=== PATIENT | male | born 1935 | race Caucasian/White ===

== ENCOUNTER 2018-11-23 11:45 | Inpatient (IN) ==
[2018-11-23] MEDS ORDERED: NS 1,000 ML IV ONE (12:45)
[2018-11-23] MEDS ORDERED: MORPHINE IV ONE (12:48)
[2018-11-23] MEDS ORDERED: CLINDAMYCIN 600 MG/NS 600 MG/50 ML IVPB IV ONE (12:49)
--- NOTE | 2018-11-23 13:04 | Diag Imaging Result Doc PS360 ---
EXAM: FOOT COMPLETE LEFT 11/23/2018 HISTORY: diabetic foot TECHNIQUE: Three views COMMENT: There is no evidence of fracture, dislocation, periosteal reaction, erosion, or sclerosis. There is some plantar spurring of the calcaneus. There are vascular calcifications. IMPRESSION: No acute bony abnormality. Electronically signed by Aaron Monte 11/23/2018 1:01 PM
[2018-11-23 13:28] LABS: BASO# 0.02 X1000 (0.0-0.2); BASO% 0.1 % (0.0-0.8); EOS# 0.18 X1000 (0.0-0.7); EOS% 1.2 % (0.0-10.0); HEMATOCRIT 38.2 % (42.0-52.0); HEMOGLOBIN 12.6 g/dL (14.0-18.0); LYMPH# 2.73 X1000 (1.2-3.4); LYMPH% 18.4 % (20.5-51.1); MCH 31.8 PG (27-31); MCV 96.5 FL (81-99); MONO# 1.24 X1000 (0.11-0.59); MONO% 8.4 % (1.7-9.3); MPV 9.7 FL (7.4-10.4); NEUT# 10.67 X1000 (1.4-6.5); NEUT% 71.9 % (42.2-75.2); PLT 391 X1000 (130-400); RBC 3.96 XMIL (4.7-6.1); RDW 12.5 % (11.5-14.5); WBC 14.84 X1000 (4.8-10.8)
[2018-11-23] MEDS ORDERED: CLINDAMYCIN 600 MG/D5W 600 MG/50 ML IVPB IV ONE (13:35)
[2018-11-23 13:49] LABS: ALBUMIN 3.9 g/dL (3.5-5.0); CALCIUM 9.5 mg/dL (8.8-10.2); CREATININE 2.9 mg/dL (0.7-1.2); POTASSIUM 4.5 mmol/L (3.5-5.1); TOTAL BILIRUBIN 0.35 mg/dL (0.20-1.00); TOTAL PROTEIN 7.7 g/dL (6.3-8.3)
--- NOTE | 2018-11-23 14:18 | PROVIDER DOCUMENTATION ---
This chart was entered by Codi Choi Scribe, acting as scribe for Nolan Clifford MD. HPI-Rash/Wound/ReCheck - General Chief Complaint: Sores/Lesions Stated Complaint: LEFT FOOT INFECTION,DIABETIC Time Seen by Provider: 11/23/18 12:09 Source: patient Allergies/Adverse Reactions: Allergies Allergy/AdvReac Type Severity Reaction Status Date / Time No Known Allergies Allergy Verified 11/23/18 12:09 Home Medications: Home Medication List Medication Instructions Recorded Confirmed Last Taken Type Amlodipine [Norvasc] 10 mg PO DAILY 05/14/13 05/14/13 05/13/13 09:00 History Aspirin [Aspirin EC] 81 mg PO DAILY 05/14/13 05/14/13 05/07/13 History Carvedilol [Coreg] 6.25 mg PO DAILY 05/14/13 05/14/13 05/13/13 09:00 History Garlic 1 each PO DAILY 05/14/13 05/14/13 05/13/13 09:00 History Glimepiride 4 mg PO DAILY 05/14/13 05/14/13 05/13/13 09:00 History Lisinopril/Hydrochlorothiazide 1 each PO DAILY 05/14/13 05/14/13 05/13/13 09:00 History [Lisinopril-Hctz 20-12.5 mg Tab] Metformin HCl [Metformin HCl ER] 1,000 mg PO DAILY 05/14/13 05/14/13 05/13/13 12 :00 History Naproxen Sodium [Aleve] 220 mg PO BID 05/14/13 05/14/13 05/07/13 History [place]-3 Fatty Acids [Fish Oil] 1,000 mg PO DAILY 05/14/13 05/14/13 05/13/13 09: 00 History PRAVAstatin [Pravachol] 40 mg PO DAILY 05/14/13 05/14/13 05/13/13 21:00 History Vitamin E [Formula E] 400 unit PO DAILY 05/14/13 05/14/13 05/13/13 09:00 History - History of Present Illness-Dermatology Nature of Presenting Problem: 83 yom presents to the ed with c/o diabetic foot ulcerations between digits on left foot for 1 week. pt went to walking clinic and sent to ed due to abnormal labs Location: reports: other (left foot) Quality: reports: painful Severity: reports: moderate Onset/Duration: reports: 1 week ago Timing: reports: still present, getting worse Context/Associated Symptoms: reports: edema, tender area (left foot), other ( diabetic ulcerations) Identifiable cause?: Yes ( ulcerations) Locality of Occurance: Home Similar Symptoms Previously?: Yes Recently seen or treated by another doctor?: Yes Review of Systems - Adult - REVIEW OF SYSTEMS - ADULT Constitutional: reports: no symptoms reported Eyes: denies: blurred vision, double vision Ears, Nose, Mouth & Throat: reports: no symptoms reported Cardiovascular: denies: chest pain, palpitations Respiratory: denies: cough, shortness of breath, wheezing Gastrointestinal: denies: abdominal pain, diarrhea, nausea, vomiting Genitourinary: reports: no symptoms reported Musculoskeletal: denies: back pain, other Integumentary: reports: see HPI, skin sores/ulcer Neurological: denies: dizziness/vertigo, headache/migraines Psychiatric: reports: no symptoms reported Endocrine: reports: no symptoms reported Hematologic/Lymphatic: reports: no symptoms reported Allergic/Immunologic: reports: no symptoms reported All Other Systems: Reviewed and Negative Past History - Adult - PAST MEDICAL HISTORY-ADULT Review of Records: reports: Old Records Reviewed, Nursing Assessment Review, Medications Reviewed, Social history reviewed & non-contributory. Major Childhood Illnesses: reports: denies history Cardiovascular: reports: HTN, hyperlipidemia Respiratory: reports: denies history Gastrointestinal: reports: GERD Genitourinary: reports: denies history Musculoskeletal: reports: chronic pain Neurological: reports: denies history Endocrine/Immune: reports: Diabetes Diabetes Type: Type 2 Other Conditions: reports: denies history - PRIOR SURGERIES/PROCEDURES Surgical/Procedure History: reports: cholecystectomy, back/neck - IMMUNIZATION STATUS Childhood Immunizations: See Nurse Assessment Flu Vaccine: See Nurse Assessment - FAMILY HISTORY Family History: reviewed, not pertinent - SOCIAL HISTORY Smoking: denies Substance Use: denies Alcohol Use Frequency: never Living Situation: family Physical Exam-General - PHYSICAL EXAM-ADULT Initial Vital Signs Reviewed: Yes - CONSTITUTIONAL General Appearance: alert, no apparent distress - EYES Eyes: PERRL/EOMI, pink conjunctivae - HEAD, EARS, NOSE, MOUTH & THROAT HENMT: normocephalic/atraumatic, moist mucous membranes, normal ENT inspection - NECK Neck: full range of motion, supple, normal inspection - RESPIRATORY Respiratory: chest non-tender, lungs clear, normal breath sounds - CARDIOVASCULAR Cardiovascular: normal peripheral pulses, regular rate, rhythm - GASTROINTESTINAL (ABDOMEN) Abdominal Exam: normal bowel sounds, non tender, soft - LYMPHATIC Lymphatic: no adenopathy - MUSCULOSKELETAL Back Exam: normal inspection, no CVA tenderness, no vertebral tenderness Extremity: normal range of motion, non-tender, normal capillary refill, swelling , tenderness, other (ulceration in between 2/3 3/4 4/5 sigit with pus and erythema L foot.). negative: normal gait (can not bear weight) - SKIN Integumentary: normal color, normal turgor, warm/dry - NEUROLOGIC Neurologic: grossly normal, no motor/sensory deficits - PSYCHIATRIC Psych/Mental Status: normal mood/affect, normal thought content, normal thought process, oriented x 3 Progress - PLAN OF CARE/RESULTS Progress/Plan/Lab Results: Vital Signs - 8 hr 11/23/18 11:48 Temperature 97.9 F Pulse Rate 80 Respiratory Rate 18 Blood Pressure 143/61 O2 Sat by Pulse Oximetry 98 Laboratory Results - last 24 hr 11/23/18 11/23/18 13:04 13:04 WBC 14.84 H RBC 3.96 L Hgb 12.6 L Hct 38.2 L MCV 96.5 MCH 31.8 H MCHC 33.0 RDW Std Deviation 12.5 Plt Count 391 MPV 9.7 Neut % (Auto) 71.9 Lymph % (Auto) 18.4 L [place] % (Auto) 8.4 Eos % (Auto) 1.2 Baso % (Auto) 0.1 Neut # (Auto) 10.67 H Lymph # (Auto) 2.73 [place] # (Auto) 1.24 H Eos # (Auto) 0.18 Baso # (Auto) 0.02 Sodium 140 Potassium 4.5 Chloride 102 Carbon Dioxide 21 L Anion Gap 17 BUN 53 H Creatinine 2.9 H Estimated GFR/1.73 m2 21 BUN/Creatinine Ratio 18 Glucose 131 H Calculated Osmolality 296 Calcium 9.5 Total Bilirubin 0.35 AST 15 ALT 13 Alkaline Phosphatase 91 Total Protein 7.7 Albumin 3.9 Globulin 3.8 Albumin/Globulin Ratio 1.0 Orders Category Date Time Status Saline Loc NOW Care 11/23/18 12:45 Active FOOT COMPLETE LEFT [RAD] Stat Exams 11/23/18 12:46 Completed CBC WITH ELECTRONIC DIFF [HEME] Stat Lab 11/23/18 13:04 Completed COMPREHENSIVE METABOLIC PANEL [CHEM] Stat Lab 11/23/18 13:04 Completed 0.9% Sodium Chloride Inj [Ns] 1,000 ml Med 11/23/18 12:45 Discontinued IV 999 mls/hr Clindamycin 600 mg/D5w Med 11/23/18 13:35 Discontinued 600 mg in 50 ml IV NOW Morphine Med 11/23/18 12:48 Discontinued 4 mg IV NOW ONE Result Diagrams: 11/23/18 13:04 11/23/18 13:04 - REASSESSMENT Reassessment #1 Time Reassessed: 13:09 (dr at bedside) Status: unchanged - XRAY 1 XRAY: Left XRAY Study: Foot (EXAM: FOOT COMPLETE LEFT 11/23/2018 HISTORY: diabetic foot TECHNIQUE: Three views COMMENT: There is no evidence of fracture, dislocation, periosteal reaction, erosion, or sclerosis. There is some plantar spurring of the calcaneus. There are vascular calcifications. IMPRESSION: No acute bony abnormality. Electronically signed by Aaron Monte 11/23/2018 1: 01 PM 11/23/18 1301 Interpreting Physician: Aaron Monte MD Dictated Date/Time: 11/23/18 1300 cc: Nolan Clifford MD; Pernell Méndez) - CONSULTS/PCP/HOSPITALIST Notification #1 *Consult/PCP/Hospitalist*: Pineda morejon , for Dr Pizano Time Discussed: 14:17 Consult Disposition: Admit Departure - Departure Date of Disposition Decision: 11/23/18 Time of Disposition Decision: 14:17 DIAGNOSIS: Diabetic foot infection Disposition: ADMITTED INPATIENT 09 Certified Medical Emergency: Emergent Condition: Fair Referrals and Follow-Ups: Pernell Méndez [Primary Care Provider] - - Critical Care Note This patient required my direct & personal management of CC.: Yes Total Time (mins): 38 Critical Care Statement: This patient required my direct personal management to treat or rule out processes, the absence of which, could potentiallly result in sudden, clinically significant life or limb threatening deterioration. Attestation - Physician/ [place] Attestation Patient care was provided by Advanced Practice Provider:: No The physician spent face to face time with patient:: Yes Advanced Practice Provider documentation review:: Supervising physician onsite and consulted in the evaluation and care of this patient. The physician did have a face to face encounter with the patient. This chart was documented by the indicated scribe, (Codi Choi Scribe) and accurately reflects the services I performed and decisions made by me, Nolan Clifford MD, as attested by the provider's signature.
[2018-11-23] MEDS ORDERED: VANCOMYCIN IV PER PHARMACY MISC SCH (15:34)
--- NOTE | 2018-11-23 16:21 | HISTORY AND PHYSICAL ---
CHIEF COMPLAINT: Left sore foot. HISTORY OF PRESENT ILLNESS: Mr. Hickey is an 83-year-old gentleman, who carries a past medical history of diabetes mellitus, hypertension, hyperlipidemia, probable paroxysmal atrial fibrillation after having back surgery a year and a half ago, and he states he was never put on any blood thinners for unknown reason. He states his diabetes is controlled with Actos. He has been off metformin for 2 years now. He does not check his blood sugars regularly, and he reports that he does have palpitations every now and then; however, not today on the day of admission. He states several weeks ago he was having some tingling in his left lower extremity. He was supposed to have a MRI of his back and leg today, however he canceled the appointment. He stated several weeks ago he began soaking it, putting Neosporin as well as what he described as some numbing back spray on his foot to help with the tingling sensation. He does have a fourth toe that is blue. The whole foot appears to be erythematous, does have 1+ pitting edema. He does have what appears to be some pus in between his great toe and second toe. It is tender to the touch. He normally gets around with a walker, but is getting to the point where it is hard for him to get up and move around. He cannot handle a sock or sheet on that lower extremity, so he went to the walk[facility] clinic [facility], who sent him to the ED for abnormal labs. He was found to have an elevated BUN and creatinine. He has never been told that he has chronic kidney disease; however, over a year ago he had a creatinine of 1.9. Today, he has a creatinine of 2.9 and a BUN of 53, as well as an elevated white count of 14. He has denied any fever, chills. No chest pain. No palpitations. No nausea, vomiting, diarrhea. He will be admitted to medical telemetry with IV antibiotics for diabetic foot infection with a consult with Infectious Disease, General Surgery and Wound Care. PAST MEDICAL HISTORY: 1. Possible paroxysmal atrial fibrillation after back surgery. Patient does report every now and then he continues to feel palpitations. 2. Hypertension. 3. Diabetes mellitus. 4. Hyperlipidemia. SURGICAL HISTORY: 1. Back surgery a year and a half ago. 2. Cholecystectomy 10 years ago. 3. Neck surgery 30 years ago. SOCIAL HISTORY: He is a . He lives in [place]. He is retired from [employer]. He has 3 sons who live out of town, 7 grandchildren and 13 great-grandchildren. He was a smoker for many years, but quit 30 years ago and, since that time, he has dipped [place] 1 can every day and a half. Denies any alcohol or illicit drug use. FAMILY HISTORY: Does not recall any coronary artery disease. ALLERGIES: No known drug allergies. HOME MEDICATIONS: Have not been reconciled. PHYSICAL EXAMINATION: VITAL SIGNS: Temperature is 97.9 degrees, heart rate 80, respirations 18, blood pressure 143/61, O2 is 98% on room air. GENERAL: Mr. Hickey is a pleasant 83-year-old male who is sitting up in the bed in no acute distress. HEENT: Atraumatic, normocephalic. PERRL. NECK: Supple. Trachea midline. CV: S1, S2 appreciated. Possible murmur. No gallops or rubs. No JVD. Bilateral lower extremity pulses are palpable. He does have 1+ pitting edema to the left lower extremity secondary to his infection. PULMONARY: Bilateral breath sounds. Clear to auscultation. No rales, rhonchi or wheezes. GI: Soft, nontender, nondistended. Positive bowel sounds 4 quadrants. EXTREMITIES: No clubbing or cyanosis noted. NEUROLOGIC: Alert and oriented x4. Follows commands. Moves all extremities. No focal deficits noted. SKIN: Warm, dry and intact except for left lower extremity as described in HPI. DIAGNOSTIC DATA: Left foot x-ray: No acute bony abnormality. LABORATORY DATA: White count 14, H and H 12 and 38, platelet count is 391. Chemistry: Sodium 140, potassium 4.5. BUN 53, creatinine 2.9, blood glucose is 131. ASSESSMENT AND PLAN: 1. Left diabetic foot infection. We will start vancomycin and Zosyn. Consult Wound Care, Infectious Disease and General Surgery. Magnetic resonance imaging of the left lower extremity. Continue with morphine for pain control. 2. Acute kidney injury on probable chronic kidney disease. We will check urine studies. 3. Diabetes mellitus. We will continue with pattern blood sugars and sliding scale insulin. Check hemoglobin A1c in the morning. Continue intravenous fluids. 4. Hypertension. Will continue home medications when reconciled. 5. Hyperlipidemia. Will continue statin. 6. Paroxysmal atrial fibrillation. The patient states he has not been on any anticoagulation for this. However, he is concerned over frequent palpitations. We will continue to monitor him on telemetry and continue beta kim. 7. Gastrointestinal prophylaxis. Will continue Prilosec. 8. Deep venous thrombosis prophylaxis. Continue heparin subcutaneously. Further recommendation to follow laboratory data, physician evaluation, and diagnostic data. Dictated by TALIB Enciso for Darline Pizano MD cc: MD Pernell Rivero MD Leroy F. Harris, MD Lynn R. Buckner, MD I performed a face to face encounter on this patient. I reviewed all imaging and labs on this patient. I agree with the H&P as dictated. The patient presented to the ER with a chief complaint of pain, swelling and erythema involving his left foot. In the ER, the patient was noted to have purulent discharge between his left great toe and the second toe. Also his foot was dusky in color and cold to touch. The patient will be admitted to the medical floor on telemetry. Will culture the discharge from the left foot and consult with ID and general surgery. The patient will be started on broad spectrum antibiotics. ATILIOD
--- NOTE | 2018-11-23 16:45 | Diag Imaging Result Doc PS360 ---
EXAM: US RENAL 2 (RETROPER) COMPLETE 11/23/2018 HISTORY: acute kidney injury TECHNIQUE: Renal ultrasound COMMENT: The urinary bladder is not distended. There is no evidence of hydronephrosis. Both kidneys are somewhat hyperechoic. The right measures 9.3 x 4.5 x 4.6 cm the left is 9.2 x 4.6 x 5.0 cm. IMPRESSION: No evidence of obstructive uropathy. The possibility of medical renal disease cannot be excluded. Electronically signed by Aaron Monte 11/23/2018 4:43 PM
--- NOTE | 2018-11-23 17:10 | EKG Report ---
Test Performed on : 11/23/2018 4:50:39 PM Test Reason : tachycardia Blood Pressure : / mmHG Vent. Rate : 075 BPM Atrial Rate : 075 BPM P-R Int : 168 ms QRS Dur : 084 ms QT Int : 388 ms P-R-T Axes : 055 006 107 degrees QTc Int : 433 ms Normal sinus rhythm. Nonspecific ST and T wave abnormality Abnormal ECG When compared with ECG of 23-NOV-2018 16:49, (Unconfirmed) No significant change was found Confirmed by Alvina EMERY, Mainor Fisher ([id number]) on 11/24/2018 8:53:50 AM
[2018-11-23] MEDS: ZOSYN 2.25 GM in NS 50 ML IV SCH (17:45)
[2018-11-23] MEDS: NS 1,000 ML IV SCH (17:45)
[2018-11-23] MEDS: HEPARIN SUBQ SCH (17:46)
[2018-11-23] MEDS ORDERED: DILAUDID IV PRN (18:29)
[2018-11-23 18:50] LABS: URINE SOURCE CLEAN CATCH
[2018-11-23 18:55] LABS: BILIRUBIN URINE NEGATIVE (NEGATIVE); BLOOD URINE NEGATIVE (NEGATIVE); COLOR YELLOW; GLUCOSE URINE NEGATIVE (NEGATIVE); KETONE URINE NEGATIVE (NEGATIVE); LEUKOCYTES URINE NEGATIVE (NEGATIVE); NITRITE URINE NEGATIVE (NEGATIVE); PROTEIN URINE 100 mg/dL (NEGATIVE); SP GRAVITY URINE 1.006; TURBIDITY URINE CLEAR (CLEAR); UROBILINOGEN URINE NORMAL (NORMAL)
[2018-11-23 18:56] LABS: UR EPITHELIAL CELLS <10 /HPF (<10); URINE BACTERIA NEGATIVE /HPF; URINE RBC <10 /HPF (<10); URINE WBC <10 /HPF (<10)
[2018-11-23 19:14] LABS: UR CREAT RANDOM 52.8 mg/dL (14-26)
[2018-11-23] MEDS: HUMALOG SUBQ SCH (22:40)
[2018-11-23] MEDS: ZYVOX PO SCH (22:40)
[2018-11-24] MEDS: ZOFRAN IV PRN (00:23)
[2018-11-24] MEDS: ZOSYN 2.25 GM in NS 50 ML IV SCH ×5 (00:24→23:27)
--- NOTE | 2018-11-24 02:14 | INFECTIOUS DISEASE CONSULT REP ---
DATE: 11/23/2018 CONCLUSION: The patient has cellulitis and ischemia of his left foot. RECOMMENDATIONS: I agree with treating the patient with Zyvox and Zosyn. The patient had purulent material between the toes, and I have taken a culture of them. DISCUSSION: The patient tells me his foot became erythematous last week, and it started swelling. He placed some medications that he had at home on the foot. He has not had fever or chills, but his foot is very painful. LABORATORY STUDIES: Thus far, show a CBC with a white count of 14,840, hemoglobin 12.6, and platelet count 391,000. Creatinine is 2.9. GFR is 21. Liver function studies are normal. X-ray of the patient's left foot shows no bony abnormality. PAST MEDICAL HISTORY/REVIEW OF SYSTEMS: Eyes and Ears: He has decreased vision and hearing. Neck: No stiffness. Respiratory: No cough or shortness of breath. Cardiac: No chest pain or palpitations. GI: No nausea, vomiting, or diarrhea. : No dysuria or flank pain. Neurologic: The patient does not have any motor function loss. He does not have seizures. Bones, Joints, Muscles: See present illness. Integument: No rashes. PREVIOUS HOSPITALIZATIONS AND OPERATIONS: He has had his spinal surgery on the C-spine and lumbar spine. Metal was put in during the procedure. MEDICAL DISEASES: Positive for diabetes mellitus, hypertension, hyperlipidemia, and degenerative joint disease of the spine. INFECTIOUS DISEASE HISTORY: Negative for pneumonia and UTI. FAMILY HISTORY: Positive for diabetes mellitus and cancer. SOCIAL HISTORY: The patient is a . He lives in [place]. He lives alone. He does not have any drug allergies. He does not have any pets at home. He is retired from his work. The patient does not smoke cigarettes, drink alcoholic beverages, or abuse drugs. HOME MEDICATIONS: Norvasc, aspirin, Coreg, glimepiride, lisinopril/hydrochlorothiazide, metformin, naproxen, and Pravachol. PHYSICAL EXAMINATION: Vital Signs: Temperature is 98.3, pulse 78, respirations 18, blood pressure 140/47. The patient is 5 feet 6 inches tall, weighs 200 pounds. General: This is an obese, elderly male, in no acute distress. Head, Eyes, Ears, Nose, and Throat: He can hear my spoken words and see near objects. He does not have any white patches on his tongue. I did not see any caries. Neck: No meningismus. Thorax: No increased AP diameter of the chest. Lungs: Clear to auscultation. Cardiovascular: There were markedly diminished peripheral pulses in the left foot. In fact, I could not feel any peripheral pulses. The left foot was erythematous, and the 4th toe was ischemic, with a purplish discoloration. Neurologic: The patient is alert. He can move his extremities. There is no tremor. His sensory function was intact to touch. The patient's memory as regarding his medical history was good. Thank you for the consult. cc: Zak Russo MD
[2018-11-24] MEDS: DILAUDID IV PRN ×3 (03:36→15:57)
[2018-11-24] MEDS: HEPARIN SUBQ SCH ×2 (03:36→15:57)
[2018-11-24] MEDS: PRILOSEC PO SCH (06:54)
[2018-11-24] MEDS: HUMALOG SUBQ SCH ×4 (07:00→21:52)
[2018-11-24 07:16] LABS: BASO# 0.02 X1000 (0.0-0.2); BASO% 0.1 % (0.0-0.8); EOS# 0.11 X1000 (0.0-0.7); EOS% 0.8 % (0.0-10.0); HEMATOCRIT 37.6 % (42.0-52.0); HEMOGLOBIN 12.1 g/dL (14.0-18.0); IMM GRAN# 0.06 X1000 (0.0-0.04); IMM GRAN% 0.4 % (0.0-0.5); LYMPH# 4.07 X1000 (1.2-3.4); LYMPH% 30.2 % (20.5-51.1); MCH 31.3 PG (27-31); MCHC 32.2 g/dL (33-37); MCV 97.4 FL (81-99); MONO# 1.11 X1000 (0.11-0.59); MONO% 8.2 % (1.7-9.3); MPV 9.9 FL (7.4-10.4); NEUT# 8.12 X1000 (1.4-6.5); NEUT% 60.3 % (42.2-75.2); PLT 406 X1000 (130-400); RBC 3.86 XMIL (4.7-6.1); RDW 12.6 % (11.5-14.5); WBC 13.49 X1000 (4.8-10.8)
[2018-11-24 07:38] LABS: HEMOGLOBIN A1C 6.4 % (4.8-6.0)
--- NOTE | 2018-11-24 07:48 | CONSULTATION ---
DATE OF CONSULTATION: 11/24/2018 REASON FOR CONSULTATION: Mr. Ryan Hickey is an 83-year-old white male diabetic who for several weeks has been experiencing left foot pain. He has required a walker to help him walk because of this left foot. He does have a history of atrial fibrillation. He is not on anticoagulation. Evidently was seen by his family who did not like the look of his left foot and he was told to go to the doctor. He went [facility] and then was sent to our emergency department for further evaluation and admission. We were asked to see him because of a left diabetic foot. PAST MEDICAL HISTORY: He has had back surgery and that was complicated by atrial fibrillation postoperatively. Evidently the patient still feels palpitations, hypertension, diabetes mellitus, hyperlipidemia. SURGICAL HISTORY: 1. Back surgery. 2. Cholecystectomy. 3. Neck surgery. SOCIAL HISTORY: He is a . He lives in [place]. He is retired from [employer]. He has 3 sons who live out of town, 7 grandchildren, 13 great grandchildren. He was a smoker for many years but quit 30 years ago and since that time has dipped. FAMILY HISTORY: Coronary artery disease. ALLERGIES: No known drug allergies. HOME MEDICATIONS: Have been reviewed. PHYSICAL EXAMINATION: General: On exam, Mr. Hickey is an older white male, no acute distress. HEENT: No jaundice. No oral lesions. No cervical or supraclavicular lymphadenopathy. Heart: His heart appears to have a regular rate this morning. Lungs: His lungs are clear. Abdomen: Is soft, nontender without palpable mass. He had no costovertebral tenderness. He does have palpable femoral pulses. I could not palpate any pedal pulses in the left foot. The left foot appears to be ischemic. Right foot is warm. He has minimal peripheral edema. No focal deficits. He is awake and cooperative. IMPRESSION: Ischemic left foot in a patient with a history of atrial fibrillation not on anticoagulation. He is on IV antibiotics which I agree with. He probably needs to be anticoagulated. We will get noninvasive vascular studies on him this morning. It appears that this rest pain or ischemia has been going on for several weeks. He may end up losing his left leg. cc: Amelia Choi MD
[2018-11-24 07:55] LABS: ALB/GLOB RATIO 1.1; ALBUMIN 3.7 g/dL (3.5-5.0); CALCIUM 9.2 mg/dL (8.8-10.2); CREATININE 2.7 mg/dL (0.7-1.2); MAGNESIUM 2.2 mg/dL (1.5-2.7); PHOSPHORUS 4.3 mg/dL (2.7-4.5); TOTAL BILIRUBIN 0.37 mg/dL (0.20-1.00); TOTAL PROTEIN 7.2 g/dL (6.3-8.3)
[2018-11-24 08:08] LABS: TSH 2.85 uIUmL (0.27-4.20)
[2018-11-24] MEDS ORDERED: COREG PO SCH (09:00)
[2018-11-24] MEDS ORDERED: NORVASC PO SCH (09:00)
[2018-11-24] MEDS ORDERED: FENTANYL ONE (09:23)
[2018-11-24] MEDS ORDERED: AMIDATE ONE (09:24)
[2018-11-24] MEDS ORDERED: XYLOCAINE-MPF 2% ONE (09:24)
[2018-11-24] MEDS: NS 1,000 ML IV SCH (10:04)
[2018-11-24] MEDS ORDERED: NS 2,000 ML ONE (10:07)
[2018-11-24] MEDS ORDERED: HEPARIN ONE ×2 (10:07)
[2018-11-24] MEDS: ASPIRIN EC PO SCH (12:49)
[2018-11-24] MEDS: ZYVOX PO SCH ×2 (12:50→21:56)
[2018-11-24] MEDS ORDERED: VERSED ONE (12:59)
[2018-11-24] MEDS ORDERED: XYLOCAINE-MPF 1%/EPI 1:200,000 ONE (13:19)
[2018-11-24] MEDS ORDERED: MARCAINE 0.25% PF ONE (13:19)
--- NOTE | 2018-11-24 13:47 | INFECTIOUS DISEASE PROGRESS NO ---
DATE: 11/24/2018 PRESENT ILLNESS: Mr. Hickey has cellulitis and left foot ischemia. He is planning on going to surgery this afternoon for left lower extremity thrombectomy with Dr. Choi. MEDICATIONS: He is receiving Zyvox 600 mg by mouth every 12 hours and Zosyn 2.25 g IV every 6 hours. Today is day 1 of these medications. PHYSICAL EXAMINATION: Vital Signs: Temperature 98.3 degrees, pulse rate 74, respiratory rate 16, blood pressure 131/50, O2 saturation 90% on room air. General: This is an elderly, acutely ill- appearing gentleman. He is lying in the bed, in no acute distress. HEENT: Atraumatic, normocephalic. Oral mucous membranes are pink and moist. Conjunctivae are pink. Neck: Supple. Trachea is midline. Cardiovascular: Heart rate and rhythm are regular. Normal sinus rhythm on the monitor. Systolic murmur noted. Pedal pulses are palpable but diminished bilaterally, +1. There is erythema to the left foot with some purulence noted between the toes. Respiratory: Lung sounds are clear to auscultation. Abdomen: Soft, round, nontender. Bowel sounds are active. Neurologic: He is awake, alert, and oriented. Able to move all extremities with assistance in the bed. LABORATORY AND X-RAY: Today, his white count is 13.49, hemoglobin 12.1, platelet count 406,000. Creatinine is 2.7. GFR is 23. AST 16, ALT 11, alkaline phosphatase 98. His left foot culture requires more incubation. No imaging reports today. ASSESSMENT AND PLAN: Mr. Hickey has cellulitis with ischemia of his left foot. The plan is for him to have thrombectomy, to be done this afternoon. At this point, we will continue his Zosyn and Zyvox as ordered pending final culture results. The previous plans been discussed with and recommended by Dr. Russo. COMORBIDITIES: He is elderly with diabetes mellitus. Dictated by TALIB Harris for Zak Russo MD This chart was documented by, TALIB Harris and accurately reflects the services performed, treatment plan and medical decisions as attested by the providers signature Zak Russo MD. cc: Zak Russo MD [facility]
[2018-11-24] MEDS ORDERED: MORPHINE ONE (14:30)
[2018-11-24 14:48] LABS: URINE SOURCE CATH
[2018-11-24 14:58] LABS: BILIRUBIN URINE NEGATIVE (NEGATIVE); BLOOD URINE NEGATIVE (NEGATIVE); COLOR YELLOW; GLUCOSE URINE NEGATIVE (NEGATIVE); KETONE URINE NEGATIVE (NEGATIVE); LEUKOCYTES URINE NEGATIVE (NEGATIVE); NITRITE URINE NEGATIVE (NEGATIVE); PROTEIN URINE 100 mg/dL (NEGATIVE); SP GRAVITY URINE 1.011; TURBIDITY URINE CLEAR (CLEAR); UROBILINOGEN URINE NORMAL (NORMAL)
[2018-11-24 14:59] LABS: UR EPITHELIAL CELLS <10 /HPF (<10); URINE BACTERIA NEGATIVE /HPF; URINE RBC <10 /HPF (<10); URINE WBC <10 /HPF (<10)
--- NOTE | 2018-11-24 15:28 | PROGRESS NOTE ---
DATE: 11/24/2018 Mr. Hickey underwent a left lower extremity arteriogram today. It appears that his rest pain and ischemic left foot is secondary to chronic peripheral vascular disease instead of an acute thrombus. We, therefore, did not make any incision in the groin or perform a thrombectomy. He has a dressing on his groin that will be removed at 6 p.m., then we need to consider whether to anticoagulate him for his atrial fibrillation and ischemic left foot. We also need to keep track of his creatinine because I did give him about 50 mL of dye for the arteriogram. Further evaluation of his peripheral arteries can be made using CT angiogram. Dr. Cha returns Tuesday and he possibly can evaluate him for any bypass surgery, if that is possible. He may end up requiring a left [id number] amputation. I have discussed this frankly with the patient's family and the patient. Dr. Damir Alba is on the weekend. [facility] will cover for me New Year's week. cc: Amelia Choi MD
[2018-11-24] MEDS ORDERED: SODIUM CHLORIDE 0.9% INJ PRN (15:52)
[2018-11-24] MEDS ORDERED: PHENERGAN IV PRN (15:52)
[2018-11-24] MEDS ORDERED: LR 1,000 ML IV SCH (16:00)
--- NOTE | 2018-11-24 20:19 | PROGRESS NOTE ---
DATE: 11/24/2018 SUBJECTIVE: The patient is resting comfortably in bed. OBJECTIVE: Vital Signs: Temperature 98.6 degrees, blood pressure 105/36, heart rate 75, respirations 18, O2 saturation 98% on 4 L. General: This is a chronically ill-appearing elderly male lying in bed in no acute distress. Heart: S1, S2 normal. Regular rate and rhythm. Lungs: Equal air entry bilaterally. No crackles. No rales. Abdomen: Positive bowel sounds. Soft, nontender, nondistended. Extremities: No edema. No cyanosis. LABS: White blood cell count 13, hemoglobin 12, hematocrit 37, platelets 406,000, sodium 143, potassium 5, chloride 108, CO2 20, BUN 45, creatinine 2.7, glucose 106. A1c 6.4. ASSESSMENT AND PLAN: 1. Ischemic left foot secondary to chronic peripheral vascular disease. The patient underwent a left lower extremity arteriogram today. He did receive some IV dye for this study. Will continue with the current treatment plan. General Surgery is following. The patient is also on antibiotic therapy. 2. Acute kidney injury. The patient's BUN and creatinine are improved with IV fluid hydration. We will monitor the patient's urine output and laboratory data closely since he has received IV dye today. 3. Diabetes mellitus type 2. Continue on sliding scale insulin. 4. Left foot cellulitis. Continue with antibiotic therapy. 5. Leukocytosis. Improved. 6. Gastrointestinal prophylaxis. Continue on omeprazole. 7. Deep vein thrombosis prophylaxis. Continue on heparin. cc: Darline Pizano MD
--- NOTE | 2018-11-24 20:44 | VASCULAR LAB ---
DATE: 11/24/2018 TUBULAR PRODUCTS FABRICATOR: Ivette. REQUESTING PHYSICIAN: Dr. Amelia Choi. INDICATION: Left foot ischemia with wound. FINDINGS: Brachial on the right is 125, on the left 143. High thigh were unobtainable bilaterally. Low thigh greater than 250, on the left 108. Calf on the right is 115, on the left 71. DP on the right is 81, not measured on the left. PT on the right 64, on the left 43. Toe pressure on the right is 28, on the left 1. AB on the right is 0.57, on the left 0.30. Toe brachial index on the right is 0.20, on the left 0.01. SUMMARY: There is severe blunting of the wave forms throughout the bilateral lower extremities. MARIELOS is suppressed to the moderate or severe range bilaterally with near flattening of the wave forms at the ankle on the left toe and foot. Would recommend correlation with angiography as clinically indicated. cc: MD Amelia Campuzano MD
[2018-11-24] MEDS: PERIDEX MT SCH (21:56)
[2018-11-25] MEDS: NORCO-10 PO PRN ×2 (00:47→13:55)
--- NOTE | 2018-11-25 01:34 | OPERATIVE NOTE ---
PROCEDURE DATE: 11/24/2018 PREOPERATIVE DIAGNOSIS: Rest pain left foot. POSTOPERATIVE DIAGNOSIS: Rest pain left foot. PRINCIPAL PROCEDURE: Left lower extremity arteriogram. SURGEON: Amelia Choi MD. ANESTHESIA: General using an LMA. ESTIMATED BLOOD LOSS: 10 mL. DRAINS: None. INDICATIONS FOR PROCEDURE: Mr. Ryan Hickey is an 83-year-old white male who has diabetes which is controlled with oral medications. He used to smoke but that was 30 years ago. He had back surgery 2-3 years ago and evidently he has had problems with his left lower extremity since his back surgery. It is difficult to get an accurate history from him, but it seemed like over the last 2 weeks his left foot has gotten worse. He lives by himself, and he has been having rest pain and has required a wheelchair or a walker to get around his place of living in [place]. He presented to our emergency department because a friend was concerned about the way his left foot looked. He was admitted with the diagnosis of a diabetic foot infection and when I saw him it was clear that he had ischemic left foot. I was unsure of whether he had an acute clot because he does have atrial fibrillation and he has been on no anticoagulation. So we felt we should take him to the operating room after a noninvasive vascular study showed no pulsatile flow below the thigh, and see if there was an acute thrombus that I could remove that would be helpful in blood flow, or whether this was chronic disease. We decided on performing a left lower extremity arteriogram before any incision. FINDINGS: The arteriogram suggested chronic vascular disease and no acute thrombus. He had a palpable left femoral pulse. His profunda was patent. His superficial femoral artery seem to be patent mid way down to the calf but then was occluded, and it did not appear to be a clot that was occluding it but chronic disease. There was reconstitution of part of the popliteal and at least 1 small vessel below the knee. It did not appear that he had an acute clot causing obstruction, but this was chronic disease. DESCRIPTION OF PROCEDURE: The patient was brought to the operating room, placed supine, received general anesthesia, and was ventilated using the LMA. His left lower extremity was prepped and draped within a sterile field. I used an 18-gauge needle in a retrograde stick under ultrasound guidance to access the left common femoral artery. We placed a guidewire through the needle and then we used a 4-Ethiopian sheath over the guidewire. I removed the dilator and guidewire, and I had good back bleeding and we flushed the sheath with heparin saline. We then used the sheaths for our arteriogram. We used 25 mL of dye x2 for 2 different left lower extremity arteriograms with the findings above. He did have some renal dysfunction and we did not want to use any more dye than between 50 and 60 mL. A Ramirez catheter tube was in place. We felt that he would not benefit from any cut down on his left groin and thrombectomy. We therefore aborted the procedure after the arteriogram, we held pressure in the left groin, and plans are for him to go the recovery room and then return to the floor. I was flaco with the family about the poor flow and that it was chronic disease, and that he may lose his leg above the knee. I feel that later this evening or tomorrow we can put him on IV heparin, get a CT angiogram to further delineate his arterial anatomy, and reassess if there is any chance at revascularization of the left foot. cc: Amelia Choi MD
[2018-11-25] MEDS: HEPARIN SUBQ SCH (04:52)
[2018-11-25] MEDS: PRILOSEC PO SCH ×2 (04:52→06:04)
[2018-11-25] MEDS: ZOSYN 2.25 GM in NS 50 ML IV SCH ×4 (04:52→17:12)
[2018-11-25] MEDS: HUMALOG SUBQ SCH (06:02)
[2018-11-25] MEDS ORDERED: D50W SYRINGE IV ONE (06:43)
[2018-11-25 06:47] LABS: BASO# 0.02 X1000 (0.0-0.2); BASO% 0.2 % (0.0-0.8); EOS# 0.13 X1000 (0.0-0.7); HEMATOCRIT 35.7 % (42.0-52.0); HEMOGLOBIN 11.2 g/dL (14.0-18.0); IMM GRAN# 0.04 X1000 (0.0-0.04); IMM GRAN% 0.3 % (0.0-0.5); LYMPH# 3.27 X1000 (1.2-3.4); LYMPH% 26.3 % (20.5-51.1); MCH 31.3 PG (27-31); MCHC 31.4 g/dL (33-37); MCV 99.7 FL (81-99); MONO# 1.07 X1000 (0.11-0.59); MONO% 8.6 % (1.7-9.3); MPV 9.8 FL (7.4-10.4); NEUT# 7.88 X1000 (1.4-6.5); NEUT% 63.6 % (42.2-75.2); PLT 392 X1000 (130-400); RBC 3.58 XMIL (4.7-6.1); RDW 12.9 % (11.5-14.5); WBC 12.41 X1000 (4.8-10.8)
[2018-11-25 07:24] LABS: ALBUMIN 3.2 g/dL (3.5-5.0); CALCIUM 8.9 mg/dL (8.8-10.2); CREATININE 3.1 mg/dL (0.7-1.2); POTASSIUM 4.6 mmol/L (3.5-5.1); TOTAL BILIRUBIN 0.39 mg/dL (0.20-1.00); TOTAL PROTEIN 6.5 g/dL (6.3-8.3)
[2018-11-25] MEDS: PERIDEX MT SCH ×2 (08:29→20:47)
[2018-11-25] MEDS: ASPIRIN EC PO SCH (08:29)
[2018-11-25] MEDS: NS 1,000 ML IV SCH ×2 (08:39→18:05)
[2018-11-25] MEDS: ZYVOX PO SCH ×2 (09:34→23:06)
[2018-11-25 10:55] LABS: UR CREAT RANDOM 62.4 mg/dL (14-26); UR PROT RANDOM 104.8 mg/dL
[2018-11-25] MEDS ORDERED: HEPARIN 25,000 UNIT in NS 250 ML IV SCH ×2 (12:00→23:30)
--- NOTE | 2018-11-25 12:25 | PROGRESS NOTE ---
DATE: 11/25/2018 SUBJECTIVE: The patient is resting in bed. His blood sugar was noted to be is quite low this morning. OBJECTIVE: Vital Signs: Temperature 98.4 degrees, blood pressure 151/46, heart rate 83, respirations 12, O2 saturation 96% on 3 L. General: This is a chronically ill- appearing, elderly male, lying in bed in no acute distress. Heart: S1, S2 normal. Regular rate and rhythm. Lungs: Equal air entry bilaterally. No wheezing. No rales. Abdomen: Positive bowel sounds. Soft, nontender, nondistended. Extremities: No edema, no cyanosis. There is erythema involving the left foot. Neurologic: The patient is alert and oriented x3. LABS: White blood cell count 12, hemoglobin 11, hematocrit 35, platelets 392. Sodium 142, potassium 4.6, chloride 109, CO2 20. BUN 38, creatinine 3.1, glucose 38. ASSESSMENT AND PLAN: 1. Ischemic left foot secondary to peripheral vascular disease. Continue with antibiotics. Further recommendations to follow from General Surgery. 2. Acute kidney injury. Continue with intravenous fluids. We will continue to monitor the patient's urine output closely. Will avoid nephrotoxic agents. 3. Diabetes mellitus type 2. Continue on sliding scale insulin. 4. Left foot cellulitis. Continue with antibiotic therapy as directed by Dr. Russo. 5. Leukocytosis. Improved. 6. Gastrointestinal prophylaxis. The patient is on omeprazole. 7. Deep vein thrombosis prophylaxis. The patient is currently on a heparin drip. cc: Darline Pizano MD MTDD
--- NOTE | 2018-11-25 13:59 | GENERAL SURGERY PROGRESS NOTE ---
DATE: 11/25/2018 SUBJECTIVE: He is doing okay. He comes with pain in his foot. No groin swelling. No fevers. OBJECTIVE: Pulse 78, blood pressure 166/71. His left foot has chronic ischemic changes. Groin is flat with no hematoma. LABS: White count 12, hematocrit 35. His creatinine is up slightly to 3.1. ASSESSMENT AND PLAN: An 83-year-old gentleman with chronic ischemia of left lower extremity. He had an arteriogram that showed chronic peripheral vascular disease. We will continue hydration and monitor his renal function in the setting of recent contrast. I suspect he is ultimately going to require amputation when his creatinine normalized. We will get a CT angiogram. We will start heparin infusion. cc: Heraclio Alba MD
--- NOTE | 2018-11-25 14:38 | NEPHROLOGY CONSULTATION ---
DATE: 11/25/2018 REASON FOR CONSULTATION: Renal failure. HISTORY OF PRESENT ILLNESS: Mr. Hikcey is an 83-year-old, white male with diabetes for 40 years. He has been cared for by Dr. Henderson in the past and now with Dr. Méndez in [place]. He states he has never been aware of kidney disease but he states Dr. Méndez has never discussed his labs with him. His healthcare in the past year 2 years have been dictated by lumbar disk disease and he underwent back surgery. He states since that time. He has had progressive problems with his gait such that he went from walking with a cane to a walker. Now using a power chair in the house. He came to the hospital because of worsening problem with the left foot. Evaluation found a purple toe and general rubor of the foot and pulselessness. He has been evaluated angiographically and there is no significant circulation in the foot. He has occlusion of the superficial femoral artery in the mid calf, but there was no clot. It is not clear whether he has anatomy amenable to vascular bypass. In this context, his initial creatinine was 2.9. It is 3.1 today. His creatinine was 1.9 in July 2017. We were asked to see him with regard to this problem. He does have again longstanding diabetes with neuropathic symptoms. He is not aware of retinopathy and no family history of chronic kidney disease or ESRD. PAST MEDICAL HISTORY: As above. He also has hypertension, hyperlipidemia, chronic paroxysmal atrial fibrillation. HOME MEDICATIONS: Include naproxen, vitamin E, fish oil, garlic, carvedilol, aspirin, amlodipine pravastatin, lisinopril, hydrochlorothiazide, glimepiride. ALLERGIES: None. SOCIAL HISTORY: He lives in [place]. He is and has a large family. Former smoker. FAMILY HISTORY: Otherwise noncontributory. REVIEW OF SYSTEMS: Otherwise noncontributory. PHYSICAL EXAMINATION: Vital Signs: Blood pressure 151/46, heart rate 83, respirations 12, afebrile. General: No acute distress. Skin: Warm and dry. Eyes: Conjunctivae are pink. Pupils are equal. Neck: Neck veins are not distended. Trachea is midline. Heart: PMI is nondisplaced. Regular rate and rhythm with S4. Lungs: Have equal breath sounds. No crackles or wheezes. Abdomen: Soft, nontender, obese. Bowel sounds present. No organomegaly. Extremities: Have no edema. The left foot is ruborous with a purple 4th toe and skin breakdown. Neurologic: Grossly nonfocal. IMPRESSION/PLAN: Chronic kidney disease stage 4 secondary to diabetes. Ultrasound confirms no obstruction. Kidney sizes are below normal. He certainly may well have vascular disease as well. His care is appropriate. Obviously he is at high risk for acute kidney injury if more contrast is required. He did receive contrast yesterday. The overall contrast dose was 50 mL total. I would avoid CT angiography if possible because this will be a high risk procedure with regard to his kidneys. I will follow along. I will also reach out to Dr. Méndez to obtain old data. I have reviewed his medications. No changes are required at this time. cc: Barrington Woods MD MTDD
[2018-11-25] MEDS: MORPHINE IV PRN (17:11)
[2018-11-25] MEDS: TYLENOL PO PRN (20:46)
[2018-11-25] MEDS: DILAUDID IV PRN (20:47)
[2018-11-25] MEDS: HUMULIN R SUBQ SCH (21:00)
[2018-11-26] MEDS: NORCO-10 PO PRN ×2 (00:15→17:16)
[2018-11-26] MEDS: ZOSYN 2.25 GM in NS 50 ML IV SCH ×4 (00:16→20:22)
[2018-11-26] MEDS ORDERED: COREG PO ONE (00:41)
[2018-11-26] MEDS: NS 1,000 ML IV SCH ×4 (04:54→23:50)
[2018-11-26 06:08] LABS: BASO# 0.02 X1000 (0.0-0.2); BASO% 0.2 % (0.0-0.8); EOS# 0.25 X1000 (0.0-0.7); EOS% 2.2 % (0.0-10.0); HEMATOCRIT 32.5 % (42.0-52.0); HEMOGLOBIN 10.3 g/dL (14.0-18.0); IMM GRAN# 0.03 X1000 (0.0-0.04); IMM GRAN% 0.3 % (0.0-0.5); LYMPH# 3.37 X1000 (1.2-3.4); LYMPH% 29.6 % (20.5-51.1); MCH 31.2 PG (27-31); MCHC 31.7 g/dL (33-37); MCV 98.5 FL (81-99); MONO# 1.62 X1000 (0.11-0.59); MONO% 14.2 % (1.7-9.3); MPV 9.5 FL (7.4-10.4); NEUT# 6.09 X1000 (1.4-6.5); NEUT% 53.5 % (42.2-75.2); PLT 323 X1000 (130-400); RDW 12.8 % (11.5-14.5); WBC 11.38 X1000 (4.8-10.8)
[2018-11-26] MEDS: PRILOSEC PO SCH (06:34)
[2018-11-26] MEDS: HUMULIN R SUBQ SCH ×5 (06:34→20:22)
[2018-11-26 06:47] LABS: ALBUMIN 2.8 g/dL (3.5-5.0); CALCIUM 7.5 mg/dL (8.8-10.2); CREATININE 2.9 mg/dL (0.7-1.2); PHOSPHORUS 2.9 mg/dL (2.7-4.5)
[2018-11-26] MEDS ORDERED: HEPARIN 25,000 UNIT in NS 250 ML IV SCH (08:40)
[2018-11-26] MEDS ORDERED: CARDIZEM IV ONE (09:04)
[2018-11-26] MEDS: ZYVOX PO SCH ×3 (09:47→23:29)
[2018-11-26] MEDS: ASPIRIN EC PO SCH (09:47)
[2018-11-26] MEDS: PERIDEX MT SCH ×2 (09:47→20:22)
[2018-11-26] MEDS: COREG PO SCH ×2 (09:47→20:22)
[2018-11-26] MEDS: MORPHINE IV PRN ×4 (13:15→23:51)
--- NOTE | 2018-11-26 15:22 | Diag Imaging Result Doc PS360 ---
EXAM: CHEST-PORTABLE INDICATION: dyspnea TECHNIQUE: One view COMPARISON: None. FINDINGS: Inspiration is suboptimal. There is minimal subsegmental atelectasis at the left lower lung zone. The lungs are grossly clear, otherwise. There is no discrete pleural fluid collection or pneumothorax. The cardiomediastinal silhouette and central vasculature are grossly unremarkable. IMPRESSION: Minimal subsegmental atelectasis at the left lower lung zone. No definite acute pathology, otherwise. Electronically signed by Paul Gill 11/26/2018 3:20 PM
[2018-11-26] MEDS: CARDIZEM 100 MG/NS 100 MG/100 ML IVPB IV SCH (15:25)
--- NOTE | 2018-11-26 16:12 | GENERAL SURGERY PROGRESS NOTE ---
DATE: 11/26/2018 SUBJECTIVE: His foot feels a little better. We started him on a heparin drip last night. LABORATORY: His creatinine is down to 2.9, from 3.1 yesterday. White count is 11, hematocrit is 32. PHYSICAL EXAMINATION: On exam, his left foot remains with ischemic changes, but is warm to the level of the ankle. ASSESSMENT AND PLAN: An 83-year-old gentleman with ischemia of left foot, probably some degree of acute mostly chronic ischemia. He ultimately needs a CT angiogram to better define his anatomy to see if there is any reversible targets but given his recent contrast load, we need to hydrate him and monitor for renal dysfunction. Dr. Woods is following. Dr. Cha will be here tomorrow and can further evaluate the patient in my absence. We will continue heparin in the meantime. High risk for losing his foot. cc: Heraclio Alba MD MTDD
--- NOTE | 2018-11-26 16:20 | PROGRESS NOTE ---
DATE: 11/26/2018 SUBJECTIVE: The patient is resting comfortably in bed. He was noted to be in AFib with RVR. However, he denies having any shortness of breath, chest pain, or palpitations. OBJECTIVE: Vital Signs: Temperature 98.5 degrees, blood pressure 133/67, heart rate 144, respiratory rate 24. O2 saturation 100% on 3 L nasal cannula. Urine output 2.5 L. General: This is a chronically ill-appearing, elderly male lying in bed, in no acute distress. Heart: S1, S2 normal. Irregularly irregular rhythm. Lungs: Equal air entry bilaterally. No wheezing. No rales. No rhonchi. Abdomen: Positive bowel sounds. Soft, nontender, nondistended. Extremities: Erythema involving the left foot. The foot is cool to touch. Neurologic: The patient is alert and oriented x3. LABORATORIES: White blood cell count 11, hemoglobin 10, hematocrit 32, platelets 323,000. Sodium 140, potassium 4, chloride 108, CO2 of 22, BUN 29, creatinine 2.9, glucose 158, calcium 7.5. ASSESSMENT AND PLAN: 1. Ischemic left foot secondary to peripheral vascular disease. The patient is currently on a heparin drip. Further management as per the general surgeon. 2. Atrial fibrillation. We will start the patient on a Cardizem drip. An echocardiogram has already been done. We will consult with Cardiology for further recommendations. The patient is currently on a heparin drip. 3. Acute kidney injury on chronic kidney disease. Improved today. Continue with IV fluids. Further management as per the occupational therapy teacher. We will continue to avoid nephrotoxic agents. The patient's urine output is adequate. 4. Diabetes mellitus type 2. Continue with sliding scale insulin. 5. Left foot cellulitis. Continue with antibiotic therapy. 6. Anemia. Stable. 7. Leukocytosis. Improved. cc: Darline Pizano MD [facility]
[2018-11-26] MEDS: HEPARIN 25,000 UNIT in NS 250 ML IV SCH ×2 (16:34→18:48)
--- NOTE | 2018-11-26 19:44 | ECHO REPORT ---
ORDER DATE: 11/25/2018 ECHOCARDIOGRAM: INDICATION FOR THE STUDY: 1. Diabetes. 2. Acute kidney injury. 3. Evaluate ejection fraction. FINDINGS: 1. Right atrium appears normal in size at 3.7 cm. 2. Mild tricuspid regurgitation. RV systolic pressure of 58. 3. Normal RV size and systolic function. 4. Mild pulmonic insufficiency. 5. Mild left atrial enlargement with a volume index of 32. 6. No mitral valve prolapse. Mild mitral regurgitation. 7. Normal LV size, end-diastolic dimension of 4 cm. Mild left ventricular hypertrophy with a posterior and interventricular septal wall thickness of 1.3 cm each. Hyperdynamic LV systolic function with an estimated EF greater than 70%. 8. Aortic valve appears to open reasonably well. There does not appear to be a significant degree of stenosis or insufficiency on this study. 9. Aorta appears normal in visualized segments. 10. No pericardial effusion is seen. cc: MD Darline Mcconnell MD
[2018-11-27] MEDS: ZOSYN 2.25 GM in NS 50 ML IV SCH (02:20)
[2018-11-27] MEDS: CARDIZEM 100 MG/NS 100 MG/100 ML IVPB IV SCH (02:41)
[2018-11-27 05:23] LABS: BASO# 0.02 X1000 (0.0-0.2); BASO% 0.2 % (0.0-0.8); EOS# 0.27 X1000 (0.0-0.7); EOS% 2.4 % (0.0-10.0); HEMATOCRIT 30.8 % (42.0-52.0); HEMOGLOBIN 9.7 g/dL (14.0-18.0); IMM GRAN# 0.06 X1000 (0.0-0.04); IMM GRAN% 0.5 % (0.0-0.5); LYMPH# 2.68 X1000 (1.2-3.4); MCH 31.2 PG (27-31); MCHC 31.5 g/dL (33-37); MONO# 1.47 X1000 (0.11-0.59); MONO% 13.2 % (1.7-9.3); MPV 9.8 FL (7.4-10.4); NEUT# 6.67 X1000 (1.4-6.5); NEUT% 59.7 % (42.2-75.2); PLT 323 X1000 (130-400); RBC 3.11 XMIL (4.7-6.1); RDW 12.8 % (11.5-14.5); WBC 11.17 X1000 (4.8-10.8)
[2018-11-27] MEDS: PRILOSEC PO SCH (06:14)
[2018-11-27] MEDS: TYLENOL PO PRN (06:14)
[2018-11-27] MEDS: HUMULIN R SUBQ SCH ×4 (06:14→21:42)
[2018-11-27] MEDS: MORPHINE IV PRN ×2 (06:14→09:41)
[2018-11-27 06:22] LABS: ALBUMIN 2.9 g/dL (3.5-5.0); CALCIUM 8.2 mg/dL (8.8-10.2); CREATININE 2.8 mg/dL (0.7-1.2); POTASSIUM 4.1 mmol/L (3.5-5.1)
--- NOTE | 2018-11-27 06:39 | INFECTIOUS DISEASE PROGRESS NO ---
DATE: 11/27/2018 PRESENT ILLNESS: The patient has a Pseudomonas cellulitis and ischemia of the left foot. MEDICATIONS: Patient currently is on Zyvox and Zosyn. PHYSICAL EXAMINATION: Vital Signs: Temperature is 100 degrees, pulse 85, respirations 22, blood pressure 158/64, the patient weighs 199 pounds. General: This is an obese, elderly male. He is in no acute distress. Head/eyes/ears/nose/throat: He can hear my spoken words and see near objects. There is no drainage from the nose or ears. Neck: Not stiff. Lungs : Clear to auscultation. Cardiovascular: Heart rate is regular with a systolic murmur. Abdomen: Soft and nontender. Extremities: The patient's left foot patient's left foot is tender and swollen. It has ischemia and erythema, and between the toes there is purulent drainage. Neurologic: The patient is awake. He can move his extremities. There is no tremor. LAB AND X-RAY: The patient's culture from his foot grew Pseudomonas. [place] [id number], hemoglobin 9.7, and platelet count 323,000 creatinine is 2.9. GFR is 21. Culture from between the toes grew Pseudomonas. Chest x-ray shows minimal left lower lobe atelectasis. The patient's vascular studies show that the patient has chronic ischemia of the left leg. ASSESSMENT AND PLAN: Patient has cellulitis and ischemia of the left foot. Pseudomonas has been cultured from the patient's foot. I have discontinued Zyvox and cefepime and have put the patient on p.o. Levaquin. The dose has been reduced because of the patient's renal failure. Surgery is following the patient and they will decide what needs to be done regarding the patient's left foot ischemia. COMORBIDITIES: The patient is elderly. He has diabetes mellitus and peripheral vascular disease. cc: Zak Russo MD [id number]
--- NOTE | 2018-11-27 07:01 | EKG Report ---
Test Performed on : 11/27/2018 06:52:23 AM Test Reason : afib Blood Pressure : / mmHG Vent. Rate : 074 BPM Atrial Rate : 074 BPM P-R Int : 168 ms QRS Dur : 090 ms QT Int : 406 ms P-R-T Axes : 032 012 098 degrees QTc Int : 450 ms Sinus rhythm. with premature atrial complexes. Nonspecific T wave abnormality Abnormal ECG When compared with ECG of 26-NOV-2018 18:45, (Unconfirmed) No significant change was found Confirmed by Alvina EMERY, Mainor Fisher ([id number]) on 11/27/2018 9:45:18 AM
--- NOTE | 2018-11-27 07:32 | EKG Report ---
Test Performed on : 11/26/2018 11:34:04 AM Test Reason : afib Blood Pressure : / mmHG Vent. Rate : 123 BPM Atrial Rate : 141 BPM P-R Int : 000 ms QRS Dur : 084 ms QT Int : 330 ms P-R-T Axes : 000 004 102 degrees QTc Int : 472 ms Atrial fibrillation. with rapid ventricular response. Septal infarct (cited on or before 25-NOV-2018) Abnormal ECG When compared with ECG of 25-NOV-2018 22:54, (Unconfirmed) Serial changes of evolving Septal infarct present Confirmed by Alvina EMERY, Mainor Fisher ([id number]) on 11/27/2018 9:44:53 AM
--- NOTE | 2018-11-27 07:50 | EKG Report ---
Test Performed on : 11/25/2018 10:54:54 PM Test Reason : New onset afib Blood Pressure : / mmHG Vent. Rate : 128 BPM Atrial Rate : 153 BPM P-R Int : 000 ms QRS Dur : 086 ms QT Int : 326 ms P-R-T Axes : 000 001 089 degrees QTc Int : 475 ms Atrial fibrillation. with rapid ventricular response. Septal infarct , age undetermined ST & T wave abnormality, consider lateral ischemia Abnormal ECG When compared with ECG of 23-NOV-2018 16:50, Atrial fibrillation. has replaced Sinus rhythm. Vent. rate has increased BY 53 BPM Septal infarct is now present ST more depressed in Lateral leads T wave inversion less evident in Lateral leads Confirmed by Alvina EMERY, Mainor Fisher ([id number]) on 11/27/2018 9:44:24 AM
[2018-11-27] MEDS ORDERED: COREG PO SCH (09:00)
[2018-11-27] MEDS: PERIDEX MT SCH ×2 (09:35→20:06)
[2018-11-27] MEDS: LEVAQUIN PO SCH (09:41)
[2018-11-27] MEDS: COREG PO SCH ×2 (09:41→20:06)
[2018-11-27] MEDS: ASPIRIN EC PO SCH (09:41)
--- NOTE | 2018-11-27 10:12 | PROGRESS NOTE ---
DATE: 11/27/2018 SUBJECTIVE: The patient is resting comfortable in the bed. Denies any chest pain or any palpitations. However, he reports excruciating pain in the left leg. OBJECTIVE: Vital Signs: Temperature 99.1 degrees, heart rate 69, respiratory rate 17, blood pressure 129/53, O2 saturation 97% 2 L nasal cannula. General Examination: This is a chronically ill-looking, 83-year-old, male, lying in bed, in no acute distress. HEENT: Head is normocephalic and atraumatic. Mucous membranes dry. Neck: No JVD noted. No carotid bruits. No lymphadenopathy. No thyromegaly. Cardiovascular Examination: S1 and S2 heard. Irregularly irregular. No murmurs, gallops, or rubs. Respiratory Examination : Clear bilaterally to auscultation. No work of breathing or using accessory muscles. Abdomen: Soft. A little bit distended but nontender to palpation. Bowel sounds present. No organomegaly. Extremities: There is edema and swelling involving the left foot that is covered with a dressing. The foot is cold to touch. Neurological Examination: The patient is alert and oriented x3. Moves 4 extremities. Follows commands. Laboratory Data: White cell count 11.17, hemoglobin 9.7, hematocrit 30.8, platelets are 323,000. Glucose 119, creatinine 2.9, calcium 8.2. ASSESSMENT AND PLAN: 1. Ischemic left foot secondary to peripheral vascular disease. At this point, the patient is awaiting Dr. Cha's evaluation to see what will be the next step in his management. Currently, he is on a heparin drip. We will continue with the same management. 2. Atrial fibrillation with a rapid ventricular response. The patient currently is on 5 mg of Cardizem intravenously and the heart rate is in the range of 60s so at this point, what I am going to do is to stop the intravenous Cardizem and change it to 30 mg by mouth every 6 hours and see how he does. Cardiology has been consulted. We will follow recommendations. Also, the patient has an echocardiogram to be done today. We will see what it shows. 3. Acute on chronic kidney disease stage 4. Actually, the creatinine is around 2.8. Dr. Woods has been consulted because this patient needed to have a CT with contrast. Considering his ischemia problems, he may need to have a CT angiography as well that, according to Dr. Woods, is very high risk. He preferred to avoid it. Unfortunately, this patient may need to have that exam in order to evaluate for peripheral vascular disease and see if he is amenable for any surgery. At this point, we will wait for Dr. Cha to see what else we can do for this patient. Even though the patient wants to have any vascular problem fixed, he is not eager to take the risk of having acute renal failure leading to dialysis. At this point, we will continue with the same management. 4. Diabetes mellitus type 2. We will continue with sliding scale insulin and Accu-Cheks before meals and also at bedtime. 5. Left foot cellulitis. We will continue with antibiotics. In this case, Dr. Russo has been consulted and he has changed antibiotics to Levaquin by mouth. We will continue with the same management. 6. Anemia of chronic disease, stable. 7. Leukocytosis, resolved. 8. Disposition. We will continue to monitor this patient here in the [facility]. cc: Elijah Molina MD
--- NOTE | 2018-11-27 10:34 | EKG Report ---
Test Performed on : 11/26/2018 6:45:01 PM Test Reason : Conversion to SR Blood Pressure : / mmHG Vent. Rate : 076 BPM Atrial Rate : 076 BPM P-R Int : 156 ms QRS Dur : 086 ms QT Int : 376 ms P-R-T Axes : 053 018 098 degrees QTc Int : 423 ms Sinus rhythm. with premature atrial complexes. Nonspecific ST and T wave abnormality Abnormal ECG When compared with ECG of 26-NOV-2018 11:34, (Unconfirmed) Sinus rhythm. has replaced Atrial fibrillation. Vent. rate has decreased BY 47 BPM Criteria for Septal infarct are no longer present Confirmed by Alvina EMERY, Mainor Fisher ([id number]) on 11/27/2018 3:19:33 PM
[2018-11-27 11:37] LABS: CREATININE 2.6 mg/dL (0.7-1.2)
--- NOTE | 2018-11-27 11:37 | GENERAL SURGERY CONSULTATION ---
DATE: 11/27/2018 HISTORY OF PRESENT ILLNESS: This is an 83-year-old admitted on the with ischemic change to his foot. He was taken to the operating room on the where an arteriogram was performed, showing SFA occlusion with one vessel runoff for reconstitution in the calf. He has a history of paroxysmal atrial fibrillation and has not been anticoagulated. He has hypertension, diabetes, hyperlipidemia, and a remote history of smoking. PAST SURGICAL HISTORY: Previous surgery includes back surgery, gallbladder surgery, and neck surgery. SOCIAL HISTORY: He is a and lives in [place]. He does have an attentive son in the room at my examination. Denies alcohol or drug use. FAMILY HISTORY: Noncontributory. MEDICATIONS AT HOME: Include glimepiride 4 mg daily, lisinopril/hydrochlorothiazide one daily, Pravachol 40 mg daily, Norvasc 10 mg daily, aspirin 81 mg daily, Coreg 6.25 mg daily, omega-3 fish oil 1000 mg nightly, vitamin E daily. ALLERGIES: He has no known drug allergies. REVIEW OF SYSTEMS: As noted above and primarily involves his left leg pain and tingling which have been increasingly worse over the past few weeks and prompted his admission. He denies any chest pain. He does report occasional irregular heart beats. He denies any shortness of breath. PHYSICAL EXAMINATION: Vital Signs: His temperature is 99.1 degrees, heart rate 69 and irregular, respiratory rate 17, blood pressure 139/53. Respiratory: Bilateral breath sounds. Heart: A regular rate and rhythm. Abdomen: Soft. Extremities: He does have femoral pulses bilaterally. He has ischemic change in his foot with some erythema. He has ulcerations on his 1st and 2nd toes, and involving a purple discoloration of his 4th toe. No palpable pedal pulses are present. Neurologic: He is awake and alert and oriented. LABORATORY DATA: His laboratory data reveals a white count of 11,100, hemoglobin 9.7, hematocrit 30. Currently, his PTT is 63.8. His BUN is 24, creatinine 2.8, glucose is 119. His lower extremity arterial study shows a left AB index of 0.3, right AB index of 0.57, right total brachial index is 0.2, left is 0.01. I did review the images done in the operating room on the that shows an SFA occlusion with short-segment reconstitution of his popliteal and a single vessel runoff which is his posterior tibial that is imaged in the mid calf region. ASSESSMENT: Severe chronic peripheral vascular disease with rest pain in his left foot and ulceration. RECOMMENDATIONS: He will require revascularization to save his foot. This will be dependent on adequate runoff of the posterior tibial to the foot which we really do not know for sure. He also will require an adequate conduit. The plan will be to image his posterior tibial artery to be for sure it goes to his foot and then image his vein and map it to see if it is adequate as a conduit. I discussed with him the gravity of the situation and the fact that his foot is at extreme risk, and that if we can revascularize his leg that we potentially could save his foot, possibly lose some toes and he understands that. I tentatively have him scheduled for Tuesday, the 2nd, for a left femoral-tibial in situ vein bypass, assuming that we find adequate runoff and appropriate conduit. He understands the gravity of the situation and the fact that we cannot guarantee success and the ultimate result would be limb loss. Thanks for the opportunity to see him. cc: Forrest Cha MD
[2018-11-27 11:54] LABS: UR CREATININE 79.2 mg/dL (14-26); UR CREATININE TOTAL 1148.4 mg/24 (800-1800); UR PROTEIN 187.2 mg/dL
--- NOTE | 2018-11-27 12:07 | NEPHROLOGY PROGRESS NOTE ---
DATE: 11/27/2018 SUBJECTIVE: He is about the same. His foot is worse. He is seeing Dr. Cha today. OBJECTIVE: Vital Signs: Blood pressure 139/53, heart rate 69, respirations 17. Afebrile. General: No acute distress. Skin: Warm and dry. Conjunctivae are pink. Neck: Neck veins are not distended. Heart: Regular. No gallops. Lungs: Equal. No crackles. Extremities: Have no edema, clubbing or cyanosis. Foot is worse in that the toe is more swollen and violaceous. There is drainage in multiple interdigital spaces. IMPRESSION: Chronic kidney disease stage 4. Kidney function roughly stable since admission. 24 hour urine is in process. PLAN: No changes are required in his treatment at this time. He remains at high risk for acute kidney injury if he receives IV contrast. cc: Barrington Woods MD
--- NOTE | 2018-11-27 12:17 | CONSULTATION ---
DATE OF CONSULTATION: 11/27/2018 CARDIOLOGY CONSULTATION: IMPRESSION: 1. Paroxysmal atrial fibrillation with associated rapid ventricular rate. Patient currently back in sinus rhythm. 2. Ischemic distal left lower extremity secondary to extensive peripheral vascular disease. 3. Bilateral carotid bruits. 4. Chronic kidney disease stage IV. 5. Hypertension. 6. Longstanding diabetes mellitus type 2. 7. Obesity. 8. Hyperlipidemia. 9. Chronic nonsteroidal anti-inflammatory use. RECOMMENDATIONS: 1. Recommend managing paroxysmal atrial fibrillation for rate control and anticoagulation. Patient currently on intravenous heparin. Would transition from intravenous Cardizem to oral Cardizem and continue carvedilol. 2. Carotid Doppler study. 3. Conservative cardiovascular management overall. 4. Perioperative cardiac risk related to planned procedure to revascularize left lower extremity appears to be acceptable for the purposes of limb salvage. HISTORY: This 83-year-old white male with past history of paroxysmal atrial fibrillation, longstanding diabetes mellitus type 2, hypertension, hyperlipidemia, obesity and nonsteroidal anti- inflammatory use was admitted to the hospital with progressive distal left lower extremity pain and erythema. He has been found to have acutely ischemic distal left lower extremity related to occluded left SFA. He has demonstrated episodes of atrial fibrillation with rapid ventricular rate requiring intravenous Cardizem. Episodes have been pretty much asymptomatic from a cardiovascular standpoint. He does have history of previous paroxysmal atrial fibrillation noted following back surgery four months ago. He is not aware of any previous coronary disease. He has no history of angina. He does have history of chronic kidney disease stage IV. PAST MEDICAL HISTORY: 1. Paroxysmal atrial fibrillation. 2. Hypertension. 3. Diabetes mellitus type 2, longstanding for at least 30 years. 4. Hyperlipidemia. 5. Chronic kidney disease stage IV. PAST SURGICAL HISTORY: Includes: Previous back surgery, cholecystectomy, and remote cervical spine surgery. ALLERGIES: No known drug allergies. MEDICATIONS PRIOR TO ADMISSION: As listed. SOCIAL HISTORY: He is a and lives in [place], [place]. He quit smoking 30 years ago. He does use oral tobacco in the form of dipping snuff. He does not use alcohol. FAMILY HISTORY: Positive for diabetes mellitus and peripheral vascular disease. REVIEW OF SYSTEMS: Pulmonary: Negative. Gastrointestinal: Negative. Constitutional: Negative. Remaining review of systems negative/noncontributory with 14 total systems reviewed. PHYSICAL EXAMINATION: General: This is an obese, older white male in no distress. Vital Signs: Blood pressure 139/53, heart rate 69, oxygen saturation 97% on nasal cannula oxygen at 2 L/minute. HEENT: Extraocular movements intact. Mucous membranes moist. Neck: Supple. Bilateral carotid bruits are demonstrated. There is no significant jugular distention. Chest: Clear to auscultation bilaterally. Cardiac: Reveals a regular rate and rhythm without appreciable murmur or gallop. Abdomen: Soft, nontender. Bowel sounds audible. Extremities: Without edema. The distal left lower extremity demonstrates several ecchymotic toes and dependent rubor. Left foot is cool to palpation. Neurologic: Reveals him to be alert and fully oriented. Speech is fluent. Moves all 4 extremities equally well. PERTINENT DATA: A 12-lead EKG presently demonstrates sinus rhythm with occasional premature atrial complex and nonspecific T-wave abnormality. LABORATORY DATA: Includes a white blood cell count 11.17, hematocrit 30.8, hemoglobin 9.7, platelet count 323,000. Sodium 142, potassium 4.1, chloride 110, carbon dioxide 19, BUN 24, creatinine 2.6, glucose 119, albumin 2.9. cc: Ryan Jauregui MD
[2018-11-27] MEDS: CARDIZEM PO SCH ×3 (13:11→19:59)
[2018-11-27] MEDS: NS 1,000 ML IV SCH ×2 (13:39→23:32)
[2018-11-27] MEDS: NORCO-7.5 PO PRN ×2 (15:00→21:39)
[2018-11-27] MEDS ORDERED: HEPARIN 25,000 UNIT in NS 250 ML IV SCH (17:30)
--- NOTE | 2018-11-27 19:54 | Diag Imaging Result Doc PS360 ---
EXAM: 3 PHASE BONE SCAN INDICATION: L foot osteomyelitis TECHNIQUE: 28 mCi of technetium 99 MDP was administered intravenously and three phase images of the feet were obtained in usual fashion post administration. COMPARISON: None. FINDINGS: There is actually slight increased soft tissue uptake seen diffusely involving the right foot as compared to the left. This could indicate hyperemia or increased blood flow to the right foot as compared to the left foot. There is no abnormal bony uptake identified on delayed images to indicate osteomyelitis on the right or the left. IMPRESSION: Generalized increased soft tissue uptake associated with the right foot as compared to the left as detailed above. No finding that would suggest osteomyelitis. Electronically signed by Paul Gill 11/27/2018 7:52 PM
[2018-11-28] MEDS: MORPHINE IV PRN ×3 (02:53→23:15)
[2018-11-28] MEDS: CARDIZEM PO SCH ×4 (02:53→20:07)
[2018-11-28] MEDS: NORCO-7.5 PO PRN ×2 (05:25→21:36)
[2018-11-28] MEDS: PRILOSEC PO SCH ×2 (05:25→07:39)
[2018-11-28 05:26] LABS: BASO# 0.02 X1000 (0.0-0.2); BASO% 0.2 % (0.0-0.8); EOS# 0.31 X1000 (0.0-0.7); EOS% 2.7 % (0.0-10.0); HEMATOCRIT 29.7 % (42.0-52.0); HEMOGLOBIN 9.5 g/dL (14.0-18.0); IMM GRAN# 0.05 X1000 (0.0-0.04); IMM GRAN% 0.4 % (0.0-0.5); LYMPH# 2.79 X1000 (1.2-3.4); LYMPH% 24.6 % (20.5-51.1); MCH 31.6 PG (27-31); MCV 98.7 FL (81-99); MONO# 1.22 X1000 (0.11-0.59); MONO% 10.8 % (1.7-9.3); MPV 9.5 FL (7.4-10.4); NEUT# 6.93 X1000 (1.4-6.5); NEUT% 61.3 % (42.2-75.2); PLT 292 X1000 (130-400); RBC 3.01 XMIL (4.7-6.1); RDW 12.6 % (11.5-14.5); WBC 11.32 X1000 (4.8-10.8)
[2018-11-28 05:51] LABS: ALBUMIN 2.6 g/dL (3.5-5.0); CALCIUM 8.1 mg/dL (8.8-10.2); CREATININE 2.4 mg/dL (0.7-1.2); PHOSPHORUS 2.8 mg/dL (2.7-4.5); POTASSIUM 4.3 mmol/L (3.5-5.1)
--- NOTE | 2018-11-28 07:05 | INFECTIOUS DISEASE PROGRESS NO ---
DATE: 11/28/2018 PRESENT ILLNESS: The patient has Pseudomonas cellulitis and ischemia of the left foot. The bone scan did not show any evidence of osteomyelitis. MEDICATIONS: Yesterday, I switched the patient from Zyvox and Zosyn to Levaquin p.o. The dose is modified because of the patient's renal insufficiency. PHYSICAL EXAMINATION: Temperature is 98.1, pulse 73, respirations 14, blood pressure 157/67. Generally, this is an obese, elderly male who is in no acute distress. He does have pain though in his left foot. Head/eyes/ears/nose/throat: He can hear my spoken words and see near objects. He does not have any drainage coming from his nose or ears. The patient does not have any white patches on his tongue Neck: No meningismus. Lungs clear to auscultation. Lungs clear to auscultation. Cardiovascular: Heart rate is regular with a systolic murmur. Abdomen is soft and nontender. Extremities: The patient's left foot is erythematous and, also, on the 4th toe has ischemic changes. The foot is tender. There also is purulent drainage from between the toes. Neurologic: Patient is awake. He can move his extremities. There is no tremor. LABORATORY DATA AND X-RAY: A bone scan showed no osteomyelitis in the left foot. CBC shows a white count of 11,320. Hemoglobin 9.5 and platelet count 292,000. Creatinine is 2.4. GFR is 26. ASSESSMENT AND PLAN: The patient has cellulitis and ischemia of the left foot. I plan to continue Levaquin. Tomorrow, Dr. Cha is going to try to revascularize the patient's left leg. COMORBIDITIES: The patient is elderly. He also has diabetes mellitus and peripheral vascular disease. cc: Zak Russo MD
--- NOTE | 2018-11-28 07:24 | Extremity Venous Study ---
PROCEDURE NAME: Vein Mapping Left GSV - 11/27/2018 REQUESTING PHYSICIAN: Dr. Cha. INSEMINATION WORKER: [place]. INDICATIONS: Preoperative evaluation. EQUIPMENT: Phrazitid E9 ultrasound system with a 9 L-D transducer. FINDINGS: Images of the left greater saphenous vein were obtained for mapping with evaluation given to patency and size. On the left side at the junction with the common femoral vein, it measures 4.5. As it courses along the leg, it goes zone 1, 4.5; zone 2, 2.9; zone 3, 2.8; zone 4, 2.6; zone 5, 3.1; zone 6, 3.0; zone 7, 2.3; zone 8, 2.4. There appears to be no obvious superficial venous thrombosis noted in this part of the greater saphenous vein. INTERPRETATION: Likely adequate size for bypass, the left greater saphenous vein. cc: MD Forrest Mckinley MD
--- NOTE | 2018-11-28 07:29 | Extremity Venous Study ---
PROCEDURE NAME: Arterial Unilateral Leg - 11/27/2018 REQUESTING PHYSICIAN: Dr. Cha. ASSISTANT DISTRIBUTION MANAGER: Milan. EQUIPMENT: [employer] Vivid E9 ultrasound system with a 9 L-D transducer. FINDINGS: Images of the left posterior tibial artery at the level of the ankle were obtained and in the mid calf to evaluate for flow. There is some flow noted in the posterior tibial artery at the level of the mid calf and ankle. INTERPRETATION: There is runoff noted in the posterior tibial artery on the left side. cc: MD Forrest Mckinley MD
[2018-11-28] MEDS: HUMULIN R SUBQ SCH ×4 (07:39→20:12)
--- NOTE | 2018-11-28 07:59 | Carotid Study ---
DATE: 11/27/2018 PROCEDURE: Carotid duplex imaging. REFERRING PHYSICIAN: Dr. Cha INTERPRETING PHYSICIAN: Rui Hall MD TECH: [place] INDICATIONS: Carotid bruit. EQUIPMENT: [employer]obi-[employer]oid E9 ultrasound system with a 9LD transducer. OBSERVED DATA RIGHT LEFT Brachial Blood Pressure Carotid Pulse Bruits: Carotid/Sub DIAGRAM OF ULTRASOUND IMAGING R L RIGHT INT EXT INT EXT LEFT Juan (cm/s) Juan (cm/s) Subclavian 88/1 Subclavian 159/10 CCA Proximal 117/14 CCA Proximal 79/18 CCA Distal 122/13 CCA Distal 140/17 Bulb 136/21 Bulb 102/22 ICA Proximal 175/49 ICA Proximal 194/38 ICA Mid 134/39 ICA Mid 151/30 ICA Distal 86/29 ICA Distal 165/35 ECA 155/5 ECA 221/22 Vertebral 57/17 antegrade Vertebral 66/18 antegrade ICA/CCA Ratio 1.43 ICA/CCA Ratio 1.38 % Stenosis 60%-79% % Stenosis 60%-79% FINDINGS: There is atherosclerosis noted to bilateral carotid arteries. At this point, is approaching hemodynamically significant stenosis of 60%-79% bilaterally. Both vertebral arteries are antegrade flow. INTERPRETATION: Severe stenosis noted bilaterally with atherosclerosis. Both carotid arteries are in the range of 60%-79%. cc: MD Edna Mckinley PA
--- NOTE | 2018-11-28 09:31 | PROGRESS NOTE ---
DATE: 11/28/2018 SUBJECTIVE: The patient reports feeling fine. Pain in the left leg that is a little bit better. Denies any chest pain, any shortness of breath or palpitations. OBJECTIVE: Vital Signs: Temperature 98.6 degrees, heart rate 63, respiratory rate 18, blood pressure 149/56, O2 saturation 94% on room air. General Examination: This is a chronically ill- looking, 83-year-old male in no acute distress. HEENT: Normocephalic, atraumatic. Mucous membranes dry. Neck: No carotid bruits noted bilaterally. No JVD noted. No lymphadenopathy noted. Cardiovascular exam: S1, S2 heard. Irregularly irregular. No murmurs, gallops or rubs. Respiratory exam: Clear bilaterally to auscultation. No work of breathing or using accessory muscles. Abdomen: Soft, a little bit distended. Nontender to palpation. Bowel sounds present. No organomegaly. No signs of peritoneal irritation. Extremities: There is edema and swelling involving the left foot that is covered by dressing. The second and fifth toes of the left foot have a purple discoloration. That foot is cold to touch. Neurological exam: Patient is alert and oriented x3. Moves 4 extremities. LABORATORY DATA: White cell count 11.32, hemoglobin 9.5, hematocrit 29.7, platelets 292 with BMP that showed creatinine 2.4, glucose 100. ASSESSMENT AND PLAN: 1. Ischemic left foot secondary to severe peripheral vascular disease. Dr. Cha from Vascular Surgery has evaluated the patient. He recommends revascularization to save his foot; he is going to perform it tomorrow. We appreciate his help. 2. Atrial fibrillation with rapid ventricular response. At this point, patient is on Cardizem oral. Cardiology is following this patient. We will follow recommendations. They mention that the cardiovascular risk for the surgery mentioned above is acceptable. 3. Acute on chronic kidney disease stage IV. Creatinine is a little bit better today. We will continue to monitor. 4. Diabetes mellitus, type 2. We will continue with sliding scale insulin given before meals and also at bedtime. 5. Left foot cellulitis secondary to Pseudomonas. At this point, Dr. Russo from Infectious Disease has placed this patient on Levaquin oral. We will continue with same management. 6. Anemia of chronic disease. Stable. 7. Disposition: At this point, the patient is going to have revascularization surgery tomorrow. We will continue to monitor this patient in [facility]. cc: Elijah Molina MD
[2018-11-28] MEDS: LEVAQUIN PO SCH (09:39)
[2018-11-28] MEDS: PERIDEX MT SCH ×3 (09:39→20:08)
[2018-11-28] MEDS: ASPIRIN EC PO SCH (09:39)
[2018-11-28] MEDS: COREG PO SCH ×2 (09:39→20:07)
[2018-11-28] MEDS ORDERED: KEFZOL 1 GM/D5W 1 GM/50 ML IVPB IV ONE (10:40)
--- NOTE | 2018-11-28 10:56 | GENERAL SURGERY PROGRESS NOTE ---
DATE: 11/28/2018 SUBJECTIVE: It is 10:35 in the morning. Mr. Hickey is about the same. He is afebrile, heart rate 63, blood pressure 149/56. His left foot appears the same. His greater saphenous vein has been mapped. It is marked on the medial aspect of his leg. We discussed the planned procedure tomorrow, the benefits, risks, the possibility that we will not be able to save his foot. He understands all this. His questions were answered. cc: Forrest Cha MD
[2018-11-28] MEDS: NS 1,000 ML IV SCH ×2 (11:52→20:12)
--- NOTE | 2018-11-28 11:58 | PROGRESS NOTE ---
DATE: 11/28/2018 SUBJECTIVE: Patient continues without chest discomfort or dyspnea. He appears comfortable on room air. OBJECTIVE: Vital Signs: Blood pressure 135/62, heart rate 54, with ECG monitor showing sinus rhythm with premature atrial complexes. Oxygen saturation 92 to 94 percent on room air. There is no significant jugular distention. Chest is clear to auscultation. Cardiac exam: Reveals a regular rate and rhythm without appreciable murmur or gallop. Extremities are without edema. Left foot is cool and with dependent rubor. 4th toe on left foot is strikingly ecchymotic with pretty sharp demarcation line at the base of the toe. LABORATORY DATA: Includes a white blood cell count 11.32, hematocrit 29.7, hemoglobin 9.5, platelet count 292,000. Sodium 139, potassium 4.3, chloride 110, carbon dioxide 18, BUN 24, creatinine 2.4, glucose 100, albumin 2.6. Carotid Doppler study indicates bilateral moderate to severe carotid stenosis in the range of 60 to 79 percent bilaterally. Echocardiography report is pending. IMPRESSION: 1. Paroxysmal atrial fibrillation with associated rapid ventricular rate transiently. Patient continues in sinus rhythm. 2. Ischemic distal left lower extremity secondary to extensive peripheral artery disease. 3. Moderate to severe bilateral carotid stenosis in the in the 60 to 79 percent range by Doppler. 4. Chronic kidney disease stage 4. 5. Hypertension. 6. Longstanding diabetes mellitus type 2. 7. Obesity. 8. Hyperlipidemia. RECOMMENDATIONS: 1. Continue current cardiovascular regimen unchanged. 2. Manage paroxysmal atrial fibrillation with rate control and anticoagulation. Ultimately patient should be started on Eliquis postoperatively. 3. Anticipate revascularization procedure on left lower extremity. Perioperative cardiac risk related to planned procedure to revascularize left lower extremity appears to be acceptable for the purposes of limb salvage. cc: Ryan Jauregui MD
[2018-11-29] MEDS: CARDIZEM PO SCH ×4 (01:50→21:04)
[2018-11-29] MEDS: MORPHINE IV PRN ×3 (01:51→18:24)
[2018-11-29] MEDS: NS 1,000 ML IV SCH ×3 (06:12→23:00)
[2018-11-29] MEDS: HUMULIN R SUBQ SCH ×4 (06:12→21:04)
[2018-11-29] MEDS ORDERED: DIPRIVAN 1% ONE (07:32)
[2018-11-29] MEDS ORDERED: NORCURON ONE ×2 (07:32→09:23)
[2018-11-29] MEDS ORDERED: DECADRON ONE (07:32)
[2018-11-29] MEDS ORDERED: ZOFRAN ONE (07:32)
[2018-11-29] MEDS ORDERED: XYLOCAINE-MPF 2% ONE (07:32)
[2018-11-29] MEDS ORDERED: QUELICIN (DOSE) ONE (07:32)
--- NOTE | 2018-11-29 07:36 | INFECTIOUS DISEASE PROGRESS NO ---
DATE: 11/29/2018 PRESENT ILLNESS: The patient has a left foot Pseudomonas cellulitis complicated by ischemia. There was no evidence of osteomyelitis seen on bone scan. MEDICATIONS: The patient is on Levaquin 250 mg p.o. daily. The dose of Levaquin has been lowered because the patient has renal insufficiency. PHYSICAL EXAMINATION: Vital Signs: Temperature is 98.8 degrees, pulse 79, respirations 18, blood pressure 170/58. General: This is an obese, elderly male. He is in no acute distress. Head/eyes/ears/nose/throat: He can hear my spoken words and see near objects. He does not have any white patches on his tongue. Neck: No stiffness. Lungs: Clear to auscultation. Cardiovascular: Heart rate is irregular with a systolic murmur. Abdomen: Soft and nontender. Extremities: The left foot is slightly less erythematous, but the fourth toe remains very ischemic. The left foot is tender as well. The patient has dried drainage now coming from between his toes. LAB AND X-RAY: There is no new radiographic study. CBC for today shows a white count of 11,320, hemoglobin 9.5, and platelet count 292,000. Creatinine is 2.4. GFR is 26. ASSESSMENT AND PLAN: Patient has cellulitis and ischemia of the left foot. I plan to continue Levaquin. Today, Dr. Cha is going to operate on the patient to improve his vascular supply to the left foot. COMORBIDITIES: The patient is elderly. He also is a diabetic and he has peripheral vascular disease. cc: Zak Russo MD
[2018-11-29 07:40] LABS: HEMATOCRIT 29.4 % (42.0-52.0); HEMOGLOBIN 9.5 g/dL (14.0-18.0); MCH 31.6 PG (27-31); MCHC 32.3 g/dL (33-37); MCV 97.7 FL (81-99); MPV 9.3 FL (7.4-10.4); RBC 3.01 XMIL (4.7-6.1); RDW 12.5 % (11.5-14.5); WBC 9.57 X1000 (4.8-10.8)
[2018-11-29 07:58] LABS: ALBUMIN 2.6 g/dL (3.5-5.0); CALCIUM 7.8 mg/dL (8.8-10.2); CREATININE 2.1 mg/dL (0.7-1.2); PHOSPHORUS 2.5 mg/dL (2.7-4.5); POTASSIUM 4.1 mmol/L (3.5-5.1)
--- NOTE | 2018-11-29 07:59 | NEPHROLOGY PROGRESS NOTE ---
DATE: 11/29/2018 SUBJECTIVE: Patient resting in bed. He is supposed to go to surgery later today for a left femorotibial in situ vein bypass by Dr. Cha. The patient has no complaints this morning. OBJECTIVE: Vital Signs: Temperature 98.8 degrees, pulse 79, respiratory rate 18, blood pressure 170/58. Intake 3.2 L. Output 2.7 L. General: This is an elderly gentleman resting in bed. He is awake and alert. He is in no acute distress. HEENT: Normocephalic, atraumatic. Conjunctivae pink. Oral mucosa moist. Neck: Supple without JVD in a reclined position. Cardiovascular: Regular rate and rhythm without murmur or gallop. Pulmonary: He is clear bilaterally. He has equal excursion. No increased work of breathing. Abdomen: Soft, with positive bowel sounds. : He has a Ramirez catheter with urine noted. Extremities: His left lower extremity is cool to the touch. His toes and foot are purplish. Right lower extremity warmer. No edema. Integumentary: Skin is warm and dry. He has a dressing to the left lower extremity. Unable to determine any drainage. Lab Data: Pending. His creatinine yesterday was 2.4. He did have a creatinine clearance of 31 and a proteinuria on 24 hour urine of 2.7 g. ASSESSMENT AND PLAN: 1. 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 Renal function stable. Continue to monitor. 2. Proteinuria. Known to have diabetes. His home medications do include lisinopril. Continue to monitor and follow up with workup as an outpatient. 3. Fluid volume. He is not overloaded. 4. Hypertension. He is slightly elevated this morning. He has not received his medicines yet. Dictated by TALIB Jones for Barrington Woods MD Face to face encounter, data reviewed, discussed with Kenia Bryant on 11/29/17. I agree with the above assessment and plan of care. cc: Barrington Woods MD [facility]
[2018-11-29] MEDS ORDERED: KEFZOL 1 GM/D5W 1 GM/50 ML IVPB ONE (08:46)
[2018-11-29] MEDS ORDERED: PAPAVERINE ONE (09:03)
[2018-11-29] MEDS ORDERED: HEPARIN ONE (09:05)
[2018-11-29] MEDS ORDERED: NS 1,000 ML ONE (09:06)
[2018-11-29] MEDS ORDERED: KEFZOL ONE (09:28)
[2018-11-29] MEDS ORDERED: EPHEDRINE ONE ×2 (09:33→11:23)
[2018-11-29] MEDS ORDERED: ROBINUL ONE (11:36)
[2018-11-29] MEDS ORDERED: NEOSTIGMINE ONE (11:37)
[2018-11-29 12:37] LABS: HEMATOCRIT 28.7 % (42.0-52.0); HEMOGLOBIN 9.2 g/dL (14.0-18.0)
[2018-11-29] MEDS: ZOFRAN ONE ×2 (12:40→19:23)
--- NOTE | 2018-11-29 12:56 | OPERATIVE NOTE ---
PROCEDURE DATE: 11/29/2018 PROCEDURE PERFORMED: Left femoral to posterior tibial in situ vein bypass. SURGEON: Forrest Cha MD. PUMP TECHNICIAN: Perez Patel RN. PREOPERATIVE DIAGNOSIS: Ischemic rest pain left foot with ulceration. POSTOPERATIVE DIAGNOSIS: Ischemic rest pain left foot with ulceration. INDICATIONS: This is an 83-year-old diabetic with chronic renal insufficiency and now has ischemic ulcerations and rest pain of his left foot. This is done for limb salvage. DESCRIPTION OF PROCEDURE: Satisfactory general endotracheal anesthesia was received. The left leg was prepped and draped in a sterile fashion. The foot was excluded. The vein had been mapped. We made a curvilinear incision in the left groin and carried our dissection down to the common femoral artery. We dissected out the superficial femoral, the common femoral artery and the profunda femoral artery. We surrounded the common femoral with an umbilical tape. The profunda was surrounded with a large vessel loop. The superficial femoral was surrounded with a large vessel loop. Small branches were surrounded with 2-0 silks. We dissected out the greater saphenous vein proximally. We marked it on its anterior aspect. We ligated the branches. We gave the patient 8000 units of heparin. We turned our attention to the left ankle medially, made a longitudinal incision, dissected down to the posterior tibial artery. We placed one small vessel loop on it. We then turned our attention back to the proximal incision. We then used a Satinsky clamp at the takeoff of the greater saphenous vein and transected the vein at its take-off. We over sewed the stump with a 5-0 Prolene stitch in 2 layers with a horizontal mattress stitch initially, and then a running stitch secondarily. We looked at the open end of the greater saphenous vein and excised valves at the open end under 2.5 loupe magnification using a Conti scissors. We then translocated the vein over to the artery and it appeared to come to the takeoff of the SFA without tension. We then occluded flow in the [place] artery and incised the artery and extended slightly with the Conti scissors. We then used a 4.5 punch to make a hole in the artery. We then constructed an end-to-side anastomosis using a 5-0 Prolene stitch. After completing that, we allowed flow into the proximal vein graft. It went to the first valve and flow there stopped. We then turned our attention to the calf and cut down on the vein and identified a branch. We then marked the vein on its anterior aspect and then using a branch we then incised the branch with an 11-blade and passed a Glidewire up the vein and through the anastomosis. We then followed this with a LeMaitre expandable valvulotome. We then passed the LeMaitre valvulotome up to the proximal anastomosis, opened it, and then gently pulled it down the vein to lyse the valves. After the initial passage, we did get pulsatile flow. We did pass it one more time and again carefully brought it down the vein and again on removing the valvulotome we had pulsatile flow. The branch that we had accessed the vein valve was then clipped off. This was not all the way to the end of the vein so we did have to cut down to the end of the vein. Because no branch was there, we had to ligate the vein distally and cut a portion of the vein past the retrograde wire valvulotome up the residual amount of vein and lysed the valves both on the anterior aspect and the posterior aspect. This allowed pulsatile flow all the way to the end of the vein and we then clamped it off. We mobilized the vein so that we could translocate it down to the artery. Before we clipped off the vein, we did inject 120 mg of papaverine, diluted to 10 mL up the vein graft to help reduce spasm. After doing that, we then clipped it off and then translocated underneath the skin bridge down to the posterior tibial artery. Under 2.5 loupe magnification, we then exposed the artery, had small vessel loops proximally and distally. We incised the artery, extended it with the Conti scissors. There was arterial flow in the artery. We did have backbleeding. We did pass a 2 probe distally. We did use 1.5 flow arrestor in the artery and then cut the vein graft to match the arteriotomy. We clamped the vein proximal to the skin bridge to eliminate any arterial flow through the vein graft while we did the anastomosis. Under 2.5 loupe magnification, we did do the anastomosis using a 6-0 Prolene stitch and upon completion. We did allow flow through the vein graft. We passed a 2 probe down the artery again. Removed the flow arrestor and finished the arterial artery to vein graft anastomosis. Pulsatile flow was present. We then went ahead and closed the skin over the vein in the calf so that it would help prevent any spasm. So, we immediately began covering the vein graft in the calf area with a 4-0 Polysorb stitch in the skin to cover it. We then turned our attention to the proximal incision and then hemostasis was satisfactory. We irrigated it with Kefzol-impregnated saline. We then closed the subcutaneous tissue of the groin with 2 layers of 3-0 Polysorb running stitches. The skin was then closed with a 4-0 Polysorb subcuticular stitch. There were 2 areas where branches were marked off the vein graft in the thigh. We cut down on them, identified the branches and clipped them off. We then closed the subcutaneous incisions with 3-0 Polysorb simple stitches and the skin was closed with 4- 0 Polysorb subcuticular stitches. This then left us with the wound over the distal anastomosis. We placed some 3-0 Polysorb in the subcutaneous tissue, then closed the skin with a 4-0 Polysorb subcuticular stitch. Sterile dressings were applied. He tolerated it well. Estimated blood loss was 200-250 mL. He was sent to the recovery room in satisfactory condition. cc: MD Barrington Dodd MD William D. Denney, MD
[2018-11-29] MEDS: ZOFRAN IV PRN (16:16)
[2018-11-29] MEDS: NORCO-7.5 PO PRN ×2 (16:16→22:48)
[2018-11-29] MEDS: PERIDEX MT SCH ×2 (16:17→21:03)
[2018-11-29] MEDS: LEVAQUIN PO SCH (16:17)
[2018-11-29] MEDS: ELIQUIS PO SCH ×2 (16:17→21:03)
[2018-11-29] MEDS: COREG PO SCH ×2 (16:17→21:03)
[2018-11-29] MEDS: PRILOSEC PO SCH (16:17)
[2018-11-29] MEDS: ASPIRIN EC PO SCH (16:17)
[2018-11-29] MEDS ORDERED: KEFZOL 1 GM in NS 50 ML IV SCH (17:00)
--- NOTE | 2018-11-29 21:12 | PROGRESS NOTE ---
DATE: 11/29/2018 SUBJECTIVE: The patient had left femoral to posterior tibial in situ vein bypass today. Postoperatively, he has no chest discomfort or dyspnea. OBJECTIVE: Vital Signs: Blood pressure 161/76, heart rate 70, oxygen saturation 98% on supplemental oxygen per nasal cannula. Neck: There is no significant jugular venous distention. Chest: Clear to auscultation bilaterally. Cardiac: Regular rate and rhythm without appreciable murmur or gallop. Extremities are without edema. The distal left lower extremity is considerably warmer compared to yesterday following revascularization. LABORATORY DATA: Includes a white blood cell count of 9.57, hematocrit 28.7, hemoglobin 9.2, platelet count 318,000. Sodium 140, potassium 4.1, chloride 109, carbon dioxide 20, BUN 27, creatinine 2.1. Glucose 144, abdomen 2.6. Carotid Doppler study indicates moderate to severe bilateral carotid stenosis. IMPRESSION: 1. Paroxysmal atrial fibrillation. Patient continues in sinus rhythm. 2. Ischemic distal left lower extremity secondary to extensive peripheral artery disease. Patient now status post left femoral to posterior tibial bypass procedure and appears to have improved perfusion of distal left lower extremity. 3. Moderate to severe bilateral carotid stenosis in the 60% to 79% range by Doppler. 4. Chronic kidney disease stage IV. Patient desires to avoid dialysis. 5. Hypertension. 6. Longstanding type 2 diabetes mellitus. 7. Obesity. 8. Hyperlipidemia. RECOMMENDATIONS: 1. Continue current cardiovascular regimen, unchanged. 2. Anticoagulation to be initiated once acceptable from a surgical standpoint. 3. Management of paroxysmal atrial fibrillation to consist of rate control and anticoagulation for thromboembolic risk protection. cc: Ryan Jauregui MD
[2018-11-30] MEDS: CARDIZEM PO SCH ×4 (02:52→20:20)
[2018-11-30] MEDS: MORPHINE IV PRN ×3 (02:52→23:49)
--- NOTE | 2018-11-30 04:10 | GENERAL SURGERY PROGRESS NOTE ---
DATE: 11/29/2018 It is 4:50 p.m. Mr. Hickey is postop. He is awake and alert. His bandages are dry. He has a palpable graft pulse. He says he thinks he can tell a difference in his foot. Postoperative hemoglobin was 9.2, hematocrit 28.7. We will recheck his labs in the morning. He is on Eliquis and aspirin. cc: Forrest Cha MD
--- NOTE | 2018-11-30 04:25 | PROGRESS NOTE ---
DATE: 11/29/2018 SUBJECTIVE: The patient states that he is still having lots of pain in his left lower extremity. Denies any fevers or chills. Denies any chest pain. OBJECTIVE: Vital Signs: Temperature 98.9, pulse 79, respiratory rate 20, BP 120/58. General: The patient is awake and alert, currently in no respiratory distress. Pleasant to talk with. HEENT: Normocephalic. Neck: Supple. Cardiovascular: Regular rate. No murmurs. Chest: Clear and unlabored. No wheezing. Abdomen: Soft, nondistended, nontender. Extremities: Moves all extremities. ASSESSMENT: 1. Ischemic left foot. 2. Atrial fibrillation with rapid ventricular response. 3. Chronic kidney disease stage 4. 4. Left foot cellulitis due to Pseudomonas. PLAN: Patient is scheduled for vascular surgery per Dr. Cha. We will continue Cardizem and Levaquin. Further orders as needed. cc: Sy Patel MD
[2018-11-30 05:43] LABS: HEMATOCRIT 28.3 % (42.0-52.0); MCH 31.7 PG (27-31); MCHC 31.8 g/dL (33-37); MCV 99.6 FL (81-99); MPV 9.6 FL (7.4-10.4); RBC 2.84 XMIL (4.7-6.1); RDW 12.8 % (11.5-14.5); WBC 13.7 X1000 (4.8-10.8)
[2018-11-30] MEDS: NS 1,000 ML IV SCH ×4 (05:48→20:30)
[2018-11-30] MEDS: PRILOSEC PO SCH ×2 (05:52→06:07)
[2018-11-30 05:53] LABS: ALBUMIN 2.6 g/dL (3.5-5.0); CALCIUM 8.5 mg/dL (8.8-10.2); CREATININE 2.2 mg/dL (0.7-1.2); PHOSPHORUS 2.9 mg/dL (2.7-4.5); POTASSIUM 4.1 mmol/L (3.5-5.1)
[2018-11-30] MEDS: HUMULIN R SUBQ SCH ×4 (06:06→20:20)
--- NOTE | 2018-11-30 06:55 | INFECTIOUS DISEASE PROGRESS NO ---
DATE: 11/30/2018 SUBJECTIVE: The patient, yesterday, had surgery on the patient's left foot Pseudomonas cellulitis, complicated by ischemia. MEDICATIONS: The patient is continuing to be on Levaquin. This will be day 1 of treatment with Levaquin because prior to the surgery, there was decreased blood supply to the foot, which meant that there was a decrease in the delivery of the patient's antibiotic as well. OBJECTIVE: Vital Signs: Temperature is 99.3 degrees, pulse 94, respirations 18, blood pressure 136/84. General: This is an obese, elderly male. He is in no acute distress, and he is somewhat lethargic today. Head, eyes, ears, nose, and throat: He can hear my spoken words and see near objects. He does not have any white patches on his tongue. Neck: No meningismus. Lungs: Clear to auscultation. Cardiovascular: The patient's heart rate is irregular and also, he had a systolic murmur. Abdomen: Soft and nontender. Extremities: The left leg had a large dressing around it. The dressings are intact. The left great toe did not feel cool like it did prior to the surgery. Neurologic: As mentioned above, the patient is slightly lethargic today. He is arousable, and he moved his extremities to request. There was no tremor. LAB AND X-RAY: There is no new radiographic study. The patient's CBC shows a white count of 13,700, hemoglobin 9, and platelet count 315,000. Creatinine is 2.2. GFR is 29. ASSESSMENT AND PLAN: Patient has had revascularization of the left foot. Hopefully, the increased blood supply will stop the cellulitis of the foot. COMORBIDITIES: The patient is elderly. He is a diabetic, and he also has peripheral vascular disease. cc: Zak Russo MD
--- NOTE | 2018-11-30 07:18 | NEPHROLOGY PROGRESS NOTE ---
DATE: 11/30/2018 SUBJECTIVE: Patient resting in bed. He had an uneventful night. OBJECTIVE: Vital Signs: Temperature 99.3 degrees, pulse 94, respiratory rate 18, blood pressure 136/84. Intake 4.5 L; output 3.1 L. General: This is an elderly gentleman resting in bed. Awake and alert. He has no acute distress. HEENT: Normocephalic, atraumatic. Conjunctivae pink. Oral mucosa moist. Neck: Supple without JVD in a reclined position. Cardiovascular: Reveals regular rate and rhythm. No murmur or gallop noted. Pulmonary: Clear bilaterally. He has equal excursion without increased work of breathing. He is on O2 supplementation via nasal cannula. Abdomen: Soft, positive bowel sounds. : Not inspected. Ramirez catheter with yellow urine noted. Extremities: No clubbing, cyanosis. His left lower extremity has surgical dressings noted from the groin down. There has been no new bleeding. He has some faint shadowing that has been outlined by the nursing staff that has not extended. His foot, what I can feel of it around the dressing, does feel warm and his great toe is no longer purple. It is pink. Integumentary: Skin is warm and dry otherwise. LAB DATA: WBC of 13.7, hemoglobin 9.0. Sodium 142, potassium 4.1, CO2 18, creatinine 2.2. ASSESSMENT AND PLAN: 1. Chronic kidney disease III-B to IV. His renal function is close to his historical baseline. He has no indications for intervention otherwise. Continue to monitor. 2. Proteinuria. We will complete workup as an outpatient. 3. Fluid volume. He has excellent urine output. Although he is not in negative territory, he is not fluid overloaded. 4. Hypertension, close to target. 5. Electrolytes, acid-base balance. He has some mild acidosis. We will continue to monitor. He has fluctuated almost daily between 18 and 21 or 22. No treatment at this time. 6. Status post left femoral tibial in situ vein bypass. He is followed by Dr. Cha. Dictated by TALIB Jones for Barrington Woods MD Face to face encounter, data reviewed, discussed with Kenia Bryant on 11/30/17. I agree with the above assessment and plan of care. cc: Barrington Woods MD [facility]PITALCaryn
[2018-11-30] MEDS: PERIDEX MT SCH ×2 (08:14→20:20)
[2018-11-30] MEDS: LEVAQUIN PO SCH (08:14)
[2018-11-30] MEDS: ASPIRIN EC PO SCH (08:14)
[2018-11-30] MEDS: COREG PO SCH ×3 (08:15→20:20)
[2018-11-30] MEDS: ELIQUIS PO SCH ×2 (08:15→20:20)
[2018-11-30] MEDS ORDERED: CARDIZEM IV ONE (08:38)
[2018-11-30] MEDS ORDERED: CARDIZEM 100 MG/NS 100 MG/100 ML IVPB IV SCH (08:45)
--- NOTE | 2018-11-30 09:05 | EKG Report ---
Test Performed on : 11/30/2018 04:03:44 AM Test Reason : rhythm change Blood Pressure : / mmHG Vent. Rate : 150 BPM Atrial Rate : 089 BPM P-R Int : 000 ms QRS Dur : 080 ms QT Int : 308 ms P-R-T Axes : 000 016 120 degrees QTc Int : 486 ms Atrial fibrillation. with rapid ventricular response. Septal infarct , age undetermined Abnormal ECG When compared with ECG of 27-NOV-2018 06:52, Atrial fibrillation. has replaced Sinus rhythm. Vent. rate has increased BY [address] now depressed in Anterior leads Confirmed by Elinor EMERY, Kwan Avitia ([id number]) on 11/30/2018 7:20:32 PM
--- NOTE | 2018-11-30 09:26 | GENERAL SURGERY PROGRESS NOTE ---
DATE: 11/30/2018 It is 9 o'clock in the morning. Mr. Hickey is awake and alert. He did not eat much breakfast. He is afebrile. His heart rate is recorded at 133 today, blood pressure 125/66. He has a palpable graft pulse. His foot is obviously warmer and pinker. He can tell a difference in the warmth. White count is 13,700, hemoglobin 9, hematocrit 28. BUN 23, creatinine 2.2. He is on aspirin and Eliquis. The plan will be to maintain his anticoagulation. He can get up in a chair. We will keep his Ramirez until tomorrow. I will cut his IV rate down slightly. I think he has done satisfactorily postoperatively. cc: Forrest Cha MD
--- NOTE | 2018-11-30 10:51 | PROGRESS NOTE ---
DATE: 11/30/2018 SUBJECTIVE: Patient reports feeling fine. Mild pain in the left leg. The patient can tell the difference that after surgery the left leg is definitely more warm and pink. Denies any chest pain. Denies any shortness of breath. OBJECTIVE: Vital Signs: Temperature 98.6 degrees, heart rate 133, respiratory rate 12, blood pressure 125/66, O2 saturation 98% 2 L nasal cannula. General Examination: This is a chronically ill-looking, 83-year-old male, lying in bed, in no acute distress. HEENT: Head is normocephalic, atraumatic. Neck: No JVD noted. No carotid bruits. No lymphadenopathy. No thyromegaly. Cardiovascular: S1, S2 heard. Tachycardic. Irregularly irregular. No murmurs, gallops, or rubs noted. Respiratory: Clear bilaterally to auscultation. No work of breathing or using accessory muscles. Abdomen: Soft. Nontender to palpation. Bowel sounds present. No organomegaly. Extremities: No clubbing, cyanosis, or edema. The left leg is definitely more warm and pink than 2 days ago. Neurological: Patient is alert and oriented x3. Moves 4 extremities. LABORATORY DATA: White cell count 13.7, hemoglobin 9.0, hematocrit 28.3, platelets 315,000. BMP shows creatinine 2.2, chloride 110. ASSESSMENT AND PLAN: 1. Peripheral vascular disease, status post left femoral tibial in situ vein bypass. Patient after surgery is doing much better. Dr. Cha is following this patient. He thinks that he is doing good. We will continue to monitor this patient closely. We do appreciate Dr. Cha's help. 2. Atrial fibrillation with rapid ventricular response. Patient's heart rate has gone up again so Cardizem drip has been restarted and currently he is receiving 10 mg per hour. He has been receiving Cardizem 30 mg p.o. q.6 hours. He has been also on Coreg 12.5 mg p.o. twice daily. At this point I am going to increase the dose of Coreg to 25 mg p.o. b.i.d., will continue with Cardizem drip, and continue to monitor this patient closely. 3. Acute on chronic kidney disease stage 4. Creatinine is. 2.2, which is really close to his historical baseline. We will continue to monitor. 4. Diabetes mellitus type 2. The patient is on insulin sliding scale and also Accu-Cheks before meals and also at bedtime. 5. Left foot cellulitis secondary to Pseudomonas. Dr. Russo from Infectious Disease following this patient and will continue with Levaquin oral, in this case 250 mg p.o. daily because of his renal dysfunction. 6. Anemia of chronic disease. Stable. We will continue to monitor. 7. Disposition. We will continue to monitor this patient closely. Of course, he needs to stay in [facility] because he is on a Cardizem drip. cc: Elijah Molina MD
[2018-11-30] MEDS ORDERED: HEPARIN 25,000 UNIT in NS 250 ML IV SCH (13:30)
[2018-11-30] MEDS: CORDARONE PO SCH ×2 (13:59→16:46)
--- NOTE | 2018-11-30 13:59 | PROGRESS NOTE ---
DATE: 11/30/2018 SUBJECTIVE: Patient converted back into atrial fibrillation early this morning. Intravenous diltiazem has been initiated. He continues in atrial fibrillation. He remains asymptomatic from a cardiovascular standpoint. OBJECTIVE: Blood pressure 128/59, heart rate 120 and irregular with ECG monitor showing atrial fibrillation. Oxygen saturation 93% to 98%. There is no significant jugular venous distention. Chest is clear to auscultation. Cardiac exam reveals an irregular rate and rhythm without appreciable murmur or gallop. Extremities are without edema. IMPRESSION: 1. Recurrent atrial fibrillation. 2. Status post left vipinkn-oh-[id number] bypass procedure for ischemic distal left lower extremity. 3. Fovwttor-is-wgmktf bilateral carotid stenosis. 4. Chronic kidney disease, stage 4. 5. Hypertension. 6. Type 2 diabetes mellitus. 7. Obesity. RECOMMENDATIONS: 1. Continue intravenous diltiazem. 2. Resume anticoagulation with intravenous heparin. 3. Initiate amiodarone in an effort to restore/maintain sinus rhythm. cc: Ryan Jauregui MD
--- NOTE | 2018-11-30 14:10 | EKG Report ---
Test Performed on : 11/30/2018 1:44:43 PM Test Reason : rhythm Blood Pressure : / mmHG Vent. Rate : 075 BPM Atrial Rate : 075 BPM P-R Int : 152 ms QRS Dur : 090 ms QT Int : 390 ms P-R-T Axes : 057 033 119 degrees QTc Int : 435 ms Normal sinus rhythm. Left atrial enlargement T wave abnormality, consider lateral ischemia Abnormal ECG When compared with ECG of 30-NOV-2018 04:03, (Unconfirmed) Sinus rhythm. has replaced Atrial fibrillation. Vent. rate has decreased BY 75 BPM Criteria for Septal infarct are no longer present ST no longer depressed in Anterior leads T wave inversion now evident in Lateral leads Confirmed by Elinor EMERY, Kwan Avitia ([id number]) on 11/30/2018 7:53:18 PM
[2018-12-01] MEDS: NS 1,000 ML IV SCH ×3 (01:39→17:36)
[2018-12-01] MEDS: CARDIZEM PO SCH ×4 (01:39→21:01)
[2018-12-01 05:45] LABS: ALBUMIN 2.2 g/dL (3.5-5.0); CALCIUM 7.9 mg/dL (8.8-10.2); CREATININE 2.5 mg/dL (0.7-1.2); PHOSPHORUS 2.5 mg/dL (2.7-4.5); POTASSIUM 4.3 mmol/L (3.5-5.1)
[2018-12-01 05:46] LABS: HEMATOCRIT 24.3 % (42.0-52.0); HEMOGLOBIN 7.6 g/dL (14.0-18.0); MCH 31.4 PG (27-31); MCHC 31.3 g/dL (33-37); MCV 100.4 FL (81-99); MPV 9.5 FL (7.4-10.4); RBC 2.42 XMIL (4.7-6.1); RDW 13.1 % (11.5-14.5); WBC 11.91 X1000 (4.8-10.8)
[2018-12-01] MEDS: HUMULIN R SUBQ SCH ×4 (06:13→20:53)
[2018-12-01] MEDS: PRILOSEC PO SCH (06:13)
[2018-12-01] MEDS ORDERED: SODIUM PHOSPHATE 35 MMOL in NS 250 ML IV ONE (08:01)
[2018-12-01] MEDS: CORDARONE PO SCH ×3 (08:42→16:15)
[2018-12-01] MEDS: PERIDEX MT SCH ×2 (08:42→21:02)
[2018-12-01] MEDS: ELIQUIS PO SCH (08:42)
[2018-12-01] MEDS: COREG PO SCH ×2 (08:42→21:01)
[2018-12-01] MEDS: ASPIRIN EC PO SCH (08:42)
[2018-12-01] MEDS: LEVAQUIN PO SCH (08:42)
[2018-12-01] MEDS: NEUTRA-PHOS PO SCH ×2 (08:45→21:16)
--- NOTE | 2018-12-01 09:09 | INFECTIOUS DISEASE PROGRESS NO ---
DATE: 12/01/2018 PRESENT ILLNESS: The patient has a left foot Pseudomonas cellulitis that was complicated by ischemia. Dr. Cha has improved the circulation to the patient's left foot. MEDICATIONS: This is the second day of treatment with Levaquin. Day 1 of treatment will be the first day that the patient's blood supply improved, which was due to Dr. Cha's revascularization. PHYSICAL EXAMINATION: Vital Signs: Temperature is 98.8, pulse 63, respirations 18, blood pressure 128/44. Generally, this is an obese, elderly male. He is in no acute distress. Head/eyes/ears/nose/throat: He can hear my spoken words and see near objects. He does not have any white patches on his tongue. Neck: No stiffness. Lungs clear to auscultation. Cardiovascular: The patient's heart seemed to be regular today with a systolic murmur. Abdomen was soft and nontender. Extremities: The left leg has a large dressing around it. The dressing is intact. Neurologic: The patient is lethargic. He can move his extremities. LABORATORY DATA AND X-RAY: CBC shows a white count of 11,910. Hemoglobin 7.6 and platelet count 244,000. Creatinine is 2.5. GFR is 25. ASSESSMENT AND PLAN: Dr. Cha has revascularized the patient's left foot. The foot has cellulitis in it and, hopefully, the surgery will allow better blood supply to the foot which should increase the amount of antibiotic being delivered to the foot. COMORBIDITIES: The patient is elderly. He is a diabetic, and he has peripheral vascular disease. cc: Zak Rsuso MD
--- NOTE | 2018-12-01 09:33 | PROGRESS NOTE ---
DATE: 12/01/2018 SUBJECTIVE: The patient reports feeling fine. Denies any chest pain, any chest discomfort, any palpitations. The pain in the left leg is better. OBJECTIVE: Vital Signs: Temperature 98.8 degrees, heart rate 63, respiratory rate 18, blood pressure 128/44, O2 saturation 98% on 2 L nasal cannula. General Examination: This is a chronically ill-looking, 83-year-old male, lying in bed in no acute distress. HEENT: Head is normocephalic, atraumatic. Neck: No JVD noted. No carotid bruits. No lymphadenopathy. No thyromegaly. Cardiovascular exam: S1, S2 heard. Irregularly irregular and tachycardic. No murmurs, gallops, or rubs noted. Respiratory exam: Clear bilaterally to auscultation. No work of breathing or using accessory muscles. Abdomen: Soft, nontender to palpation. Bowel sounds present. No organomegaly. Extremities: No clubbing, cyanosis, or edema. Left leg is warm and pink. Neurological exam: Patient alert and oriented x3. Moves 4 extremities. LABORATORY DATA: White cell count 11.91, hemoglobin 7.6, hematocrit 24.3, platelets 244 with BMP remarkable for creatinine 2.5. ASSESSMENT AND PLAN: 1. Peripheral vascular disease status post left femoral tibial in situ bypass. Dr. Cha following this patient. Clinically, he is doing okay. We will continue to follow recommendations from Dr. Cha. 2. Atrial fibrillation with rapid ventricular response. Unfortunately, the patient continues to be on Cardizem drip. Also he has been started on amiodarone as well by Cardiology. He continues to be on heparin drip. As we mentioned before, Cardiology following this patient. We will continue to monitor this patient closely, and we have increased the doses of Coreg yesterday from 12.5 to 25; we will see how he does today. 3. Acute on chronic kidney disease stage V. Creatinine is a little bit up today to 2.5. We will continue to monitor. 4. Diabetes mellitus type 2. We will continue with sliding scale insulin, Accu-Chek before meals and also at bedtime. 5. Left foot cellulitis secondary to Pseudomonas. Dr. Russo from Infectious Disease has placed this patient on Levaquin oral 250 mg every other day. We will continue with the same management. 6. Anemia of chronic disease, stable. We will continue to monitor. Even though the hemoglobin has dropped 2 units, there are no signs of overt bleeding. The patient has been having normal stools every single day. We will continue to monitor. 7. Disposition: At this point, we will continue to monitor this patient closely. He is still requiring Cardizem drip here in the [facility]. cc: Elijah Molina MD
[2018-12-01] MEDS: NORCO-7.5 PO PRN (10:52)
--- NOTE | 2018-12-01 11:06 | NEPHROLOGY PROGRESS NOTE ---
DATE: 12/01/2018 SUBJECTIVE: He is doing well overall. He is eating his breakfast. No shortness of breath, nausea, or vomiting. OBJECTIVE: Vital signs: Blood pressure 128/44, heart rate 63, respiration 18, afebrile. Intake 1.2 L. Output 400 mL. General: No acute distress. Skin: Warm and dry. Eyes: Conjunctivae are pink. Neck: Neck veins are not distended. Heart: Regular. No gallops. Lungs: Equal. No crackles. Extremities: Have 2+ edema. No clubbing or cyanosis. IMPRESSION AND PLAN: Chronic kidney disease. Creatinine is slightly higher today than what it has been at baseline. He is receiving low-dosed intravenous fluids. He does have significant edema but he has also significantly hypoalbuminemic. I will continue to observe. I will administer albumin and observe his response to this. cc: Barrington Woods MD
[2018-12-01] MEDS: ALBUMIN 25% IV SCH (11:48)
--- NOTE | 2018-12-01 12:55 | PROGRESS NOTE ---
DATE: 12/01/2018 SUBJECTIVE: The patient converted back to sinus rhythm yesterday afternoon, actually prior to first dose of amiodarone. Today he reports "feeling like crap". He is rather nonspecific, but does report that he is having a cough with some green sputum. There is no chest pain. OBJECTIVE: Vital Signs: Blood pressure 143/48, heart rate 67, oxygen saturation 100%. Neck: There is no significant jugular venous distention. Chest: Clear to auscultation bilaterally. Cardiac Exam: Reveals a regular rate and rhythm without appreciable murmur or gallop. Extremities: No evidence of peripheral edema. The lower extremities are equally warm bilaterally. LABORATORY DATA: White blood cell count 11.91, hematocrit 24.3, hemoglobin 7.6. Sodium 138, potassium 4.3, chloride 108, carbon dioxide 19, BUN 31, creatinine 2.5, glucose 150. IMPRESSION: 1. Paroxysmal atrial fibrillation. Patient currently in sinus rhythm. 2. Status post left [id number]-rhiklczrx tibial bypass procedure for ischemic distal left lower extremity. 3. Moderate to severe bilateral carotid stenosis. 4. Anemia. Hematocrit seems to have dropped after initiation of intravenous heparin yesterday. 5. Chronic kidney disease stage 4. 6. Hypertension. 7. Type 2 diabetes mellitus. 8. Obesity. RECOMMENDATIONS: 1. Continue amiodarone to try and suppress atrial fibrillation. 2. Will interrupt intravenous heparin for now given drop in hematocrit. This potentially may be contributing to his malaise. 3. Arrange for portable upright chest x-ray. 4. Encourage pulmonary toilet. cc: Ryan Jauregui MD
--- NOTE | 2018-12-01 14:17 | Diag Imaging Result Doc PS360 ---
EXAM: CHEST-1 VIEW 12/01/2018 HISTORY: cough TECHNIQUE: AP portable at 1355 COMMENT: There is a questionable right upper lobe parahilar opacity which is not appreciable on the previous studies of 11/26/2018. No earlier chest radiographs are available for comparison. Otherwise, the appearance of the chest has not changed significantly. IMPRESSION: Questionable right upper lobe pneumonia. Electronically signed by Aaron Monte 12/01/2018 2:15 PM
[2018-12-02] MEDS: CARDIZEM PO SCH ×2 (01:48→09:11)
--- NOTE | 2018-12-02 03:38 | GENERAL SURGERY PROGRESS NOTE ---
DATE: 12/01/2018 TIME: 5:22 p.m. SUBJECTIVE: Mr. Hickey is now 2 days after his left femoral tibial in situ vein bypass. His left foot is significantly improved, it is warm, he has a palpable graft pulse. He has some necrosis to his 4th toe, some small areas of necrosis on the great toe and 2nd toe as well. ASSESSMENT: Patent bypass. We have salvaged his foot as it is now warm. I think the necrotic areas of the 1st and 2nd toe will heal. It remains to be seen as to whether his 4th toe will survive. We will continue to use moist gauze between the toes. He can get up, he can bear weight on his leg as he can tolerate it. Since he lives alone it may be best for him to end up going to rehabilitation, but from a surgical point of view no further intervention is indicated. cc: Forrest Cha MD
[2018-12-02] MEDS: NS 1,000 ML IV SCH (04:27)
[2018-12-02] MEDS: HUMULIN R SUBQ SCH ×5 (06:05→22:42)
[2018-12-02 06:08] LABS: HEMATOCRIT 23.5 % (42.0-52.0); HEMOGLOBIN 7.5 g/dL (14.0-18.0); MCH 32.2 PG (27-31); MCHC 31.9 g/dL (33-37); MCV 100.9 FL (81-99); RBC 2.33 XMIL (4.7-6.1); RDW 13.3 % (11.5-14.5); WBC 11.29 X1000 (4.8-10.8)
[2018-12-02] MEDS: PRILOSEC PO SCH (06:19)
[2018-12-02 06:29] LABS: ALBUMIN 2.8 g/dL (3.5-5.0); CALCIUM 7.9 mg/dL (8.8-10.2); CREATININE 2.7 mg/dL (0.7-1.2); PHOSPHORUS 3.5 mg/dL (2.7-4.5); POTASSIUM 4.2 mmol/L (3.5-5.1)
[2018-12-02] MEDS: LEVAQUIN PO SCH (09:10)
[2018-12-02] MEDS: ASPIRIN EC PO SCH (09:11)
[2018-12-02] MEDS: PERIDEX MT SCH ×2 (09:11→22:39)
[2018-12-02] MEDS: ELIQUIS PO SCH ×2 (09:11→22:39)
[2018-12-02] MEDS: COREG PO SCH ×2 (09:11→22:39)
[2018-12-02] MEDS: CORDARONE PO SCH ×3 (09:11→16:34)
[2018-12-02] MEDS: NEUTRA-PHOS PO SCH ×2 (09:11→22:39)
[2018-12-02] MEDS: MORPHINE IV PRN (09:28)
[2018-12-02] MEDS: ALBUMIN 25% IV SCH (10:56)
--- NOTE | 2018-12-02 13:17 | PROGRESS NOTE ---
DATE: 12/02/2018 SUBJECTIVE: Patient feeling better today. He denies chest discomfort or shortness of breath. OBJECTIVE: Vital Signs: Blood pressure 140/52, heart rate 63 and regular with ECG monitor showing sinus rhythm. Oxygen saturation 100%. Neck: There is no significant jugular venous distention. Chest: Clear to auscultation. Cardiac Exam: Reveals a regular rate and rhythm without appreciable murmur or gallop. Extremities: Without edema. Distal lower extremities are warm. LABORATORY DATA: Includes a white blood cell count 11.29, hematocrit 23.5, hemoglobin 7.5, platelet count 243. Sodium 138, potassium 4.2, chloride 108, carbon dioxide 16. BUN 37, creatinine 2.7. Glucose 180. IMPRESSION: 1. Paroxysmal atrial fibrillation. Patient continues in sinus rhythm. 2. Status post left femoral to posterior tibial bypass procedure for ischemic distal left lower extremity. 3. Moderate to severe bilateral carotid stenosis. 4. Anemia. 5. Chronic kidney disease stage 4. 6. Hypertension. 7. Type 2 diabetes mellitus. 8. Obesity. RECOMMENDATIONS: 1. Continue amiodarone at reduced dose. 2. Discontinue diltiazem. cc: Ryan Jauregui MD
--- NOTE | 2018-12-02 13:50 | PROGRESS NOTE ---
DATE: 12/02/2018 SUBJECTIVE: Patient reports feeling fine. Denies any chest pain or any palpitations. OBJECTIVE: Vital Signs: Temperature 98.2, heart rate 63, respiratory rate 17, blood pressure 144/43. O2 saturation 100% on 3 L nasal cannula. General: This is a chronically ill-looking, 83- year-old male lying in bed in no acute distress. HEENT: Head is normocephalic, atraumatic. Neck: No JVD noted. No carotid bruits. No lymphadenopathy. Cardiovascular: S1, S2 heard. No murmurs, gallops, or rubs. Regular rate and rhythm. Respiratory: Clear bilaterally to auscultation. No work of breathing or using accessory muscles. Abdomen is soft. Nontender to palpation. Bowel sounds present. No organomegaly. Extremities: No clubbing, cyanosis, or edema. Peripheral pulses present S1, S2 heard. Irregularly irregular. No murmurs, gallops, or rubs. Respiratory: Clear bilaterally to auscultation. No work of breathing or using accessory muscles. Abdomen is soft, nontender to palpation. Bowel sounds present. No organomegaly. Extremities: No clubbing, cyanosis, or edema. There is a left leg that is warm and pink. Toes 1 and 2 looked necrotic, as well as the 4th toe but left leg is warm and pink. Neurologic: Patient alert and oriented x3. Moves 4 extremities. LABORATORY DATA: White cell count 11.29, hemoglobin 7.5, hematocrit 33.5, platelets 243,000 with creatinine 2.7. Chloride 108. Creatinine 2.7. Albumin 2.8, phosphorus 2.5. ASSESSMENT AND PLAN: 1. Peripheral vascular disease status post left femoral vein bypass. Dr. Cha following this patient. The patient, according to him, is doing fine. No surgical approach needed. 2. Atrial fibrillation with rapid ventricular response. Patient is on Amiodarone by mouth. Coreg 25 mg p.o. q.12 hours. Cardizem 30 mg p.o. q.6 hours and also Eliquis 2.5 mg p.o. b.i.d. Cardiology is following this patient. This patient, of course, is feeling much better. We will continue to monitor this patient closely. 3. Nkjnr-jl-duysyhs kidney disease stage 5. There is a mild elevation of creatinine to 2.5 today but good urine output. We will continue to monitor. 4. Diabetes mellitus, type 2. We will continue with sliding scale insulin. Accu-Chek before meals and also at bedtime. 5. Left foot cellulitis secondary to Pseudomonas. Continue with Levaquin 250 mg p.o. every other day as per Dr. Russo's recommendation and the doses, of course, have been adjusted to his current renal function. 6. Anemia of chronic disease, stable, although there has been a drop in hemoglobin. Cardiology has attributed it to the heparin. So, at this point, we will continue to monitor this patient closely. DISPOSITION: The patient is not requiring any Cardizem drip. At this point, we will transfer to the surgical floor today. cc: Elijah Molina MD MTDD
--- NOTE | 2018-12-02 14:50 | NEPHROLOGY PROGRESS NOTE ---
DATE: 12/02/2018 SUBJECTIVE: He is resting comfortably. No complaints today. OBJECTIVE: Vital Signs: Blood pressure 148/52, heart rate 63, respiration 18, afebrile. General: No acute distress. Skin: Warm and dry. Conjunctivae are pink. Neck: Neck veins are not distended. Heart: Regular. No gallops. Lungs: Equal. No crackles. Abdomen: Soft, nontender. Bowel sounds present. Extremities: Have no edema, clubbing or cyanosis. IMPRESSION: 1. Chronic kidney disease, stage IIIB. Stable. 2. Acid-base: Worsening non gap acidosis secondary to his chronic kidney disease. He is also receiving normal saline at 60 an hour which may worsen this problem. I will simply stop the normal saline and observe his response. cc: Barrington Woods MD
--- NOTE | 2018-12-02 14:51 | GENERAL SURGERY PROGRESS NOTE ---
DATE: 12/02/2018 TIME: 1:20 p.m. Mr. Hickey is sitting up, about to stand up with physical therapy assistance. He continues to have a graft pulse. He continues on aspirin and Eliquis. No new interventions today. cc: Forrest Cha MD
[2018-12-02] MEDS: DUONEB (A & A) INH SCH (23:34)
[2018-12-03] MEDS: DUONEB (A & A) INH SCH ×4 (03:39→22:27)
[2018-12-03] MEDS: PRILOSEC PO SCH ×2 (05:52→09:44)
[2018-12-03] MEDS: HUMULIN R SUBQ SCH ×2 (06:22→12:39)
[2018-12-03 07:07] LABS: BASO# 0.01 X1000 (0.0-0.2); BASO% 0.1 % (0.0-0.8); CALCIUM 8.1 mg/dL (8.8-10.2); CREATININE 2.5 mg/dL (0.7-1.2); EOS# 0.07 X1000 (0.0-0.7); EOS% 0.7 % (0.0-10.0); HEMATOCRIT 24.7 % (42.0-52.0); HEMOGLOBIN 7.8 g/dL (14.0-18.0); IMM GRAN# 0.04 X1000 (0.0-0.04); IMM GRAN% 0.4 % (0.0-0.5); LYMPH# 2.19 X1000 (1.2-3.4); LYMPH% 21.5 % (20.5-51.1); MCH 31.1 PG (27-31); MCHC 31.6 g/dL (33-37); MCV 98.4 FL (81-99); MONO# 1.05 X1000 (0.11-0.59); MONO% 10.3 % (1.7-9.3); MPV 10.1 FL (7.4-10.4); NEUT# 6.82 X1000 (1.4-6.5); PHOSPHORUS 3.8 mg/dL (2.7-4.5); PLT 300 X1000 (130-400); RBC 2.51 XMIL (4.7-6.1); RDW 13.2 % (11.5-14.5); WBC 10.18 X1000 (4.8-10.8)
[2018-12-03 08:19] LABS: POTASSIUM 4.6 mmol/L (3.5-5.1)
--- NOTE | 2018-12-03 08:24 | GENERAL SURGERY PROGRESS NOTE ---
DATE: 12/03/2018 SUBJECTIVE: Mr. Hickey is now 4 days after his in situ vein bypass. His left foot continues to be warm. He has a palpable graft pulse. His wounds are progressing satisfactorily. He is to stay on Eliquis and aspirin. He ultimately may lose his fourth toe, but I think everything else will survive. cc: Forrest Cha MD
[2018-12-03] MEDS: NEUTRA-PHOS PO SCH (09:51)
[2018-12-03] MEDS: ASPIRIN EC PO SCH (09:51)
[2018-12-03] MEDS: PERIDEX MT SCH (09:51)
[2018-12-03] MEDS: ELIQUIS PO SCH (09:51)
[2018-12-03] MEDS: ALBUMIN 25% IV SCH (09:52)
[2018-12-03] MEDS: CORDARONE PO SCH ×2 (09:52→15:04)
[2018-12-03] MEDS: LEVAQUIN PO SCH (09:52)
[2018-12-03] MEDS: COREG PO SCH (09:52)
--- NOTE | 2018-12-03 12:49 | PROGRESS NOTE ---
DATE: 12/03/2018 SUBJECTIVE: The patient reports feeling fine. Denies any chest pain or pain in the left leg. OBJECTIVE: Vital Signs: Temperature 98.0 degrees, heart rate 91, respiratory rate 20, blood pressure 138/71, O2 saturation 98% on 3 L nasal cannula. General examination: This is a chronically ill-looking, 84-year-old male, lying in bed, in no acute distress. HEENT: Head is normocephalic, atraumatic. Neck: No JVD noted. No carotid bruits. No lymphadenopathy. Cardiovascular: S1, S2 heard. Irregularly irregular. No murmurs, gallops, or rubs. Respiratory: Clear bilaterally to auscultation. No work of breathing or using accessory muscles. Abdomen: Soft. Nontender to palpation. Bowel sounds present. No organomegaly. Extremities: No clubbing, cyanosis, or edema. Peripheral pulses present in both legs. The left leg is warm and pink. The 4th toes looks purple and necrotic. Neurological: Patient is alert and oriented x3. Moves 4 extremities. LABORATORY DATA: White cell count 10.1, hemoglobin 7.8, hematocrit 24.7, platelets 300,000. Creatinine 2.5. ASSESSMENT AND PLAN: 1. Peripheral vascular disease, status post left femoral-tibial in situ vein bypass. Clinically he is doing fine. Dr. Cha from General Surgery is following this patient. He thinks that maybe the 4th toe will be lost but the rest will be fine. We will follow his recommendations. 2. Atrial fibrillation with rapid ventricular response. The heart rate is finally well controlled. Patient is on amiodarone by mouth, Coreg, Cardizem, and Eliquis. Cardiology is following this patient. We will follow recommendations. 3. Acute on chronic kidney disease stage 5. Creatinine is the same, it is 2.5. We will continue to monitor. There is good urine output. 4. Diabetes mellitus type 2. We will continue with sliding scale insulin and Accu-Chek before meals and also at bedtime. 5. Left foot cellulitis secondary to Pseudomonas. Will continue with Levaquin 250 mg p.o. every other day. 6. Anemia of chronic disease. Stable. 7. Disposition. At this point, we will continue to monitor this patient closely. I do not know when Dr. Cha is planning to remove the 4th toe if needed. In any case, we are following the lead from General Surgery. Clinically he is stable, so we will see what Dr. Cha has to say. cc: Elijah Molina MD
[2018-12-03] MEDS ORDERED: LASIX IV ONE (18:37)
--- NOTE | 2018-12-03 20:06 | PROGRESS NOTE ---
DATE: 12/03/2018 SUBJECTIVE: Patient reports some shortness of breath. There has been no chest pain. He continues in sinus rhythm. OBJECTIVE: Vital Signs: Blood pressure 128/62, heart rate 91 to 99, oxygen saturation 95 to 98 percent on nasal cannula oxygen. Neck: Jugular venous distention cannot be appreciated. Chest: Auscultation of the chest reveals few bibasilar inspiratory crackles. Cardiac Exam: Reveals a regular rate and rhythm without appreciable murmur or gallop. Extremities: Demonstrate very mild lower extremity edema. Distal lower extremities are warm bilaterally. LABORATORY DATA: Includes a white blood cell count 10.18, hematocrit 24.7, hemoglobin 7.8, platelet count 300,000. Sodium 142, potassium 4.6, chloride 109, carbon dioxide 17, BUN 38, creatinine 2.5, glucose 141. IMPRESSION: 1. Paroxysmal atrial fibrillation. Patient continues in sinus rhythm. 2. Some evidence of congestive heart failure, diastolic, emerging. 3. Status post left femoral to posterior tibial bypass procedure for ischemic distal left lower extremity. 4. Moderate to severe bilateral carotid stenosis. 5. Anemia. 6. Chronic kidney disease stage 4. 7. Hypertension. 8. Type 2 diabetes mellitus. 9. Obesity. RECOMMENDATIONS: 1. Continue amiodarone at reduced dose. 2. Diurese with intravenous Lasix. cc: Ryan Jauregui MD
[2018-12-04] MEDS: NEUTRA-PHOS PO SCH ×3 (00:54→22:56)
[2018-12-04] MEDS: ELIQUIS PO SCH ×3 (00:54→22:55)
[2018-12-04] MEDS: CORDARONE PO SCH ×3 (00:54→22:55)
[2018-12-04] MEDS: COREG PO SCH ×3 (00:54→22:55)
[2018-12-04] MEDS: PERIDEX MT SCH ×3 (00:55→22:55)
[2018-12-04] MEDS: HUMULIN R SUBQ SCH ×6 (00:55→23:02)
[2018-12-04] MEDS: DUONEB (A & A) INH SCH ×4 (03:04→22:45)
[2018-12-04] MEDS: PRILOSEC PO SCH (06:27)
[2018-12-04 07:18] LABS: CALCIUM 8.8 mg/dL (8.8-10.2); CREATININE 2.8 mg/dL (0.7-1.2); POTASSIUM 4.2 mmol/L (3.5-5.1)
[2018-12-04] MEDS ORDERED: LASIX IV ONE (08:05)
[2018-12-04 08:24] LABS: HEMATOCRIT 24.3 % (42.0-52.0); HEMOGLOBIN 7.7 g/dL (14.0-18.0); MCHC 31.7 g/dL (33-37); MPV 10.1 FL (7.4-10.4); RBC 2.48 XMIL (4.7-6.1); RDW 13.1 % (11.5-14.5); WBC 9.97 X1000 (4.8-10.8)
[2018-12-04] MEDS: ASPIRIN EC PO SCH (11:05)
[2018-12-04] MEDS: LEVAQUIN PO SCH (11:06)
--- NOTE | 2018-12-04 12:59 | PROGRESS NOTE ---
DATE: 12/04/2018 SUBJECTIVE: The patient reports feeling fine. Denies any chest pain, chest tightness, or fever or chills. OBJECTIVE: Vital Signs: Temperature 98.2 degrees, heart rate 108, respiratory rate 22, blood pressure 168/68, and O2 saturation 92% on 3 liters nasal cannula. General: On examination, this is a chronically ill-looking, 84-year-old, male, lying in bed, in no acute distress. HEENT: Head is normocephalic, atraumatic. Neck: No JVD noted. No carotid bruits. No lymphadenopathy. No thyromegaly. Cardiovascular: S1 and S2 heard. Irregularly irregular. No murmurs, gallops, or rubs. Respiratory: Clear bilaterally to auscultation. No work of breathing. Not using accessory muscles. Abdomen: Soft, nontender to palpation. Bowel sounds present. No organomegaly. Extremities: No clubbing, cyanosis, or edema. Peripheral pulses present in both legs. The left leg is warm, pink, with incisions clean and dry. The 4th toe looks purple, necrotic. Neurological: The patient alert and oriented x3. Moves 4 extremities. LABORATORY DATA: White cell count 9.97, hemoglobin 7.7, hematocrit 24.3, platelets 357,000. BMP shows creatinine 2.8 with 3.4 liters of urine in the last 24 hours. ASSESSMENT AND PLAN: 1. Peripheral vascular disease, status post left femoral tibial in situ vein bypass. Clinically he continues to improve. Dr. Cha from general surgery following this patient. He thinks that this patient is doing okay. 2. Atrial fibrillation with rapid ventricular response. Heart rate is finally well controlled. The patient is on amiodarone, and dose is now 200 mg by mouth twice daily. Also, we are going to continue to monitor vital signs every 6 hours. He is also on Eliquis. He is also on Coreg as well. We will continue with the same management. 3. Acute on chronic kidney disease stage 5. Creatinine is slightly elevated at 2.8, but he is having good urine output. We will continue to monitor. 4. Diabetes mellitus type 2. We will continue with sliding scale insulin. Accu-Chek before meals and also at bedtime. 5. Left foot cellulitis secondary to Pseudomonas we will continue with Levaquin as directed by Dr. Russo. 6. Anemia of chronic disease, stable. 7. Disposition. At this point, the patient is medically stable. We are awaiting a rehabilitation bed for him. cc: Elijah Molina MD
--- NOTE | 2018-12-04 13:29 | NEPHROLOGY PROGRESS NOTE ---
DATE: 12/04/2018 TIME SEEN: 0808. SUBJECTIVE: Mr. Hickey is resting quietly in bed. Head of the bed is elevated. He states that he is feeling fair today. OBJECTIVE: Vital signs: His most recent vital signs, last temperature 98.2 degrees, blood pressure 168/68, heart rate 108, respirations 22. He is on 3 L nasal cannula. Last recorded saturation is 92%. General: This is an 83-year-old white male resting quietly in bed. Head of the bed is elevated. He appears chronically ill, though no acute distress. Skin: Warm and dry. HEENT: Normocephalic, atraumatic. Conjunctiva pale pink. He has DAVID. Mucous membranes are dry. Neck: Supple, trachea midline. No JVD at this upright position. Cardiovascular: Irregularly irregular rate and rhythm. He is slightly tachycardic. Lungs: Clear to auscultation anterior with an inspiratory wheeze posterior right upper lobe. He is currently on O2. Abdomen: Large, slightly distended. Positive bowel sounds. Genitourinary: Not inspected. Adequate urine output to void. Extremities: Left foot remains in dressing. This is dry and intact. Neurological: He is alert to person and to place. INPUT AND OUTPUT: He has had 480 in, 3425 out. He has voided. LABORATORY DATA: Sodium 144, potassium 4.2, chloride 108, CO2 18, BUN 43, creatinine 2.8, glucose 163. He has an anion gap of 18, calcium is 8.8, phosphorus 3.4. The patient has a previous albumin of 2.8. White count 9.97, hemoglobin 7.7, hematocrit 24.3 with a platelet count of 357,000. ASSESSMENT AND PLAN: 1. Chronic kidney disease stage 3B. Patient remains at his historical baseline. His creatinine is slightly elevated at 2.8, though up from his baseline of 2.2. He did receive Lasix 40 mg IV push x1 yesterday. He has currently finished his last set of albumin x 3 doses per Cardiology. We will continue to monitor and evaluate daily labs. 2. Electrolytes and acid-base balance. These are acceptable. 3. Anemia. This is low, but stable. 4. Fluid volume overload. The patient does have increased lower extremity swelling. He does have increased work of breathing. Wheezes are present. We will give him 40 mg of Lasix x 1 dose. Re-evaluate his labs in the a.m. I would to thank you for allowing us to follow with this patient. Dictated by TALIB Pierre for Barrington Woods MD Face to face encounter, data reviewed, discussed with Loy Calle on 12/04/18. I agree with the above assessment and plan of care. cc: TALIB Pierre MD [facility]
--- NOTE | 2018-12-04 13:39 | GENERAL SURGERY PROGRESS NOTE ---
DATE: 12/04/2018 Mr. Hickey's wounds look okay. He has a palpable graft pulse. His left foot is warm. 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 We will continue with the current aspirin and Eliquis. They are to suspend is heel so that will have no further ischemic injury. He will ultimately lose his 4th toe it appears. He is progressing satisfactorily postop and can be transferred whenever he is well from the medical point of view. cc: Forrest Cha MD
--- NOTE | 2018-12-04 13:58 | INFECTIOUS DISEASE PROGRESS NO ---
DATE: 12/04/2018 PRESENT ILLNESS: The patient has a left foot Pseudomonas cellulitis which was complicated by ischemia but Dr. Cha has revascularized the leg. MEDICATIONS: This is day 5 of treatment with Levaquin. Day 1 was the day that the patient had his surgery performed and therefore was getting good blood supply. PHYSICAL EXAMINATION: Vital Signs: Temperature is 97.9 degrees, pulse 93, respirations 20, blood pressure 161/92. General: This is an obese, elderly male who is in no acute distress. Head, eyes, ears, nose, throat: He can hear my spoken words and see near objects. He does not have any white patches on his tongue. Neck: No meningismus. Lungs: Clear to auscultation. Cardiovascular: The patient's heart rate is irregular. Abdomen: Soft and not tender. Extremities: I removed the dressing from the patient's left foot. The 4th toe is gangrenous. The dorsum of the foot is erythematous and between toes 1 and 2 there is some ulceration and erythema. Neurologic: The patient is awake. He can move his extremities. There is no tremor. He does not have any tremor. The patient is able to carry on a coherent conversation. LAB AND X-RAY: CBC today shows a white count of 9,970, hemoglobin 7.7, and platelet count is 357,000. Creatinine is 2.2. GFR is 22. There is no new radiographic study for today. ASSESSMENT AND PLAN: The foot remains with some inflammation as well as gangrene of the 4th toe. I plan on continuing Levaquin. COMORBIDITIES: The patient is elderly. He is a diabetic and he has peripheral vascular disease. cc: Zak Russo MD
[2018-12-04] MEDS: NORVASC PO SCH (18:12)
--- NOTE | 2018-12-04 18:45 | PROGRESS NOTE ---
DATE: 12/04/2018 SUBJECTIVE: Patient reports feeling better following diuresis. He denies any shortness of breath or chest discomfort. OBJECTIVE: Vital Signs: Blood pressure 177/73, heart rate 100 and regular, oxygen saturation 98% on nasal cannula oxygen. Neck: Jugular venous distention cannot be appreciated. Chest: Fairly clear to auscultation presently. Cardiac: Regular rate and rhythm without appreciable murmur or gallop. Extremities: Demonstrate trace edema of distal left lower extremity with no perceivable edema distal right lower extremity. The distal left lower extremity remains warm. LABORATORY DATA: Includes a white blood cell count 9.97, hematocrit 24.3, hemoglobin 7.7, platelet count 357,000. Sodium 144, potassium 4.2, chloride 108, carbon dioxide 18, BUN 43, creatinine 2.8, glucose 163. IMPRESSION: 1. Paroxysmal atrial fibrillation. Patient continues in sinus rhythm. 2. Recent volume overload/diastolic heart failure, improved with diuresis. 3. Status post left femoral to posterior tibial bypass procedure for ischemic distal left lower extremity. 4. Moderate to severe bilateral carotid stenosis. 5. Anemia. 6. Chronic kidney disease stage IV. 7. Hypertension. 8. Type 2 diabetes mellitus. 9. Obesity. RECOMMENDATIONS: 1. Blood pressure elevated. Will add amlodipine 5 mg p.o. daily. 2. No further diuresis at this point. Continue to monitor renal function. cc: Ryan Jauregui MD
[2018-12-05] MEDS: DUONEB (A & A) INH SCH ×4 (03:25→23:01)
[2018-12-05] MEDS: PRILOSEC PO SCH ×2 (05:30→06:04)
[2018-12-05] MEDS: HUMULIN R SUBQ SCH ×4 (06:03→22:33)
[2018-12-05 07:15] LABS: HEMOGLOBIN 8.1 g/dL (14.0-18.0); MCH 32.3 PG (27-31); MCHC 32.4 g/dL (33-37); MCV 99.6 FL (81-99); MPV 9.5 FL (7.4-10.4); RBC 2.51 XMIL (4.7-6.1); RDW 13.3 % (11.5-14.5); WBC 9.15 X1000 (4.8-10.8)
[2018-12-05 07:44] LABS: CALCIUM 8.8 mg/dL (8.8-10.2); CREATININE 2.5 mg/dL (0.7-1.2); POTASSIUM 3.5 mmol/L (3.5-5.1)
--- NOTE | 2018-12-05 08:11 | EKG Report ---
Test Performed on : 12/05/2018 08:06:06 AM Test Reason : Bradycardia Blood Pressure : / mmHG Vent. Rate : 094 BPM Atrial Rate : 131 BPM P-R Int : 000 ms QRS Dur : 086 ms QT Int : 412 ms P-R-T Axes : 000 016 112 degrees QTc Int : 515 ms Atrial fibrillation. Possible Septal infarct likely old Abnormal ECG When compared with ECG of 30-NOV-2018 13:44, Atrial fibrillation. has replaced Sinus rhythm. Septal infarct is now suggested QT has lengthened Confirmed by Elinor EMERY, Kwan Avitia ([id number]) on 12/05/2018 6:18:35 PM
[2018-12-05] MEDS: NEUTRA-PHOS PO SCH ×2 (09:13→22:32)
[2018-12-05] MEDS: ASPIRIN EC PO SCH (09:15)
[2018-12-05] MEDS: CORDARONE PO SCH (09:15)
[2018-12-05] MEDS: PERIDEX MT SCH ×2 (09:15→22:32)
[2018-12-05] MEDS: LEVAQUIN PO SCH (09:16)
[2018-12-05] MEDS: ELIQUIS PO SCH ×2 (09:16→22:33)
[2018-12-05] MEDS: NORVASC PO SCH (09:17)
[2018-12-05] MEDS: COREG PO SCH ×2 (09:17→22:32)
--- NOTE | 2018-12-05 10:19 | INFECTIOUS DISEASE PROGRESS NO ---
DATE: 12/05/2018 PRESENT ILLNESS: The patient has a left foot Pseudomonas cellulitis. The patient has ischemia of the leg, but he has had revascularization of the leg performed by Dr. Cha. MEDICATIONS: The patient has been on Levaquin now for 6 days. PHYSICAL EXAMINATION: Vital Signs: Temperature is 98.3 degrees, pulse 96, respirations 12, blood pressure 149/78. General: This is an obese, elderly male. He is in no acute distress. Head/eyes/ears/nose/throat: He can hear my spoken words and see near objects. He does not have any white coating to his tongue. Neck: No stiffness. Lungs: There were bilateral rhonchi. Cardiovascular: The patient's heart rate is irregular. Abdomen: Soft and nontender. Extremities: The patient's left foot and ankle has a large dressing. The dressing is intact. Neurologic: The patient is awake. He can move his extremities. There is no tremor. LABORATORY AND X-RAY: CBC for today shows a white count of 9150, hemoglobin 8.1, and platelet count 387,000. Creatinine is 2.5. GFR is 25. There is no radiographic study today. ASSESSMENT AND PLAN: 1. The patient has cellulitis of the left foot with a gangrene of the 4th toe. My plan is to continue Levaquin. 2. Comorbidities: The patient is elderly, he is a diabetic and he has peripheral vascular disease. cc: Zak Russo MD
--- NOTE | 2018-12-05 10:27 | NEPHROLOGY PROGRESS NOTE ---
DATE: 12/05/2018 SUBJECTIVE: Mr. Hickey is resting in bed. Head of the bed is elevated. He has just had a 12 lead EKG run. He states that he remains weak, though he has gotten out of bed and tolerated it well on his own. OBJECTIVE: His most recent vital signs, his last temperature 98.2 degrees, blood pressure 149/76, heart rate 80, respirations 20. He is on 3 L nasal cannula. Last recorded saturation is 96%. He has had 400 in, he has had 1050 out to void. LABS: Sodium 143, potassium 3.5, chloride 105, CO2 22, BUN 42, creatinine 2.5, glucose 159. His anion gap is 16, calcium is 8.8, phosphorus 3.4. White count 9.15, hemoglobin 8.1, hematocrit 25, platelet count 387,000. PHYSICAL EXAMINATION: General: This is an 83-year-old white male. He is currently resting quietly in bed. Head of the bed is elevated. He appears chronically ill though no acute distress. Skin: Warm and dry. HEENT: Normocephalic, atraumatic. Conjunctiva is pale pink. He has DAVID. Mucous membranes are dry. Neck: Supple, trachea midline. Unable to determine JVD in the upright position. Cardiovascular: He has irregular rate and rhythm. He is slightly tachycardic. Lungs: Clear to auscultation bilaterally, equal excursion with an occasional inspiratory wheeze. Abdomen: Large, round, obese, soft, nontender. Positive bowel sounds. Genitourinary: Not inspected. Patient has been voiding adequate amount. Extremities: Left foot remains in dressing dry and intact. He does have healing wounds up the left lower extremity, warm to touch. Neurological: Alert and oriented to person and place. ASSESSMENT AND PLAN: 1. Chronic kidney disease stage 3B. Patient remains at his baseline creatinine over the last 72 hours. We will plan for follow up in our office once discharged to continue to monitor and evaluate. He did receive Lasix yesterday. He tolerated this well. 2. Electrolytes and acid-base balance. These are acceptable. 3. Anemia. This is low but stable, knows there is fluid volume overload. Patient has had Lasix in the last 48 hours x2 doses along with albumin over the weekend. His swelling has improved. Shortness of breath has improved. Continues to be followed by Cardiology. 4. I would like to thank you for allowing us to follow with this patient. Dictated by TALIB Pierre for Barrington Woods MD Face to face encounter, data reviewed, discussed with Loy Calle on 12/05/18. I agree with the above assessment and plan of care. cc: TALIB Pierre MD [facility]
--- NOTE | 2018-12-05 15:50 | PROGRESS NOTE ---
DATE: 12/05/2018 SUBJECTIVE: Patient reports feeling fine. Denies any fever or chills. OBJECTIVE: Vital Signs: Temperature 98.9, heart rate 105, respiratory 24, blood pressure 148/79, O2 sat 94% on room air. General: This is a chronically ill-looking 83-year-old male lying in bed in no acute distress. HEENT: Head is normocephalic, atraumatic. Neck: No JVD noted. No carotid bruits. No lymphadenopathy. Cardiovascular: S1, S2 heard. Irregularly irregular. No murmurs, gallops, or rubs. Respiratory: Clear bilaterally to auscultation. No work of breathing or using accessory muscles. Abdomen: Soft, nontender to palpation. Bowel sounds present. No organomegaly. Extremities: No clubbing, cyanosis or edema. Peripheral pulses present in both legs. Left leg is warm with incisions clean and dry. Fourth toe looks purple and necrotic. Neurologic: Patient is alert and oriented x 3. Moves 4 extremities. LABORATORY DATA: White cell count 9.15, hemoglobin 8.1, hematocrit 25.0, platelets 387,000, with normal BMP except creatinine 2.5, glucose 159. ASSESSMENT AND PLAN: 1. Peripheral vascular disease status post left femoral-tibial in situ vein bypass. Clinically patient continues to improve. Dr. Cha from General Surgery following this patient. 2. Atrial fibrillation with rapid ventricular response. Heart rate is well controlled with oral medication. We will continue also with Eliquis. Will continue with the same management. 3. Acute on chronic kidney disease stage 5. Nephrology is following. Creatinine is stable we will continue with same management. 4. Diabetes mellitus type 2. We will continue with sliding scale insulin and Accu-Cheks before meals and also at bedtime. 5. The foot cellulitis secondary to Pseudomonas. We will continue with Levaquin 250 mg p.o. as directed by Dr. Zak Russo. 6. Anemia of chronic disease. Stable. 7. Disposition: The patient got a bed in rehab facility. So, we will discharge him tomorrow. cc: Elijah Molina MD
--- NOTE | 2018-12-05 16:12 | PROGRESS NOTE ---
DATE: 12/05/2018 SUBJECTIVE: The patient continues without chest discomfort or dyspnea on room air. OBJECTIVE: Vital Signs: Blood pressure 148/79, heart rate 105 and regular. ECG monitor shows sinus rhythm. Oxygen saturation ranges from 92 to 100 percent. Neck: There is no significant jugular venous distention. Chest: Clear to auscultation. Cardiac Exam: Reveals a regular rate and rhythm without appreciable murmur, rub or gallop. Extremities: Without edema. LABORATORY DATA: Includes a white blood cell count of 9.15, hematocrit 25.0, hemoglobin 8.1, platelet count 387,000. Sodium 143, potassium 3.5, chloride 105, carbon dioxide 22, BUN 42, creatinine 2.5, glucose 159. IMPRESSION: 1. Paroxysmal atrial fibrillation. The patient continues in sinus rhythm on amiodarone. 2. Status post left femoral to posterior tibial bypass procedure for ischemic distal left lower extremity. 3. 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 4. Moderate to severe bilateral carotid disease. 5. Anemia. 6. Chronic kidney disease stage 4. 7. Type 2 diabetes mellitus. 8. Obesity. RECOMMENDATIONS: 1. Continue current cardiovascular regimen unchanged. 2. No further diuresis at this point. Continue to monitor renal function. 3. Continue low-dose Eliquis. 4. Plan is for transfer to [facility] for rehabilitation, noted. This is certainly acceptable from a cardiovascular standpoint. I will see patient further on an as-needed basis. cc: Ryan Jauregui MD
[2018-12-06] MEDS: DUONEB (A & A) INH SCH ×2 (03:25→08:06)
[2018-12-06] MEDS: TYLENOL PO PRN (05:15)
[2018-12-06] MEDS: HUMULIN R SUBQ SCH ×2 (06:30→11:01)
[2018-12-06 07:05] LABS: HEMATOCRIT 26.5 % (42.0-52.0); HEMOGLOBIN 8.4 g/dL (14.0-18.0); MCH 31.1 PG (27-31); MCHC 31.7 g/dL (33-37); MCV 98.1 FL (81-99); MPV 9.5 FL (7.4-10.4); RBC 2.7 XMIL (4.7-6.1); RDW 13.3 % (11.5-14.5); WBC 9.38 X1000 (4.8-10.8)
[2018-12-06 07:42] LABS: CALCIUM 8.6 mg/dL (8.8-10.2); CREATININE 2.4 mg/dL (0.7-1.2); POTASSIUM 3.8 mmol/L (3.5-5.1)
--- NOTE | 2018-12-06 07:57 | GENERAL SURGERY PROGRESS NOTE ---
DATE: 12/06/2018 Mr. Hickey continues to have a palpable graft pulse. His incisions are healing. It appears that he has a dry gangrenous fourth toe. He has eschars between the first and second toes, and has a left lateral heel eschar. It is okay with me that he go to rehab. He is to stay on his aspirin and Eliquis. He can ambulate. I want him to return to my office when he leaves rehab in 2 to 3 weeks, and then we will decide what has to be debrided on his foot. He will probably come to 4th toe amputation and possibly debridement of the eschars. But the next 2 to 3 weeks, we will be able to tell what is going to heal and what will not heal. If there was a question about wound care at the facility, they should call me at the office. I would definitely keep his heel off the bed with suspension to give his heel a chance to heal. If his eschars are dry, then I think no ointment or any topical application will make a difference. If the eschar has come off, I think a moistened saline gauze will be effective. cc: Forrest Cha MD
[2018-12-06] MEDS: NORVASC PO SCH (08:54)
[2018-12-06] MEDS: ELIQUIS PO SCH (08:55)
[2018-12-06] MEDS: NEUTRA-PHOS PO SCH (08:56)
[2018-12-06] MEDS: ASPIRIN EC PO SCH (08:56)
[2018-12-06] MEDS: LEVAQUIN PO SCH (08:56)
[2018-12-06] MEDS: COREG PO SCH (08:57)
[2018-12-06] MEDS: PERIDEX MT SCH (08:57)
[2018-12-06] MEDS: PRILOSEC PO SCH (08:57)
[2018-12-06] MEDS ORDERED: CORDARONE PO SCH (09:00)
--- NOTE | 2018-12-06 11:20 | DISCHARGE SUMMARY ---
ADMISSION DATE: 11/23/2018 DISCHARGE DATE: 12/06/2018 CONSULTATIONS: 1. Dr. Johnson Choi with General Surgery. 2. Dr. Zak Russo with Infectious Disease. 3. Dr. Ryan Jauregui with Cardiology. 4. Dr. Barrington Woods with Nephrology. PERTINENT PROCEDURES: 1. Foot x-ray showed no acute bony abnormality. 2. Renal ultrasound: No evidence of obstructive uropathy. 3. Extremity arterial study showed severe blunting of the waveforms throughout the bilateral lower extremities. MARIELOS is suppressed to moderate or severe range bilaterally. Near flattening to the waveforms at the ankle and the left toe and foot. Recommend correlation with angiogram. 4. Left lower extremity arteriogram, performed by Dr. Forrest Choi. 5. Echocardiogram, EF of 70%. 6. Renal ultrasound showed no evidence of obstructive uropathy. The possibility of medical renal disease could not be excluded. 7. Nuclear bone scan: Generalized increased soft tissue uptake associated with the right foot as compared to the left. No findings to suggest osteomyelitis. 8. Extremity arterial: There was runoff noted to the posterior tibial artery on the left side. 9. Saphenous vein mapping: Likely adequate size for bypass, left greater saphenous vein. 10. Carotid Doppler: Severe stenosis noted bilaterally with atherosclerosis. Both carotid arteries are in the 60 to 79% range. 11. Left femoral-popliteal, performed by Dr. Forrest Cha. DISCHARGE DIAGNOSES: 1. Ischemic rest pain at the left foot with ulcerations status post left femoral -popliteal by Dr. Forrest Cha. He continues to have a palpable graft pulse. His incisions are healing. He does have a dry gangrenous 4th toe, as well as eschar between the 1st and 2nd toes and lateral heel eschar. He will be discharged to [facility]. He is to continue on aspirin and Eliquis. He is able to ambulate. He will return to see Dr. Cha in 2 to 3 weeks and decide at that time if his foot will need debridement. They have discussed the possibility of a 4th toe amputation, as well as debridement of the eschars. Will further assess in 2 to 3 weeks. If there is any question about wound care at [facility], they should call Dr. Forrest Cha in the office. He is to have his left heel elevated off the bed with suspension to give his heel a chance to heal. If his eschars are dry then there is no ointment or topical application that will make a difference. If the eschar has come off, he believes that moistened saline gauze will be effective. 2. Left foot Pseudomonas cellulitis. The patient has been treated by Dr. Zak Russo with Infectious Disease with IV antibiotics. He will continue on Levaquin. 3. Atrial fibrillation, paroxysmal, with an episode of rapid ventricular response. Currently rate controlled. Will continue on home medications, as well as Eliquis and aspirin have been added to his regimen. 4. Chronic kidney disease stage 3B, followed by Nephrology. He has remained at his baseline creatinine for more than 72 hours. He will need to follow up with Dr. Woods in the office once discharged to continue to monitor and evaluate his kidney function. Electrolytes, acid base balance are all acceptable. Anemia is low but acceptable. 5. Hypertensive cardiovascular disease with left ventricular diastolic dysfunction. 6. Moderate to severe bilateral carotid stenosis. He will need to continue to follow up with General Surgery. He is at the point of needing intervention. 7. Type 2 diabetes. Continue diabetic diet. Continue diabetes regimen. 8. Obesity. Patient has been educated on weight loss and physical therapy. 9. Anemia of chronic disease, stable. 10. Hyperlipidemia. Continue statin. HOSPITAL COURSE: Briefly, Mr. Hickey is an 83-year-old gentleman who carries a past medical history of diabetes mellitus, hypertension, hyperlipidemia, chronic peripheral vascular disease. He was admitted on 11/23/2018 with an ischemic change to his foot. He was also found to have an acute kidney injury on chronic kidney disease, as well as cellulitis to his left lower extremity that grew out Pseudomonas. He was initiated on IV antibiotics at admission, followed by Dr. Russo with Infectious Disease. Several studies were done on his left foot. On the he had an arteriogram that showed SFA occlusions with 1 vessel runoff for reconstitution to the calf and he was able to undergo a femoral-popliteal bypass on the left with Dr. Forrest Cha; that was successful. He continues to have a palpable pulse, as well as incision is healing well. He was also evaluated by Nephrology for worsening kidney function and will continue to follow after discharge. He did have a run of atrial fibrillation with RVR, as well as some fluid volume overload, for which he was overseen by Cardiology. He was only briefly in atrial fibrillation with RVR. He converted with IV Cardizem. Will continue on p.o. management. He was diuresed to a euvolemic state. Given his atrial fibrillation, as well as PVD and recent femoral-popliteal, he will need to continue on anticoagulation with Eliquis and aspirin. He has been working with physical therapy and will be discharged to [facility] today where he will continue to ambulate with physical therapy and continue with wound care. VITAL SIGNS: At time of discharge, temperature is 98.6 degrees, heart rate 60, respirations 18, blood pressure 128/78, O2 is 93% on room air. DISCHARGE DIET: Diabetic. DISCHARGE MEDICATIONS: 1. Aspirin 81 mg p.o. daily. 2. Glimepiride 4 mg p.o. daily. 3. Fish oil 1000 mg p.o. at bedtime. 4. Pravachol 40 mg p.o. daily. 5. Vitamin E 400 units p.o. daily. 6. DuoNeb 3 mL inhaled q.6 hours p.r.n. 7. Amiodarone 200 mg p.o. daily. 8. Norvasc 5 mg p.o. daily. 9. Eliquis 2.5 mg p.o. b.i.d. 10. Coreg 25 mg p.o. b.i.d. 11. [place] 7.5 two each p.o. q.6 hours p.r.n. 12. Levaquin 250 mg p.o. daily for 10 more doses. 13. Prilosec 40 mg p.o. ACB. FOLLOW UP: Mr. Hickey is being discharged to [facility] in [place] where he will continue to ambulate and work with physical therapy. Again, his incisions are healing. He does have dry gangrene to his 4th toe, as well as eschar between the first and second toes, as well as left lateral heel eschar. He will need to follow up with Dr. Cha in 2 to 3 weeks after discharge from rehab to discuss debridement of his foot and possible amputation of his 4th toe. If you has any questions regarding wound care, please call Dr. Cha's office for further assistance. He will also need to follow up with Dr. 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 He is to take all medications as prescribed. He can return to the ED or call 911 for any worsening of symptoms. Dictated by TALIB Enciso for Elijah Molina MD Addendum: Patient seen and examined by myself. Agree with TALIB note. It reflects my assessment and plan. Patient is being discharged from hospital in stable condition. Will be followed by Dr. Cha 2 to 3 weeks after being discharged from rehab. cc: MD Forrest Rhodes MD Leroy F. Harris, MD Reginald D. Gladish, MD Randall Quinn, MD MTDD
[2018-12-06 12:50] VITALS: BP 137/64
--- NOTE | 2018-12-06 13:16 | NEPHROLOGY PROGRESS NOTE ---
DATE: 12/06/2018 TIME SEEN: 0755 SUBJECTIVE: Mr. Hickey is sitting up on the side of the bed. States that he is supposed to be discharged today to [facility]. He denies any pain or increased work of breathing. He does have some discomfort to his left lower extremity. VITAL SIGNS: His most recent vital signs show temperature 98 degrees, blood pressure 174/79, heart rate 65, respirations 20. He is on room air. Last recorded saturation 100%. He has had 250 in. He has had 803 mL plus out to void. LABORATORY DATA: Sodium 145, potassium 3.8, chloride 107, CO2 22, BUN 37, creatinine 2.4, glucose 173. His anion gap is 16, calcium 8.6, phosphorus 3.4. White count 9.38, hemoglobin 8.4, hematocrit 26.5 with a platelet count of 438,000. PHYSICAL EXAMINATION: General: This is an 83-year-old, elderly, white male who is currently resting on the side of the bed. He appears chronically ill, in no acute distress. Skin: Warm and dry. HEENT: Normocephalic, atraumatic. Conjunctivae pale pink. He has DAVID. Mucous membranes are dry. Neck: Supple. Trachea midline. No JVD in the upright position. Cardiovascular: Irregular/irregular rate and rhythm. He is slightly tachycardic. No murmur or gallop. Lungs: Clear to auscultation bilaterally. Equal excursion with faint inspiratory effort posterior. Remains on room air. Abdomen: Large, obese, soft, nontender. Positive bowel sounds. Genitourinary: Not inspected. The patient has been voiding adequate amounts. Extremities: Left foot remains in a gauze dressing. This is dry and intact. Healing wounds to the left upper and lower extremity. Neurologic: Alert and oriented x3. ASSESSMENT AND PLAN: 1. Chronic kidney disease stage 3B. Patient remains at his historical baseline of creatinine 2.5 to 2.6 over the last 72 hours. No indications for intervention. After patient is to be discharged, we will send a lab slip to monitor patient's creatinine and renal status during his rehab at [facility] in the next 1 to 2 weeks with plan for follow up in 1 month after discharge. 2. Electrolytes, acid-base balance and anemia. These are all acceptable. 3. Left lower leg discomfort. Recent surgical intervention and followed by Surgery. I would to thank you for allowing us to follow with this patient. Dictated by TALIB Pierre for Barrington Woods MD cc: TALIB Pierre MD [facility]
--- NOTE | 2018-12-06 15:02 | DISCHARGE SUMMARY ---
ADMISSION DATE: 11/23/2018 DISCHARGE DATE: 12/06/2018 Mr. Hickey has a left foot Pseudomonas cellulitis and is being discharged today to a rehab facility. Dr. Chaves has already put in orders for Levaquin 250 mg by mouth daily for the next 10 days. We will follow up with him in our office in 10 days at which time we will re-evaluate his wound and any need for further treatment. These plans have been discussed with and recommended by Dr. Russo. Dictated by TALIB Harris for Zak Russo MD This chart was documented by, TALIB Harris and accurately reflects the services performed, treatment plan and medical decisions as attested by the providers signature Zak Russo MD. cc: Zak Russo MD MTDD
== END 2018-12-06 15:35 | DRG 253 ==
LOC: ED 11:45 → SUATTDRO 15:20 → 4N 15:20 → 3S 11-26 15:01 → 4N 12-02 10:13
PROVIDERS: ATTEND Internal Medicine
CPT/HCPCS: 36140; 71010; 71045; 73630; 76770; 78315; 80048; 80053; 80069; 81001; 81050; 82570; 82575; 82607; 82746; 82948; 83036; 83735; 83935; 84100; 84156; 84166; 84300; 84443; 85014; 85018; 85025; 85027; 85651; 85730; 86140; 86335; 86850; 86900; 86901; 87070; 87077; 87186; 87205; 93005; 93010; 93306; 93880; 93922; 93923; 93926; 93971; 94640; 94761; 94799; 96361; 96365; 96375; 97162; 97166; 97530; 97535; 99285; A9270; A9503; J0330; J0690; J1100; J1170; J1644; J1815; J1940; J2250; J2270; J2405; J2440; J2543; J2550; J3010; J7030; J7050; P9047; Q9967; S0020; S0077; XXXXX

== ENCOUNTER 2019-01-24 13:12 | Inpatient (IN) ==
[2019-01-24] MEDS ORDERED: NS 1,000 ML ONE (13:44)
--- NOTE | 2019-01-24 14:11 | Diag Imaging Result Doc PS360 ---
EXAM: CT HEAD W/O CONTRAST 01/24/2019 HISTORY: AMS TECHNIQUE: This exam was performed using automated exposure control, adjustment of mA or kV according to patient size, and/or use of iterative reconstruction technique. COMMENT: There are no previous studies available for comparison. There is no evidence of mass effect, bleed, or abnormal extra-axial fluid collection. There is abnormal lucency present in the white matter both hemispheres particularly in the centrum semiovale regions. There is mild generalized cerebral atrophy. The calvarium is intact. The visualized paranasal sinuses are clear. IMPRESSION: Chronic ischemic microvascular changes. No evidence of acute disease. Electronically signed by Aaron Monte 01/24/2019 2:09 PM
[2019-01-24] MEDS ORDERED: NS 1,000 ML IV ONE ×2 (14:20→16:29)
[2019-01-24] MEDS ORDERED: D5 NS 1,000 ML IV ONE (14:22)
--- NOTE | 2019-01-24 14:22 | EKG Report ---
Test Performed on : 01/24/2019 2:12:00 PM Test Reason : AMS Blood Pressure : / mmHG Vent. Rate : 064 BPM Atrial Rate : 064 BPM P-R Int : 174 ms QRS Dur : 090 ms QT Int : 440 ms P-R-T Axes : 057 023 055 degrees QTc Int : 453 ms Normal sinus rhythm. Septal infarct (cited on or before 30-NOV-2018) Abnormal ECG When compared with ECG of 05-DEC-2018 08:06, Sinus rhythm. has replaced Atrial fibrillation. Nonspecific T wave abnormality no longer evident in Lateral leads QT has shortened Unconfirmed Result
[2019-01-24 14:34] LABS: BASO# 0.02 X1000 (0.0-0.2); BASO% 0.2 % (0.0-0.8); EOS# 0.17 X1000 (0.0-0.7); EOS% 1.4 % (0.0-10.0); HEMATOCRIT 32.5 % (42.0-52.0); HEMOGLOBIN 10.2 g/dL (14.0-18.0); IMM GRAN# 0.02 X1000 (0.0-0.04); IMM GRAN% 0.2 % (0.0-0.5); LYMPH# 3.07 X1000 (1.2-3.4); LYMPH% 25.3 % (20.5-51.1); MCH 30.2 PG (27-31); MCHC 31.4 g/dL (33-37); MCV 96.2 FL (81-99); MONO# 0.99 X1000 (0.11-0.59); MONO% 8.1 % (1.7-9.3); MPV 9.7 FL (7.4-10.4); NEUT# 7.88 X1000 (1.4-6.5); NEUT% 64.8 % (42.2-75.2); PLT 424 X1000 (130-400); RBC 3.38 XMIL (4.7-6.1); RDW 14.1 % (11.5-14.5); WBC 12.15 X1000 (4.8-10.8)
--- NOTE | 2019-01-24 14:43 | Diag Imaging Result Doc PS360 ---
EXAM: CHEST-PORTABLE 01/24/2019 HISTORY: ams TECHNIQUE: AP portable upright at 1426 COMMENT: There is no evidence of acute cardiac or pulmonary disease. Compared to 12/01/2018 there has been no significant change. IMPRESSION: Stable chest. Electronically signed by Aaron Monte 01/24/2019 2:40 PM
[2019-01-24 14:52] LABS: ESTIMATED GFR 13
[2019-01-24 14:54] LABS: URINE SOURCE CLEAN CATCH
[2019-01-24 15:00] LABS: ACETONE SERUM NEGATIVE (NEGATIVE)
[2019-01-24 15:01] LABS: AGAP 13; ALB/GLOB RATIO 1.1; ALBUMIN 3.4 g/dL (3.5-5.0); ALKALINE PHOSPHATASE 102 U/L (32-122); BUN 67 mg/dL (8-22); CALCIUM 8.6 mg/dL (8.8-10.2); CHLORIDE 100 mmol/L (98-107); COSMO 290; CREATININE 4.4 mg/dL (0.7-1.2); GLUCOSE 71 mg/dL (70-104); GOT 21 U/L (10-34); GPT 13 U/L (10-44); POTASSIUM 5.4 mmol/L (3.5-5.1); SODIUM 136 mmol/L (136-145); TCO2 23 mmol/L (25-35); TOTAL PROTEIN 6.6 g/dL (6.3-8.3)
[2019-01-24 15:07] LABS: BILIRUBIN URINE NEGATIVE (NEGATIVE); BLOOD URINE NEGATIVE (NEGATIVE); COLOR YELLOW; GLUCOSE URINE NEGATIVE (NEGATIVE); KETONE URINE NEGATIVE (NEGATIVE); LEUKOCYTES URINE NEGATIVE (NEGATIVE); NITRITE URINE NEGATIVE (NEGATIVE); PH URINE 5.5; PROTEIN URINE 50 mg/dL (NEGATIVE); SP GRAVITY URINE 1.008; TURBIDITY URINE CLEAR (CLEAR); UR EPITHELIAL CELLS <10 /HPF (<10); URINE BACTERIA NEGATIVE /HPF; URINE RBC <10 /HPF (<10); URINE WBC <10 /HPF (<10); UROBILINOGEN URINE NORMAL (NORMAL)
[2019-01-24 15:13] LABS: ALLEN TEST NO; BE -2.1 mmoll (-3.0-3.0); BLOOD TYPE ARTERIAL; HCO3-(ACT) 23.3 mmoll (20.0-26.0); METHB 1.6 % (0.0-1.5); O2(CT) 12.5 mL/dL (15.0-23.0); O2HB 94.8 % (95.0-99.0); PCO2(98.6) 35 mmHg (35-45); PO2(98.6) 79 mmHg (60-100); SAMPLE BLOOD; SAO2 97.5 % (95.0-100.0); THB 9.3 g/dL (11.5-17.4); pH(98.6) 7.41 (7.35-7.45)
[2019-01-24 15:14] LABS: MODALITY ROOM AIR
[2019-01-24 15:18] LABS: INR 0.97; PROTIME 13.7 Seconds (11.0-16.0)
[2019-01-24 15:19] LABS: PTT 35.8 Seconds (22.3-41.8)
[2019-01-24 15:21] LABS: UR AMPHETAMINES QUAL NONE DETECTED (NONE DETECT); UR BARBITUATES QUAL NONE DETECTED (NONE DETECT); UR BENZODIAZEPIN QUAL NONE DETECTED (NONE DETECT); UR CANNABINOIDS QUAL NONE DETECTED (NONE DETECT); UR COCAINE QUAL NONE DETECTED (NONE DETECT); UR METHADONE QUAL NONE DETECTED (NONE DETECT); UR OPIATES QUAL PRESUMPTIVE POSITIVE (NONE DETECT); UR OXYCODONE QUAL NONE DETECTED (NONE DETECT); UR PCP QUAL NONE DETECTED (NONE DETECT)
[2019-01-24] MEDS ORDERED: ZYVOX 600 MG/D5W 600 MG/300 ML IVPB IV ONE (16:30)
[2019-01-24] MEDS ORDERED: LEVAQUIN 250 MG/D5W 250 MG/50 ML IVPB IV ONE (16:34)
[2019-01-24] MEDS ORDERED: ZOSYN 2.25 GM in NS 50 ML IV ONE (17:04)
--- NOTE | 2019-01-24 17:49 | PROVIDER DOCUMENTATION ---
This chart was entered by Brenda Roque Scribe, acting as scribe for Forrest Mahajan MD. HPI-Neurological Disorder - General Chief Complaint: Altered Mental Status Stated Complaint: AMS Time Seen by Provider: 01/24/19 14:29 Source: patient, other (family friend) Allergies/Adverse Reactions: Patient Allergies Allergy/AdvReac Type Severity Reaction Status Date / Time No Known Allergies Allergy Verified 01/24/19 14:16 Home Medications: Home Medication List Medication Instructions Recorded Confirmed Last Taken Type Aspirin [Aspirin EC] 81 mg PO DAILY 05/14/13 12/20/18 12/19/18 08:00 History Glimepiride 4 mg PO DAILY 05/14/13 12/20/18 12/19/18 08:00 History PRAVAstatin [Pravachol] 40 mg PO DAILY 05/14/13 12/20/18 12/19/18 08:00 History Vitamin E [Formula E] 400 unit PO DAILY 05/14/13 12/20/18 12/19/18 08:00 History Amiodarone [Cordarone] 200 mg PO DAILY #60 tab 12/06/18 12/20/18 12/19/18 08:00 Rx Amlodipine [Norvasc] 5 mg PO DAILY #60 tab 12/06/18 12/20/18 12/19/18 08:00 Rx Carvedilol [Coreg] 25 mg PO BID #60 tab 12/06/18 12/20/18 12/20/18 08:00 Rx Acetaminophen [Tylenol] 2 tab PO Q4H PRN 12/19/18 12/20/18 Unknown History Apixaban [Eliquis] 2.5 mg PO BID 12/19/18 12/20/18 12/19/18 20:00 History Arginine/Glutamine/Calcium Hmb 1 dose PO BID 12/19/18 12/20/18 12/19/18 17:00 History [Jeovanny Packet] Docusate Sodium 100 mg PO DAILY 12/19/18 12/20/18 12/19/18 08:00 History Ipratropium/Albuterol Sulfate 1 dose NEB Q6H PRN 12/19/18 12/20/18 Unknown History [Iprat-Albut 0.5-3(2.5) mg/3 ml] Latanoprost 1 drop RIGHT EYE QHS 12/19/18 12/20/18 12/19/18 20:00 History Magnesium Hydroxide [Milk of 30 ml PO QAM PRN 12/19/18 12/20/18 Unknown History Magnesia] [place]-3 Fatty Acids/Fish Oil [Fish 1,000 mg PO QHS 12/19/18 12/20/18 12/19/18 20 :00 History Oil 1,000 mg Capsule] Omeprazole [Prilosec] 40 mg PO DAILY 12/19/18 12/20/18 12/19/18 06:30 History Protein Supplement [Promod] 30 ml PO TID 12/19/18 12/20/18 12/19/18 20:00 History Zinc Oxide [Skin Protectant] 1 dose TOP QSHIFT 12/19/18 12/20/18 12/19/18 19:00 History Collagenase Clostridium Oint 30 gm .SEE ORDER Q12HR #1 oint 12/20/18 Unknown Rx [Santyl Oint] Doxycycline 100 mg PO Q12HR #20 tablet 12/20/18 Unknown Rx Hydrocodone/APAP 7.5 mg/325 mg 1 ea PO Q6H PRN PRN #20 tab 12/20/18 Unknown Rx [Fairchance-7.5] Sodium Chlor/Hypochlorous Acid 475 ml IR BID #1 irrig.soln 12/20/18 Unknown Rx [Vashe Wound Therapy Solution] - History of Present Illness-Neuro Nature of Presenting Problem: Patient is a 83 year old male who presents to the ED via EMS with altered mental status. Patient's family friend states finding patient unresponsive. EMS stated patient's finger stick was 46. EMS states giving patient oral glucose prior to arrival. Patient states taking his insulin this morning. Patient does not report headache. Severity: reports: mild Onset/Duration: reports: unsure Timing: reports: still present Context: reports: found unresponsive by family Character of Altered Mental Status: reports: unresponsive Any recent trauma/injury?: reports: none New weakness or altered sensation location:: reports: none Associated Symptoms: reports: denies symptoms Similar Symptoms Previously?: No Recently seen or treated by another doctor?: No Review of Systems - Adult - REVIEW OF SYSTEMS - ADULT Constitutional: reports: no symptoms reported Eyes: reports: no symptoms reported Ears, Nose, Mouth & Throat: reports: no symptoms reported Cardiovascular: reports: no symptoms reported Respiratory: reports: no symptoms reported Gastrointestinal: reports: no symptoms reported Genitourinary: reports: no symptoms reported Musculoskeletal: reports: no symptoms reported Integumentary: reports: no symptoms reported Neurological: reports: other (AMS - unresponsive). denies: dizziness/vertigo, headache/migraines, numbness, slurred speech, syncope Psychiatric: reports: no symptoms reported Endocrine: reports: no symptoms reported Hematologic/Lymphatic: reports: no symptoms reported Allergic/Immunologic: reports: no symptoms reported All Other Systems: Reviewed and Negative Past History - Adult - PAST MEDICAL HISTORY-ADULT Review of Records: reports: Nursing Assessment Review, Medications Reviewed, Social history reviewed & non-contributory. Major Childhood Illnesses: reports: denies history Cardiovascular: reports: HTN, hyperlipidemia Respiratory: reports: denies history Gastrointestinal: reports: GERD Obstetrical/Gynecological: reports: denies history Genitourinary: reports: kidney disease Musculoskeletal: reports: chronic pain Neurological: reports: denies history Psychiatric: reports: denies history Endocrine/Immune: reports: Diabetes Other Conditions: reports: denies history - PRIOR SURGERIES/PROCEDURES Surgical/Procedure History: reports: cholecystectomy, back/neck - IMMUNIZATION STATUS Childhood Immunizations: See Nurse Assessment Flu Vaccine: See Nurse Assessment - FAMILY HISTORY Family History: reviewed, not pertinent - SOCIAL HISTORY Smoking: chew, less than 1 pack/day Provider spent 3-5 mins advising pt. on dangers of tobacco.: Discussed manners to quit use, and f/u contacts for add'l counseling. Substance Use: denies Physical Exam- Neurological - Physical Exam-Neuro Initial Vital Signs Reviewed: Yes General Appearance: alert, no apparent distress Eye Exam: right eye: other (blown pupil. 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: normal hearing, normal speech Motor/Sensory: no motor deficit, no sensory deficit, no pronator drift Neurologic: grossly normal, no motor/sensory deficits Integumentary: normal color, normal turgor, warm/dry Psych/Mental Status: normal mood/affect, oriented x 3 Progress - PLAN OF CARE/RESULTS Progress/Plan/Lab Results: Vital Signs - 8 hr 01/24/19 13:55 01/24/19 14:06 01/24/19 14:07 Temperature 99.0 F Pulse Rate 64 67 69 Respiratory Rate 16 15 16 Blood Pressure 82/50 132/71 O2 Sat by Pulse Oximetry 99 95 01/24/19 14:08 01/24/19 14:10 01/24/19 14:17 Temperature Pulse Rate 65 65 63 Respiratory Rate 15 16 Blood Pressure 124/55 143/51 O2 Sat by Pulse Oximetry 97 98 98 01/24/19 14:20 01/24/19 14:30 01/24/19 14:33 Temperature Pulse Rate 63 69 68 Respiratory Rate 16 13 24 Blood Pressure 125/53 O2 Sat by Pulse Oximetry 97 77 L 97 01/24/19 14:40 01/24/19 14:47 01/24/19 14:59 Temperature Pulse Rate 67 68 69 Respiratory Rate 10 L 19 10 L Blood Pressure 132/52 125/57 O2 Sat by Pulse Oximetry 96 97 97 01/24/19 15:02 01/24/19 15:20 01/24/19 15:30 Temperature Pulse Rate 64 65 66 Respiratory Rate 18 17 Blood Pressure 123/48 O2 Sat by Pulse Oximetry 96 97 01/24/19 15:40 01/24/19 15:50 01/24/19 16:00 Temperature Pulse Rate 67 68 72 Respiratory Rate 19 15 17 Blood Pressure O2 Sat by Pulse Oximetry 01/24/19 16:10 01/24/19 16:15 01/24/19 16:17 Temperature 97.3 F L Pulse Rate 68 70 68 Respiratory Rate 15 13 19 Blood Pressure 152/58 141/57 O2 Sat by Pulse Oximetry 96 01/24/19 14:22 Influenza Screen - Final Nasopharyngeal Laboratory Results - last 24 hr 01/24/19 01/24/19 01/24/19 13:40 13:50 13:50 WBC RBC Hgb Hct MCV MCH MCHC RDW Std Deviation Plt Count MPV Immature Gran % (Auto) Neut % (Auto) Lymph % (Auto) Lewis % (Auto) Eos % (Auto) Baso % (Auto) Immature Gran # (Auto) Neut # (Auto) Lymph # (Auto) Lewis # (Auto) Eos # (Auto) Baso # (Auto) PT INR PTT (Actin FS) Specimen Type Sample Site pH pCO2 pO2 HCO3 Base Excess Oxyhemoglobin ABG O2 Sat (Calculated) ABG O2 Saturation ABG Carboxyhemoglobin ABG Methemoglobin Mainor Test A-a O2 Difference Total Hemoglobin Lactate Liter Flow Blood Gas Modality FiO2 % Sodium 136 Potassium 5.4 H Chloride 100 Carbon Dioxide 23 L Anion Gap 13 BUN 67 H Creatinine 4.4 H Estimated GFR/1.73 m2 13 BUN/Creatinine Ratio 15 Glucose 71 POC Glucose 83 Calculated Osmolality 290 Calcium 8.6 L Magnesium Total Bilirubin 0.20 AST 21 ALT 13 Alkaline Phosphatase 102 Creatine Kinase Troponin T Total Protein 6.6 Albumin 3.4 L Globulin 3.2 Albumin/Globulin Ratio 1.1 Plasma Lactate TSH 6.50 H Urine Source Urine Color Urine Turbidity Urine pH Ur Specific [place] Urine Protein Ur Glucose (Stick) Ur Ketones (Stick) Urine Blood Urine Nitrite Urine Bilirubin Urobilinogen Dipstick Urine Leukocytes Urine WBC (Auto) Urine RBC (Auto) U Epithel Cells (Auto) Urine Bacteria (Auto) Urine Opiates Screen Ur Oxycodone Screen Ur Methadone, Qual Ur Barbiturates Screen Ur Phencyclidine Scrn Ur Amphetamines Screen U Benzodiazepines Scrn Urine Cocaine Screen U Cannabinoids Screen Acetone Level NEGATIVE 01/24/19 01/24/19 01/24/19 13:50 13:50 13:50 WBC 12.15 H RBC 3.38 L Hgb 10.2 L Hct 32.5 L MCV 96.2 MCH 30.2 MCHC 31.4 L RDW Std Deviation 14.1 Plt Count 424 H MPV 9.7 Immature Gran % (Auto) 0.2 Neut % (Auto) 64.8 Lymph % (Auto) 25.3 Lewis % (Auto) 8.1 Eos % (Auto) 1.4 Baso % (Auto) 0.2 Immature Gran # (Auto) 0.02 Neut # (Auto) 7.88 H Lymph # (Auto) 3.07 Lewis # (Auto) 0.99 H Eos # (Auto) 0.17 Baso # (Auto) 0.02 PT INR PTT (Actin FS) Specimen Type Sample Site pH pCO2 pO2 HCO3 Base Excess Oxyhemoglobin ABG O2 Sat (Calculated) ABG O2 Saturation ABG Carboxyhemoglobin ABG Methemoglobin Mainor Test A-a O2 Difference Total Hemoglobin Lactate Liter Flow Blood Gas Modality FiO2 % Sodium Potassium Chloride Carbon Dioxide Anion Gap BUN Creatinine Estimated GFR/1.73 m2 BUN/Creatinine Ratio Glucose POC Glucose Calculated Osmolality Calcium Magnesium 2.0 Total Bilirubin AST ALT Alkaline Phosphatase Creatine Kinase 182 Troponin T Total Protein Albumin Globulin Albumin/Globulin Ratio Plasma Lactate 0.8 TSH Urine Source Urine Color Urine Turbidity Urine pH Ur Specific [place] Urine Protein Ur Glucose (Stick) Ur Ketones (Stick) Urine Blood Urine Nitrite Urine Bilirubin Urobilinogen Dipstick Urine Leukocytes Urine WBC (Auto) Urine RBC (Auto) U Epithel Cells (Auto) Urine Bacteria (Auto) Urine Opiates Screen Ur Oxycodone Screen Ur Methadone, Qual Ur Barbiturates Screen Ur Phencyclidine Scrn Ur Amphetamines Screen U Benzodiazepines Scrn Urine Cocaine Screen U Cannabinoids Screen Acetone Level 01/24/19 01/24/19 01/24/19 13:50 13:50 14:40 WBC RBC Hgb Hct MCV MCH MCHC RDW Std Deviation Plt Count MPV Immature Gran % (Auto) Neut % (Auto) Lymph % (Auto) Lewis % (Auto) Eos % (Auto) Baso % (Auto) Immature Gran # (Auto) Neut # (Auto) Lymph # (Auto) Lewis # (Auto) Eos # (Auto) Baso # (Auto) PT 13.7 INR 0.97 PTT (Actin FS) 35.8 Specimen Type Sample Site pH pCO2 pO2 HCO3 Base Excess Oxyhemoglobin ABG O2 Sat (Calculated) ABG O2 Saturation ABG Carboxyhemoglobin ABG Methemoglobin Mainor Test A-a O2 Difference Total Hemoglobin Lactate Liter Flow Blood Gas Modality FiO2 % Sodium Potassium Chloride Carbon Dioxide Anion Gap BUN Creatinine Estimated GFR/1.73 m2 BUN/Creatinine Ratio Glucose POC Glucose Calculated Osmolality Calcium Magnesium Total Bilirubin AST ALT Alkaline Phosphatase Creatine Kinase Troponin T 0.062 Total Protein Albumin Globulin Albumin/Globulin Ratio Plasma Lactate TSH Urine Source CLEAN CATCH Urine Color YELLOW Urine Turbidity CLEAR Urine pH 5.5 Ur Specific [place] 1.008 Urine Protein 50 A Ur Glucose (Stick) NEGATIVE Ur Ketones (Stick) NEGATIVE Urine Blood NEGATIVE Urine Nitrite NEGATIVE Urine Bilirubin NEGATIVE Urobilinogen Dipstick NORMAL Urine Leukocytes NEGATIVE Urine WBC (Auto) <10 Urine RBC (Auto) <10 U Epithel Cells (Auto) <10 Urine Bacteria (Auto) NEGATIVE Urine Opiates Screen Ur Oxycodone Screen Ur Methadone, Qual Ur Barbiturates Screen Ur Phencyclidine Scrn Ur Amphetamines Screen U Benzodiazepines Scrn Urine Cocaine Screen U Cannabinoids Screen Acetone Level 01/24/19 01/24/19 14:40 15:05 WBC RBC Hgb Hct MCV MCH MCHC RDW Std Deviation Plt Count MPV Immature Gran % (Auto) Neut % (Auto) Lymph % (Auto) Lewis % (Auto) Eos % (Auto) Baso % (Auto) Immature Gran # (Auto) Neut # (Auto) Lymph # (Auto) Lewis # (Auto) Eos # (Auto) Baso # (Auto) PT INR PTT (Actin FS) Specimen Type ARTERIAL Sample Site R BRACHIAL pH 7.41 pCO2 35 pO2 79 HCO3 23.3 Base Excess -2.1 Oxyhemoglobin 94.8 L ABG O2 Sat (Calculated) 12.5 L ABG O2 Saturation 97.5 ABG Carboxyhemoglobin 1.20 ABG Methemoglobin 1.6 H Mainor Test NO A-a O2 Difference 27.0 Total Hemoglobin 9.3 L Lactate 0.40 L Liter Flow 0.0 Blood Gas Modality ROOM AIR FiO2 % 21.0 Sodium Potassium Chloride Carbon Dioxide Anion Gap BUN Creatinine Estimated GFR/1.73 m2 BUN/Creatinine Ratio Glucose POC Glucose Calculated Osmolality Calcium Magnesium Total Bilirubin AST ALT Alkaline Phosphatase Creatine Kinase Troponin T Total Protein Albumin Globulin Albumin/Globulin Ratio Plasma Lactate TSH Urine Source Urine Color Urine Turbidity Urine pH Ur Specific [place] Urine Protein Ur Glucose (Stick) Ur Ketones (Stick) Urine Blood Urine Nitrite Urine Bilirubin Urobilinogen Dipstick Urine Leukocytes Urine WBC (Auto) Urine RBC (Auto) U Epithel Cells (Auto) Urine Bacteria (Auto) Urine Opiates Screen PRESUMPTIVE POSITIVE A Ur Oxycodone Screen NONE DETECTED Ur Methadone, Qual NONE DETECTED Ur Barbiturates Screen NONE DETECTED Ur Phencyclidine Scrn NONE DETECTED Ur Amphetamines Screen NONE DETECTED U Benzodiazepines Scrn NONE DETECTED Urine Cocaine Screen NONE DETECTED U Cannabinoids Screen NONE DETECTED Acetone Level Orders Category Date Time Status Cardiac Monitoring DIRECTED Care 01/24/19 14:14 Completed Cardiac Monitoring DIRECTED Care 01/24/19 14:16 Inactive Finger Stick Blood Sugar (ED) DIRECTED Care 01/24/19 14:16 Inactive Oxygen Therapy- ED Nursing DIRECTED Care 01/24/19 14:16 Active Saline Loc NOW Care 01/24/19 14:15 Active Saline Loc NOW Care 01/24/19 14:16 Inactive CHEST-PORTABLE [RAD] Stat Exams 01/24/19 14:[address] HEAD W/O CONTRAST [CT] Stat Exams 01/24/19 13:45 Completed ABG [RESP] Routine Lab 01/24/19 15:05 Completed ACETONE SERUM [CHEM] Stat Lab 01/24/19 13:50 Completed AMMONIA [CHEM] Stat Lab 01/24/19 14:16 Ordered BLOOD CULTURE [BLDCUL] Stat Lab 01/24/19 13:50 Ordered CBC WITH ELECTRONIC DIFF [HEME] Stat Lab 01/24/19 13:50 Completed CK PROFILE [SP CHEM] Stat Lab 01/24/19 13:50 Completed COMPREHENSIVE METABOLIC PANEL [CHEM] Stat Lab 01/24/19 13:50 Completed INFLUENZA SCREEN A/B Stat Lab 01/24/19 14:22 Completed LACTATE, PLASMA [CHEM] Stat Lab 01/24/19 13:50 Completed MAGNESIUM [CHEM] Stat Lab 01/24/19 13:50 Completed PROTIME WITH INR [COAG] Stat Lab 01/24/19 13:50 Completed PTT [COAG] Stat Lab 01/24/19 13:50 Completed TROPONIN T Stat Lab 01/24/19 13:50 Completed TSH Stat Lab 01/24/19 13:50 Completed URINALYSIS W/POSS RFLX CULT [URINALYSIS] Stat Lab 01/24/19 14:40 Completed URINE DRUG SCREEN Stat Lab 01/24/19 14:40 Completed 0.9% Sodium Chloride Inj [Ns] 1,000 ml Med 01/24/19 13:44 Discontinued .ROUTE As Directed 0.9% Sodium Chloride Inj [Ns] 1,000 ml Med 01/24/19 14:20 Discontinued IV 999 mls/hr Dextrose 5%-0.9% NaCl Inj [D5 Ns] 1,000 ml Med 01/24/19 14:22 Active IV 125 mls/hr Altered Mental Status Stat Oth 01/24/19 14:15 Ordered EKG [EKG] Stat Ther 01/24/19 14:15 Draft Result Diagrams: 01/24/19 13:50 01/24/19 13:50 - EKG 1 Time of EKG reading by physician:: 14:12 EKG Read and Signed by:: Forrest Mahajan EKG Interpretation (*Must complete 3 of following elements*): Abnormal Rate: 64 Rhythm: normal sinus rhythm AR Interval: normal Comments: septal infarct, age undetermined - XRAY 1 XRAY Study: Chest Impression: See EMR Report (EXAM: CHEST-PORTABLE 01/24/2019 HISTORY: ams TECHNIQUE: AP portable upright at 1426 COMMENT: There is no evidence of acute cardiac or pulmonary disease. Compared to 12/01/2018 there has been no significant change. IMPRESSION: Stable chest. Electronically signed by Aaron Monte 01/24/2019 2:40 PM 01/24/19 1440 Interpreting Physician: Aaron Monte MD Dictated Date/Time: 01/24/19 1440 cc: Forrest Mahajan MD; Pernell Méndez) - CT/MRI 1 CT Study: Head Impression: See EMR Report (EXAM: CT HEAD W/O CONTRAST 01/24/2019 HISTORY: AMS TECHNIQUE: This exam was performed using automated exposure control, adjustment of mA or kV according to patient size, and/or use of iterative reconstruction technique. COMMENT: There are no previous studies available for comparison. There is no evidence of mass effect, bleed, or abnormal extra- axial fluid collection. There is abnormal lucency present in the white matter both hemispheres particularly in the centrum semiovale regions. There is mild generalized cerebral atrophy. The calvarium is intact. The visualized paranasal sinuses are clear. IMPRESSION: Chronic ischemic microvascular changes. No evidence of acute disease. Electronically signed by Aaron Monte 01/24/2019 2:09 PM 01/24/19 1409 Interpreting Physician: Aaron Monte MD Dictated Date/Time: 01/24/19 1408 cc: Forrest Mahajan MD; Pernell Méndez) - CONSULTS/PCP/HOSPITALIST Notification #1 *Consult/PCP/Hospitalist*: TALIB Catherine for Hospitalist Time Discussed: 16:19 (Dr. Monaco accepted admit ) Reason/Comments: Dr. Mahajan consulted with Dorene about patient. Consult Disposition: Will see in ED, Admit Departure - Departure Date of Disposition Decision: 01/24/19 Time of Disposition Decision: 16:20 DIAGNOSIS: Hypoglycemia associated with type 2 diabetes mellitus, Altered mental status, Acute renal insufficiency, Elevated troponin Disposition: ADMITTED INPATIENT 09 Certified Medical Emergency: Emergent Condition: Fair Referrals and Follow-Ups: Pernell Méndez [Primary Care Provider] - - Critical Care Note This patient required my direct & personal management of CC.: Yes Total Time (mins): 36 Critical Care Statement: This patient required my direct personal management to treat or rule out processes, the absence of which, could potentiallly result in sudden, clinically significant life or limb threatening deterioration. Attestation - Physician/ [place] Attestation The physician spent face to face time with patient:: Yes Advanced Practice Provider documentation review:: Supervising physician onsite and consulted in the evaluation and care of this patient. The physician did have a face to face encounter with the patient. - NIH Stroke Scale Level of Consciousness: 1-Drowsy, but arousable with minimal stimulation LOC Questions (ask month and age): 0-Answers Both Correctly LOC Commands (ask to open & close eyes;make a fist, let go): 0-Obeys Both Correctly Best Gaze (horizontal eye movement): 0-Normal Visual (use finger movement, counting or visual threat): 0-No Visual Loss Facial Palsy (show teeth or raise eyebrows & close eyes tght: 0-Symmetrical Movement Motor Function-left arm: 0-Normal Motor Function-right arm: 0-Normal Motor Function-left le-Normal Motor Function-right le-Normal Limb Ataxia([id number], or heel to raymundo): 0-No Ataxia Sensory(pin prick to face,arms,trunk,legs-compare side/side): 0-No Ataxia Best Language(name item/read sentence.Ex-Down to Earth): 0-No Aphasia Dysarthria(Pt read words or say words Ex.Mama,Tip-Top,Thanks: 0-Normal Articulation Extinction and Inattention: 0-Normal (0) This chart was documented by the indicated scribe, (Brenda Roque Scribe) and accurately reflects the services I performed and decisions made by me, Forrest Mahajan MD, as attested by the provider's signature.
--- NOTE | 2019-01-24 18:42 | Diag Imaging Result Doc PS360 ---
EXAM: FOOT COMPLETE LEFT 01/24/2019 HISTORY: r/o osteo TECHNIQUE: Left foot three views COMMENT: There has apparently been resection of the distal fourth metatarsal and the fourth toe since the previous study of 11/23/2018. The possibility of osteomyelitis in the distal remaining portion of the fourth metatarsal cannot be excluded. Otherwise there is no evidence of periosteal reaction or erosion. 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 The possibility of residual osteomyelitis cannot be excluded. Electronically signed by Aaron Monte 01/24/2019 6:40 PM
--- NOTE | 2019-01-24 18:58 | HISTORY AND PHYSICAL ---
PRIMARY CARE PROVIDER: Pernell Méndez. CHIEF COMPLAINT: Altered mental status, hypoglycemia. HISTORY OF PRESENT ILLNESS: Mr. Hickey is an 83-year-old male, who had recently been admitted to our service on 11/23/2018, and was discharged on 12/06/2018 to [facility] in [place]. He had an ischemic left foot, with ulcerations, status post a left femoral popliteal by Dr. Cha. He continued to have a dry gangrenous 4th toe, as well as eschar between his 1st and 2nd toes, and a lateral heel eschar. He was also noted to have a left foot Pseudomonas. He was discharged to [facility] in [place], and continued to follow up with Dr. Russo and Dr. Cha. Per the patient, he is supposed to undergo another surgery with Dr. Cha. They had changed his antibiotics again. He does not recall what it was. He had a recent visit to the ED for dizziness and hypoglycemia. He did not get admitted at that time. He states that he has not been having problems with his blood sugars. Other history: Chronic kidney disease, stage 3B, paroxysmal atrial fibrillation, diabetes mellitus type 2, hypertensive heart disease, with ventricular diastolic dysfunction, aelkzjbk-vh-otsvvy bilateral carotid stenosis the general surgeon was already aware of, obesity, anemia of chronic disease, and hyperlipidemia. The patient reports just generally not feeling well. He was brought in by his friend, who works at a [employer] that he frequents a lot. They are like family to him. I believe after his discharge from [place] that he was either living with this female and her children, or they were living with him and helping take care of him. However, today he became hypoglycemic. He was brought in by EMS for altered mental status. He underwent a head CT that showed chronic microvascular ischemic changes. EMS noted a blood sugar in the 40s. He is now up to 70s. He has received a unit of IV fluids, and then initiated on one bag of D5. Initially, he had a low-grade temperature of 99 degrees, and he was hypotensive in the 80s. He was not tachycardic. He does not have a white count. We will go ahead and treat him like he is septic with broad-spectrum antibiotics. We will place him on Zyvox and Zosyn. One of his cultures was resistant to Levaquin with a Pseudomonas. He also had an acute kidney injury on chronic kidney disease. We will consult Dr. Woods, gently hydrate him. We will also contact Dr. Cha, in reference to his left foot. He does have some oozing in various places. He will need continued wound care. We will also consult Wound Care to assist. He denies any headache, fever, chills, chest pain, shortness of breath, nausea, vomiting, diarrhea. PAST MEDICAL HISTORY: 1. Ischemic pain of the left foot with ulceration, status post left femoral popliteal BiPAP by Dr. Cha. 2. Dry gangrenous 4th toe on the left, as well as eschar between the 1st and 2nd toes and lateral heel eschar. 3. Left foot Pseudomonas cellulitis. 4. Atrial fibrillation, paroxysmal. 5. Chronic kidney disease, stage 3B. 6. Hypertensive cardiovascular disease, with diastolic dysfunction. 7. Uslguuct-na-vfsxwu bilateral carotid stenosis. 8. Type 2 diabetes. 9. Obesity. 10. Anemia of chronic disease. 11. Hyperlipidemia. PAST SURGICAL HISTORY: 1. Left femoral-popliteal bypass that was performed by Dr. Forrest Cha on his last admission. 2. Back surgery a year and a half ago. 3. Cholecystectomy 10 years ago. 4. Neck surgery 30 years ago. SOCIAL HISTORY: He is a . He lives in [place]. He is retired from [employer]. He has 3 sons who live out of town, 7 grandchildren, and 13 great-grandchildren. He was a smoker for many years, but quit 30 years ago, and since that time, he has dipped [place], 1 can every day. He denies any alcohol or illicit drug use. He is rather close with a family who run a [employer] in [place]. I believe they have been his primary care providers since his discharge from rehab, and prior to. FAMILY HISTORY: No coronary artery disease. ALLERGIES: No known drug allergies. HOME MEDICATIONS: Have not been reconciled. PHYSICAL EXAMINATION: VITAL SIGNS: Temperature on arrival was 99. Heart rate 64. Respirations 16. Blood pressure 82/50. 99% on room air. He currently has a blood pressure 141/57, with a temperature of 97.3 degrees after fluids. GENERAL: Mr. Hickey is an ill-appearing 83-year-old male, who is lying in the stretcher, but in no acute distress. HEENT: Atraumatic, normocephalic. PERRL. NECK: Supple. Trachea midline. CARDIOVASCULAR: S1, S2 appreciated. Questionable murmur. No gallops or rubs noted. No JVD. He has bilateral generalized edema to the lower extremities. PULMONARY: Bilateral breath sounds. Clear to auscultation. No rales, rhonchi , or wheezes. He is bilaterally decreased in the bases. GASTROINTESTINAL: Soft, nontender, nondistended. Positive bowel sounds in 4 quadrants. EXTREMITIES: No clubbing. No cyanosis. NEUROLOGIC: The patient is quite ill-appearing. He is somewhat sleepy. However, he wakes up appropriately to voice. He is alert and oriented x4, follows commands, moves all extremities. No focal deficits noted. SKIN: Warm, dry, and intact, except for the lower extremity. That is described in the HPI. DIAGNOSTIC DATA: 1. Will obtain a left foot x-ray to rule out osteomyelitis. 2. Head CT showed chronic microvascular ischemic changes. No evidence of acute disease. 3. EKG normal sinus rhythm, at a rate of 64 beats per minute. 4. Chest x-ray was stable. There was no acute cardiac or pulmonary disease. LABORATORY DATA: White count 12, hemoglobin and hematocrit 10 and 32, platelet count 424,000. Sodium 136, potassium 5.4, BUN 67, creatinine 4.4. Blood glucose 71. Magnesium 2.0. Troponin was 0.062. TSH was 6.50. Urinalysis was negative, did show 50 urine protein. Toxicology screen was positive for opiates. ASSESSMENT AND PLAN: 1. Probable sepsis. We will continue with Zyvox and Zosyn. Will give him 2 fluid boluses. Consult Infectious Disease, as well as General Surgery. I will await their recommendations. 2. Ischemic left foot, with ulcerations, status post left femoral popliteal bypass by Dr. Forrest Cha. He continues to have a dry gangrenous 4th toe, as well as eschar between the 1st and 2nd toes, as well as lateral heel eschar. Again, we will consult Dr. Russo , General Surgery, and Wound Care. We will need to document his wounds. Continue IV antibiotics. We will check a foot x-ray to rule out any osteomyelitis. 3. Recent left foot Pseudomonas cellulitis that was resistant to Levaquin. Again, we are doing Zosyn. 4. Hyperkalemia. We will recheck his potassium after his 2nd fluid bolus. We will treat accordingly. 5. Acute kidney injury on chronic kidney disease, stage 3B. We will ask Nephrology to follow along. He currently has a Ramirez and is making good urine. 6. Diabetes mellitus type 2 in the setting of hypoglycemia. We will continue to check pattern blood sugars, and we will start sliding scale when the patient's blood sugars stabilize. 7. Hypertensive cardiovascular disease. Initially, hypotensive. Will continue to monitor. Restart medications when appropriate. 8. Ijrqdecs-st-nhexvh bilateral carotid stenosis. The patient has been followed by Dr. Cha. 9. Anemia of chronic disease. Stable. 10. Hyperlipidemia. We will resume home medications when reconciled. 11. Update and confirm home medications. 12. Further recommendations to follow physician evaluation, laboratory data, and diagnostic data. Dictated by TALIB Enciso for Akil Monaco MD cc: MD Barrington Dodd MD Randall Quinn, MD Leroy F. Harris, MD Siddharth Patel, MD I agree with most components of history, physical, assessment and plan. A separate addendum has been dictated. LILLIAN
--- NOTE | 2019-01-24 19:03 | HISTORY AND PHYSICAL ---
Addendum to previously dictated H and P HISTORY OF PRESENT ILLNESS: In brief, Mr. 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 The patient is very drowsy, but arousable and then answers questions appropriately, but lapses back into sleep. He is complaining of left foot pain at the moment. Denies chest pain or shortness of breath. PHYSICAL EXAMINATION: VITAL SIGNS: On vitals evaluation, his temperature was 99 on admission. He is not tachycardic with pulse in 60s. He was documented to be hypotensive with blood pressure 82/ 50 on arrival, which later on increased after intravenous fluids. GENERAL: On physical examination, he is drowsy, but arousable. CARDIOVASCULAR: S1, S2 normal. No murmur, rub, or gallop. LUNGS: Air entry bilaterally equal. No wheeze, rhonchi, or crackles. ABDOMEN: Soft nontender. EXTREMITIES: On the left lower extremity examination, he does have about 5 cm diameter appears to be venous ulcer on the medial aspect of left lower leg. He was also noted to have gang ulcers affecting interdigital area between 1st and 2nd toe, as well as ulcer medial to the last toe. The base of the ulcer has a rolled lower margin. There is no foul smell that I could appreciate. Ulcers are painful. LABS: Suggestive of leukocytosis, normocytic anemia, hyperkalemia, acute kidney injury on chronic kidney disease. Blood culture has been drawn and influenza screen was negative. ASSESSMENT: 1. Sepsis from left lower extremity multiple venous and arterial ulcers with previous history of recent Pseudomonas infection. 2. Acute kidney injury on chronic kidney disease stage 3. 3. Acute encephalopathy in the setting of sepsis. 4. Hyperkalemia. 5. History of atrial fibrillation on Eliquis, currently normal sinus rhythm. 6. Hypoglycemia. PLAN: The patient will be admitted to [facility]. I will give him broad-spectrum intravenous Zosyn and linezolid. I will also give him D5 normal saline for his hypoglycemia. We will keep checking frequent fingersticks. I will continue Ramirez catheter and follow up with [facility]. Currently, he is in sinus rhythm. I am holding his home anticoagulation of Eliquis since I am expecting surgical intervention. I will keep him on enoxaparin for DVT prophylaxis for now, the dose of which could be increased according to his kidney function. Plan of care was discussed with the patient's niece at bedside. All of her questions have been answered. cc: Akil Monaco MD MTDD
[2019-01-24] MEDS: COREG PO SCH (21:10)
[2019-01-24] MEDS: NS 1,000 ML IV SCH (23:15)
[2019-01-24] MEDS: ZOSYN 2.25 GM in NS 50 ML IV SCH (23:16)
[2019-01-25] MEDS: ZYVOX 600 MG/D5W 600 MG/300 ML IVPB IV SCH ×2 (03:47→18:13)
[2019-01-25] MEDS: ZOSYN 2.25 GM in NS 50 ML IV SCH (04:43)
[2019-01-25] MEDS: TYLENOL PO PRN (04:48)
[2019-01-25 05:56] LABS: BASO# 0.02 X1000 (0.0-0.2); BASO% 0.2 % (0.0-0.8); EOS# 0.21 X1000 (0.0-0.7); EOS% 2.2 % (0.0-10.0); HEMATOCRIT 25.9 % (42.0-52.0); HEMOGLOBIN 8.2 g/dL (14.0-18.0); IMM GRAN# 0.02 X1000 (0.0-0.04); IMM GRAN% 0.2 % (0.0-0.5); LYMPH# 2.98 X1000 (1.2-3.4); LYMPH% 31.8 % (20.5-51.1); MCH 30.9 PG (27-31); MCHC 31.7 g/dL (33-37); MCV 97.7 FL (81-99); MONO# 0.94 X1000 (0.11-0.59); MPV 9.4 FL (7.4-10.4); NEUT# 5.21 X1000 (1.4-6.5); NEUT% 55.6 % (42.2-75.2); PLT 353 X1000 (130-400); RBC 2.65 XMIL (4.7-6.1); WBC 9.38 X1000 (4.8-10.8)
[2019-01-25] MEDS: PRILOSEC PO SCH (06:03)
[2019-01-25 06:14] LABS: AGAP 11; ALB/GLOB RATIO 0.8; ALBUMIN 2.4 g/dL (3.5-5.0); ALKALINE PHOSPHATASE 80 U/L (32-122); BUN 52 mg/dL (8-22); CALCIUM 7.6 mg/dL (8.8-10.2); CHLORIDE 108 mmol/L (98-107); COSMO 292; CREATININE 3.7 mg/dL (0.7-1.2); ESTIMATED GFR 16; GLUCOSE 77 mg/dL (70-104); GOT 15 U/L (10-34); GPT 9 U/L (10-44); POTASSIUM 4.4 mmol/L (3.5-5.1); SODIUM 140 mmol/L (136-145); TCO2 21 mmol/L (25-35); TOTAL BILIRUBIN < 0.15 mg/dL (0.20-1.00); TOTAL PROTEIN 5.6 g/dL (6.3-8.3)
--- NOTE | 2019-01-25 07:10 | Diag Imaging Result Doc PS360 ---
EXAM: CHEST-PORTABLE 01/25/2019 HISTORY: follow up TECHNIQUE: AP portable at 0631 COMMENT: There is ill-defined opacity in both lung bases which is worse in since 01/24/2019. The pulmonary vascularity is engorged. IMPRESSION: Worsened pulmonary edema. Electronically signed by Aaron Monte 01/25/2019 7:07 AM
[2019-01-25] MEDS: COREG PO SCH ×2 (08:46→21:01)
[2019-01-25] MEDS: MAXIPIME 1 GM in NS 50 ML IV SCH ×2 (08:46→21:00)
[2019-01-25] MEDS: CORDARONE PO SCH (08:46)
[2019-01-25] MEDS ORDERED: LOVENOX SUBQ SCH (09:00)
[2019-01-25] MEDS ORDERED: ASPIRIN PO SCH (09:00)
--- NOTE | 2019-01-25 09:04 | INFECTIOUS DISEASE CONSULT REP ---
DATE: 01/25/2019 CONCLUSION: The patient has an infection in his left foot following revascularization of the foot. The infection appears to be osteomyelitis of the 4th toe. RECOMMENDATIONS: I agree with treating the patient with Zyvox. I have substituted cefepime for Zosyn. I took a culture from the foot also. DISCUSSION: The patient is unable to provide a history, and no family member was present. The patient has been admitted to the hospital. He has an ischemic left foot and has had revascularization of the leg by Dr. Cha. He had an altered mental status and hypoglycemia. The patient's studies thus far, on x-ray of the left foot there is possible osteomyelitis of the 4th toe. The creatinine is 3.7, GFR is 16. Blood cultures are pending. CBC shows a white count of 9380, hemoglobin 8.2, and platelet count 353,000. PAST MEDICAL HISTORY: 1. Positive for ischemic pain of the left foot with ulceration. 2. Dry gangrene of the 4th toe with an eschar. 3. Left foot Pseudomonas cellulitis. 4. Atrial fibrillation. 5. End-stage renal disease. 6. Hypertensive cardiovascular disease with diastolic dysfunction. 7. Bilateral carotid stenosis. 8. Diabetes mellitus. 9. Obesity. 10. Anemia of chronic disease. 11. Hyperlipidemia. 12. Gastroesophageal reflux disease. PAST SURGICAL HISTORY: 1. Positive for a left femoral popliteal bypass performed by Dr. Cha. 2. Back surgery. 3. Cholecystectomy. 4. Neck surgery. SOCIAL HISTORY: The patient is a . He lives in [place]. He smoked for many years, but quit 30 years ago. He does dip [place]. He denied earlier that he drank alcohol or he used illicit drugs. FAMILY HISTORY: Negative for coronary artery disease. ALLERGIES: No known drug allergies. HOME MEDICATIONS: His home medications include the following: Tylenol, Norvasc , Eliquis, Coreg, doxycycline, glimepiride, hydrocodone, ipratropium/albuterol inhaler, latanoprost, omeprazole, pravastatin. He also takes vitamins and minerals. PHYSICAL EXAMINATION: Vital Signs: Temperature is 98.4 degrees, pulse 66, respirations 16, blood pressure 115/72. General: This is an ill-appearing elderly male. He is very lethargic. Head/Eyes/Ears/Nose/Throat: No drainage noted from the nose or ears. I did not see any white patches on the patient's tongue. Neck: No meningismus. Lungs: Clear to auscultation. Cardiovascular: Heart rate is regular. Abdomen: Soft and nontender. Neurologic: The patient is lethargic. He did move his extremities to request. Bones, Joints, Muscles: The left foot shows 2 deep surgical areas. There are 2 large eschars present. There is no odor and there is no surrounding erythema, but the tissue in the foot is devitalized.. Neurologic: The patient is lethargic. He was unable to give me a history or review of systems. He did move his extremities to request. There was no tremor. Integument: No rash. Thank you for the consultation. cc: Zak Russo MD MTDD
--- NOTE | 2019-01-25 09:56 | NEPHROLOGY CONSULTATION ---
DATE: 01/25/2019 REASON FOR ADMISSION: Altered mental status with hypoglycemia. REASON FOR CONSULT: Acute kidney injury on CKD stage 4. CONSULTING PHYSICIAN: Dr. Monaco. HISTORY OF PRESENT ILLNESS: Mr. Hickey is an 83-year-old, white male who has recently been hospitalized and seen by our service on 11/23/2018. At that time, the consult was for renal failure. Creatinine had gotten as high as 3.1, noted with a baseline of 1.9 to 2 on previous hospitalizations. In this context, the patient had diabetes mellitus type 2 with a wound to his left foot. He had been discharged on 12/06/2018 to [facility] status post 4th toe amputation. Ulceration status with left femoral-popliteal per Dr. Cha, continue with dry gangrene remains on the 1st and 2nd toes of the left foot. He continued to follow with Dr. Russo and Dr. Cha after discharge with antibiotics. He also stated that he had recently been to the emergency room, but could not remember why. He has a history of atrial fibrillation and hypertensive disease with ventricular diastolic dysfunction. The patient states that he was found down by his family. Does not know if it was his sugars or if there was another problem. Does not remember falling. In the emergency room, it was found that he had a low-grade temperature of 99 degrees. He was hypotensive. His white count was not elevated. Due to his history, he was admitted for sepsis. Was placed on a broad-spectrum antibiotic of Zosyn and Zyvox. Cultures were obtained previously that showed resistance to Levaquin with Pseudomonas. Due to his elevated BUN and creatinine, we have been consulted for further evaluation. His left foot is currently dressed , not inspected. The patient, at this time, denies any chest pain. No increased work of breathing. No nausea, vomiting, or diarrhea. He denies any fever or chills. PAST MEDICAL HISTORY: Chronic kidney disease stage IIIB 4, baseline creatinine of 1.9 to 2.2. Ischemic pain of left foot with ulceration, status post left femoral-popliteal bypass with dry gangrene to the left 4th toe, 1st and 2nd toe, lateral heel eschar. The patient has a history of left foot Pseudomonas cellulitis, atrial fibrillation, hypertension, noted cardiovascular disease with diastolic dysfunction, severe bilateral carotid stenosis, diabetes mellitus type 2, anemia of chronic disease, hyperlipidemia, and obesity. PAST SURGICAL HISTORY: The patient had a recent femoral-popliteal bypass per Dr. Cha on his last admission, back surgery a year and a half ago, cholecystectomy ten years ago, neck surgery thirty years ago. SOCIAL HISTORY: He is a . He lives in [place]. He has family who he states live close by. History of tobacco use, 30 years. Continues to dip one can every day. Denies any alcohol or illicit drug use. Family is his primary care provider. He has three sons who live out of town, seven grandchildren, thirteen great-grandchildren, with one family member who lives close who is his provider. FAMILY HISTORY: No coronary artery disease or kidney disease. CURRENT ALLERGIES: Listed as no known drug allergies. HOME MEDICATIONS: These have yet to be reconciled. Appears that it is vitamin E, enteric-coated aspirin, low-dose, Pravachol, glimepiride, Cordarone, Norvasc, Coreg, Eliquis, Jeovanny packet, docusate, latanoprost eyedrops, magnesium hydroxide, omega-3 acid, zinc oxide, Tylenol, ipratropium-albuterol sulfate, ProMod, Prilosec, doxycycline, Vashe wound therapy solution, Santyl ointment, hydrocodone. REVIEW OF SYSTEMS: Times 10 with pertinent positives listed above in the HPI. VITAL SIGNS: Temperature 98.4 degrees, blood pressure 115/72, heart rate 66, respirations 12. He is on room air. Last recorded saturation 97%. The patient currently has normal saline infusing at 75 mL an hour. This has not been recorded as an intake but he has had 3500 out to Ramirez catheter. LABS: Sodium 140, potassium 4.4, chloride is 108, CO2 21, BUN 52, creatinine 3.7, glucose 77, anion gap of 11, calcium 7.6, magnesium 1.1, albumin 2.4. White count 9.38, hemoglobin 8.2, hematocrit 25.9, with a platelet count of 353,000. The patient's initial acetone was negative. Urine drug screen was positive for opiates. The patient had a culture of his foot, still pending. Blood cultures are currently pending. Chest x-ray this a.m. shows worsening pulmonary edema from yesterday's chest x-ray. Foot x-ray yesterday shows questionable osteomyelitis secondary to amputation of the 4th toe, continues with soft tissue damage. PHYSICAL EXAMINATION: General: This is an 83-year-old, elderly male. He is currently resting quietly in bed. He appears in no acute distress. Skin: Warm and dry. HEENT: He is normocephalic, atraumatic. Conjunctivae are pale. He does have DAVID. Mucous membranes are dry. Neck: Supple. Trachea midline. No evidence of JVD. Cardiovascular: Regular rate and rhythm. He has a systolic murmur present. Lungs: These are currently clear to auscultation bilaterally. Equal excursion, on room air. Abdomen: Soft, large, round. Positive bowel sounds. Genitourinary: Not inspected. Ramirez catheter is in place. Extremities: Left foot remains in an Mack wrap. Only visible is the left great toe. This is warm to touch. He does have chronic venous stasis to the right. Trace edema. Neurological: He is ill in appearance. No acute distress. Able to follow commands. Assists with review of systems and exam. ASSESSMENT AND PLAN: 1. Acute kidney injury on chronic kidney disease stage 4, more than likely secondary to diabetes. Ultrasound previously done showed no obstruction. We will check an ultrasound this morning. This may actually be multifactorial secondary to noted hypotension. The patient has a history of sepsis, on long-term antibiotics. We will check urine electrolytes. In the meantime, we will continue his intravenous fluids of normal saline at 75 mL an hour. 2. Electrolytes and acid-base balance. His creatinine is down today to 3.7 from a 4.4 yesterday. BUN has also improved from 67 to 52 this morning. His potassium was elevated on initial arrival. It has now responded nicely. Potassium now down to 4.4. It was also noted that the patient had a TSH of 6.5. 3. Electrolytes and acid-base balance. These are all in target at this time. 4. Anemia. This remains low with no indications for intervention at this time. 5. Probable sepsis. Patient is currently on Zyvox and Zosyn. He has received 2 L of fluid boluses and remains on normal saline at 75 mL an hour. Cultures are currently pending. We will defer to the primary care team with noted referral also to Dr. Cha and to Dr. Russo. I would like to thank you for allowing us to follow with this patient. Dictated by TALIB Pierre for Barrington Woods MD Face to face encounter, data reviewed, discussed with Loy Calle on 01/25/19. I agree with the above assessment and plan of care. cc: TALIB Pierre MD [facility]
--- NOTE | 2019-01-25 10:07 | PROGRESS NOTE ---
DATE: 01/25/2019 SUBJECTIVE: This patient is lying comfortably in bed. He is complaining of left foot pain, mostly upon palpation or mobilization. Surgery Department has been consulted, pending recommendations. Infectious Disease Department on board. He has been placed on antibiotics. He seems to be more stable. Will continue to monitor. OBJECTIVE: Vital Signs: Temperature 98 degrees, pulse 69, respiratory rate 22, blood pressure 118/66, oxygen saturation 96 on room air. HEENT: Head normocephalic. No trauma. PERRLA. Neck: Supple. No JVD. No masses. Central trachea. Chest: Clear to auscultation. No wheezing. No rales. Abdomen: Soft. Extremities: Left lower extremity with an ulcer on the medial aspect of the left lower leg. I am not quite sure if this is due to a vascular issue or the previous history of surgery close to that area. It has been covered. I do not see any pus coming out from this place. On the other hand, he has a big ulcer affecting the interdigital area between the first and third toe. I believe the second toe has been removed, but not sure. I will check on that. Also, he has an ulcer on the fourth toe, and the ulcers are painful. LABORATORY DATA: WBC 9.3, hemoglobin 8.2, hematocrit 25.9, platelets 353,000. Sodium 140, potassium 4.4, chloride 108, bicarbonate 21, BUN 52, creatinine 3.7, glucose 77, calcium 7.6. AST 15, ALT 9, alkaline phosphatase 8, albumin 2.4. ASSESSMENT AND PLAN: 1. Sepsis from left lower extremity infection, especially his left foot following revascularization of the foot. Also, it looks like he has an infected fourth toe with likely osteomyelitis. Infectious Disease Department on board. Pending surgery recommendations for this patient. His foot is cold, I do not feel the pulse very well, and has some cyanotic changes. We will monitor for now. 2. Acute on chronic kidney disease. BUN and creatinine are better today. It looks like Nephrology Department has been consulted. 3. Left lower extremity infection/left foot infection/osteomyelitis as per #1. 4. Acute encephalopathy in the setting of sepsis. It looks like this is getting better. He is more oriented today. 5. Hyperkalemia, resolved. 6. History of atrial fibrillation with RVR, currently normal sinus rhythm. 7. Hypoglycemia. Not sure about any kind of hypoglycemic problem. Blood sugar has been within the normal limits. Pending recommendations from Surgery Department. Will continue with the same management. He seems to be a little bit more stable today. cc: Davey Aquino MD
[2019-01-25 10:17] LABS: URINE SOURCE CATH
[2019-01-25 10:23] LABS: BILIRUBIN URINE NEGATIVE (NEGATIVE); BLOOD URINE TRACE (NEGATIVE); COLOR STRAW; GLUCOSE URINE NEGATIVE (NEGATIVE); KETONE URINE NEGATIVE (NEGATIVE); LEUKOCYTES URINE SMALL (NEGATIVE); NITRITE URINE NEGATIVE (NEGATIVE); PH URINE 6.5; PROTEIN URINE 50 mg/dL (NEGATIVE); SP GRAVITY URINE 1.007; TURBIDITY URINE CLEAR (CLEAR); UROBILINOGEN URINE NORMAL (NORMAL)
[2019-01-25 10:27] LABS: UR EPITHELIAL CELLS <10 /HPF (<10); URINE BACTERIA NEGATIVE /HPF; URINE RBC <10 /HPF (<10); URINE WBC <10 /HPF (<10)
--- NOTE | 2019-01-25 10:31 | Diag Imaging Result Doc PS360 ---
US RENAL 2 (RETROPER) COMPLETE - 01/25/2019 INDICATION: decreased renal function TECHNIQUE: COMPARISON: 11/23/2018 FINDINGS: The urinary bladder is collapsed by a Ramirez catheter. The kidneys remain normal in echotexture. There is no hydronephrosis or mass. There is stable mild renal atrophy. The right kidney measures 8.4 x 4.8 x 4.5 cm. Cortex measures 6 mm. The left kidney measures 9.1 x 4.3 x 4.9 cm. Cortex measures 7 mm. IMPRESSION: Mild bilateral renal atrophy. No acute abnormality. Electronically signed by Victor Manuel Reza 01/25/2019 10:29 AM
[2019-01-25] MEDS ORDERED: D50W SYRINGE ONE (10:47)
[2019-01-25] MEDS: NS 1,000 ML IV SCH (10:50)
[2019-01-25 12:23] LABS: UR PROT RANDOM 57.6 mg/dL
[2019-01-25] MEDS ORDERED: D50W SYRINGE IV ONE (16:00)
[2019-01-25] MEDS: D5 1/2 NS 1,000 ML IV SCH (16:01)
[2019-01-25] MEDS ORDERED: LEVAQUIN 250 MG/D5W 250 MG/50 ML IVPB IV SCH (16:45)
--- NOTE | 2019-01-25 18:22 | Diag Imaging Result Doc PS360 ---
EXAM: CT HEAD W/O CONTRAST - 01/25/2019 HISTORY: encephalopathy TECHNIQUE: CT head without contrast COMPARISON: 01/24/2019 FINDINGS: There are mild atrophic changes similar to the prior exam. There are chronic microvascular ischemic changes similar to the prior exam. There is no indication of recent infarct, although acute infarcts may not be immediately visible. There is no evidence of intracranial hemorrhage, mass effect, or midline shift. There is no evidence of skull fracture. IMPRESSION: Mild atrophic changes and chronic microvascular ischemic changes similar to prior. No visible acute intracranial abnormality. This exam was performed using automated exposure control, adjustment of mA or kV according to patient size, and/or use of iterative reconstruction technique. Electronically signed by Jose Luis Khalil 01/25/2019 6:19 PM
--- NOTE | 2019-01-25 19:41 | CONSULTATION ---
DATE OF CONSULTATION: 01/25/2019 HISTORY OF PRESENT ILLNESS: Mr. Ryan Hickey is an 83-year-old white male who has undergone a left femoral to tibial artery bypass graft per Dr. Cha, but he still has an ischemic foot with nonhealing ulcers. I was asked to evaluate him for further treatment. PHYSICAL EXAMINATION: On exam, Mr. Hickey is an elderly white male, who is awake and cooperative. On reviewing his left leg, he still has a palpable pulse in his in situ femoral to tibial artery bypass graft, but it is clear that he has an ischemic distal left foot. He has open wounds involving the distal left foot. He also has an open wound at his ankle which has some fresh granulation tissue. IMPRESSION: Ongoing ischemic left foot despite a successful femoral-tibial in situ arterial bypass graft. PLAN: I think that the patient will need at least a sxuep-htt-khvc amputation, possibly above-the- knee amputation. I spoke frankly with the patient's family at the bedside. They are willing to proceed with amputation, and we just need to see when we can schedule it. cc: Amelia Choi MD
[2019-01-26] MEDS: NORCO-7.5 PO PRN ×4 (00:15→23:46)
[2019-01-26] MEDS: ZYVOX 600 MG/D5W 600 MG/300 ML IVPB IV SCH ×2 (04:34→16:46)
[2019-01-26] MEDS: D5 1/2 NS 1,000 ML IV SCH ×2 (04:45→17:38)
[2019-01-26 05:59] LABS: BASO# 0.02 X1000 (0.0-0.2); BASO% 0.2 % (0.0-0.8); EOS# 0.21 X1000 (0.0-0.7); EOS% 2.4 % (0.0-10.0); HEMATOCRIT 26.1 % (42.0-52.0); IMM GRAN# 0.02 X1000 (0.0-0.04); IMM GRAN% 0.2 % (0.0-0.5); LYMPH# 3.28 X1000 (1.2-3.4); LYMPH% 37.7 % (20.5-51.1); MCH 30.2 PG (27-31); MCHC 30.7 g/dL (33-37); MCV 98.5 FL (81-99); MONO# 0.99 X1000 (0.11-0.59); MONO% 11.4 % (1.7-9.3); MPV 9.5 FL (7.4-10.4); NEUT# 4.18 X1000 (1.4-6.5); NEUT% 48.1 % (42.2-75.2); PLT 336 X1000 (130-400); RBC 2.65 XMIL (4.7-6.1); RDW 14.3 % (11.5-14.5)
[2019-01-26 06:31] LABS: ALBUMIN 2.3 g/dL (3.5-5.0); CALCIUM 7.7 mg/dL (8.8-10.2); CREATININE 2.8 mg/dL (0.7-1.2); POTASSIUM 4.4 mmol/L (3.5-5.1)
[2019-01-26] MEDS: PRILOSEC PO SCH (08:08)
[2019-01-26] MEDS: MAXIPIME 1 GM in NS 50 ML IV SCH ×2 (08:51→20:59)
[2019-01-26] MEDS: CORDARONE PO SCH (10:04)
[2019-01-26] MEDS: COREG PO SCH ×2 (10:04→20:59)
--- NOTE | 2019-01-26 10:23 | PROGRESS NOTE ---
DATE: 01/26/2019 SUBJECTIVE: The patient is lying comfortably in bed. He is still complaining of left foot pain. He has been placed n.p.o. for possible surgery today likely amputation. OBJECTIVE: Vital Signs: Temperature 97.9 degrees, pulse 65, respiratory rate 19, blood pressure 161/55, and oxygen saturation 95% on room air. HEENT: Head normocephalic. No trauma. PERRLA. Neck: Supple. No JVD. No masses. Central trachea. Chest: Clear to auscultation. No wheezing. No rales. Abdomen: Soft, nontender, and nondistended. No hepatosplenomegaly. Extremities: Left lower extremity with an ulcer on the medial aspect of the lower left leg. It is covered right now. I do not see the foot. The left foot is covered right now. I know he has a big ulcer affecting the interdigital area between the 1st and the next toe. I believe the second toe has been removed already. It is painful to palpation. Neurological: Alert and oriented. He is following commands. LABORATORY: WBC 8.7, hemoglobin 8, hematocrit 26.1, and platelets 336,000. Sodium 136, potassium 4.4, chloride 107, bicarbonate 21, BUN 35, and creatinine 2.8. Glucose 123. Calcium 7.7 and albumin 2.3. ASSESSMENT AND PLAN: 1. Sepsis. from left lower extremity infection, especially his left foot following revascularization on that foot. It looks like the surgery department evaluated this patient and they are planning to do an amputation. Patient is NPO. 2. Acute on chronic kidney disease. BUN and creatinine are better today. It looks like it is close to his baseline. 3. Left lower extremity infection/left foot infection/osteomyelitis as per #1. 4. Acute encephalopathy in the setting of sepsis. He is oriented today. 5. Hyperkalemia, resolved. 6. History of atrial fibrillation with RVR. We will monitor. 7. Hypoglycemia, resolved. Continue with the IV fluids. cc: Davey Aquino MD
[2019-01-26] MEDS: MORPHINE IV PRN ×2 (12:07→20:59)
[2019-01-26] MEDS ORDERED: QUELICIN (DOSE) ONE (13:14)
[2019-01-26] MEDS ORDERED: DIPRIVAN 1% ONE (13:17)
--- NOTE | 2019-01-26 13:38 | INFECTIOUS DISEASE PROGRESS NO ---
DATE: 01/26/2019 PRESENT ILLNESS: The patient has an ischemic left foot which has osteomyelitis of the fourth toe. MEDICATIONS: The patient is on a combination of cefepime and Zyvox. PHYSICAL EXAMINATION: Vital Signs: Temperature is 98.9 degrees, pulse 88, respirations 16, blood pressure 120/72. General: This is an ill-appearing elderly male. He is in no acute distress. Head/eyes/ears/nose/throat: He can hear my spoken words and see near objects. Neck: No meningismus. Lungs: Clear to auscultation. Cardiovascular: Heart rate is regular. Abdomen: Soft and nontender. Extremities: The patient has a large dressing around his left foot and ankle. Neurologic: The patient is awake. He can move his extremities. There is no tremor. LAB AND X-RAY: There is no new radiographic study. The creatinine is 2.8. GFR is 22. Swab for influenza is negative. CBC shows a white count of 8700, hemoglobin 8 and platelet count 336,000. ASSESSMENT AND PLAN: The patient is being scheduled for amputation of his leg today. COMORBIDITIES: The patient is elderly, he is a diabetic, and he has peripheral vascular disease. cc: Zak Russo MD
[2019-01-26] MEDS ORDERED: SUFENTA ONE (13:43)
[2019-01-26] MEDS ORDERED: D50W SYRINGE ONE (16:49)
--- NOTE | 2019-01-26 18:23 | NEPHROLOGY PROGRESS NOTE ---
DATE: 01/26/2019 SUBJECTIVE: He is about the same today. Was asleep but arousable. No complaints. OBJECTIVE: Vital Signs: Blood pressure 161/55, heart rate 65, respiration 19, afebrile. General: No acute distress. Skin: Warm and dry. Neck: Neck veins are distended. Heart: Regular. No gallops. Lungs: Equal. No crackles. Abdomen: Soft, nontender. Bowel sounds present. Extremities: No edema, clubbing, or cyanosis. IMPRESSION: Acute kidney injury. BUN and creatinine continue to improve. He does have distended neck veins today, so I will stop his fluids and observe. No other intervention at this time. cc: Barrington Woods MD
--- NOTE | 2019-01-26 20:48 | OPERATIVE NOTE ---
PROCEDURE DATE: 01/26/2019 PREOPERATIVE DIAGNOSIS: Ischemic left foot. POSTOPERATIVE DIAGNOSIS: Ischemic left foot. PRINCIPAL PROCEDURE: Left ubhxb-ebc-lzve amputation. SURGEON: Amelia Choi MD. ANESTHESIA: General. ESTIMATED BLOOD LOSS: 200 mL. DRAINS: None. INDICATIONS: Mr. Ryan Hickey is 83-year-old white male who Dr. Cha has performed a femoral distal in situ arterial bypass graft. That graft is functioning well but he has no flow to distal part of his foot. There are multiple open wounds involving this area of his foot. They are not healing and actually the distal foot is ischemic. We discussed treatment options and chose a left dbgvn-fbx-suip amputation. FINDINGS: We felt we had sufficient blood supply for healing at the cejip-bwb-ozxx amputation level and so we proceeded with a jvksi-cpi-rweu amputation. He still had flow through his in situ graft which we ligated at our amputation site. We made sure that we ligated the nerves high in the wound. We made sure that the fibula was shorter than the tibia. We felt the wound came well together with our posterior flap. DESCRIPTION OF PROCEDURE: The patient was brought to the operating room, placed supine, received general anesthesia and was ventilated. His left lower extremity was prepped and draped in sterile field. I marked my amputation site 4 finger breaths below the tibia tuberosity and then I created a posterior flap. My incision was made with a 10 blade scalpel. I used cautery to transect the soft tissue. We tried to control how much blood we lost. I ligated the in situ graft with 2-0 silk ties and as we came to other bleeding vessels they were ligated mostly with 2-0 silk ties and hemostats. I cut down to the tibia and I also cut the muscle around the tibia so that I could encircle the tibia. I used the elevator to move the soft tissue more proximally off the tibia. I used an orthopedic saw to come across the tibia. I used a hand bone cutter to come across the fibula up higher than the tibia. I then used the amputation hook and I used an amputation knife, got right below the fibula and removed the distal left leg and foot. It was sent to the pathologist. Any bleeding was controlled using hemostats and 2-0 silk ties. We also used the cautery. I used a rasp to smooth the cut end of the tibia. I made sure that the nerves were quite high in our wound. I then used interrupted 0 Vicryl stitches to bring the superficial fascia anteriorly and our posterior flap up to our anterior incision. These were interrupted simple 0 Vicryl stitches along the length of our wound. They were tied and I used a skin clip specialist employee labor relations to close the skin. Xeroform was applied followed by 4 x 4s and a Kerlix. I then used a posterior splint to keep the knee straight. He will go to the recovery room and then return to CICU. It must be noted that he got a unit of blood during surgery. We will plan to give him a 2nd unit of blood. His starting hematocrit was 25 or 26%. cc: Amelia Choi MD
[2019-01-27] MEDS: MORPHINE IV PRN ×2 (01:17→13:34)
[2019-01-27] MEDS: ZYVOX 600 MG/D5W 600 MG/300 ML IVPB IV SCH ×2 (04:27→18:04)
[2019-01-27] MEDS: D5 1/2 NS 1,000 ML IV SCH (04:28)
[2019-01-27 05:26] LABS: BASO# 0.03 X1000 (0.0-0.2); BASO% 0.3 % (0.0-0.8); EOS# 0.34 X1000 (0.0-0.7); EOS% 3.5 % (0.0-10.0); HEMATOCRIT 32.7 % (42.0-52.0); HEMOGLOBIN 10.4 g/dL (14.0-18.0); LYMPH# 2.81 X1000 (1.2-3.4); LYMPH% 29.3 % (20.5-51.1); MCH 30.1 PG (27-31); MCHC 31.8 g/dL (33-37); MCV 94.8 FL (81-99); MONO# 1.01 X1000 (0.11-0.59); MONO% 10.5 % (1.7-9.3); NEUT# 5.41 X1000 (1.4-6.5); NEUT% 56.4 % (42.2-75.2); PLT 345 X1000 (130-400); RBC 3.45 XMIL (4.7-6.1); RDW 14.9 % (11.5-14.5)
[2019-01-27 05:40] LABS: ALBUMIN 2.5 g/dL (3.5-5.0); CALCIUM 7.8 mg/dL (8.8-10.2); CREATININE 2.5 mg/dL (0.7-1.2); PHOSPHORUS 2.9 mg/dL (2.7-4.5); POTASSIUM 4.8 mmol/L (3.5-5.1)
[2019-01-27] MEDS: PRILOSEC PO SCH (06:17)
[2019-01-27] MEDS: MAXIPIME 1 GM in NS 50 ML IV SCH ×2 (08:48→21:30)
[2019-01-27] MEDS: COREG PO SCH ×2 (08:48→21:30)
[2019-01-27] MEDS: CORDARONE PO SCH (08:49)
[2019-01-27] MEDS: ELIQUIS PO SCH ×2 (08:49→21:30)
--- NOTE | 2019-01-27 10:41 | PROGRESS NOTE ---
DATE: 01/27/2019 SUBJECTIVE: This patient is resting comfortably in bed. He had a ichhr-whn-wllb amputation on the left side yesterday. He is not complaining of pain at this moment. He is completely alert and oriented x3. He received one unit of PRBC, and hemoglobin improved from 8 to 10.4. Blood sugar is stable today. I will stop the fluids since this patient is tolerating p.o. I think he is stable enough to go to the floor. I will continue to monitor. OBJECTIVE: Vital signs: Temperature is 98.1, pulse 78, respiratory rate 18, blood pressure 164/57, oxygen saturation 95% on room air. HEENT: Head is normocephalic and atraumatic. PERRLA. Neck is supple. No JVD. No masses. Central trachea. Chest: Decreased breath sounds at the bases with some rales. Abdomen: Soft, nontender and nondistended. No hepatosplenomegaly. Extremities: Right lower extremity with no edema, no clubbing, no cyanosis. His heel is covered with a dressing. Left BKA, and his dressing looks clean, dry and intact. Neurologic: At this moment, this patient is alert and oriented x3. No focal neurological deficits. DIAGNOSTIC DATA: WBC is 9.6, hemoglobin 10.4, hematocrit 32.7, platelets 345. Sodium is 133, potassium 4.8, chloride 103, bicarbonate 21, BUN is 27, creatinine 2.5, glucose 89, calcium 7.8, phosphorus 2.9. ASSESSMENT AND PLAN: 1. Left lower extremity infection/ischemic/osteomyelitis, status post left bezyh-ekd-pdex amputation, postoperative day number 1. He seems to be good. He tolerated the procedure well. Surgery Department is following this patient. He received 1 unit of PRBC, and the hemoglobin improved. 2. Sepsis from the left lower extremity infection. Like I mentioned before, status post amputation. I will continue with antibiotics for now. 3. Acute on chronic kidney disease. BUN and creatinine are getting better, and it looks like this is basically his baseline. We have a negative balance reported of 2.5 L. 4. Acute encephalopathy, in the setting of sepsis, resolved. 5. Hyperkalemia, resolved. 6. History of atrial fibrillation with rapid ventricular response. We will monitor. No issues at this moment. It looks like he was on anticoagulation at home of Eliquis 2.5 twice a day which I will continue. 7. Hypoglycemia, resolved. This patient is tolerating diet. IV fluids have been stopped. 8. Pulmonary edema. He is not complaining of chest pain or shortness of breath. His oxygen saturation has been stable at room air. We will monitor for now. 9. Nutritional status. Continue with his diet. cc: Davey Aquino MD
[2019-01-27] MEDS ORDERED: CARDIZEM IV ONE (11:35)
--- NOTE | 2019-01-27 11:36 | GENERAL SURGERY PROGRESS NOTE ---
DATE: 01/27/2019 SUBJECTIVE: Patient doing well after his dyano-sub-xbdp amputation yesterday. No major issues reported. OBJECTIVE: He has been hemodynamically stable. His dressing appears to be intact without any signs of saturation. PLAN: We will continue to monitor him and take down the dressing on operative day #3. cc: Rui Hall MD
[2019-01-27] MEDS ORDERED: LOPRESSOR IV ONE (13:12)
[2019-01-27] MEDS ORDERED: LOPRESSOR 10 MG in NS 50 ML IV PRN (13:58)
[2019-01-27 14:53] LABS: MAGNESIUM 1.4 mg/dL (1.5-2.7)
[2019-01-27 14:56] LABS: ALB/GLOB RATIO 0.9; ALBUMIN 2.7 g/dL (3.5-5.0); CALCIUM 7.7 mg/dL (8.8-10.2); CREATININE 2.3 mg/dL (0.7-1.2); POTASSIUM 4.9 mmol/L (3.5-5.1); TOTAL BILIRUBIN 0.4 mg/dL (0.20-1.00); TOTAL PROTEIN 5.6 g/dL (6.3-8.3)
[2019-01-27] MEDS: MIRALAX PO SCH (14:56)
--- NOTE | 2019-01-27 15:03 | Diag Imaging Result Doc PS360 ---
EXAM: CHEST-PORTABLE INDICATION: SOB TECHNIQUE: One view COMPARISON: 01/25/2019 FINDINGS: There has been interval improvement of the pulmonary venous congestion and interstitial edema seen previously. No new consolidation is identified. Cardiac silhouette is stable. IMPRESSION: Interval improvement. Electronically signed by Paul Gill 01/27/2019 3:01 PM
[2019-01-27 15:15] LABS: CK INDEX 1.4 (0.0-2.5); CK-MB 8.88 ng/mL (0.0-5.0)
--- NOTE | 2019-01-27 17:32 | CARDIOLOGY CONSULTATION ---
DATE: 01/27/2019 CONSULTATION REQUESTED BY: Dr. Naranjo, hospitalist service. REASON FOR CONSULTATION: Patient with atrial fibrillation, rapid response. HISTORY OF PRESENT ILLNESS: Mr. Hickey presented to the hospital for admission on January 24 with mental status changes, presumably due to hypoglycemia. During the admission, he was found to have significant issues with ischemic foot in the left side. They had performed an in situ femoral tibial bypass and left femoral posterior tibial left foot ischemia. Back on November 29, Dr. Cha had performed a left femoral to posterior tibialis in situ vein bypass. However, this apparently did not work as expected, and on 01/26/2019, Dr. Choi performed a left below-the- knee amputation. The patient was obviously experiencing pain following the surgery, and he went into rapid atrial fibrillation at about 7 a.m. today. They gave him a bolus of Cardizem. He has been taking some beta kim, amiodarone. They called me because he started developing pauses after getting IV Lopressor, he had like 3 to 4 second pauses. The patient feels the heart skipping, but no chest pain, no dyspnea. Right now, he is very uncomfortable because of the postoperative pain involving the left lower extremity. PAST MEDICAL HISTORY: Positive for hypertension. He has had diabetes mellitus type 2 for a long time. He has hyperlipidemia and hypothyroidism. He has suffered with back pain. PAST SURGICAL HISTORY: He has had cervical fusion over 30 years ago at the [facility] in [place]. In 2017, he had back surgery in [place], under Dr. Desir. He has had cataract surgery. He has had tendon surgery. SOCIAL HISTORY: He is retired from a [employer] in [facility] in 2005. He is a . He has 3 grownup children, and 1 of his children, Sigifredo, lives with him at home with his . The patient used to be smoker, 1 pack a day, for 30 years or so. He has been quit for a while. He served in the [employer] for 4 years, in [place]. Two of his children actually are living in [place] right now. The patient used to be cared for by Dr. Navin Payne , and later on, he has been under the care of Dr. Pernell Méndez in [place]. His history recently involves the fact that he was found to have significant ischemic leg, developing an infection. During his recent hospital admission on 11/23/2018, the patient developed atrial fibrillation with rapid response. At that time, he was seen in consultation by Dr. Jauregui, who gave some recommendations. The patient seems to have issues with chronic kidney disease. He also has ultrasound evidence of lttlqump-jh-npdhufsttwo carotid artery stenosis bilaterally. HOME MEDICATIONS: At this time, includes omeprazole 40 mg daily, omega-3 fatty acids, pain medication [place], docusate, doxycycline, glimepiride, vitamin E, Eliquis, amiodarone 200 daily, amlodipine 5 mg daily, carvedilol 25 twice a day. ALLERGIES: He is not allergic to anything. ADDITIONAL HISTORY: Includes claudication and 1 bout of atrial fibrillation in 2016, when he was recuperating from back surgery in [place]. He has had an echocardiogram done twice, once in June 2017 when he was admitted to [facility]. At that time, his ejection fraction was 60 to 65 percent. No significant valvular abnormality was noted. There was no significant valvular abnormality. In October 2018, he had a followup echocardiogram, that shows no significant valvular disease, and a hyperdynamic left ventricle. PHYSICAL EXAMINATION: Vital Signs: Blood pressure 128/66, temperature 99 degrees, pulse 110, respirations 17. General: He is awake, alert. He is very hard of hearing. HEENT: Unremarkable. Chest: Clear to auscultation and percussion. Heart: Sounds are irregularly irregular. There is a systolic murmur over the right side of the sternum. I do not hear a gallop. Abdomen: Nontender. Extremities: Showed evidence of left below-knee amputation. Right foot shows diminished pulses. No edema. Neurological: He follows commands. Moves 4 extremities. He is uncomfortable because of pain in the left foot. LABORATORY STUDIES: Blood work today: Sodium 138, potassium 4.9, BUN 25, creatinine 2.3. His troponin is 0.028. CK index is 1.4. TSH was 6.5 a few days ago. EKG done today at 2:28 p.m. shows atrial fibrillation, without any ischemic changes, and rate of 115 beats per minute. A chest x-ray was done today, and it shows interval improvement of pulmonary venous congestion. IMPRESSION: 1. Patient with paroxysmal atrial fibrillation. This is a recurrence of a condition that has been noted 2 years ago after back Surgery in and also recently noticed on admission October 2018 at [facility]. 2. History of peripheral occlusive arterial disease, severe, status post left below-knee amputation January 26. This will be postoperative day #1. 3. CAROTID artery disease. 4. Chronic kidney disease. 5. Diabetes mellitus type 2. 6. Hyperlipidemia. RECOMMENDATION: At this point in time, I would suggest to try low doses of beta blockers, avoid calcium blockers. Optimize pain management with Demerol for the time being. I would avoid morphine. Optimize electrolytes, and we will check serial troponins and EKGs. I do not believe that the patient is having any ischemic heart issues. I think the atrial fibrillation has more to do with metabolic stress from the recent surgery. We will follow the patient along. cc: Rony Kasper MD MTDD
[2019-01-27] MEDS: NORCO-7.5 PO PRN (18:04)
[2019-01-27 21:32] LABS: CK INDEX 1.1 (0.0-2.5); CK-MB 7.76 ng/mL (0.0-5.0)
[2019-01-27] MEDS: DEMEROL IV PRN (22:08)
[2019-01-28] MEDS: NORCO-7.5 PO PRN (01:50)
[2019-01-28] MEDS: ZYVOX 600 MG/D5W 600 MG/300 ML IVPB IV SCH ×2 (04:51→17:57)
[2019-01-28 05:47] LABS: BASO# 0.02 X1000 (0.0-0.2); BASO% 0.2 % (0.0-0.8); EOS# 0.19 X1000 (0.0-0.7); EOS% 1.9 % (0.0-10.0); HEMATOCRIT 31.3 % (42.0-52.0); HEMOGLOBIN 9.9 g/dL (14.0-18.0); IMM GRAN# 0.02 X1000 (0.0-0.04); IMM GRAN% 0.2 % (0.0-0.5); LYMPH# 3.09 X1000 (1.2-3.4); LYMPH% 30.9 % (20.5-51.1); MCHC 31.6 g/dL (33-37); MCV 94.8 FL (81-99); MONO# 0.92 X1000 (0.11-0.59); MONO% 9.2 % (1.7-9.3); MPV 9.1 FL (7.4-10.4); NEUT# 5.76 X1000 (1.4-6.5); NEUT% 57.6 % (42.2-75.2); PLT 301 X1000 (130-400); RDW 14.2 % (11.5-14.5)
--- NOTE | 2019-01-28 06:15 | GENERAL SURGERY PROGRESS NOTE ---
DATE: 01/28/2019 SUBJECTIVE: The patient seems to be doing okay. No major issues. Nursing staff reports no major issues. OBJECTIVE: Amputation site seems to be intact. We will take his dressing down tomorrow. ASSESSMENT AND PLAN: He has been hemodynamically stable. He is tolerating his diet. cc: Rui Hall MD
[2019-01-28] MEDS: PRILOSEC PO SCH (06:25)
[2019-01-28] MEDS: DEMEROL IV PRN (06:25)
[2019-01-28] MEDS: ZOFRAN IV PRN (06:37)
[2019-01-28 06:41] LABS: ALBUMIN 2.4 g/dL (3.5-5.0); CALCIUM 7.8 mg/dL (8.8-10.2); CREATININE 2.3 mg/dL (0.7-1.2); PHOSPHORUS 3.3 mg/dL (2.7-4.5); POTASSIUM 4.9 mmol/L (3.5-5.1)
[2019-01-28 06:42] LABS: CK INDEX 1.1 (0.0-2.5); CK-MB 7.1 ng/mL (0.0-5.0)
[2019-01-28] MEDS: CORDARONE PO SCH (08:51)
[2019-01-28] MEDS: MIRALAX PO SCH (08:51)
[2019-01-28] MEDS: COREG PO SCH ×2 (08:51→22:16)
[2019-01-28] MEDS: MAXIPIME 1 GM in NS 50 ML IV SCH ×2 (08:51→22:16)
[2019-01-28] MEDS: ELIQUIS PO SCH ×2 (08:51→22:16)
--- NOTE | 2019-01-28 10:52 | CARDIOLOGY PROGRESS NOTE ---
DATE: 01/28/2019 CHIEF COMPLAINT: Palpitations and irregular heartbeat. SUBJECTIVE: Mr. Hickey is feeling better today. His foot is not as sore as it was yesterday. His rhythm has converted to sinus rhythm. He denies having any chest pain. Troponins have been checked a total of 5 times, and numbers are 0.062, 0.044, 0.028, 0.038, and 0.040. He does have renal dysfunction. His EKG this morning looks normal with question of left atrial enlargement. OBJECTIVE: Vital signs: Blood pressure is 116/90, temperature 98.2, pulse 69, respirations 17. He is awake, alert, in no distress. HEENT is unremarkable. Chest: Symmetrical breath sounds. Heart sounds regular and rhythmic. I do not hear gallop or murmur. Abdomen is soft, nontender. Extremities showed evidence of left below-knee amputation. Right foot with diminished pulses. Neurologic: Follows commands, moves all 4 extremities. DIAGNOSTIC DATA: Sodium is 133, potassium 4.9, BUN is 22, creatinine 2.3. His albumin is low at 2.4. IMPRESSION: 1. The patient developed paroxysmal atrial fibrillation yesterday. That was a postoperative arrhythmia, probably secondary to metabolic stress following the left below-knee amputation on the day before, 01/26/2019. Today would be the second postoperative day. He has converted back to sinus rhythm. 2. History of carotid artery stenosis bilaterally. 3. History of chronic kidney disease. 4. History of diabetes mellitus type 2 group home. 5. Peripheral arterial occlusive disease, status post femoral tibial bypass. RECOMMENDATIONS: At this point, I would continue the regimen as outlined in the MAR including amiodarone, carvedilol and metoprolol. I would not make any changes for the day. Observe the patient and tomorrow will give further recommendations. cc: Rony Kasper MD
[2019-01-28 14:29] LABS: CK INDEX 1.1 (0.0-2.5); CK-MB 7.66 ng/mL (0.0-5.0)
[2019-01-28 21:50] LABS: CK INDEX 1.2 (0.0-2.5); CK-MB 9.41 ng/mL (0.0-5.0)
--- NOTE | 2019-01-28 23:02 | PROGRESS NOTE ---
DATE: 01/28/2019 SUBJECTIVE: Patient resting comfortably in bed. OBJECTIVE: Temperature 98.1, pulse 95, respiratory 17, blood pressure 124/55.HEENT: Atraumatic, normocephalic. Cardiovascular: S1, S2. Respiratory: Has evidence of good entry bilaterally. Abdomen: Soft, nontender. No masses. Extremities: Left lower extremity dressed. ASSESSMENT: 1. Left lower extremity Infection/osteomyelitis status post left below-knee amputation. 2. Sepsis. 3. Atrial fibrillation. PLAN: Continue antibiotics as recommended by Infectious Disease, surgical team following. cc: Nnamdi Madrid MD
[2019-01-29] MEDS: NORCO-7.5 PO PRN ×2 (00:14→13:47)
[2019-01-29] MEDS: ZOFRAN IV PRN (02:22)
[2019-01-29] MEDS: DEMEROL IV PRN ×3 (02:36→18:47)
[2019-01-29] MEDS: ZYVOX 600 MG/D5W 600 MG/300 ML IVPB IV SCH (05:50)
[2019-01-29 06:12] LABS: BASO# 0.01 X1000 (0.0-0.2); BASO% 0.1 % (0.0-0.8); EOS# 0.17 X1000 (0.0-0.7); EOS% 1.6 % (0.0-10.0); HEMATOCRIT 30.2 % (42.0-52.0); HEMOGLOBIN 9.6 g/dL (14.0-18.0); LYMPH# 2.64 X1000 (1.2-3.4); LYMPH% 25.3 % (20.5-51.1); MCH 30.2 PG (27-31); MCHC 31.8 g/dL (33-37); MONO# 0.69 X1000 (0.11-0.59); MONO% 6.6 % (1.7-9.3); MPV 9.3 FL (7.4-10.4); NEUT# 6.91 X1000 (1.4-6.5); NEUT% 66.4 % (42.2-75.2); PLT 296 X1000 (130-400); RBC 3.18 XMIL (4.7-6.1); RDW 13.7 % (11.5-14.5); WBC 10.42 X1000 (4.8-10.8)
[2019-01-29] MEDS: PRILOSEC PO SCH (06:17)
[2019-01-29 06:47] LABS: ALBUMIN 2.3 g/dL (3.5-5.0); CALCIUM 8.4 mg/dL (8.8-10.2); CREATININE 2.4 mg/dL (0.7-1.2); POTASSIUM 4.9 mmol/L (3.5-5.1)
--- NOTE | 2019-01-29 07:21 | EKG Report ---
Test Performed on : 01/28/2019 05:45:01 AM Test Reason : A FIB Blood Pressure : / mmHG Vent. Rate : 067 BPM Atrial Rate : 067 BPM P-R Int : 172 ms QRS Dur : 086 ms QT Int : 420 ms P-R-T Axes : 054 009 068 degrees QTc Int : 443 ms Normal sinus rhythm. Possible Left atrial enlargement Borderline ECG When compared with ECG of 27-JAN-2019 14:28, (Unconfirmed) Sinus rhythm. has replaced Atrial fibrillation. Vent. rate has decreased BY 48 BPM Unconfirmed Result
--- NOTE | 2019-01-29 07:22 | EKG Report ---
Test Performed on : 01/27/2019 2:28:25 PM Test Reason : A Fib RVR Blood Pressure : / mmHG Vent. Rate : 115 BPM Atrial Rate : 117 BPM P-R Int : 000 ms QRS Dur : 088 ms QT Int : 340 ms P-R-T Axes : 000 003 062 degrees QTc Int : 470 ms Atrial fibrillation. with rapid ventricular response. Cannot rule out Anterior infarct (cited on or before 30-NOV-2018) Abnormal ECG When compared with ECG of 24-JAN-2019 14:12, (Unconfirmed) Atrial fibrillation. has replaced Sinus rhythm. Vent. rate has increased BY 51 BPM Questionable change in initial forces of Septal leads Unconfirmed Result
[2019-01-29 07:36] LABS: CK-MB 7.47 ng/mL (0.0-5.0)
--- NOTE | 2019-01-29 08:41 | PROGRESS NOTE ---
DATE: 01/29/2019 SUBJECTIVE: Mr. Hickey is now postop day 3 from a left nzdga-jaf-shkc amputation. I felt his blood supply was good enough for healing at this level. He has a posterior splint in place and his operative dressing remains in place. PLAN: We will plan to remove this dressing tomorrow and inspect his wound. All his chronic wounds, left lower extremity has been removed, and maybe we can begin stopping some of his IV antibiotics. I feel we need to work towards getting him to a rehab facility this week. cc: Amelia Choi MD
--- NOTE | 2019-01-29 09:19 | INFECTIOUS DISEASE PROGRESS NO ---
DATE: 01/29/2019 PRESENT ILLNESS: The patient is status post left puxmi-uue-fosv amputation for a Pseudomonas osteomyelitis of the left foot. MEDICATIONS: The patient has been receiving cefepime and Zyvox. PHYSICAL EXAMINATION: Vital Signs: Temperature is 97.9 degrees, pulse 67, respirations 19, blood pressure 152/50. General: This is an ill-appearing, elderly male. He is in no acute distress. HEENT: He can hear my spoken words and see near objects. He does not have any white coating on his tongue. Neck: No stiffness. Lungs: Clear to auscultation. Cardiovascular: Heart rate is regular. Abdomen: Soft and nontender. Extremities: The patient has a large dressing on the patient's left leg, which has undergone left fphxj-gdd-axiv amputation. The dressing is intact. Neurologic: The patient is arousable. He can move his extremities. There is no tremor. IMAGING AND LABORATORY DATA: There is no new x-ray today. Lab shows CBC with a white count of 10,420, hemoglobin 9.6, and platelet count 296,000. Creatinine is 2.4. GFR is 26. The patient's culture from his foot grew Pseudomonas. ASSESSMENT AND PLAN: The patient is status post vnltu-kfm-xniw amputation of the foot with osteomyelitis caused by Pseudomonas. I have discontinued Zyvox, and plan to continue with cefepime. When the leg wound looks like it is healing well, I will stop the intravenous antibiotic also, namely cefepime. COMORBIDITIES: He is elderly, he is a diabetic, and he has peripheral vascular disease. cc: Zak Russo MD
[2019-01-29] MEDS: CORDARONE PO SCH (09:29)
[2019-01-29] MEDS: ELIQUIS PO SCH ×2 (09:29→21:50)
[2019-01-29] MEDS: MAXIPIME 1 GM in NS 50 ML IV SCH ×2 (09:29→21:50)
[2019-01-29] MEDS: COREG PO SCH ×2 (09:30→21:50)
[2019-01-29] MEDS: MIRALAX PO SCH (09:30)
--- NOTE | 2019-01-29 10:19 | CARDIOLOGY PROGRESS NOTE ---
DATE: 01/29/2019 CHIEF COMPLAINT: Shortness of breath, palpitations. SUBJECTIVE: Mr. Hickey has had no further complaints. His left leg is not hurting as much. He is not short of breath. He has maintained sinus rhythm. I do not see evidence of pauses after he converted to sinus rhythm. OBJECTIVE: Vital Signs: Blood pressure 121/68, temperature 98.2, pulse 62, respirations 16. General: He is awake, alert and oriented in no distress. HEENT: Unremarkable. Chest: Clear to auscultation and percussion. Heart: Heart sounds are regular and rhythmic. I do not hear any gallop. There is a systolic murmur over the right side of the sternum. Abdomen : Obese, nontender. No masses. No hepatomegaly. Neurologic: Follows commands. Moves all extremities. LABORATORY DATA: Sodium 131, potassium 4.9, BUN 28, creatinine 2.4. CK 724. Index is 1%. Albumin is 2.3%. Hemoglobin 9.6, hematocrit 30.2. IMPRESSION: 1. A patient who presented with paroxysmal atrial fibrillation following his left below knee amputation. He is back in sinus rhythm. He had some intermittent pauses suggesting underlying sick sinus syndrome versus toxic drug effect. No more pauses have been detected. 2. History of bilateral carotid artery stenosis. 3. History of chronic kidney disease. 4. 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 5. Status post amputation of the left leg, left below knee amputation. Today is postoperative day #3. RECOMMENDATIONS: At this time from Cardiology, I would suggest to continue present medical therapy as you are doing. He may be ready to go home very soon. I will arrange for an office followup. At this time, the patient appears to be clinically stable. I do not think he needs a pacemaker. cc: Rony Kasper MD [facility]
--- NOTE | 2019-01-29 11:26 | NEPHROLOGY PROGRESS NOTE ---
DATE: 01/29/2019 SUBJECTIVE: Mr. Hickey is resting quietly in bed and states that he is feeling a little bit better. Left leg is not giving him much pain. OBJECTIVE: Vital Signs: Temperature 97.9 degrees, blood pressure 152/50, heart rate 67, respirations 19. He remains on room air. LABS: Sodium 131, potassium 4.9, chloride 97, CO2 23, BUN 28, creatinine 2.4, glucose 164, anion gap 11, calcium 8.4, phosphorus 3, albumin is 2.3. White count 10.42, hemoglobin 9.6, hematocrit 30.2 with a platelet count of 296,000. PHYSICAL EXAMINATION: General: This is an 83-year-old elderly gentleman resting quietly in bed. He is in no acute distress. Skin: Warm and dry. HEENT: Normocephalic, atraumatic. Conjunctiva is pale. He has DAVID. Mucous membranes are dry. Neck: Supple. Trachea midline. He has 6 cm JVD. Cardiovascular: Regular rate and rhythm. He has a systolic murmur. Lungs: Clear to auscultation bilaterally, equal excursion on room air. Abdomen: Soft nontender positive bowel sounds. Genitourinary: Ramirez catheter is in place with adequate urine out documented. Extremities: Patient has a left below knee amputation, this dressing is dry and intact. He has 1+ edema to the right, mostly toward his hips. Neurological: Alert to person and to place. ASSESSMENT AND PLAN: Acute kidney injury. The patient's BUN and creatinine have continued to slowly stabilize this is been at 2.3 to 2.4 in the last 72 hours, he has had adequate urine output documented from our perspective. He remains stable close to his baseline. We will sign off at this time and remain available if indicated. We would like to thank you for allowing us to follow with this patient. Dictated by TALIB Pierre for Barrington Woods MD Face to face encounter, data reviewed, discussed with Loy Calle. I agree with the above assessment and plan of care. cc: TALIB Pierre MD [facility]
[2019-01-29 15:27] LABS: CK-MB 6.45 ng/mL (0.0-5.0)
--- NOTE | 2019-01-29 19:06 | PROGRESS NOTE ---
DATE: 01/29/2019 SUBJECTIVE: Patient resting in bed. Not in any obvious distress. OBJECTIVE: Vital Signs: As follows: Temperature is 97.8, pulse 64, respirations 16, blood pressure is 142/51. Oxygen saturation is 98%. HEENT: Atraumatic, normocephalic. Cardiovascular: S1, S2. Respiratory: Has evidence of good air entry bilaterally. Abdomen: Soft, nontender. No masses felt. Extremities: The patient has a left BKA with wound site dressed. Central Nervous System: No obvious focal deficits noted. LABS: WBC is 10.4, hematocrit is 30.2, with a platelet count of 296,000. Sodium is 131 potassium 4.9, pulse 97, bicarb 23,creatinine is 2.4. ASSESSMENT AND PLAN: 1. Left lower extremity Infection/osteomyelitis. Status post left below-knee amputation. Surgery following. 2. Sepsis. Continue antibiotics. 3. Acute kidney injury/chronic kidney disease. Nephrology following. 4. Atrial fibrillation. Cardiology team following. 5. Anemia. Follow up on hemoglobin, hematocrit. Transfuse PRBCs as needed. cc: Nnamdi Madrid MD [facility]
[2019-01-30] MEDS: DEMEROL IV PRN ×3 (04:11→15:20)
[2019-01-30 05:49] LABS: ALBUMIN 2.4 g/dL (3.5-5.0); CALCIUM 8.1 mg/dL (8.8-10.2); CREATININE 2.2 mg/dL (0.7-1.2); POTASSIUM 4.4 mmol/L (3.5-5.1)
[2019-01-30] MEDS: PRILOSEC PO SCH (07:18)
--- NOTE | 2019-01-30 08:04 | INFECTIOUS DISEASE PROGRESS NO ---
DATE: 01/30/2019 CONCLUSION: The patient is status post jrplc-quq-efhz amputation for Pseudomonas osteomyelitis of the left foot. MEDICATIONS: The patient is on cefepime as a single drug. PHYSICAL EXAMINATION: Vital Signs: Temperature 98.8 degrees, pulse 73, respirations 16, blood pressure 136/59. General: This is an ill-appearing elderly male. He is in no acute distress. He is lethargic, though. Head/eyes/ears/nose/throat: He does not have any drainage coming from his nose or ears. Neck: No stiffness. Lungs: Clear to auscultation. Cardiovascular: Heart rate is regular. Abdomen: Soft and nontender. Extremities: The patient's leg has a large dressing and is on a splint. Neurologic: The patient is lethargic today. There is no tremor. LABORATORY AND X-RAY: There is no new radiographic study. The only new lab test is the creatinine which is at 2.2 and the GFR which is at 29. ASSESSMENT AND PLAN: 1. The patient is status post sgfue-pma-veim amputation of her Pseudomonas osteomyelitis of the foot. Whenever Dr. Choi thinks that the incision is intact and does not need any further antibiotics, I will go ahead and stop cefepime. Unfortunately, the patient's Pseudomonas organism is resistant to Levaquin. Therefore, the only antibiotics I have left to be able to treat the Pseudomonas must be given intravenously. If his wound looks good, then I do not think he will need any further antibiotics. 2. Comorbidities: The patient is elderly and he is a diabetic. He also has peripheral vascular disease. cc: Zak Russo MD
[2019-01-30] MEDS: CORDARONE PO SCH (08:34)
[2019-01-30] MEDS: ELIQUIS PO SCH ×2 (08:34→20:47)
[2019-01-30] MEDS: MAXIPIME 1 GM in NS 50 ML IV SCH ×2 (08:34→20:10)
[2019-01-30] MEDS: COREG PO SCH ×2 (08:34→20:47)
[2019-01-30] MEDS: MIRALAX PO SCH (08:34)
--- NOTE | 2019-01-30 09:59 | PROGRESS NOTE ---
DATE: 01/30/2019 SUBJECTIVE: Patient resting comfortably in bed. He had a left nbwtj-znb-zsjh amputation. He is not complaining of pain at this moment, I have requested OT and physical therapy evaluation. No chest pain. No shortness of breath. OBJECTIVE: Vital Signs: Temperature 98.4 degrees, pulse 64, respiratory rate 15, blood pressure 174/49, oxygen saturation 95% on room air. HEENT: Normocephalic. No trauma. PERRLA. Neck: Supple. No JVD. No masses. Central trachea. Chest: Clear to auscultation. Some crepitus at the bases. Abdomen: Soft, obese, protuberant, nontender, nondistended. No hepatosplenomegaly. Extremity: Right lower extremity with no edema. No clubbing. No cyanosis. His heel is covered with a dressing. Left BKA and his dressing looks clean, dry. Neurological: At this moment this patient is alert and oriented x3. No focal neurological deficits but generalized weakness. LABORATORY: Sodium 133, potassium 4.4, chloride 98, bicarbonate 22, BUN 32, creatinine 2.2, glucose 120, calcium 8.1 phosphorus 3. ASSESSMENT AND PLAN: 1. Left lower extremity infection, ischemic, osteomyelitis, status post left hltji-xsq-azis amputation. Postoperative day #4. Surgery department will check the wound today. If he looks fine probably we will stop the antibiotics. We will continue with the same management for now. I have requested an evaluation by occupational therapy and physical therapy/ Also I consult the administrator social welfare to start looking for placement so he can go to rehab. 2. Paroxysmal atrial fibrillation with some episodes of intermittent pauses suggesting probably toxic drug effect. Cardiology Department has been following this patient, they have recommended to continue with the same management for now. He is feeling better. 3. Sepsis from the left lower extremity infection. Like I mentioned before, it started post amputation. We will continue with antibiotics for now. We will check the wound today and depending on that we will stop the antibiotics. 4. Acute on chronic kidney disease. BUN and creatinine are getting better. His urine output is adequate. 5. Hyperkalemia, resolved. 6. Hypoglycemia resolved. 7. Pulmonary edema. He has no complaint of chest pain or shortness of breath. The oxygen saturation has been stable. Will monitor for now. 8. Nutritional status. Continue with his diet. 9. Hypertension. We will monitor for now. He is on Coreg and amiodarone. cc: Davey Aquino MD
[2019-01-30] MEDS: XALATAN 0.005% OPH SOLN RIGHT EYE SCH (20:46)
[2019-01-31] MEDS: NORCO-7.5 PO PRN ×3 (01:56→22:54)
[2019-01-31] MEDS: PRILOSEC PO SCH (06:00)
[2019-01-31 07:27] LABS: BASO# 0.02 X1000 (0.0-0.2); BASO% 0.2 % (0.0-0.8); EOS# 0.31 X1000 (0.0-0.7); EOS% 3.4 % (0.0-10.0); HEMATOCRIT 31.4 % (42.0-52.0); HEMOGLOBIN 10.1 g/dL (14.0-18.0); LYMPH# 2.57 X1000 (1.2-3.4); LYMPH% 28.3 % (20.5-51.1); MCH 30.2 PG (27-31); MCHC 32.2 g/dL (33-37); MONO# 0.71 X1000 (0.11-0.59); MONO% 7.8 % (1.7-9.3); NEUT# 5.46 X1000 (1.4-6.5); NEUT% 60.3 % (42.2-75.2); PLT 251 X1000 (130-400); RBC 3.34 XMIL (4.7-6.1); RDW 13.6 % (11.5-14.5); WBC 9.07 X1000 (4.8-10.8)
[2019-01-31 07:41] LABS: ALBUMIN 2.4 g/dL (3.5-5.0); CALCIUM 8.4 mg/dL (8.8-10.2); PHOSPHORUS 2.4 mg/dL (2.7-4.5); POTASSIUM 4.6 mmol/L (3.5-5.1)
[2019-01-31] MEDS: COREG PO SCH ×2 (09:56→22:55)
[2019-01-31] MEDS: CORDARONE PO SCH (09:56)
[2019-01-31] MEDS: PRAVACHOL PO SCH (09:56)
[2019-01-31] MEDS: ASPIRIN EC PO SCH (09:56)
[2019-01-31] MEDS: MIRALAX PO SCH (09:56)
[2019-01-31] MEDS: MAXIPIME 1 GM in NS 50 ML IV SCH ×2 (09:57→22:55)
[2019-01-31] MEDS: ELIQUIS PO SCH ×2 (09:57→22:55)
--- NOTE | 2019-01-31 12:21 | PROGRESS NOTE ---
DATE: 01/31/2019 SUBJECTIVE: Patient resting comfortably in bed. He has had a left fzoqp-hbd-fbqb amputation. He is not complaining of pain at this moment. He seems to be a little bit confused on and off, but no agitation pending rehab center placement. OBJECTIVE: Vital Signs: Temperature 98.3 degrees, pulse 68, respiratory rate 16, blood pressure 172/50, oxygen saturation 99 on room air. HEENT: Head normocephalic, no trauma. PERRLA. Neck: Supple. No JVD. No masses. Central trachea. Chest: Clear to auscultation. Some crepitus at the bases. Abdomen: Soft, obese, protuberant. Nontender, nondistended, no hepatosplenomegaly. Extremity: Right lower extremity with no edema. No clubbing. No cyanosis. His heel is covered with a dressing, left BKA. His dressing looks clean, dry and intact. Neurological examination: At this moment, this patient is completely alert and oriented x3, but apparently he has been having some confusion on and off. LABORATORY: WBC 9, hemoglobin 10.1, hematocrit 31.4, platelets 251. Sodium 133, potassium 4.6, chloride 98, bicarbonate 24. BUN 33, creatinine 2, glucose 131, calcium 8.4, phosphorus 2.4, magnesium 1.8. Albumin 2.4. ASSESSMENT AND PLAN: 1. Left lower extremity infection, ischemic, osteomyelitis, status post left wcjdn-mpv-hqjy amputation, postoperative day #4. Surgery Department following this patient closely. The plan is to send this patient to a rehab center. 2. Paroxysmal atrial fibrillation with some episodes of intermittent pauses suggesting probably toxic drug effect. He has been having more episodes. Cardiology Department following this patient. They have been recommend to continue with same management for now. He is feeling better. 3. Sepsis from the left lower extremity infection. Continue with the same antibiotics. Infectious Disease Department on board. 4. Acute on chronic kidney disease. Creatinine decreased to 2 which is basically his baseline. Continue with the same treatment. 5. Hyperkalemia, resolved. 6. Hypoglycemia resolved. 7. Pulmonary edema. This patient has no complaint of chest pain or shortness of breath. Oxygen saturation has been stable on room air. 8. Nutritional status. Continue with his diet. 9. Hypertension for now we will monitor. cc: Davey Aquino MD
--- NOTE | 2019-01-31 14:23 | INFECTIOUS DISEASE PROGRESS NO ---
DATE: 01/31/2019 PRESENT ILLNESS: Mr. 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 Choi. MEDICATIONS: He is receiving cefepime 1 g IV every 12 hours as a renally modified dose. PHYSICAL EXAMINATION: Vital Signs: Temperature is 98.4 degrees, pulse rate 72 , respiratory rate 20, blood pressure 182/65, O2 saturations 100% on room air. General: This is a chronically ill- appearing elderly gentleman, lying in the bed in no acute distress. HEENT: Atraumatic, normocephalic. Oral mucous membranes are pink and moist. Dentition is poor. Conjunctivae are pale. Neck: Supple. Trachea is midline. Respiratory: Lung sounds are clear to auscultation, diminished in the bases. Cardiovascular: Heart rate and rhythm are regular. Normal sinus rhythm on the monitor. Abdomen: Soft, round, and nontender. Bowel sounds are active. Extremities: There is a dressing in place with an Mack wrap to the left tgyuc-hmj-xswy amputation stump. It is dry and intact. Neurologic: He is awake, alert, and oriented. No tremor is noted. He is able to move around in the bed with generalized weakness. DIAGNOSTIC STUDIES: Today his white count is 9.7, hemoglobin 10.1, platelet count 251,000. Creatinine is 2, GFR is 32. His left foot grew Pseudomonas aeruginosa. Blood cultures have shown no growth since admission. No imaging reports today. ASSESSMENT AND PLAN: Mr. Hickey is status post lgbfw-szr-wtgh amputation due to Pseudomonas osteomyelitis of the left foot. He is receiving cefepime which we will continue as a renally modified dose. When Dr. Choi feels that the incision no longer needs any further antibiotics , we will stop the cefepime. Unfortunately he will not be able to go home on any oral antibiotics due to Levaquin resistance, so hopefully he will heal appropriately so that we can discontinue antibiotics by the time he is discharged. These plans have been discussed with and recommended by Dr. Russo. COMORBIDITIES: For Mr. Hickey include that he is elderly with diabetes mellitus and peripheral vascular disease. Dictated by TALIB Harris for Zak Russo MD This chart was documented by, TALIB Harris and accurately reflects the services performed, treatment plan and medical decisions as attested by the providers signature Zak Russo MD. cc: Zak Russo MD [facility]
[2019-01-31] MEDS: DEMEROL IV PRN (14:44)
--- NOTE | 2019-01-31 15:32 | PROGRESS NOTE ---
DATE: 01/31/2019 I took down Mr. Hickey's dressing yesterday. The wound appeared to be intact. There was still some bloody drainage. There was no evidence of infection. I rewrapped the wound with dry dressing, Kerlix wrap, and an Mack wrap. I do feel that it is okay to stop antibiotics and look for rehab placement. cc: Amelia Choi MD
[2019-01-31] MEDS: XALATAN 0.005% OPH SOLN RIGHT EYE SCH (22:56)
[2019-01-31] MEDS: TYLENOL PO PRN (23:57)
[2019-02-01] MEDS: PRILOSEC PO SCH (07:50)
[2019-02-01] MEDS: MAXIPIME 1 GM in NS 50 ML IV SCH (08:06)
[2019-02-01] MEDS: COREG PO SCH ×2 (08:07→23:08)
[2019-02-01] MEDS: ELIQUIS PO SCH ×2 (08:07→23:08)
[2019-02-01] MEDS: PRAVACHOL PO SCH (08:07)
[2019-02-01] MEDS: MIRALAX PO SCH (08:07)
[2019-02-01] MEDS: CORDARONE PO SCH (08:07)
[2019-02-01] MEDS: ASPIRIN EC PO SCH (08:07)
[2019-02-01 08:25] LABS: ALBUMIN 2.5 g/dL (3.5-5.0); CALCIUM 8.1 mg/dL (8.8-10.2); CREATININE 1.8 mg/dL (0.7-1.2); PHOSPHORUS 2.3 mg/dL (2.7-4.5); POTASSIUM 4.4 mmol/L (3.5-5.1)
[2019-02-01 08:27] LABS: CALCIUM 7.8 mg/dL (8.8-10.2); CREATININE 1.7 mg/dL (0.7-1.2); POTASSIUM 4.4 mmol/L (3.5-5.1)
--- NOTE | 2019-02-01 14:06 | PROGRESS NOTE ---
DATE: 02/01/2019 SUBJECTIVE: The patient is resting comfortably in bed. He has had a left uewou-bsv-qtco amputation. He is not complaining of pain at this moment. He has been sleeping fine. He seems to be confused to time. He knows he is in the hospital. He does not remember the name of this hospital though. OBJECTIVE: Vital Signs: Temperature 98.5 degrees, pulse 95, respiratory rate 16, blood pressure 143/71, and oxygen saturation 98 percent on room air. HEENT: Head normocephalic. No trauma. PERRLA. Neck: Supple. No JVD. No masses. Central trachea. Chest: Clear to auscultation with some crepitus at the bases. Abdomen: Soft, obese, and protuberant. Nontender. Nondistended. No hepatosplenomegaly. Extremities: Right lower extremity with no edema, clubbing or cyanosis. His heel is covered with a dressing left BKA. Dressing looks clean, dry and intact. Neurological: At this moment, this patient is alert. He is oriented x2. He knows he is in the hospital. He is oriented to time. He has been having confusion on and off, but he is following commands and moving all 4 extremities. LABORATORY: Sodium 131, potassium 4.4, chloride 97, bicarbonate 22, BUN 36, creatinine 1.7, glucose 145, calcium 7.8, phosphorus 2.3, and albumin 2.5. ASSESSMENT AND PLAN: 1. Left lower extremity infection/ischemia, osteomyelitis, status post left ilbhc-fxj-gdma amputation postoperative day #5. Surgery Department following this patient closely. I read the note from Dr. Choi. He cleaned the wound and evaluated the wound yesterday. He believes the wound is doing good. No signs of infection so probably we will stop the antibiotics. We are working on a rehab center placement. 2. Paroxysmal atrial fibrillation with some episodes of intermittent pauses suggesting probably toxic drug effect. He has not been having more episodes. Cardiology department has been following this patient. I will increase the dose of the carvedilol from 12.5 to 25 twice a day because his blood pressure has been elevated. 3. Hypertension as above. 4. Sepsis from the left lower extremity infection. Aware. Probably, we will stop the antibiotics since this patient had an amputation. 5. Acute on chronic kidney disease, this is his baseline. Continue to monitor. 6. Hyperkalemia, resolved. 7. Hypoglycemia, resolved. 8. Pulmonary edema. This patient has not been complaining of shortness of breath or chest pain. Oxygen saturation has been stable on room air. 9. Nutritional status. Continue with his diet. 10. Hypertension. We will monitor. cc: Davey Aquino MD
--- NOTE | 2019-02-01 14:15 | INFECTIOUS DISEASE PROGRESS NO ---
DATE: 02/01/2019 PLAN: The patient has had a left jykgu-kgz-ipju amputation and Dr. Choi has put a note in the chart saying he feels that the patient is ready to stop antibiotics, so we will discontinue cefepime at this point and sign off the case. We will be available on an as- needed basis. The patient will follow up with Dr. Choi. These plans have been discussed with and recommended by Dr. Russo. Dictated by TALIB Harris for Zak Russo MD This chart was documented by, TALIB Harris and accurately reflects the services performed, treatment plan and medical decisions as attested by the providers signature Zak Russo MD. cc: [facility] Russo MD [facility]
[2019-02-01] MEDS: DEMEROL IV PRN (14:33)
[2019-02-01] MEDS: XALATAN 0.005% OPH SOLN RIGHT EYE SCH (23:08)
[2019-02-02] MEDS: PRILOSEC PO SCH (06:05)
[2019-02-02 07:25] LABS: BASO# 0.02 X1000 (0.0-0.2); BASO% 0.2 % (0.0-0.8); EOS# 0.17 X1000 (0.0-0.7); EOS% 1.7 % (0.0-10.0); HEMATOCRIT 34.2 % (42.0-52.0); HEMOGLOBIN 10.9 g/dL (14.0-18.0); IMM GRAN# 0.02 X1000 (0.0-0.04); IMM GRAN% 0.2 % (0.0-0.5); LYMPH# 3.86 X1000 (1.2-3.4); LYMPH% 38.1 % (20.5-51.1); MCHC 31.9 g/dL (33-37); MCV 94.2 FL (81-99); MONO# 1.14 X1000 (0.11-0.59); MONO% 11.3 % (1.7-9.3); MPV 9.3 FL (7.4-10.4); NEUT# 4.91 X1000 (1.4-6.5); NEUT% 48.5 % (42.2-75.2); PLT 223 X1000 (130-400); RBC 3.63 XMIL (4.7-6.1); RDW 13.6 % (11.5-14.5); WBC 10.12 X1000 (4.8-10.8)
[2019-02-02 07:35] LABS: ALBUMIN 2.8 g/dL (3.5-5.0); CALCIUM 8.5 mg/dL (8.8-10.2); CREATININE 1.8 mg/dL (0.7-1.2); PHOSPHORUS 2.4 mg/dL (2.7-4.5); POTASSIUM 4.6 mmol/L (3.5-5.1)
[2019-02-02] MEDS: COREG PO SCH ×2 (08:21→21:27)
[2019-02-02] MEDS: PRAVACHOL PO SCH (08:22)
[2019-02-02] MEDS: ASPIRIN EC PO SCH (08:22)
[2019-02-02] MEDS: ELIQUIS PO SCH ×2 (08:22→21:27)
[2019-02-02] MEDS: CORDARONE PO SCH (08:22)
[2019-02-02] MEDS: MIRALAX PO SCH (08:22)
--- NOTE | 2019-02-02 10:43 | PROGRESS NOTE ---
DATE: 02/02/2019 SUBJECTIVE: Mr. Hickey's left below-knee amputation dressing was changed by myself today. There was no evidence of infection involving the wound. No abnormal drainage. It remains intact, slow to heal. He needs to keep his left knee extended. I think that he is being evaluated for rehab. The skin clips need to stay probably for at least another 2 weeks. cc: Amelia Choi MD
[2019-02-02] MEDS: DEMEROL IV PRN ×2 (10:55→21:24)
--- NOTE | 2019-02-02 11:46 | DISCHARGE SUMMARY ---
ADMISSION DATE: 01/24/2019 DISCHARGE DATE: 02/02/2019 PRIMARY CARE PHYSICIAN: Dr. Pernell Méndez. CONSULTATIONS: 1. Dr. Choi, Orthopedic Surgery. 2. Dr. Kasper with Cardiology. 3. Dr. Russo of Infectious Disease. 4. Dr. Woods with Nephrology. PROCEDURES AND FINDINGS: 1. Head CT, 01/24/2019 reveals chronic ischemic microvascular changes. No evidence of acute disease. 2. Chest x-ray, 01/24/2019 reveals stable chest. 3. Left foot x-ray, 01/24/2019 reveals amputation of the 4th toe and head of the 4th metatarsal. The possibility of residual osteomyelitis cannot be excluded. 4. Renal ultrasound, 01/25/2019, mild bilateral renal atrophy. No acute abnormality. 5. Chest x-ray, 01/27/2019 reveals interval improvement of the pulmonary venous congestion and interstitial edema seen previously. No new consolidation. Cardiac silhouette stable. Interval improvement. 6. EKG, 01/27/2019, atrial fibrillation with rapid ventricular response. OPERATIVE PROCEDURE: 01/26/2019, left tgrpv-btr-wnbn amputation. DISCHARGE DIAGNOSES: 1. Left lower extremity infection, osteomyelitis, status post left atbzx-ieu-poiz amputation. This patient is now postop day 6. He had a left vkdld-wal-ubzv amputation by Dr. Choi on 01/26/2019 without complication. The wound is healing well and is without sign of infection. Antibiotics have now been discontinued. 2. Paroxysmal atrial fibrillation with rapid ventricular response. This patient has converted back to sinus rhythm. He has not had any further episodes. Cardiology has followed this patient. His dose of carvedilol will be increased to 25 twice a day and he will continue with Eliquis for anticoagulation. 3. Hypertension. As stated above, carvedilol will increased to 25 twice a day. 4. Sepsis from left lower extremity infection. See #1. The patient underwent a left lower extremity lxrgp-ddi-vusv amputation. Antibiotics have now been discontinued. The patient is clinically improved. 5. Acute on chronic kidney disease. This patient is now back at his baseline. BUN of 38, creatinine 1.8. Dr. Woods with Nephrology followed this patient during his hospital stay. 6. Hyperkalemia has resolved. 7. Hypoglycemia, resolved. 8. Pulmonary edema. This patient has denied any shortness of breath or chest pain and oxygen saturation has remained stable on room air. HOSPITAL COURSE: Mr. 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 He was admitted to the [facility] and started on broad-spectrum antibiotics, Zosyn and linezolid. He was also hypoglycemic and provided D5 normal saline with frequent blood sugar checks. He was found to be septic with left lower extremity multiple venous and arterial ulcers. Dr. Choi with Surgery was consulted and due to concern for osteomyelitis, a left dwuhl-nde-ilis amputation was completed on 01/26/2019. The patient required 1 unit of blood during surgery. His postop period was complicated by an episode of atrial fibrillation with rapid ventricular response. Dr. Kasper with Cardiology was consulted and the atrial fibrillation was believed to be related due to metabolic stress from the recent surgery. He converted back to sinus rhythm and has had no further episodes. This patient was followed by Dr. Russo of Infectious Disease postop and treated with cefepime. His wound healed well and IV antibiotics were discontinued. This patient has now clinically improved and stable for discharged to rehab. His last vital signs were temperature 97.4 degrees, heart rate 71, respiratory rate 18, blood pressure 154/48, and O2 saturation 98% on room air. LAST LABS: WBC 10.1, hemoglobin 10.9, hematocrit 34.2, platelets 223,000. Sodium 135, potassium 4.6, BUN 38, creatinine 1.8, albumin 2.8, calcium 2.4, glucose 188. DISCHARGE DISPOSITION: He is stable for discharge to [facility] rehab. FOLLOWUP: 1. Dr. Kasper, Cardiology, within 1 month. Please call [phone] 2[address] Choi with Surgery. Please follow up in 2 weeks. DISCHARGE MEDICATIONS: Per Dr. Naranjo. Please see MAR. Discharged time: 35 minutes Dictated by TALIB Walker for Davey Aquino MD cc: MD Pernell Martinez MD Lynn R. Buckner, MD Luis N. Villanueva, MD Zak F. Russo, MD Barrington D. Gladish, MD MTDD
[2019-02-02] MEDS: NORCO-7.5 PO PRN ×2 (12:16→18:53)
[2019-02-02] MEDS: XALATAN 0.005% OPH SOLN RIGHT EYE SCH (21:28)
[2019-02-03] MEDS: NORCO-7.5 PO PRN ×4 (00:31→20:34)
[2019-02-03] MEDS: PRILOSEC PO SCH (06:23)
[2019-02-03 07:21] LABS: CALCIUM 8.4 mg/dL (8.8-10.2); POTASSIUM 4.8 mmol/L (3.5-5.1)
[2019-02-03] MEDS: PRAVACHOL PO SCH (08:54)
[2019-02-03] MEDS: MIRALAX PO SCH (08:54)
[2019-02-03] MEDS: ASPIRIN EC PO SCH (08:54)
[2019-02-03] MEDS: COREG PO SCH ×2 (08:54→20:33)
[2019-02-03] MEDS: ELIQUIS PO SCH ×2 (08:54→20:33)
[2019-02-03] MEDS: CORDARONE PO SCH (08:54)
[2019-02-03] MEDS: DEMEROL IV PRN ×3 (09:59→19:33)
--- NOTE | 2019-02-03 16:24 | PROGRESS NOTE ---
DATE: 02/03/2019 SUBJECTIVE: The patient resting in bed. He has had left dluqm-fqh-jbnc amputation. trail construction worker trying to find placement for this patient. We will continue to monitor. OBJECTIVE: Vital Signs: Temperature 97.8 degrees, pulse 60, respiratory rate 16, blood pressure 150/38, oxygen saturation 98 on room air. HEENT: Head normocephalic. No trauma. PERRLA. Neck: Supple. No JVD. No masses. Central trachea. Chest: Clear to auscultation. No wheezing. No rales. Abdomen: Soft, nontender, nondistended. No hepatosplenomegaly. Extremities: Right lower extremity with no edema, clubbing or cyanosis. His heel is covered with a dressing. Left BKA dressing looks clean, dry and intact. Neurological: The patient is sleepy, but arousable. Oriented x2. He is not oriented to time. He moves all 4 extremities. LABORATORY: Sodium 135, potassium 4.8, chloride 99, bicarbonate 27. BUN 40, creatinine 2, glucose 154, calcium 8.4. ASSESSMENT AND PLAN: 1. Left lower extremity infection/ischemia, osteomyelitis, status post left npeeg-klm-mfxa amputation, postoperative day #6. Surgery Department following this patient closely. He is no longer on antibiotics. Continue physical therapy. Likely, this patient will be discharged next Tuesday. I will talk to the geriatric social work professor and shoe caser to see if the family is going to take care of him if we do not have a placement for him. 2. Paroxysmal atrial fibrillation with some episodes of intermittent pauses suggesting probably toxic drug effect. No more episodes. Cardiology Department evaluated already this patient. Vital signs are more stable. Continue with the same management. 3. Hypertension as above. 4. Sepsis from the left lower extremity infection, resolved. 5. Acute on chronic kidney disease, likely this is his baseline. 6. Hyperkalemia, resolved. 7. Hypoglycemia resolved. 8. Pulmonary edema. This patient has not been complaining of shortness of breath or chest pain. Oxygen saturation is stable on room air. 9. Nutritional status. Continue with his diet. 10. Hypertension. We will monitor. This is better after increasing the carvedilol to 25 twice a day. cc: Davey Aquino MD
[2019-02-03] MEDS: XALATAN 0.005% OPH SOLN RIGHT EYE SCH (20:33)
[2019-02-04] MEDS: NORCO-7.5 PO PRN ×3 (06:17→21:36)
[2019-02-04] MEDS: PRILOSEC PO SCH (06:18)
[2019-02-04] MEDS: DEMEROL IV PRN (09:03)
[2019-02-04] MEDS: MIRALAX PO SCH (09:06)
[2019-02-04] MEDS: CORDARONE PO SCH (09:06)
[2019-02-04] MEDS: ELIQUIS PO SCH ×2 (09:06→21:36)
[2019-02-04] MEDS: COREG PO SCH ×2 (09:07→21:36)
[2019-02-04] MEDS: PRAVACHOL PO SCH (09:07)
[2019-02-04] MEDS: ASPIRIN EC PO SCH (09:07)
--- NOTE | 2019-02-04 15:44 | PROGRESS NOTE ---
DATE: 02/04/2019 SUBJECTIVE: No acute events overnight, this patient has a left spsvk-abd-ickh amputation, plan is to send this patient to a rehab center. OBJECTIVE: Vital Signs: Temperature 97.4 degrees, pulse 55, respiratory rate 18, blood pressure 141/46, oxygen saturation 98 on room air. HEENT: Head normocephalic. No trauma. PERRLA. Neck: Supple. No JVD. No masses. Central trachea. Chest: Clear to auscultation. No wheezing. No rales. Abdomen: Soft, nontender, nondistended. No hepatosplenomegaly. Extremities: Right lower extremity with no edema, clubbing, no cyanosis. His heel is covered with a dressing. Left BKA dressing looks clean, dry and intact. Neurologic: The patient is sleepy but arousable, oriented x2, he knows he is in the hospital he does not remember which 1 today. He moves all 4 extremities and he has generalized weakness. LABORATORY: Glucose 168. ASSESSMENT AND PLAN: 1. Left lower extremity infection/ischemia status post left zdxjb-qvw-pzbo amputation postoperative day #7, surgery department following this patient. He is no longer on antibiotics, continue physical therapy. Likely we will send this patient to a rehab center next Tuesday or if we do not have a place probably he needs to go home with the family on home physical therapy at home. 2. Paroxysmal atrial fibrillation with some episodes of intermittent pauses suggesting probably toxic drug effect, no more episodes, cardiology department evaluated already this patient, vital signs are more stable. Continue with same management. 3. Hypertension stable. 4. Sepsis from the left lower extremity infection resolved. 5. Acute on chronic kidney disease. Likely this is his baseline. 6. Hyperkalemia resolved. 7. Hypoglycemia resolved. 8. Pulmonary edema. This patient is stable, oxygen saturation is good on room air. 9. Nutritional status. Continue with his diet. cc: Davey Aquino MD
[2019-02-04] MEDS: XALATAN 0.005% OPH SOLN RIGHT EYE SCH (21:36)
[2019-02-05] MEDS: PRILOSEC PO SCH (06:46)
[2019-02-05 08:16] LABS: BASO# 0.04 X1000 (0.0-0.2); BASO% 0.4 % (0.0-0.8); EOS# 0.23 X1000 (0.0-0.7); EOS% 2.1 % (0.0-10.0); HEMOGLOBIN 10.5 g/dL (14.0-18.0); IMM GRAN# 0.18 X1000 (0.0-0.04); IMM GRAN% 1.6 % (0.0-0.5); LYMPH# 3.94 X1000 (1.2-3.4); LYMPH% 35.9 % (20.5-51.1); MCH 30.3 PG (27-31); MCHC 31.8 g/dL (33-37); MCV 95.1 FL (81-99); MONO# 1.34 X1000 (0.11-0.59); MONO% 12.2 % (1.7-9.3); MPV 9.7 FL (7.4-10.4); NEUT# 5.26 X1000 (1.4-6.5); NEUT% 47.8 % (42.2-75.2); PLT 317 X1000 (130-400); RBC 3.47 XMIL (4.7-6.1); RDW 13.7 % (11.5-14.5); WBC 10.99 X1000 (4.8-10.8)
[2019-02-05 08:17] LABS: CALCIUM 8.6 mg/dL (8.8-10.2); POTASSIUM 4.8 mmol/L (3.5-5.1)
[2019-02-05] MEDS: MIRALAX PO SCH (08:52)
[2019-02-05] MEDS: ELIQUIS PO SCH ×2 (08:53→21:13)
[2019-02-05] MEDS: ASPIRIN EC PO SCH (08:54)
[2019-02-05] MEDS: PRAVACHOL PO SCH (08:54)
[2019-02-05] MEDS: COREG PO SCH ×2 (08:54→21:13)
[2019-02-05] MEDS: CORDARONE PO SCH (08:54)
[2019-02-05] MEDS: NORCO-7.5 PO PRN (08:55)
--- NOTE | 2019-02-05 11:47 | PROGRESS NOTE ---
DATE: 02/05/2019 SUBJECTIVE: No acute events overnight. At this moment this patient is completely alert and oriented x3. We have been looking for placement for him. I discussed the case today with a protective services case worker. This patient should be discharged in the next 24 hours if we do not have placement. The patient is stable. We will continue with the same management. He is ready to be discharged. manager telecom will talk to the family about the options. OBJECTIVE: Vital Signs: Temperature 98.8 degrees, pulse 60, respiratory rate 20, blood pressure 170/90, oxygen saturation 97% on 3 L of nasal cannula. HEENT: Head normocephalic. No trauma. PERRLA. Neck: Supple. No JVD. Central trachea. Chest: Clear to auscultation. No wheezing. No rales. Abdomen: Soft, nontender, nondistended. No hepatosplenomegaly. Extremities: Right lower extremity. No edema. No clubbing. No cyanosis. His heel is covered with a dressing. Left BKA, dressing looks clean, dry and intact. Neurological: The patient is alert and oriented x3 today. No focal weakness, but generalized weakness. LABORATORY: WBC 10.9, hemoglobin 10.5, hematocrit 33, platelets 317,000. Sodium 134, potassium 4.8, chloride 97, bicarbonate 25, BUN 44, creatinine 2, glucose 181, calcium 8.6. ASSESSMENT AND PLAN: 1. Left lower extremity infection/ischemia, status post left yhsxi-pdz-gcbu amputation. Postoperative day #8. Surgery Department following this patient. He is no longer on antibiotics. We will continue physical therapy. The plan is to send this patient to a rehab center or home with home health and physical therapy. Today the protective services case worker will talk to the family to give them all the options. This patient is ready to be discharged and should be discharged in the next 24 hours. 2. Paroxysmal atrial fibrillation with some episodes of intermittent pauses suggesting probably toxic drug effect. Stable at this moment. Cardiology Department already evaluated this patient before. We will continue with same management. 3. Hypertension. Blood pressure has been going up and down. Mostly is up when he is in pain. 4. Sepsis from the left lower extremity infection, resolved. 5. Acute on chronic kidney disease, likely this is his baseline. 6. Hyperkalemia, resolved. 7. Hypoglycemia, resolved. 8. Pulmonary edema. Stable. Oxygen saturation is good on room air. 9. Nutritional status. We will continue with the same diet. cc: Davey Aquino MD
[2019-02-05] MEDS: DEMEROL IV PRN ×2 (12:13→21:13)
[2019-02-05] MEDS: XALATAN 0.005% OPH SOLN RIGHT EYE SCH (21:13)
[2019-02-06] MEDS: NORCO-7.5 PO PRN (01:02)
[2019-02-06] MEDS: PRILOSEC PO SCH (06:31)
--- NOTE | 2019-02-06 07:35 | PROGRESS NOTE ---
DATE: 02/06/2019 Mr. Hickey's left below the knee amputation site seems to be healing without evidence of infection. I took the dressing down, and redressed it yesterday evening. He needs to keep his knee flexible and extended. We are awaiting placement for him at discharge. cc: Amelia Choi MD
[2019-02-06 07:56] LABS: BASO# 0.04 X1000 (0.0-0.2); BASO% 0.4 % (0.0-0.8); EOS# 0.15 X1000 (0.0-0.7); EOS% 1.5 % (0.0-10.0); HEMATOCRIT 33.1 % (42.0-52.0); HEMOGLOBIN 10.4 g/dL (14.0-18.0); IMM GRAN# 0.19 X1000 (0.0-0.04); LYMPH# 3.87 X1000 (1.2-3.4); LYMPH% 39.8 % (20.5-51.1); MCH 29.9 PG (27-31); MCHC 31.4 g/dL (33-37); MCV 95.1 FL (81-99); MONO# 1.19 X1000 (0.11-0.59); MONO% 12.2 % (1.7-9.3); MPV 9.3 FL (7.4-10.4); NEUT# 4.29 X1000 (1.4-6.5); NEUT% 44.1 % (42.2-75.2); PLT 366 X1000 (130-400); RBC 3.48 XMIL (4.7-6.1); RDW 13.7 % (11.5-14.5); WBC 9.73 X1000 (4.8-10.8)
[2019-02-06 08:11] LABS: CALCIUM 8.3 mg/dL (8.8-10.2); CREATININE 1.9 mg/dL (0.7-1.2); POTASSIUM 4.7 mmol/L (3.5-5.1)
[2019-02-06] MEDS: CORDARONE PO SCH (09:56)
[2019-02-06] MEDS: ASPIRIN EC PO SCH (09:56)
[2019-02-06] MEDS: ELIQUIS PO SCH ×2 (09:56→20:40)
[2019-02-06] MEDS: MIRALAX PO SCH (09:56)
[2019-02-06] MEDS: COREG PO SCH ×2 (09:57→20:40)
[2019-02-06] MEDS: PRAVACHOL PO SCH (09:57)
[2019-02-06] MEDS: DEMEROL IV PRN ×3 (10:02→20:40)
--- NOTE | 2019-02-06 14:20 | PROGRESS NOTE ---
DATE: 02/06/2019 SUBJECTIVE: Patient reports feeling fine. Denies any fever or chills. OBJECTIVE: Vital Signs: Temperature 98.5 degrees, heart rate 57, respiratory rate 16, blood pressure 153/50, O2 saturation 96% on room air. General Examination: This is an 83-year-old male, lying in bed, in no acute distress. Cardiovascular: Irregularly irregular heart rhythm. No murmurs, gallops, or rubs noted. Respiratory: Clear bilaterally to auscultation. No work of breathing or using accessory muscles. Abdomen: Soft, nontender to palpation. Bowel sounds present. No organomegaly. Extremities: Left pnmsw-qiy-nvwn amputation noted. Right lower extremity: No edema, no clubbing, and no cyanosis. Neurological: Patient alert and oriented x3. Moves 4 extremities. LABORATORY DATA: Reviewed. ASSESSMENT AND PLAN: 1. Left lower extremity infection/ischemia status post left yscct-fuk-wrxc amputation, postoperative day #9. Surgery is following this patient. They have cleared this patient for discharge. He is no longer on any antibiotics. At this point, we are waiting for a rehabilitation facility. From medical standpoint, patient is stable. 2. Paroxysmal atrial fibrillation. The patient in atrial fibrillation, but heart rate is well controlled. He is on metoprolol 40 and amiodarone and Eliquis. 3. Hypertension. Blood pressure is well controlled. We will continue with same management. 4. Acute on chronic kidney disease. Creatinine is at its baseline. We will continue to monitor. 5. Pulmonary edema, stable. DISPOSITION: At this point, we have consulted the social sciences professor for rehabilitation placement. cc: Elijah Molina MD
[2019-02-06] MEDS: XALATAN 0.005% OPH SOLN RIGHT EYE SCH (20:40)
[2019-02-07] MEDS: PRILOSEC PO SCH (06:01)
[2019-02-07] MEDS: MIRALAX PO SCH (09:03)
[2019-02-07] MEDS: ASPIRIN EC PO SCH (09:05)
[2019-02-07] MEDS: PRAVACHOL PO SCH (09:05)
[2019-02-07] MEDS: ELIQUIS PO SCH ×2 (09:05→23:11)
[2019-02-07] MEDS: COREG PO SCH ×2 (09:05→23:11)
[2019-02-07] MEDS: CORDARONE PO SCH (09:05)
[2019-02-07] MEDS: DEMEROL IV PRN ×2 (09:35→13:28)
[2019-02-07] MEDS: HUMALOG SUBQ SCH ×3 (11:32→23:11)
--- NOTE | 2019-02-07 12:21 | PROGRESS NOTE ---
DATE: 02/07/2019 SUBJECTIVE: The patient reports feeling fine. He is a little bit confused this morning. No acute issues noted as per nursing staff overnight. OBJECTIVE: Vital Signs: Temperature 97.9 degrees, heart rate 59, respiratory rate 19, blood pressure 169/53, O2 saturation 95% on room air. General: This is a chronically ill-appearing, 83-year-old male, lying in bed, in no acute distress. Cardiovascular: S1, S2 heard. Irregularly irregular heart rhythm. No murmurs, gallops, or rubs noted. Respiratory: Clear bilaterally to auscultation. No work of breathing or using accessory muscles. Abdomen: Soft, nontender to palpation. Bowel sounds present. No organomegaly. Extremities: Left below-the- knee amputation noted. Right lower extremity, no edema, no clubbing or cyanosis. Neurologic: The patient is a little bit lethargic today but answers to verbal stimuli, and moves all 4 extremities. LABORATORY DATA: Reviewed. ASSESSMENT AND PLAN: 1. Left lower extremity infection/ischemia, status post left grxwa-mco-azxm amputation postoperatively day #10. Surgery continues to follow this patient. He is ready for discharge from his standpoint. He is no longer receiving any antibiotics. At this point we are waiting for rehab bed. 2. Paroxysmal atrial fibrillation. Currently, this patient is receiving metoprolol 40 mg daily, and amiodarone and Eliquis, and we will continue with the same management. 3. Hypertension. Blood pressure is a little bit elevated. We will continue to monitor. 4. Acute on chronic kidney disease. Creatinine is at its baseline. We will continue to monitor. 5. Pulmonary edema, resolved. 6. Disposition. At this point, we are awaiting a bed in rehab. cc: Elijah Molina MD
[2019-02-07] MEDS: NORCO-7.5 PO PRN (23:23)
[2019-02-08] MEDS: XALATAN 0.005% OPH SOLN RIGHT EYE SCH ×2 (01:51→22:32)
[2019-02-08] MEDS: DEMEROL IV PRN ×5 (01:54→22:20)
[2019-02-08] MEDS: HUMALOG SUBQ SCH ×4 (06:20→22:25)
[2019-02-08] MEDS: PRILOSEC PO SCH (06:21)
[2019-02-08] MEDS: MIRALAX PO SCH (08:32)
[2019-02-08] MEDS: PRAVACHOL PO SCH (08:32)
[2019-02-08] MEDS: ELIQUIS PO SCH ×2 (08:32→22:19)
[2019-02-08] MEDS: COREG PO SCH ×2 (08:32→22:19)
[2019-02-08] MEDS: CORDARONE PO SCH (08:32)
[2019-02-08] MEDS: ASPIRIN EC PO SCH (08:32)
[2019-02-08] MEDS: NORCO-7.5 PO PRN (08:33)
[2019-02-08] MEDS: ZOFRAN IV PRN (10:32)
--- NOTE | 2019-02-08 13:28 | PROGRESS NOTE ---
DATE: 02/08/2019 SUBJECTIVE: Patient is still complaining of some pain in the left lower extremity. No other issues noted per nursing staff overnight. OBJECTIVE: Vital Signs: Temperature 98.0 degrees, heart rate 61, respiratory rate 16, blood pressure 138/51, O2 saturation 97% on room air. General examination: This is a chronically ill- appearing 83-year-old male, lying in bed, in no acute distress. Cardiovascular: S1, S2 heard. Irregularly irregular heart rhythm. No murmurs, gallops, or rubs noted. Respiratory: Clear bilaterally to auscultation. No work of breathing or using accessory muscles. Abdomen: Soft, nontender to palpation. Bowel sounds present. No organomegaly. Extremities: Left below- knee amputation noted. Right lower extremity with no edema, clubbing, or cyanosis. Neurological: Patient is a little bit sleepy today, basically the same in comparing with yesterday, but answers to verbal stimuli correctly. Moves 4 extremities spontaneously as well. LABORATORY DATA: No labs from today. ASSESSMENT AND PLAN: 1. Left lower extremity infection/ischemia, status post left wgqyt-vqw-guhu amputation, postoperative day #11. The patient ready for discharge from surgical standpoint. He is not receiving antibiotics. 2. Paroxysmal atrial fibrillation. Heart rate is well controlled. Patient is on metoprolol, amiodarone, and Eliquis. We will continue with the same management. 3. Hypertension. Blood pressure is under control. I think it has been slightly elevated largely because of his pain. We will optimize pain medication control. 4. Acute on chronic kidney disease. Creatinine is at baseline. 5. Pulmonary edema, resolved. DISPOSITION: At this point, we are waiting for a bed in a rehabilitation facility. We do not know for how long he is going to be here in the hospital, probably until next week. cc: Elijah Molina MD
[2019-02-08] MEDS: NORCO-10 PO PRN (15:08)
[2019-02-09] MEDS: PRILOSEC PO SCH (06:52)
[2019-02-09] MEDS: HUMALOG SUBQ SCH ×4 (06:52→21:00)
[2019-02-09 07:34] LABS: HEMATOCRIT 33.7 % (42.0-52.0); HEMOGLOBIN 10.6 g/dL (14.0-18.0); MCH 30.2 PG (27-31); MCHC 31.5 g/dL (33-37); MPV 9.1 FL (7.4-10.4); RBC 3.51 XMIL (4.7-6.1); RDW 14.4 % (11.5-14.5); WBC 10.29 X1000 (4.8-10.8)
[2019-02-09 08:06] LABS: CALCIUM 7.9 mg/dL (8.8-10.2); CREATININE 2.2 mg/dL (0.7-1.2); POTASSIUM 4.5 mmol/L (3.5-5.1)
[2019-02-09] MEDS: MIRALAX PO SCH (08:25)
[2019-02-09] MEDS: ELIQUIS PO SCH ×2 (08:25→20:59)
[2019-02-09] MEDS: ASPIRIN EC PO SCH (08:26)
[2019-02-09] MEDS: CORDARONE PO SCH (08:26)
[2019-02-09] MEDS: PRAVACHOL PO SCH (08:26)
[2019-02-09] MEDS: NORCO-10 PO PRN ×2 (08:26→15:29)
[2019-02-09] MEDS: COREG PO SCH ×2 (08:26→20:59)
[2019-02-09] MEDS: DEMEROL IV PRN ×3 (10:00→17:57)
--- NOTE | 2019-02-09 12:58 | DISCHARGE SUMMARY ---
ADMISSION DATE: 01/24/2019 DISCHARGE DATE: 02/09/2019 ADMISSION DIAGNOSES: 1. Sepsis likely secondary to ulcerations of left foot. Was started on Zyvox and Zosyn and treated per sepsis protocol. 2. Ischemic left foot with ulceration status post left femoral popliteal bypass by Dr. Cha. Continued to have a dry, gangrenous fourth toe as well as eschar between the first and second toes as well as lateral heel eschar. Karan, General Surgery, Wound Care was all consulted and an x-ray was ordered to rule out osteomyelitis. 3. Recent left foot pseudomonas, cellulitis that was resistance to Levaquin. Was put on Zosyn. 4. Hyperkalemia. 5. Acute kidney injury on chronic kidney disease, stage 4. 6. Diabetes mellitus, type 2, in the setting of hypoglycemia. 7. Hypertensive cardiovascular disease. 8. Jmyxyacs-ur-osyoid bilateral carotid stenosis. 9. Anemia of chronic disease that was stable. 10.Hyperlipidemia. DISCHARGE DIAGNOSES: 1. Left lower extremity infection, ischemia status post left epbdz-tdy-oaai amputation postop day 12 today. Okay for discharge per surgical standpoint and is not on antibiotics. 2. Left foot was positive for pseudomonas, but currently not in need of antibiotics as it was amputated. 3. Paroxysmal atrial fibrillation. Rate is controlled on metoprolol, amiodarone and Eliquis. 4. Hypertension. Blood pressure controlled. Pain medication needed to be optimized. 5. Rcyku-wo-ggsokjw kidney disease, stage 4, resolved. 6. Pulmonary edema, resolved. CONSULTATIONS: 1. Dr. Choi. 2. Dr. Russo. 3. Dr. Kasper. 4. Wound Care. PROCEDURES OR SURGERIES: On 01/26/2019, left awuff-cem-nmki amputation performed by Dr. Choi. HOSPITAL COURSE: On 01/24/2019, Mr. Ryan Hickey, an 83-year-old male was administered. He had recently been to our service in 10/2018 and discharged in 11/2018 to [facility] in [facility]. Ischemic left foot, ulcerations. Had a recent left femoral popliteal performed by Dr. Cha, but continues to have a gangrenous fourth toe, eschar on the first and second toe on the lateral heel. At that time, it was positive for pseudomonas, it was positive for pseudomonas on this admit as well. He was discharged during that time on antibiotics. He came back. He was still on antibiotics. They brought him due to dizziness and hypoglycemia and just not feeling well. He also had altered mental status. Head CT only showed chronic microvascular ischemic changes. Blood sugar was apparently in the 40's and up to the 70's after treatment. He got a L of fluid and started on day 5. Temperature was 99. He was hypotensive as well. He was treated per sepsis protocol started on Zyvox and Zosyn. The pseudomonas was resistance to Levaquin so that was not given. He had acute kidney on chronic kidney disease. The left foot had oozing in various areas and one Wound Care was consulted who initially did wound care prior to the amputation. General Surgery also was consulted and on the 26 of January, he underwent a left below- the-knee amputation due to inability to heal. Nephrology also saw the patient for the acute kidney on chronic kidney disease, which he says is chronic kidney disease stage 4. It was felt that this was stage 4 secondary to the diabetes. Ultrasound was checked on the 25 of January. Mild bilateral renal atrophy. He also had a consultation with Dr. Kasper, in Cardiology for atrial fibrillation due to be metabolic stress from recent surgery. He converted back to sinus rhythm on the same day, this was on the 30 of January. During the time of the pseudomonas, Dr. Russo with Infectious Disease treated him cefepime. Wound of the amputation healed and the antibiotics were discontinued. He is clinically improved and stable for discharge. VITAL SIGNS: Temperature 98.1, heart rate 61 sinus rhythm, respiratory rate 18, blood pressure 126/45. DISCHARGE LAB DATA: White blood cells 10,000, hemoglobin 10, hematocrit 33, platelet count 617,000. Sodium 137, potassium 4.5, BUN 54, creatinine is 2.2, glucose 193, calcium 7.9. PERTINENT IMAGING: On 01/24/2019, head CT, chronic ischemic microvascular changes, no acute findings. Chest x-ray stable. Foot x-ray of the left foot amputation on the fourth toe and head of the fourth metatarsal. Possibility of residual osteomyelitis could not be excluded. On the had a chest x-ray, worsening pulmonary edema. Renal ultrasound, bilateral mild renal atrophy. Head CT on the , mild atrophic changes, chronic ischemic vascular changes. A chest x-ray on the 27 of January, interval improvement. No consolidation. EKG on 01/24/2019, normal sinus rhythm, rate 64. EKG on the 27 of January, atrial fibrillation, RVR, rate 115. EKG on the was sinus rhythm. DISCHARGE MEDICATIONS: 1. Fish oil 1000 mg p.o. nightly. 2. Latanoprost 0.005%, one drop right eye every night. 3. Amiodarone 200 mg p.o. daily. 4. Docusate sodium 100 mg p.o. daily. 5. Glimepiride 4 mg p.o. daily. 6. Jeovanny one dose p.o. twice daily. 7. Pravachol 40 mg p.o. daily. 8. Prilosec 40 mg p.o. daily. 9. Tylenol. 10.Coreg 25 mg p.o. twice daily. 11.Eliquis 2.5 mg p.o. twice daily. 12.MiraLAX 17 g p.o. daily. 13.Coloma 10 mg, one tab p.o. every 6 hours p.r.n. DISCHARGE ACTIVITY: With Physical Therapy. DISCHARGE DIET: Diabetic diet with Glucerna shake. DISCHARGE FOLLOWUP: 1. Dr. Kasper due to atrial fibrillation. 2. Dr. Choi. 3. Dr. Woods. 4. Dr. Pernell Méndez. DISCHARGE INSTRUCTIONS: Follow [facility]'s recommendations. Take medications as prescribed, and follow up with physicians as ordered. Observe for signs or symptoms of infection on the left rquom-owp-wfie amputation and also monitor for possible deep tissue injury in the right heel. DISCHARGE DISPOSITION: [facility]. Dictated by TALIB Sanchez for Elijah Molina MD Addendum: Patient seen and examined by myself. Agree with TALIB note. It reflects my assessment and plan. Patient is being discharged in stable condition to rehab. cc: TALIB Sanchez MD [facility] HOSPITALCaryn
[2019-02-09 19:34] VITALS: BP 149/63
[2019-02-09] MEDS: XALATAN 0.005% OPH SOLN RIGHT EYE SCH (21:00)
== END 2019-02-09 21:30 | DRG 854 ==
LOC: SUPCPDRO → ED 13:12 → EDIPHOLD 17:30 → SUATTDRO 17:30 → 3S 01-25 01:09 → 3N 01-30 20:59
PROVIDERS: ATTEND Internal Medicine
CPT/HCPCS: 36430; 51702; 70450; 71010; 71045; 73630; 76770; 80048; 80053; 80069; 80101; 80301; 80307; 80324; 80345; 80346; 80353; 80358; 80361; 80365; 81001; 82009; 82140; 82550; 82553; 82570; 82805; 82948; 83605; 83735; 83992; 84100; 84132; 84156; 84300; 84443; 84484; 85025; 85027; 85610; 85730; 86850; 86900; 86901; 86920; 87040; 87070; 87077; 87186; 87205; 87275; 87276; 87804; 88307; 93005; 93010; 94761; 94799; 96361; 96365; 96366; 96367; 96368; 97110; 97162; 97166; 97530; 97535; 99285; 99291; A9270; G0431; G0434; G0479; G0480; J0330; J0692; J1815; J2020; J2175; J2270; J2405; J2543; J7030; J7042; P9016; XXXXX

== ENCOUNTER 2019-02-22 09:16 | Inpatient (IN) ==
--- NOTE | 2019-02-22 09:56 | Diag Imaging Result Doc PS360 ---
EXAM: CHEST-PORTABLE 02/22/2019 HISTORY: UNRESPONSIVE TECHNIQUE: AP portable at 0945 COMMENT: Compared to 01/27/2019 there is slightly less retrocardiac opacity on the left. Otherwise there has been no significant change in the appearance of the chest. IMPRESSION: Residual atelectasis or pneumonia left lower lobe, otherwise no evidence of acute disease. Electronically signed by Aaron Monte 02/22/2019 9:54 AM
--- NOTE | 2019-02-22 10:14 | Diag Imaging Result Doc PS360 ---
EXAM: CT HEAD W/O CONTRAST INDICATION: ALTERED MENTAL STATUS TECHNIQUE: This exam was performed using automated exposure control, adjustment of mA or kV according to patient size, and/or use of iterative reconstruction technique. COMPARISON: 01/25/2019 FINDINGS: There is patchy low attenuation in the periventricular and subcortical white matter suggesting moderate microangiopathy, stable. There is no definite acute infarct given the limited sensitivity of CT versus MRI. There is no discrete intracranial mass, mass effect, or intracranial hemorrhage. The surrounding soft tissues and bony structures are essentially unremarkable. IMPRESSION: Stable chronic appearing white matter changes. No evidence of acute intracranial pathology by CT. Electronically signed by Paul Gill 02/22/2019 10:12 AM
[2019-02-22 11:03] LABS: ALB/GLOB RATIO 0.7; ALBUMIN 2.9 g/dL (3.5-5.0); CALCIUM 8.3 mg/dL (8.8-10.2); CREATININE 4.2 mg/dL (0.7-1.2); POTASSIUM 4.9 mmol/L (3.5-5.1); TOTAL BILIRUBIN 0.25 mg/dL (0.20-1.00); TOTAL PROTEIN 6.8 g/dL (6.3-8.3)
[2019-02-22 12:29] LABS: BASO# 0.02 X1000 (0.0-0.2); BASO% 0.1 % (0.0-0.8); EOS# 0.05 X1000 (0.0-0.7); EOS% 0.3 % (0.0-10.0); HEMATOCRIT 33.6 % (42.0-52.0); HEMOGLOBIN 10.3 g/dL (14.0-18.0); IMM GRAN# 0.09 X1000 (0.0-0.04); IMM GRAN% 0.5 % (0.0-0.5); LYMPH# 2.34 X1000 (1.2-3.4); LYMPH% 11.8 % (20.5-51.1); MCH 29.3 PG (27-31); MCHC 30.7 g/dL (33-37); MCV 95.7 FL (81-99); MONO# 1.43 X1000 (0.11-0.59); MONO% 7.2 % (1.7-9.3); MPV 9.2 FL (7.4-10.4); NEUT# 15.94 X1000 (1.4-6.5); NEUT% 80.1 % (42.2-75.2); PLT 469 X1000 (130-400); RBC 3.51 XMIL (4.7-6.1); WBC 19.87 X1000 (4.8-10.8)
--- NOTE | 2019-02-22 12:52 | EKG Report ---
Test Performed on : 02/22/2019 09:30:18 AM Test Reason : AMS Blood Pressure : / mmHG Vent. Rate : 085 BPM Atrial Rate : 053 BPM P-R Int : 000 ms QRS Dur : 096 ms QT Int : 450 ms P-R-T Axes : 000 044 082 degrees QTc Int : 535 ms Accelerated Junctional rhythm. with occasional premature ventricular complexes. Nonspecific ST and T wave abnormality Prolonged QT Abnormal ECG When compared with ECG of 28-JAN-2019 05:45, Junctional rhythm. has replaced Sinus rhythm. QT has lengthened Unconfirmed Result
[2019-02-22] MEDS ORDERED: ROCEPHIN IV ONE (12:57)
[2019-02-22] MEDS ORDERED: ROCEPHIN 1 GM in NS 50 ML IV ONE (13:41)
[2019-02-22] MEDS ORDERED: XYLOCAINE-MPF 1% ONE (15:13)
[2019-02-22] MEDS ORDERED: NS 1,000 ML IV ONE (15:32)
[2019-02-22 15:44] LABS: INR 1.63; PROTIME 20.6 Seconds (11.0-16.0)
[2019-02-22 15:45] LABS: PTT 51.4 Seconds (22.3-41.8)
[2019-02-22 15:49] LABS: CK INDEX 1.2 (0.0-2.5); CK-MB 10.44 ng/mL (0.0-5.0)
[2019-02-22] MEDS ORDERED: D50W SYRINGE IV ONE (16:17)
[2019-02-22] MEDS ORDERED: D5 1/2 NS 1,000 ML ONE (16:21)
[2019-02-22] MEDS: D5 1/2 NS 1,000 ML IV SCH (16:24)
[2019-02-22] MEDS ORDERED: LEVAQUIN 250 MG in NS 50 ML IV SCH (16:30)
[2019-02-22] MEDS ORDERED: VANCOMYCIN IV PER PHARMACY MISC SCH (16:30)
[2019-02-22] MEDS ORDERED: LOPRESSOR IV PRN (16:33)
[2019-02-22] MEDS ORDERED: DULCOLAX PR ONE (16:33)
--- NOTE | 2019-02-22 17:15 | HISTORY AND PHYSICAL ---
HISTORY OF PRESENT ILLNESS: He is followed by Pernell Méndez. He was over at [facility] and had recently been in the hospital on 01/24/2019 and was discharged on 02/09/2019. This is an 83-year-old with past medical history of chronic kidney disease, recent left lower extremity femoral-popliteal bypass per Dr. 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 His hospital course appeared at that time that he had sepsis secondary to ulcerations of the left foot. They had him on Zyvox and Zosyn. Ischemic left foot ulcerations status post left femoral-popliteal bypass per Dr. Cha. Continued have dry gangrenous 4th toe and eschar between the 1st and 2nd toes and lateral heel eschar. Dr. Russo was following, and he had Pseudomonas growing from the left foot cellulitis. Dr. Kasper had seen him for cardiology. He had atrial fibrillation and rapid ventricular rate. Had an amputation, underwent left dkpqi-bfi-swfl amputation in the first of this month. His son reports that he looked good yesterday. He was talking seemed to be in good spirits and then this morning he seemed unresponsive, and they checked his blood sugar. It was in the 50s. Appears to have hypoglycemia and he was not eating and drinking and appetite was really poor, so brought here to the emergency room. REVIEW OF PAST MEDICAL HISTORY: Peripheral vascular disease with foot ulcers. He recently had a left lower extremity femoral-popliteal bypass and then he had left foot toe amputation for persistent gangrene and eventually had a left kgyyh-gnh-cysy amputation. He has chronic kidney disease stage 4, diabetes mellitus type 2, hypertension, cardiovascular disease, moderate to severe bilateral carotid stenosis, anemia of chronic disease, and hyperlipidemia, history of paroxysmal atrial fibrillation, hypertension. PAST SURGICAL HISTORY: He had a cervical fusion 30 years ago at [facility] in [place]. In 2017 had back surgery in [place] per Dr. Desir. Had cataract surgery and he has had a tendon surgery but I am not sure where that was from. SOCIAL HISTORY: He retired from [employer] in [place] in 2005. He is a . He has 3 grown children. One of his children, Sigifredo, lives with him at home. His was living with him at home. He has been at rehabilitation for this last couple weeks. He is to be a smoker of 1 pack a day for 30 years, quit for a while. Served in the [employer] for 4 years in [place]. Two of his children actually are in [place]. One of his sons is at the bedside. ALLERGIES: No known drug allergies. FAMILY HISTORY: I did not obtain family history. REVIEW OF SYSTEMS: General: No weight gain or loss that we know of. He has not been eating very well. No fever or chills reported. HEENT: We do not know of any change in his vision or hearing acuity. No recent complaints of headaches or neck pain. No complaints of upper respiratory congestion. Respiratory: No increased work of breathing or dyspnea. Cardiovascular: No chest pain or tachy palpitation. Gastrointestinal and Genitourinary: No gross hematuria or dysuria reported, but it is questionable he has had constipation. He has very poor appetite. Endocrinologic/Hematologic: No significant history. PHYSICAL EXAMINATION: GENERAL: In the emergency room, he is lethargic. He appears to be comfortable, breathing comfortably. VITAL SIGNS: Temperature 97.9 degrees, pulse 76, respirations 23, blood pressure 128/51. HEENT: Pupils are equal. Conjunctiva with some pallor. Mucosa membranes appear dry. DIAGNOSTIC STUDIES: Lungs: Clear in all lung luna, anterior and lateral. Cardiovascular: Regular rhythm and rate without murmur or S3. Abdomen: Soft, nondistended, nontender. Extremities: No pedal edema. Left zbfqe-eql-hjux amputation jet dyeing machine tender. Still has the violet and it was bandaged up. The bandages appear dry. Skin: He does appear little pale. DIAGNOSTIC STUDIES: White count 19,870, hematocrit 33, hemoglobin 10, platelet count 469,000. Sodium 137, potassium 4.9, chloride 100, bicarbonate 18, BUN 52, creatinine 4.2, blood sugar 118, calcium was 8.3. CK was 878, troponin was 0.109. Albumin 2.9. Pro-time 20, PTT was 51. Chest x-ray: Residual atelectasis, questionable pneumonia left lower lobe. Otherwise, no acute disease. Head CT without contrast: Stable chronic-appearing white matter changes. No evidence of acute intracranial pathology on CT scan. ASSESSMENT AND PLAN: 1. Hypoglycemia. Apparently he has not been eating very well and getting his medications. His medications for sugar: He is on glimepiride 4 mg a day, and that may be his only blood sugar medication so we are going to let his sugars come up. Keep him off glimepiride. Give him some D5 normal saline. 2. Appears to have some dehydration and volume depletion so we will give him normal saline. His creatinine is 4.2, BUN was 52, but again on 02/06/2019, his creatinine was 1.9 so I think it is he runs around 1.9 to 2.2 as his baseline. 3. Paroxysmal atrial fibrillation. We will watch his rate, keeping him on a monitor. 4. Hypertension. We will watch his blood pressures. 5. Acute on chronic kidney disease, probably prerenal. I gave him some fluids. Watch this closely. No acidosis at this time. 6. Questionable pneumonia. Since he came from a [place] [facility], we will put him on Zosyn and I guess some Levaquin and watch his x-ray and see how we do. Hopefully he will wake up. 7. Poor appetite. We need to see if we can encourage him as he wakes up to eat and get his nutritional status up. I think he has mild protein-calorie malnutrition. His albumin was 2.9. 8. We will check a pre-albumin. We will check a T4, TSH, B12, and folate. His hematocrit is 33, hemoglobin 10.3, with an MCV of 95. We will get Dr. Choi to look at his amputation and see if violet need to come out and then for his atrial fibrillation, we will watch him on a monitor. Currently, he is on amiodarone 200 mg a day, Eliquis 2.5 mg b.i.d., Coreg 25 mg b.i.d. We will get Wound Care to help look over his wound as well. 9. Constipation. We will put him on his Colace, which she is already on, but we will give him 100 mg twice a day, and he is on MiraLAX 17 g daily. We will continue that. cc: Mainor Tinsley MD
[2019-02-22 17:21] LABS: URINE SOURCE CLEAN CATCH
[2019-02-22 17:23] LABS: BILIRUBIN URINE NEGATIVE (NEGATIVE); BLOOD URINE MODERATE (NEGATIVE); COLOR ORANGE; GLUCOSE URINE NEGATIVE (NEGATIVE); KETONE URINE NEGATIVE (NEGATIVE); LEUKOCYTES URINE LARGE (NEGATIVE); NITRITE URINE NEGATIVE (NEGATIVE); PH URINE 5.5; PROTEIN URINE 200 mg/dL (NEGATIVE); SP GRAVITY URINE 1.016; TURBIDITY URINE TURBID (CLEAR); UROBILINOGEN URINE NORMAL (NORMAL)
[2019-02-22 17:31] LABS: UR EPITHELIAL CELLS <10 /HPF (<10); URINE BACTERIA 3+ /HPF; URINE RBC 20-40 /HPF (<10); URINE WBC TNTC /HPF (<10)
[2019-02-22 17:37] LABS: URINE CASTS NONE SEEN; URINE CRYSTALS NONE SEEN; URINE YEAST NONE SEEN
[2019-02-22] MEDS ORDERED: LEVAQUIN 250 MG/D5W 250 MG/50 ML IVPB IV SCH (18:00)
[2019-02-22] MEDS: ZOSYN 2.25 GM in NS 50 ML IV SCH (18:06)
[2019-02-22] MEDS ORDERED: NORCO-7.5 PO PRN (18:20)
[2019-02-22 19:37] LABS: CK INDEX 1.1 (0.0-2.5); CK-MB 10.45 ng/mL (0.0-5.0)
[2019-02-22] MEDS ORDERED: VANCOMYCIN 1,700 MG in NS 250 ML IV ONE (20:00)
[2019-02-22] MEDS ORDERED: DULCOLAX PR SCH (21:00)
[2019-02-22] MEDS ORDERED: TYLENOL PO ONE (23:53)
[2019-02-23] MEDS: D5 1/2 NS 1,000 ML IV SCH ×2 (00:28→10:25)
[2019-02-23] MEDS: OXY IR PO PRN ×4 (00:28→20:53)
[2019-02-23] MEDS: ZOSYN 2.25 GM in NS 50 ML IV SCH ×2 (00:29→09:22)
[2019-02-23 02:23] LABS: CK INDEX 0.8 (0.0-2.5); CK-MB 10.44 ng/mL (0.0-5.0)
[2019-02-23 05:26] LABS: URINE SOURCE CATH
[2019-02-23 05:31] LABS: BILIRUBIN URINE NEGATIVE (NEGATIVE); BLOOD URINE SMALL (NEGATIVE); COLOR BROWN; GLUCOSE URINE TRACE mg/dL (NEGATIVE); KETONE URINE NEGATIVE (NEGATIVE); LEUKOCYTES URINE LARGE (NEGATIVE); NITRITE URINE NEGATIVE (NEGATIVE); PH URINE 5.5; PROTEIN URINE 200 mg/dL (NEGATIVE); SP GRAVITY URINE 1.014; TURBIDITY URINE TURBID (CLEAR); UROBILINOGEN URINE NORMAL (NORMAL)
[2019-02-23 05:43] LABS: UR EPITHELIAL CELLS >10 /HPF (<10); URINE BACTERIA 1+ /HPF; URINE RBC <10 /HPF (<10); URINE WBC TNTC /HPF (<10)
[2019-02-23 05:50] LABS: URINE CASTS NONE SEEN; URINE CRYSTALS NONE SEEN; URINE SMALL ROUND CELLS NONE SEEN
[2019-02-23 05:51] LABS: URINE YEAST NONE SEEN
--- NOTE | 2019-02-23 06:28 | Diag Imaging Result Doc PS360 ---
EXAM: CHEST-PORTABLE HISTORY: Pneumonia TECHNIQUE: Portable chest single view COMPARISON: 02/22/2019 FINDINGS: The lungs are well expanded except for basilar atelectasis. The heart is not enlarged. The vessels are not distended. There are no infiltrates. No effusion identified. There is a granuloma in the mid right lung. IMPRESSION: No definite pneumonia Electronically signed by Andrew Ochoa 02/23/2019 6:25 AM
[2019-02-23 06:32] LABS: BASO# 0.01 X1000 (0.0-0.2); BASO% 0.1 % (0.0-0.8); EOS# 0.09 X1000 (0.0-0.7); EOS% 0.6 % (0.0-10.0); HEMATOCRIT 27.2 % (42.0-52.0); HEMOGLOBIN 8.6 g/dL (14.0-18.0); IMM GRAN# 0.08 X1000 (0.0-0.04); IMM GRAN% 0.5 % (0.0-0.5); LYMPH# 2.63 X1000 (1.2-3.4); LYMPH% 16.4 % (20.5-51.1); MCHC 31.6 g/dL (33-37); MCV 94.8 FL (81-99); MONO# 1.45 X1000 (0.11-0.59); MPV 9.2 FL (7.4-10.4); NEUT# 11.77 X1000 (1.4-6.5); NEUT% 73.4 % (42.2-75.2); PLT 423 X1000 (130-400); RBC 2.87 XMIL (4.7-6.1); RDW 14.9 % (11.5-14.5); WBC 16.03 X1000 (4.8-10.8)
[2019-02-23 06:57] LABS: ALB/GLOB RATIO 0.6; ALBUMIN 2.1 g/dL (3.5-5.0); CALCIUM 7.8 mg/dL (8.8-10.2); CREATININE 3.7 mg/dL (0.7-1.2); POTASSIUM 4.6 mmol/L (3.5-5.1); TOTAL BILIRUBIN 0.2 mg/dL (0.20-1.00); TOTAL PROTEIN 5.9 g/dL (6.3-8.3)
[2019-02-23 07:07] LABS: FREE T4 1.11 ng/dL (0.93-1.70)
[2019-02-23 07:10] LABS: TSH 9.07 uIUmL (0.27-4.20)
[2019-02-23] MEDS: LOVENOX SUBQ SCH (10:25)
--- NOTE | 2019-02-23 10:25 | PROGRESS NOTE ---
DATE: 02/23/2019 SUBJECTIVE: Mr. Hickey is awake and appears to be more comfortable. He is still very tender in the left qxoar-iew-cocf amputation stump and on the leg. He has got a lot of irritation. Bruno are still there. I saw some pictures of his sacral ulcers. We did get a gram-negative deacon from one of his blood cultures preliminary. Rest of the cultures are pending. OBJECTIVE: Temperature 99.4 degrees, pulse 67, respirations 18, and blood pressure 128/48. Pupils are equal. No distended neck veins. Lungs are clear anterolateral. Cardiovascular exam regular rhythm and rate without murmur or S3. Abdomen is soft. Skin is warm and dry. LABORATORY AND DIAGNOSTIC DATA: Urine output was 800 mL. Chest x-ray from this morning, no definite infiltrate or pneumonia. He does have basilar atelectasis. CT of his head without contrast. Stable chronic appearing white matter changes. No acute intracranial pathology. ASSESSMENT AND PLAN: 1. Hypoglycemia, which is improved. I suspect that that was just from not eating and taking his glimepiride. 2. It appears he has got infection. I suspect it may be related to his left below the knee incision and sacral decubitus. We will continue to continue broad-spectrum antibiotics. Ask Dr. Russo to help. 3. Paroxysmal atrial fibrillation. His rate appears controlled. 4. Hypertension. Continue to watch blood pressures. 5. Acute on chronic kidney injury. His creatinine was 3.7 this morning. On presentation, it was 4.2 so hopefully this is going to improve with volume. 6. Hypovolemia volume contraction. Continue fluids. 7. I do not see any evidence of infiltrate or pneumonia at this point on x-ray. 8. Some urinary sediment, possible urinary tract infection. 9. He has not been eating well in the last couple of days so we will see how we do with swallowing. Maybe start on some liquids, and hopefully he will be able to eat a diabetic diet. In fact, I think we will try him on a diabetic diet if his swallow is okay. 10. Constipation. 11. Looking over orders, I will put him on Lovenox for DVT prophylaxis just 40 mg subcutaneously once a day. He got a dose of ceftriaxone and some vancomycin. Then, I put him on levofloxacin 250 mg IV q.24 hours. He is on Zosyn 2.25 g IV q.8 hours as well as vancomycin. He is getting Oxy IR 10 mg q.4 hours p.r.n. He is still pretty tender in that left leg. cc: Mainor Tinsley MD
[2019-02-23] MEDS: COLACE PO SCH ×2 (10:26→20:49)
--- NOTE | 2019-02-23 12:28 | PROVIDER DOCUMENTATION ---
This chart was entered by Codi Choi Scribe, acting as scribe for Stephanie Perales MD. HPI-General Adult - General Chief Complaint: Unresponsive Stated Complaint: UNRESPONSIVE Time Seen by Provider: 02/22/19 09:27 Source: patient, family (son), EMS (first response) Unable to obtain history due to:: altered Allergies/Adverse Reactions: Patient Allergies Allergy/AdvReac Type Severity Reaction Status Date / Time No Known Allergies Allergy Verified 02/18/19 16:02 Home Medications: Home Medication List Medication Instructions Recorded Confirmed Last Taken Type Glimepiride 4 mg PO DAILY 05/14/13 01/27/19 12/19/18 08:00 History PRAVAstatin [Pravachol] 40 mg PO DAILY 05/14/13 01/27/19 12/19/18 08:00 History Carvedilol [Coreg] 25 mg PO BID #60 tab 12/06/18 01/27/19 12/20/18 08:00 Rx Acetaminophen [Tylenol] 2 tab PO Q4H PRN 12/19/18 01/27/19 Unknown History Arginine/Glutamine/Calcium Hmb 1 dose PO BID 12/19/18 01/27/19 12/19/18 17:00 History [Jeovanny Packet] Docusate Sodium 100 mg PO DAILY 12/19/18 01/27/19 12/19/18 08:00 History Ipratropium/Albuterol Sulfate 1 dose NEB Q6H PRN 12/19/18 12/20/18 Unknown History [Iprat-Albut 0.5-3(2.5) mg/3 ml] Latanoprost 1 drop RIGHT EYE QHS 12/19/18 01/27/19 12/19/18 20:00 History Magnesium Hydroxide [Milk of 30 ml PO QAM PRN 12/19/18 12/20/18 Unknown History Magnesia] Adrian-3 Fatty Acids/Fish Oil [Fish 1,000 mg PO QHS 12/19/18 01/27/19 12/19/18 20:00 History Oil 1,000 mg Capsule] Omeprazole [Prilosec] 40 mg PO DAILY 12/19/18 01/27/19 12/19/18 06:30 History Collagenase Clostridium Oint 30 gm .SEE ORDER Q12HR #1 oint 12/20/18 Unknown Rx [Santyl Oint] Amiodarone HCl 200 mg PO DAILY 01/27/19 01/27/19 Unknown History Acetaminophen [Tylenol] 650 mg PO Q6H PRN PRN tab 02/02/19 Unknown Rx Polyethylene Glycol 3350 [Miralax] 17 gm PO DAILY powder, packet 02/02/19 Unknown Rx Apixaban [Eliquis] 2.5 mg PO BID #60 tab 02/09/19 Unknown Rx Hydrocodone/APAP 10 mg/325 mg 1 tab PO Q6H PRN PRN #30 tab 02/09/19 Unknown Rx [[place]-10] Clindamycin [Cleocin] 300 mg PO Q6HR #40 cap 02/18/19 Unknown Rx - History of Present Illness -Gen Adult Nature of Presenting Problems: 83 yowm presents to the ed via ems (first response) and was found unresponsive at shift change at [facility]. pt per ems when aos checked his BGL and was 24. pt was given an amp of D-50 and once in ed pt is waking up and has FSBG 139. son sts pt is not being well taken care of at [facility] and has not been getting his meals but still taking his medications for diabetes. pt has resting tremor of BUE on exam and pt has had a recent LBKA amputation with bandage in place Location of Pain/Injury: reports: generalized Pain Radiation: reports: no radiation Quality of Pain: reports: other (denies pain but has weakness) Severity: reports: moderate Onset/Duration: reports: this morning (0800am) Timing: reports: improving Context/Activities at Onset: reports: light activity Modifying Factors: improves with: nothing Associated Symptoms: reports: weakness. denies: back/neck pain, chest pain, fever/chills (97.9), headaches, nausea, shortness of breath, vomiting Similar Symptoms Previously?: Yes Recently seen or treated by another doctor?: Yes (was in ed 3 days prior) - Diabetes Related Context Context: reports: low blood sugar (24), unresponsive Review of Systems - Adult - REVIEW OF SYSTEMS - ADULT Constitutional: denies: chills, fever Eyes: reports: no symptoms reported Ears, Nose, Mouth & Throat: reports: no symptoms reported Cardiovascular: denies: chest pain, palpitations Respiratory: denies: shortness of breath, wheezing Gastrointestinal: denies: abdominal pain, diarrhea, nausea, vomiting Genitourinary: reports: no symptoms reported Musculoskeletal: reports: see HPI, muscle weakness. denies: back pain, neck pain Integumentary: reports: no symptoms reported Neurological: reports: see HPI, tremors (BUE), other (unresponsive) Psychiatric: reports: no symptoms reported Endocrine: reports: no symptoms reported Hematologic/Lymphatic: reports: no symptoms reported Allergic/Immunologic: reports: no symptoms reported All Other Systems: Reviewed and Negative Past History - Adult - PAST MEDICAL HISTORY-ADULT Review of Records: reports: Old Records Reviewed, Nursing Assessment Review, Medications Reviewed, Social history reviewed & non-contributory. Major Childhood Illnesses: reports: denies history Cardiovascular: reports: A-Fib, CAD, HTN, hyperlipidemia Respiratory: reports: denies history Gastrointestinal: reports: GERD Genitourinary: reports: kidney disease Musculoskeletal: reports: chronic pain Hand Dominance: Right Handed Neurological: reports: denies history Psychiatric: reports: denies history Endocrine/Immune: reports: Diabetes Diabetes Type: Type 2 Diabetes controlled by:: PO Meds Other Conditions: reports: denies history - PRIOR SURGERIES/PROCEDURES Surgical/Procedure History: reports: reviewed, not pertinent (LBKA), cholecystectomy, back/neck - IMMUNIZATION STATUS Childhood Immunizations: See Nurse Assessment Flu Vaccine: See Nurse Assessment - FAMILY HISTORY Family History: reviewed, not pertinent - SOCIAL HISTORY Smoking: non-smoker Substance Use: none/never Living Situation: care facility Physical Exam-General - PHYSICAL EXAM-ADULT Initial Vital Signs Reviewed: Yes - CONSTITUTIONAL General Appearance: appears well, obese, slow to respond - EYES Eyes: pink conjunctivae, other (rt pupil is blown) - HEAD, EARS, NOSE, MOUTH & THROAT HENMT: negative: moist mucous membranes (dry) - NECK Neck: non-tender, full range of motion, normal inspection - RESPIRATORY Respiratory: chest non-tender, lungs clear, normal breath sounds - CARDIOVASCULAR Cardiovascular: irregularly irregular - GASTROINTESTINAL (ABDOMEN) Abdominal Exam: normal bowel sounds, soft - LYMPHATIC Lymphatic: no adenopathy - MUSCULOSKELETAL Back Exam: normal inspection Extremity: pelvis stable, tenderness (LBKA recent with bandage i place) - SKIN Integumentary: normal turgor, warm/dry, pallor - PSYCHIATRIC Psych/Mental Status: other (pt not speaking on exam and son is speaking for pt) Progress - PLAN OF CARE/RESULTS Result Diagrams: 03/28/19 12:21 02/22/19 09:55 - REASSESSMENT Reassessment #1 Time Reassessed: 09:37 Status: improving Reassessment #2 Time Reassessed: 11:15 Status: improving - EKG 1 Time of EKG reading by physician:: 09:30 EKG Read and Signed by:: Stephanie Perales EKG Interpretation (*Must complete 3 of following elements*): Abnormal Rate: 85 Rhythm: sinus rhythm QRS: normal WA Interval: normal ST Wave: normal Prior EKG Comparison: no prior EKG - XRAY 1 XRAY: Bilateral XRAY Study: Chest Impression: See EMR Report (EXAM: CHEST-PORTABLE 02/22/2019 HISTORY: UNRESPONSIVE TECHNIQUE: AP portable at 0945 COMMENT: Compared to 01/27/2019 there is slightly less retrocardiac opacity on the left. Otherwise there has been no significant change in the appearance of the chest. IMPRESSION: Residual atelectasis or pneumonia left lower lobe, otherwise no evidence of acute disease. Electronically signed by Aaron Monte 02/22/2019 9:54 AM 02/22/19 0954 Interpreting Physician: Aaron Monte MD Dictated Date/Time : 02/22/19 0953 cc: Stephanie Perales MD; Pernell Méndez) - CT/MRI 1 CT Study: Head Impression: See EMR Report (EXAM: CT HEAD W/O CONTRAST INDICATION: ALTERED MENTAL STATUS TECHNIQUE: This exam was performed using automated exposure control, adjustment of mA or kV according to patient size, and/or use of iterative reconstruction technique. COMPARISON: 01/25/2019 FINDINGS: There is patchy low attenuation in the periventricular and subcortical white matter suggesting moderate microangiopathy, stable. There is no definite acute infarct given the limited sensitivity of CT versus MRI. There is no discrete intra cranial mass, mass effect, or intracranial hemorrhage. The surrounding soft tissues and bony structures are essentially unremarkable. IMPRESSION: Stable chronic appearing white matter changes. No evidence of acute intracranial pathology by CT. Electronically signed by Paul Gill 02/22/2019 10:12 AM 02/22/19 1012 Interpreting Physician: Paul Gill MD Dictated Date/Time: 02/22/19 1011 cc: Stephanie Perales MD; Pernell Méndez) - CONSULTS/PCP/HOSPITALIST Notification #1 *Consult/PCP/Hospitalist*: hospitalist dr casas Time Discussed: 13:57 Consult Disposition: Admit Departure - Departure Date of Disposition Decision: 02/22/19 Time of Disposition Decision: 13:57 DIAGNOSIS: Elevated troponin, Stump pain, Tachycardia, Hypoglycemia Altered mental status Qualifiers: Altered mental status type: unspecified Qualified Code(s): R41.82 - Altered mental status, unspecified Disposition: ADMITTED INPATIENT 09 Certified Medical Emergency: Emergent Condition: Stable Referrals and Follow-Ups: Pernell Méndez [Primary Care Provider] - - Critical Care Note This patient required my direct & personal management of CC.: Yes Total Time (mins): 38 Critical Care Statement: This patient required my direct personal management to treat or rule out processes, the absence of which, could potentiallly result in sudden, clinically significant life or limb threatening deterioration. Attestation - Physician/ [place] Attestation Patient care was provided by Advanced Practice Provider:: No The physician spent face to face time with patient:: Yes Advanced Practice Provider documentation review:: Supervising physician onsite and consulted in the evaluation and care of this patient. The physician did have a face to face encounter with the patient. This chart was documented by the indicated scribe, (Codi Choi Scribe) and accurately reflects the services I performed and decisions made by me, Stephanie Perales MD, as attested by the provider's signature.
--- NOTE | 2019-02-23 13:04 | INFECTIOUS DISEASE PROGRESS NO ---
DATE: 02/22/2019 PRESENT ILLNESS: Mr. Hickey has been admitted with multiple issues related to infection, which include gram-negative deacon UTI with possible associated gram- negative deacon bacteremia, left BKA stump infection, and a possible pneumonia as seen on chest x-ray yesterday, however, today's chest x-ray shows no definite pneumonia. There is also an apparent encephalopathy. MEDICATIONS: He has been receiving IV vancomycin per pharmacy dosing, Zosyn 2.25 g IV every 8 hours, and Levaquin 250 mg IV daily, as started on admission yesterday. We will discontinue these medications today. PHYSICAL EXAMINATION: Vital Signs: Temperature is 99.4 degrees. It was noted to be 101 at midnight. Currently, heart rate is 67, respiratory rate 15, blood pressure 134/60, O2 saturation 98% on room air. General: This is a chronically ill-appearing elderly gentleman. He is lying in the bed currently in no acute distress. HEENT: Atraumatic, normocephalic. Oral mucous membranes are pink and moist. Conjunctivae are pale. Respiratory: Lung sounds are clear to auscultation bilaterally. Diminished in the bases. Cardiovascular: Heart rate and rhythm are regular. Normal sinus rhythm on the monitor. Abdomen: Soft, round and nontender. Bowel sounds are active. : There is a Ramirez to bedside bag with yellow cloudy urine noted in the bag. Neurologic: He is drowsy and lethargic, but arousable. He is oriented to name only. Integumentary: There is a dressing in place to his left xbjmr-jtq-nbwv amputation stump. There is also an eschar to the right heel as well as decubitus ulcer to the sacrum. LABORATORY AND X-RAY: Today, his white count is 16, hemoglobin 8.6, platelet count 423,000. Creatinine is 3.7, GFR 16, bilirubin is 0.2, AST 29, ALT is 15, alkaline phosphatase 114. Creatine kinase is 1233. His urine so far has a gram-negative deacon growing on the preliminary report. Also blood culture has a gram-negative deacon in 1 out of 2 cultures. His left BKA wound has grown a gram-positive coccus on the Gram stain. The wound culture is pending. Chest x-ray today shows no definite pneumonia. Yesterday, the chest x-ray showed residual atelectasis or pneumonia to the left lower lobe. ASSESSMENT AND PLAN: Mr. Hickey has been admitted with multiple issues which include a gram-negative deacon urinary tract infection with an associated bacteremia, a left fzqqd-pmz-agxy amputation wound infection, and a possible pneumonia on admission which today appears to have resolved. Our plan is to discontinue vancomycin, Zosyn, and Levaquin. Due to his multiple hospitalizations in the last few months, we will start him on meropenem at 500 mg IV every 8 hours as a renally modified dose. There is a gram-positive coccus in his left leg wound on the Gram stain, so we will also start Zyvox 600 mg IV every 12 hours. These plans have been discussed with and recommended by Dr. Russo. COMORBIDITIES: Comorbidities for Mr. Hickey include he is elderly, history of atrial fibrillation, anemia of chronic disease, chronic kidney disease stage IV, diabetes mellitus, coronary artery disease, and peripheral vascular disease. Dictated by TALIB Harris for Zak Russo MD This chart was documented by, TALIB Harris and accurately reflects the services performed, treatment plan and medical decisions as attested by the providers signature Zak Russo MD. cc: Zak Russo MD PLAINVIEW HOSPITALCaryn
[2019-02-23] MEDS: ZYVOX 600 MG/D5W 600 MG/300 ML IVPB IV SCH (13:14)
[2019-02-23] MEDS: MERREM 500 MG in NS 50 ML IV SCH ×2 (13:14→20:49)
--- NOTE | 2019-02-23 15:52 | CONSULTATION ---
DATE OF CONSULTATION: 02/23/2019 DATE OF CONSULTATION: 02/23/2019. HISTORY OF PRESENT ILLNESS: Mr. Ryan Hickey is status post left mdnth-qxm-vgod amputation. He has been at rehab and we are asked to evaluate him because of multiple wounds. PHYSICAL EXAMINATION: On exam his left wofcu-plv-cnyo amputation stump seems to have dehisced somewhat. It is certainly slow to heal his. His skin clips are still intact. He has got a pressure ulcer involving his right heel and he has got superficial skin breakdown from a pressure ulcer at his sacrum. IMPRESSION: 1. Dehiscence left lvvde-eqw-ymxd amputation site. 2. Pressure ulcer right heel. 3. Pressure ulcer, sacrum. PLAN: Weight needs to be off his heel with a heel protector as our wound care nurse is doing. His sacral area is being protected. He has lost some of his skin in that area, but it is superficial still and it is being dressed per our wound care nurse. The left below the knee amputation stump probably will have to be revised to a left madfe-ykc-ztnn amputation stump. For now we will continue IV antibiotics and dressing changes. cc: Amelia Choi MD
[2019-02-23] MEDS: NS 1,000 ML IV SCH (16:22)
[2019-02-23] MEDS: TYLENOL PO PRN (16:22)
[2019-02-24] MEDS: ZYVOX 600 MG/D5W 600 MG/300 ML IVPB IV SCH ×2 (00:18→12:30)
[2019-02-24] MEDS: NS 1,000 ML IV SCH ×2 (03:54→14:46)
[2019-02-24] MEDS: MERREM 500 MG in NS 50 ML IV SCH ×3 (04:17→21:00)
[2019-02-24] MEDS: OXY IR PO PRN ×3 (04:51→21:59)
[2019-02-24] MEDS ORDERED: D50W SYRINGE ONE (06:50)
[2019-02-24] MEDS: LOVENOX SUBQ SCH (09:24)
[2019-02-24] MEDS: COLACE PO SCH ×2 (09:24→20:59)
--- NOTE | 2019-02-24 10:15 | PROGRESS NOTE ---
DATE: 02/24/2019 SUBJECTIVE: Mr. Hickey is awake. He appears comfortable. Left hnvqy-nnp-iwkf amputation. Left lower stump is still very tender. OBJECTIVE: Vital Signs: T-max is at 100.4 degrees, pulse is 70s, respirations 20, blood pressure 114/62. Eyes: Pupils are equal, round. Lungs: Lungs are clear anterolateral. Cardiovascular exam: Regular rhythm and rate without murmur or S3. Abdomen: Abdomen is soft. Skin: Skin is warm and dry. : Urine output is 1700 mL. Blood sugar 277, 267, 173. ASSESSMENT AND PLAN: 1. Dehiscence in the left cqrgh-eoh-knuq amputation site. Pressure ulcer in the right heel and pressure ulcer in the sacrum. So, keep the weight off his heel, use heel protector and continue topical care. Sacral area is being protected. I lost some skin in that area, but it is still pretty superficial. 2. He was admitted with multiple issues related to infection. Gram-negative deacon, possible associated gram-negative bacteremia, status post left ubtcz-enf-njbv amputation, treating for possible pneumonia. X-ray did not show any definitive infiltrates. The patient is receiving intravenous vancomycin and Zosyn 2.25 grams intravenous every 8 hours and Levaquin 250 mg intravenous daily. So, discontinue those medications. He was started on meropenem 500 mg intravenous every 8 hours and watching renal dysfunction. There was gram-positive cocci in the left leg wound. He is still on Zyvox 600 mg intravenous every 12 hours. 3. Presented with hypoglycemia and that is resolved. I think that was due to his oral hypoglycemic and not eating. 4. Paroxysmal atrial fibrillation, rate is controlled. Appears to be in sinus rhythm. 5. Acute on chronic kidney injury. His creatinine yesterday was 3.7, so we will continue to follow his electrolytes. 6. His hemoglobin was 8.6, hematocrit 27. Continue to follow and may need to give him some blood. He did have some urinary sediment, so treating him for possible urinary tract infection. 7. Nutrition: Try to improve his eating and intake. 8. Constipation. REVIEW OF HIS ORDERS: He is on Colace 100 mg b.i.d., meropenem 500 mg IV q. 8 hours, normal saline at 100 mL an hour, oxycodone IR 10 mg q. 4 hours p.r.n., linezolid 600 mg IV q. 12 hours. cc: Mainor Tinsley MD
[2019-02-24 10:45] LABS: BASO# 0.02 X1000 (0.0-0.2); BASO% 0.1 % (0.0-0.8); EOS# 0.12 X1000 (0.0-0.7); EOS% 0.7 % (0.0-10.0); HEMATOCRIT 26.8 % (42.0-52.0); HEMOGLOBIN 8.4 g/dL (14.0-18.0); IMM GRAN# 0.05 X1000 (0.0-0.04); IMM GRAN% 0.3 % (0.0-0.5); LYMPH# 2.33 X1000 (1.2-3.4); LYMPH% 14.1 % (20.5-51.1); MCH 29.9 PG (27-31); MCHC 31.3 g/dL (33-37); MCV 95.4 FL (81-99); MONO# 1.13 X1000 (0.11-0.59); MONO% 6.9 % (1.7-9.3); MPV 8.8 FL (7.4-10.4); NEUT# 12.83 X1000 (1.4-6.5); NEUT% 77.9 % (42.2-75.2); PLT 445 X1000 (130-400); RBC 2.81 XMIL (4.7-6.1); RDW 14.8 % (11.5-14.5); WBC 16.48 X1000 (4.8-10.8)
[2019-02-24 10:46] LABS: CALCIUM 7.7 mg/dL (8.8-10.2); CREATININE 2.5 mg/dL (0.7-1.2); POTASSIUM 4.2 mmol/L (3.5-5.1)
[2019-02-24] MEDS ORDERED: D50W SYRINGE IV ONE ×2 (11:30→13:55)
[2019-02-24] MEDS: D5 NS 1,000 ML IV SCH ×4 (12:25→21:57)
[2019-02-24] MEDS: D10W 1,000 ML IV SCH (17:50)
[2019-02-24] MEDS: TYLENOL PO PRN (21:54)
[2019-02-25] MEDS: ZYVOX 600 MG/D5W 600 MG/300 ML IVPB IV SCH ×3 (00:26→23:56)
[2019-02-25] MEDS ORDERED: D50W SYRINGE ONE ×2 (00:30→10:56)
[2019-02-25] MEDS: MERREM 500 MG in NS 50 ML IV SCH ×3 (05:09→21:24)
[2019-02-25 06:16] LABS: BASO# 0.01 X1000 (0.0-0.2); BASO% 0.1 % (0.0-0.8); EOS# 0.15 X1000 (0.0-0.7); HEMOGLOBIN 8.4 g/dL (14.0-18.0); IMM GRAN# 0.07 X1000 (0.0-0.04); IMM GRAN% 0.5 % (0.0-0.5); MCH 29.4 PG (27-31); MCHC 31.1 g/dL (33-37); MCV 94.4 FL (81-99); MONO# 1.24 X1000 (0.11-0.59); MONO% 8.7 % (1.7-9.3); NEUT# 9.82 X1000 (1.4-6.5); NEUT% 68.7 % (42.2-75.2); PLT 456 X1000 (130-400); RBC 2.86 XMIL (4.7-6.1); RDW 14.9 % (11.5-14.5); WBC 14.29 X1000 (4.8-10.8)
[2019-02-25 06:43] LABS: CALCIUM 7.6 mg/dL (8.8-10.2); POTASSIUM 4.1 mmol/L (3.5-5.1)
--- NOTE | 2019-02-25 07:15 | Diag Imaging Result Doc PS360 ---
EXAM: CHEST-PORTABLE HISTORY: pneumonia TECHNIQUE: Portable chest single view COMPARISON: 02/23/2019 FINDINGS: The lungs are well expanded. The heart is not enlarged. The vessels are not distended. There are no infiltrates. No effusion identified. There is a granuloma in the mid right lung. IMPRESSION: No definite pneumonia. Electronically signed by Andrew Ochoa 02/25/2019 7:13 AM
[2019-02-25] MEDS: LOVENOX SUBQ SCH (08:43)
[2019-02-25] MEDS: D5 NS 1,000 ML IV SCH ×2 (08:44→13:34)
[2019-02-25] MEDS: COLACE PO SCH ×2 (08:44→21:24)
--- NOTE | 2019-02-25 10:42 | PROGRESS NOTE ---
DATE: 02/25/2019 SUBJECTIVE: He is awake and alert. He feels very weak, but otherwise no complaints of pain. Breathing comfortably. Remains afebrile. OBJECTIVE: Temperature 99.0, pulse 70, respirations 16, blood pressure 182/53. Pupils are equal and round. Lungs are clear in all lung luna.Cardiovascular: Regular rhythm and rate without murmur or S3. Abdomen is soft. Skin is warm and dry. URINE OUTPUT: 1900 mL. DIAGNOSTIC STUDIES: Chest x-ray: No definite infiltrate or pneumonia. ASSESSMENT AND PLAN: 1. Left bqeqq-oya-vysr amputation with some skin irritation. White count elevated. His cultures of the urine grew out Pseudomonas aeruginosa, wound culture grew out Staphylococcus aureus, and he had a blood culture with 1/2 that grew Proteus mirabilis. He has dehiscence of the left wgwbs-xfu-zrzy amputation, and his right heel has an ulcer and an ulcer in the sacrum. Continue topical care. Keep the weight off his heel and probably have to revise the left dwoqs-yaj-irpt amputation. Continue IV antibiotics for now. 2. Admitted with multiple issues of infection, he had hypoglycemia and that seems to have improved. We have had to give him some sugar, D10 and D5 normal saline. 3. Seemed to be volume contracted when he came in, so continue present fluids. 4. Proximal atrial fibrillation. Rate is controlled. 5. Acute on chronic kidney disease. Hopefully, will improve with IV fluid. His creatinine did come down to 2.0, and that is encouraging. 6. Hemoglobin and hematocrit. He has a normocytic anemia and they seem to be stable; hematocrit is 27 and hemoglobin 8.4. 7. Nutrition. Encourage p.o. intake. 8. Constipation. He is having bowel movements. 9. Weakness and deconditioning. He has got a long ways to go. We will continue physical therapy when we are able. He cannot have any weightbearing on his heel at this point. 10. His pain control appears to be adequate. 11. He is on linezolid 600 mg IV q.12 h. and meropenem 500 mg IV q.8 h. cc: Mainor Tinsley MD
[2019-02-25] MEDS ORDERED: D50W SYRINGE IV PRN (13:01)
[2019-02-25] MEDS: D10W 1,000 ML IV SCH (13:34)
[2019-02-25] MEDS: OFIRMEV 1000 MG/ISOTONIC SOLN 1,000 MG/100 ML BOTTLE IV PRN (17:02)
[2019-02-25] MEDS ORDERED: VANCOMYCIN 1,350 MG in NS 250 ML IV SCH (20:00)
[2019-02-26] MEDS: OXY IR PO PRN ×3 (03:28→21:57)
[2019-02-26] MEDS: MERREM 500 MG in NS 50 ML IV SCH (05:26)
[2019-02-26] MEDS: D5 NS 1,000 ML IV SCH ×4 (05:46→13:10)
[2019-02-26 06:53] LABS: CALCIUM 7.4 mg/dL (8.8-10.2); CREATININE 1.6 mg/dL (0.7-1.2); POTASSIUM 3.7 mmol/L (3.5-5.1)
[2019-02-26 07:01] LABS: BASO# 0.01 X1000 (0.0-0.2); BASO% 0.1 % (0.0-0.8); EOS# 0.19 X1000 (0.0-0.7); EOS% 1.5 % (0.0-10.0); HEMATOCRIT 27.5 % (42.0-52.0); HEMOGLOBIN 8.6 g/dL (14.0-18.0); IMM GRAN# 0.06 X1000 (0.0-0.04); IMM GRAN% 0.5 % (0.0-0.5); LYMPH# 2.68 X1000 (1.2-3.4); LYMPH% 20.8 % (20.5-51.1); MCHC 31.3 g/dL (33-37); MCV 95.8 FL (81-99); MONO# 0.95 X1000 (0.11-0.59); MONO% 7.4 % (1.7-9.3); MPV 8.9 FL (7.4-10.4); NEUT# 8.97 X1000 (1.4-6.5); NEUT% 69.7 % (42.2-75.2); PLT 453 X1000 (130-400); RBC 2.87 XMIL (4.7-6.1); RDW 14.8 % (11.5-14.5); WBC 12.86 X1000 (4.8-10.8)
[2019-02-26] MEDS: LOVENOX SUBQ SCH (08:15)
[2019-02-26] MEDS: D10W 1,000 ML IV SCH (08:15)
[2019-02-26] MEDS: COLACE PO SCH ×2 (08:15→21:01)
[2019-02-26] MEDS: TAZIDIME 1 GM in NS 50 ML IV SCH ×2 (10:36→17:14)
[2019-02-26] MEDS: TYLENOL PO PRN (10:42)
--- NOTE | 2019-02-26 10:46 | INFECTIOUS DISEASE PROGRESS NO ---
DATE: 02/26/2019 The patient has the following infections. He has a Proteus bacteremia, a Pseudomonas urinary tract infection, and a left rgamd-lar-babr amputation site methicillin-resistant Staphylococcus aureus infection. In addition, the patient has bilateral heel eschars, and they may have been the source from which the patient's Proteus bacteremia arose. MEDICATIONS: Currently, the patient is on Zyvox and meropenem. PHYSICAL EXAMINATION: Vital Signs: Temperature is 99.7 degrees, pulse 71, respirations 15, blood pressure is 168/77. Generally: This is an ill-appearing elderly male. He is in no acute distress . Head, eyes, ears, nose, and throat: He can hear my spoken words and see near objects. He does not have any white patches on his tongue. Neck: No pain with movement. Lungs: Clear to auscultation. Cardiovascular: Heart rate is regular. Abdomen: Soft and nontender. Extremities: I looked at the patient's left leg incision, and it is erythematous, it is partially dehiscing, and it has purulence. We looked at both of the patient's feet, and there are eschars over both heels. Neurologic: The patient is awake. He can move his extremities. There is no tremor. Genitourinary: The patient has a Ramirez catheter in place. DIAGNOSTIC STUDIES: The patient's CBC today shows a white count of 12,860, hemoglobin 8.6, platelet count 453,000. Creatinine is 1.6, GFR is 42. Urine culture grew Pseudomonas. The patient's left oacej-ezz-kzrn amputation site grew methicillin-resistant Staphylococcus aureus. The blood cultures grew Proteus. ASSESSMENT AND PLAN: The patient as mentioned above has: 1. Methicillin-resistant Staphylococcus aureus (MRSA), left below-knee(BK) infection., 2. Pseudomonas urinary tract infection. 3. Proteus bacteremia. I am going to discontinue Zyvox and meropenem and place the patient on a combination of daptomycin and ceftazidime. PATIENT'S COMORBIDITIES: 1. He is elderly. 2. He has diabetes mellitus. 3. He has chronic kidney disease. 4. Peripheral vascular disease. cc: Zak Russo MD
[2019-02-26] MEDS: CUBICIN 500 MG in NS 100 ML IV SCH (11:08)
--- NOTE | 2019-02-26 12:27 | PROGRESS NOTE ---
DATE: 02/26/2019 SUBJECTIVE: Mr. Hickey does not feel real good. He is still having a good deal of pain. He is awake and alert, still hurts all over by his report. The tenderness in the left stump seems to be a little better. He is eating a little bit but not much appetite. OBJECTIVE: He remains afebrile. Temperature 99.7 degrees, pulse 70, respirations 17, and blood pressure 175/67. Pupils are equal and round. Lungs are clear anterolateral. Cardiovascular exam with regular rhythm and rate without murmur or S3. Abdomen is soft. Skin is warm and dry. LABORATORY: His labs from this morning, new lab yesterday, [place] count [place] [address]. Hematocrit is 27, hemoglobin is 8.6, and platelet count 453,000. Sodium 135, potassium 3.7, chloride 104, bicarb 21, BUN is 27, and creatinine 1.6 which has come down nicely from 2.0 the day before. ASSESSMENT AND PLAN: 1. Proteus bacteremia and Pseudomonas urinary tract infection, left uexvw-znr-pzfb amputation with methicillin-resistant Staphylococcus aureus. He has right heel eschar left. He has a pfhdf-nsu-zezr amputation. Continue Zyvox and meropenem. 2. When he was admitted, it looked like he was in sepsis and a good deal of infection and hypoglycemia. We are still struggling to keep his sugars up. He is on D10, having trouble with IV access so we will try and get a PICC line. 3. Volume contracted when he presented with acute kidney injury. This seems to be improving with IV fluids. 4. Paroxysmal atrial fibrillation, rate appears to be controlled. 5. Acute on chronic kidney disease, which I suspect mainly was prerenal. He seems to be improving with fluids. 6. Hemoglobin and hematocrit were following and his anemia appears fairly stable. 7. Encourage p.o. intake for nutrition. 8. Constipation. He is on a bowel regimen. 9. Weakness and deconditioning, not able to put weight on the heels so we will try and pursue physical therapy just to work his extremities, and see if we can work on his strength. 10. We will increase his frequency. He can have his OxyContin as he is still in pain. 11. Continue his present DVT prophylaxis and GI prophylaxis as well. REVIEW OF MEDICATIONS: He is on oxycodone 10 mg p.o. daily increase in frequency q.3 hours p.r.n., acetaminophen 650 mg q.4 hours p.r.n., daptomycin 500 mg IV q.12, Colace 100 mg b.i.d., Lovenox 40 mg subcutaneous q.24 hours, and ceftazidime 1 g IV every 8 hours. cc: Mainor Tinsley MD
[2019-02-26] MEDS ORDERED: NS 250 ML ONE (14:28)
--- NOTE | 2019-02-26 14:28 | PROGRESS NOTE ---
DATE: 02/26/2019 SUBJECTIVE: Mr. Hickey's left mqdfr-sxo-jxof amputation has some dehiscence and drainage. It is very tender for him. He is not extending his knee. He is in our ICU. OBJECTIVE: His heart rate is 86, blood pressure 137/62, O2 saturation 98%, his temperature maximum is 99.9 degrees. He is on IV antibiotics for MRSA. DIAGNOSTIC STUDIES: His white blood cell count is coming down, 16, 14, and now 12, hematocrit is 27%. BUN of 27 and creatinine 1.6 and that is improving. PLAN: I think. We are going to have to change his left kbosm-wxz-egfj amputation to an above-the- knee amputation. Supportive care continues and we will follow along with the left zlewh-sth-tmmb amputation wound. cc: Amelia Choi MD
[2019-02-26 15:45] LABS: INR 1.62; PROTIME 20.4 Seconds (11.0-16.0)
[2019-02-26] MEDS: OFIRMEV 1000 MG/ISOTONIC SOLN 1,000 MG/100 ML BOTTLE IV PRN (16:18)
[2019-02-27] MEDS: TAZIDIME 1 GM in NS 50 ML IV SCH ×3 (00:55→17:24)
[2019-02-27] MEDS: OXY IR PO PRN ×3 (00:56→13:38)
[2019-02-27] MEDS: D5 NS 1,000 ML IV SCH ×3 (01:21→09:51)
[2019-02-27 05:47] LABS: BASO# 0.01 X1000 (0.0-0.2); BASO% 0.1 % (0.0-0.8); EOS% 1.7 % (0.0-10.0); HEMATOCRIT 26.9 % (42.0-52.0); HEMOGLOBIN 8.5 g/dL (14.0-18.0); IMM GRAN# 0.06 X1000 (0.0-0.04); IMM GRAN% 0.5 % (0.0-0.5); LYMPH# 3.49 X1000 (1.2-3.4); LYMPH% 29.7 % (20.5-51.1); MCH 29.6 PG (27-31); MCHC 31.6 g/dL (33-37); MCV 93.7 FL (81-99); MONO# 0.93 X1000 (0.11-0.59); MONO% 7.9 % (1.7-9.3); MPV 8.8 FL (7.4-10.4); NEUT# 7.07 X1000 (1.4-6.5); NEUT% 60.1 % (42.2-75.2); PLT 457 X1000 (130-400); RBC 2.87 XMIL (4.7-6.1); RDW 14.6 % (11.5-14.5); WBC 11.76 X1000 (4.8-10.8)
[2019-02-27 06:04] LABS: CALCIUM 7.5 mg/dL (8.8-10.2); CREATININE 1.5 mg/dL (0.7-1.2); POTASSIUM 3.9 mmol/L (3.5-5.1)
[2019-02-27] MEDS: LOVENOX SUBQ SCH (09:03)
[2019-02-27] MEDS: COLACE PO SCH (09:03)
[2019-02-27] MEDS: CUBICIN 500 MG in NS 100 ML IV SCH (13:01)
--- NOTE | 2019-02-27 14:54 | INFECTIOUS DISEASE PROGRESS NO ---
DATE: 02/27/2019 PRESENT ILLNESS: The patient has the following infections: 1. Proteus bacteremia, the exact origin of which is uncertain to me. I am worried that it could be coming from the patient's right heel which looks infected. 2. Pseudomonas urinary tract infection. 3. Methicillin-resistant Staphylococcus aureus qtbow-wkg-bpth amputation incision site infection on the left leg. MEDICATIONS: The patient is on ceftazidime and daptomycin. This is the first day for both of the antibiotics. PHYSICAL EXAMINATION: Vital Signs: Temperature is 97.8 degrees, pulse 80, respirations 18, blood pressure 178/58. General: This is an ill-appearing, elderly male. He is in no acute distress. Head, Eyes, Ears, Nose, and Throat: He can hear my spoken words and see near objects. He does not have any white coating on his tongue. Neck: He moves his neck without pain. Lungs: Clear to auscultation. Cardiovascular: Heart rate is regular. Abdomen: Soft and nontender. Extremities: The patient's left leg incision is erythematous and purulent. The patient's right heel is erythematous and it has a black eschar on it as well. The heel is tender. Neurologic: The patient is awake. There is no tremor. He can move his extremities. LAB AND X-RAY: CBC today shows a white count of 11,760, hemoglobin 8.5, and platelet count 457,000. Creatinine is 1.5. The GFR is 45. Repeat blood cultures were drawn yesterday and the results are pending. ASSESSMENT AND PLAN: The patient has the above-mentioned infections, namely Proteus bacteremia, Pseudomonas urinary tract infection, and a methicillin-resistant Staphylococcus aureus left below- the-knee amputation site infection. My plan is to continue with ceftazidime and daptomycin. I have discussed the patient with Dr. Choi. He is going to most likely convert the patient's hasrb-sho-qdnv amputation into an kberj-reo-pwvl amputation. I am going to ask him about possibly debriding the patient's heel because it is infected and also it may have been the origin of the patient's Proteus bacteremia. COMORBIDITIES: 1. He is elderly. 2. He is a diabetic. 3. He has chronic kidney disease. 4. Patient has peripheral vascular disease. cc: Zak Russo MD [facility]
--- NOTE | 2019-02-27 15:12 | PROGRESS NOTE ---
DATE: 02/27/2019 SUBJECTIVE: Patient has no major complaints. He is lying in bed very quiet, very calm. OBJECTIVE: Blood pressure 192/50, heart rate 72, respiratory rate 18, temperature 98.8 degrees, 99% on room air.Cardiovascular: Regular rate and rhythm. Pulmonary: Bilateral breath sounds. Clear to auscultation. GI: Soft, nontender, nondistended. Bowel sounds are positive. LABORATORY DATA: White count 11, hemoglobin and hematocrit 8 and 26, platelets 457,000. Creatinine 1.5. PROBLEM LIST: 1. Proteus bacteremia, Pseudomonas urinary tract infection. He is getting Zyvox and meropenem. He is status post a below-knee amputation. 2. Hypoglycemia. That seems to be improving. We will continue to follow blood sugars closely. He is still on D10 and D5 and his sugars have been not above 200 but at least since yesterday they have been above 100 even 120. I may stop the D5 and just put him on the D10 to see if we can titrate down. 3. Dehydration, acute kidney injury. This seems to be improving. 4. Paroxysmal atrial fibrillation. This also seems to be doing okay. DISPOSITION: He may need rehab. He is still very clinically weak. We will continue to follow. cc: Duane Monk MD
--- NOTE | 2019-02-27 17:44 | PROGRESS NOTE ---
DATE: 02/27/2019 SUBJECTIVE: Mr. Hickey's white count continues to improve on IV antibiotics. His renal function is also improved with a BUN of 20 and creatinine of 1.5. OBJECTIVE: He has some breakdown involving his left below the knee amputation stump and I feel that it will probably have to be revised. He also has a pressure ulcer involving his right heel. PLAN: I would continue supportive care with IV antibiotics. I will follow along with you and make plans for surgery as his clinical status improves. cc: Amelia Choi MD
[2019-02-27] MEDS: SANTYL OINT TOP SCH (22:24)
[2019-02-27] MEDS: COREG PO SCH (22:29)
[2019-02-27] MEDS: REMERON PO SCH (22:29)
[2019-02-27] MEDS: FISH OIL CONCENTRATE PO SCH (22:29)
[2019-02-27] MEDS: XALATAN 0.005% OPH SOLN RIGHT EYE SCH (22:29)
[2019-02-27] MEDS: PATIENT'S OWN MED PO SCH (22:30)
[2019-02-27] MEDS: ELIQUIS PO SCH (22:30)
[2019-02-27] MEDS: D10W 1,000 ML IV SCH (22:30)
[2019-02-28] MEDS: OXY IR PO PRN ×4 (02:09→23:22)
[2019-02-28] MEDS: TAZIDIME 1 GM in NS 50 ML IV SCH ×3 (02:10→17:42)
[2019-02-28 05:23] LABS: BASO# 0.02 X1000 (0.0-0.2); BASO% 0.2 % (0.0-0.8); EOS% 1.9 % (0.0-10.0); HEMATOCRIT 27.6 % (42.0-52.0); HEMOGLOBIN 8.6 g/dL (14.0-18.0); IMM GRAN# 0.04 X1000 (0.0-0.04); IMM GRAN% 0.4 % (0.0-0.5); LYMPH# 3.36 X1000 (1.2-3.4); MCH 29.1 PG (27-31); MCHC 31.2 g/dL (33-37); MCV 93.2 FL (81-99); MONO# 0.86 X1000 (0.11-0.59); MONO% 8.2 % (1.7-9.3); MPV 8.6 FL (7.4-10.4); NEUT# 6.03 X1000 (1.4-6.5); NEUT% 57.3 % (42.2-75.2); PLT 466 X1000 (130-400); RBC 2.96 XMIL (4.7-6.1); RDW 14.6 % (11.5-14.5); WBC 10.51 X1000 (4.8-10.8)
[2019-02-28] MEDS: PRILOSEC PO SCH ×2 (05:35→06:24)
[2019-02-28 05:36] LABS: CALCIUM 7.6 mg/dL (8.8-10.2); CREATININE 1.5 mg/dL (0.7-1.2); POTASSIUM 3.8 mmol/L (3.5-5.1)
--- NOTE | 2019-02-28 07:02 | INFECTIOUS DISEASE PROGRESS NO ---
DATE: 02/28/2019 PRESENT ILLNESS: The patient has the following infections: 1. Proteus bacteremia, the exact origin of which is uncertain to me. I think most likely it does originate from the patient's right heel which has cellulitis and an eschar. 2. Pseudomonas urinary tract infection. 3. Methicillin-resistant Staphylococcus aureus qlzyd-zwl-uivm amputation incision site infection on the left leg. MEDICATIONS: This is day 2 of treatment with the combination of ceftazidime and daptomycin. PHYSICAL EXAMINATION: Vital Signs: Temperature is 98.8 degrees, pulse 74, respirations 17, blood pressure 188/56. General: This is an ill-appearing, elderly male. This morning, he is in no acute distress. Head, Eyes, Ears, Nose, and Throat: He can hear my spoken words and see near objects. He does not have any white patches on his tongue. Neck: He moves his head without pain. Lungs: Clear to auscultation. Cardiovascular: Heart rate is regular. Abdomen: Soft and nontender. Extremities: The patient's left leg incision is erythematous and purulent. The patient's right heel has erythema and a black eschar on it. The heel is tender and somewhat fluctuant. Neurologic: The patient is awake. He can move his extremities. There is no tremor. LAB AND X-RAY: CBC shows a white count of 10,510, hemoglobin 8.6, and platelet count 466,000. Creatinine is 1.5. GFR is 45. Repeat blood cultures are sterile. ASSESSMENT AND PLAN: I plan to continue ceftazidime and daptomycin for the patient's bacteremia, urinary tract infection, and the left lemho-dxk-eutq amputation site infection. COMORBIDITIES: 1. He is elderly. 2. He is a diabetic. 3. He has chronic kidney disease. 4. He has peripheral vascular disease. cc: Zak Russo MD
[2019-02-28] MEDS: COREG PO SCH ×2 (08:32→20:27)
[2019-02-28] MEDS: COLACE PO SCH (08:32)
[2019-02-28] MEDS: ELIQUIS PO SCH ×2 (08:32→20:27)
[2019-02-28] MEDS: MIRALAX PO SCH (08:33)
[2019-02-28] MEDS: CORDARONE PO SCH (08:33)
[2019-02-28] MEDS: LOVENOX SUBQ SCH (08:34)
[2019-02-28] MEDS: SANTYL OINT TOP SCH ×2 (08:36→20:29)
[2019-02-28] MEDS ORDERED: AMARYL PO SCH (09:00)
--- NOTE | 2019-02-28 10:35 | PROGRESS NOTE ---
DATE: 02/28/2019 SUBJECTIVE: The patient has no complaints. He is lying flat in bed watching TV. OBJECTIVE: Vital signs: Blood pressure 180/56 with a heart rate of 74, respirations are 18, and temperature is 98.8 degrees oral with room air saturations 100%. Cardiovascular: Regular rate and rhythm. S1, S2 appreciated. He has no murmur. He has no lower extremity edema. Peripheral pulses are palpable bilateral arms and right lower extremity. Right calf is nontender to palpation. Pulmonary: Breath sounds are clear with no increased work of breathing noted. Chest rises and falls symmetric respiration. Chest wall is nontender to palpation. Gastrointestinal: Abdomen is soft, nontender, and nondistended with bowel sounds in all 4 quadrants. Skin: Warm and dry. Incision left BKA appears to be nonhealing with non approximated incision edges. He does have some discoloration and some necrosis. LABORATORY: WBC is 10.5 with hemoglobin 8.6, hematocrit 27.6, and platelets of 466,000. Sodium is 137, potassium 3.8, BUN 18, creatinine 1.5 with glucose of 127. PROBLEM LIST: 1. Proteus bacteremia with Pseudomonas UTI. We will continue Zyvox and Merrem. Dr. Russo is following and managing antibiotics. 2. Status post left couoy-pvb-xxhy amputation with nonhealing incision. Dr. Perez Choi is following. We will continue antibiotics as stated above as well as wound care. 3. Hypoglycemia. Blood sugars have been in the 114 to 180 range over the last 24 hours with the patient on D10. 4. Dehydration and acute kidney injury. This is improving. He appears back to baseline. 5. Paroxysmal atrial fibrillation rate controlled. 6. Mild protein calorie malnutrition. We will continue diabetic diet with Ensure with all meals. 7. We will continue physical therapy as well as OT. Repeat a CBC and CMP in the morning. Dictated by TALIB Galvez for Sy Patel MD This chart was documented by, TALIB Galvez and accurately reflects the services performed, treatment plan and medical decisions as attested by the providers signature Sy Patel MD. cc: TALIB Galvez MD
[2019-02-28] MEDS: PATIENT'S OWN MED PO SCH ×2 (11:14→20:29)
[2019-02-28] MEDS: CUBICIN 500 MG in NS 100 ML IV SCH (11:22)
[2019-02-28] MEDS: D10W 1,000 ML IV SCH (20:26)
[2019-02-28] MEDS: PRAVACHOL PO SCH (20:27)
[2019-02-28] MEDS: FISH OIL CONCENTRATE PO SCH (20:27)
[2019-02-28] MEDS: REMERON PO SCH (20:27)
[2019-02-28] MEDS: XALATAN 0.005% OPH SOLN RIGHT EYE SCH (20:29)
--- NOTE | 2019-03-01 00:03 | PROGRESS NOTE ---
DATE: 02/28/2019 ADDENDUM: The patient seen and examined by myself. Full note dictated and discussed with nurse practitioner. SUBJECTIVE: The patient has no new complaints, states overall feeling a little bit better. OBJECTIVE: Temperature 97, pulse 68, respiratory 20, BP 154/54.General: The patient is awake, pleasant talk with. HEENT: Normocephalic. Neck: Supple. Cardiovascular: Regular rate. ASSESSMENT: 1. Proteus bacteremia with proteus urinary tract infection. Continue Zyvox and Merrem. 2. Wdkbb-zpb-hqtu amputation. Continues with a nonhealing incision. Dr. Choi is following. 3. Hyperglycemia. PLAN: We will continue the patient in the hospital. Continue antibiotics and symptomatic treatment. Please see full dictation. cc: Sy Patel MD
[2019-03-01] MEDS: TAZIDIME 1 GM in NS 50 ML IV SCH ×3 (03:12→17:43)
[2019-03-01 06:16] LABS: BASO# 0.02 X1000 (0.0-0.2); BASO% 0.2 % (0.0-0.8); EOS# 0.21 X1000 (0.0-0.7); EOS% 2.1 % (0.0-10.0); HEMATOCRIT 26.5 % (42.0-52.0); HEMOGLOBIN 8.3 g/dL (14.0-18.0); IMM GRAN# 0.03 X1000 (0.0-0.04); IMM GRAN% 0.3 % (0.0-0.5); LYMPH# 3.47 X1000 (1.2-3.4); LYMPH% 34.7 % (20.5-51.1); MCH 29.3 PG (27-31); MCHC 31.3 g/dL (33-37); MCV 93.6 FL (81-99); MONO# 1.07 X1000 (0.11-0.59); MONO% 10.7 % (1.7-9.3); MPV 8.7 FL (7.4-10.4); NEUT# 5.19 X1000 (1.4-6.5); PLT 387 X1000 (130-400); RBC 2.83 XMIL (4.7-6.1); RDW 14.5 % (11.5-14.5); WBC 9.99 X1000 (4.8-10.8)
[2019-03-01 06:28] LABS: ALB/GLOB RATIO 0.5; ALBUMIN 1.8 g/dL (3.5-5.0); CALCIUM 7.4 mg/dL (8.8-10.2); CREATININE 1.7 mg/dL (0.7-1.2); POTASSIUM 3.8 mmol/L (3.5-5.1); TOTAL BILIRUBIN 0.15 mg/dL (0.20-1.00); TOTAL PROTEIN 5.3 g/dL (6.3-8.3)
[2019-03-01] MEDS: PRILOSEC PO SCH (06:46)
--- NOTE | 2019-03-01 08:05 | INFECTIOUS DISEASE PROGRESS NO ---
DATE: 03/01/2019 PRESENT ILLNESS: The patient has the following infections, and I am treating them with antibiotics. 1. Proteus bacteremia: The origin is somewhat uncertain to me. I did mention to Dr. Choi that I think it could be coming from the patient's right heel, and he is going to examine that and see if when he performs the vkvgm-wgj-hrjd amputation on the left leg, that he may need to do surgery on the right heel. 2. Pseudomonas urinary tract infection. 3. The patient's left leg has a methicillin-resistant Staph aureus fditk-zrl-xssu amputation incision site infection. MEDICATIONS: This is the third day of treatment with the combination of ceftazidime and daptomycin. PHYSICAL EXAMINATION: Vital Signs: Temperature is 98.8 degrees, pulse 70, respirations 18, blood pressure 124/43. General: This is an ill-appearing elderly male. This morning he is lethargic. He does not seem to be in any acute distress, however. Head/eyes/ears/nose/throat: No drainage noted from the nose or ears. Patient did not respond to verbal stimuli. Neck: No apparent pain when I moved the neck. Lungs: Clear to auscultation. Cardiovascular: Regular heart rate. Abdomen: Soft and nontender. Extremities: Patient has a left shzzo-tvi-rbgh amputation infection. There is a dressing on the leg. The dressing is intact. Yesterday, the incision was erythematous and purulent and slightly opening. The patient's right heel is erythematous with a black eschar in the middle of it. Neurologic: As mentioned above, patient is lethargic. He did not respond to verbal stimuli. There was no tremor. LAB AND X-RAY: There is no radiographic study for today. Laboratory studies show a CBC with a white count of 9990, hemoglobin 8.3, and platelet count 387,000. Creatinine is 1.7. GFR is 39. Repeat blood cultures drawn on February 26 are sterile. The patient is being treated for his Proteus bacteremia with ceftazidime. This is the third day of treatment with ceftazidime for the bacteremia with day 1 being the first day that the repeat blood cultures are sterile. Continue ceftazidime also for the urinary tract infection. The daptomycin is treating the patient's methicillin-resistant Staph aureus infected orkfz-gaf-vxbp amputation incision. This is day 2 of that treatment. ASSESSMENT AND PLAN: For the infections I mentioned above, I plan to continue daptomycin and ceftazidime at the current dose. COMORBIDITIES: Comorbidities in this patient include he is elderly, a diabetic, has chronic kidney disease, and also has peripheral vascular disease. cc: Zak Russo MD
[2019-03-01] MEDS: COLACE PO SCH (10:12)
[2019-03-01] MEDS: ELIQUIS PO SCH ×2 (10:12→21:32)
[2019-03-01] MEDS: MIRALAX PO SCH (10:12)
[2019-03-01] MEDS: CORDARONE PO SCH (10:12)
[2019-03-01] MEDS: COREG PO SCH ×2 (10:12→21:32)
[2019-03-01] MEDS: PATIENT'S OWN MED PO SCH ×2 (10:13→21:33)
[2019-03-01] MEDS: LOVENOX SUBQ SCH (11:02)
--- NOTE | 2019-03-01 11:32 | PROGRESS NOTE ---
DATE: 03/01/2019 INTERVAL HISTORY: No acute events overnight. He was hypertensive with systolic blood pressure of 160 yesterday. SUBJECTIVE: He is feeling fine, denying any complaints. He is alert. He is oriented to the place, but not to the person or situation at the moment, follows simple commands. He denies any chest pain, shortness of breath, nausea, vomiting, abdominal pain. OBJECTIVE: Vitals: Detect temperature 99.5 degrees, pulse 65, respiratory blood pressure 134/42, saturating 100% on room air. General: He does not appear in any acute distress. HEENT: Oral cavity is moist. Mild conjunctival pallor. No cyanosis, clubbing or icterus. Lungs: Air entry bilaterally equal. No wheeze, rhonchi, or crackles. Cardiac: Not tachycardic. Systolic crescendo-decrescendo murmur affecting second intercostal space, accentuated during expiration on right side. He also had systolic murmur affecting mitral region with clear S1 and S2 audible. Abdomen: Soft, nontender. Lower Extremities: Right lower extremity dorsalis pedis and posterior tibial pulses are difficult to palpate. However, he had warm right foot and good capillary refill. There is about 4 x 4 cm round black eschar necrotic ulcer on the right heel. He has left lower extremity below-knee amputation. He also has urine catheter. Neurologic: He is alert, oriented to person and place, but not situation. No new microbiological data. No new imaging. ASSESSMENT AND PLAN: 1. Sepsis due to Proteus bacteremia, Pseudomonas urinary tract infection and methicillin- resistant Staphylococcus aureus left leg wound infection. First day of negative blood culture is February 26. Continue intravenous daptomycin and intravenous ceftazidime as per Infectious Disease recommendations. 2. Paroxysmal atrial fibrillation with rapid ventricular rate, currently well controlled. Continue home carvedilol, amiodarone and apixaban. 3. History of severe peripheral arterial disease, status post left side below-knee amputation. Continue pain management with as-needed oxycodone and continue docusate to avoid constipation with MiraLAX. 4. Poor p.o. intake. Continue intravenous dextrose water and continue him on a heart healthy diet. His hypoglycemic episode at the time of admission when he was found to have blood sugar in 50s seems to have resolved, and his blood sugars are largely in acceptable range at the moment. 5. Disposition. Patient remains inside the hospital for need for intravenous antibiotics. Plan of care discussed with him. All of his questions have been answered. cc: Akil Monaco MD
[2019-03-01] MEDS: CUBICIN 500 MG in NS 100 ML IV SCH (11:43)
[2019-03-01] MEDS: OXY IR PO PRN (11:43)
[2019-03-01] MEDS: SANTYL OINT TOP SCH ×2 (12:30→21:32)
[2019-03-01] MEDS ORDERED: D10W 1,000 ML IV SCH (17:24)
[2019-03-01] MEDS: REMERON PO SCH (21:32)
[2019-03-01] MEDS: PRAVACHOL PO SCH (21:32)
[2019-03-01] MEDS: FISH OIL CONCENTRATE PO SCH (21:32)
[2019-03-01] MEDS: XALATAN 0.005% OPH SOLN RIGHT EYE SCH (21:32)
[2019-03-02] MEDS: TAZIDIME 1 GM in NS 50 ML IV SCH ×3 (02:09→16:48)
[2019-03-02] MEDS: PRILOSEC PO SCH (06:14)
[2019-03-02] MEDS: MIRALAX PO SCH ×2 (07:49→08:01)
[2019-03-02] MEDS: NORCO-10 PO PRN ×2 (07:49→15:02)
[2019-03-02] MEDS: COREG PO SCH ×2 (08:01→22:21)
[2019-03-02] MEDS: CORDARONE PO SCH (08:01)
[2019-03-02] MEDS: SANTYL OINT TOP SCH ×2 (08:02→22:22)
[2019-03-02] MEDS: COLACE PO SCH (08:05)
[2019-03-02] MEDS: PATIENT'S OWN MED PO SCH (08:05)
[2019-03-02] MEDS: ELIQUIS PO SCH (09:01)
[2019-03-02] MEDS: CUBICIN 500 MG in NS 100 ML IV SCH (11:26)
--- NOTE | 2019-03-02 11:58 | INFECTIOUS DISEASE PROGRESS NO ---
DATE: 03/02/2019 PRESENT ILLNESS: The patient has the following infections: 1. Proteus bacteremia. This may have arisen from the patient's right heel. 2. Pseudomonas urinary tract infection. 3. The patient's left ydmkf-qog-xnoz amputation site is infected by methicillin- resistant Staph aureus. MEDICATIONS: This is the fourth day of treatment with a combination of daptomycin and ceftazidime. PHYSICAL EXAMINATION: Vital Signs: Temperature is 98.9 degrees, pulse 77, respirations 16, blood pressure 150/40. General: Generally, this is an ill-appearing elderly male. He is in no acute distress. He is somewhat lethargic. Head/eyes/ears/nose/throat: He can hear my spoken words and see near objects. He does not have any white patches on his tongue. Neck: There is no pain when he moves his head. The patient has a left internal jugular venous catheter in place. The site is not erythematous or draining. Lungs: Clear to auscultation. Cardiovascular: Heart rate is regular and there is a systolic murmur. Abdomen: Soft and nontender. Extremities: The patient has a left imgnu-sbr-mayp amputation site. The wound has necrotic areas and erythematous areas and purulent areas, and the incision is partly . The patient's right heel is erythematous; it has an eschar and it is somewhat fluctuant and tender. I think the right heel could be where the patient's Proteus originated from. Neurologic: The patient is awake. He can move his extremities, but he is very weak. There is no tremor. LAB AND X-RAY: There is no new lab or x-ray for today. ASSESSMENT AND PLAN: The patient has Proteus bacteremia and Pseudomonas urinary tract infection, both of which I am treating with ceftazidime. The patient has a methicillin- resistant Staph aureus swazn-bvq-icsw amputation incision site infection. For that the patient is receiving daptomycin. I plan to get at the beginning of next week the following lab studies: complete blood count, basic metabolic panel, and creatinine kinase. COMORBIDITIES: The patient's comorbidities are that he is elderly and he also has diabetes, chronic kidney disease, and peripheral vascular disease. cc: MD LILLIAN Salazar
--- NOTE | 2019-03-02 13:11 | PROGRESS NOTE ---
DATE: 03/02/2019 INTERVAL HISTORY: No acute events overnight. The patient denies any complaints, and he is asking me questions about what needs to be done regarding his left lower extremity stump. I discussed with him about possible surgical intervention as planned by the surgical team. He is denying any chest pain, shortness of breath, nausea, vomiting, or abdominal pain. His oral intake remains on the lower side. However, his blood sugars are were very well controlled on dextrose. I discussed with him and encouraging him about p.o. intake. PHYSICAL EXAMINATION: Vitals: Currently vitals detect a temperature of 98.3 degrees, pulse 73, respiratory rate 18, blood pressure 147/47 and saturating 95% on room air. General: He does not appear in any acute distress. HEENT: Oral cavity is moist. Mild conjunctival pallor. No cyanosis, clubbing, or icterus. Lungs: Air entry bilaterally equal. No wheeze, rhonchi, crackles. Systolic crescendo-decrescendo murmur affecting second intercostal space on the right side, accentuated during exploration and also mild systolic murmur affecting mitral region. Abdomen: Soft and nontender. Extremities: He has a right upper extremity PICC line. Right lower extremity dorsalis pedis and posterior tibial pulses are difficult to palpate. He had about 5 x 5 cm black eschar necrotic ulcer on the right heel. He has good capillary refill on the right. Left lower extremity has below-knee amputation. At the site of the amputation, the sutures appear necrotic and infected with some thick pussy discharge. Neurologic: He has a urine catheter. Alert and oriented to person, place, not entirely with the situation. No new microbiological data or imaging. LABORATORY: No CBC or BMP today. ASSESSMENT AND PLAN: 1. Sepsis due to Proteus bacteremia, Pseudomonas UTI, MRSA, left leg below-knee amputation wound infection. First day of negative blood culture is 02/26. Continue intravenous daptomycin, IV ceftazidime as per ID recommendation. Appreciate Surgery recommendation about left lower extremity surgical debridement. 2. Paroxysmal atrial fibrillation with RVR, currently rate well controlled on carvedilol, amiodarone and apixaban. I discussed with the nurse about holding apixaban according to surgical plan. 3. History of severe peripheral arterial disease, status post left-sided below-knee amputation. Continue pain management with as needed oxycodone, docusate with MiraLAX to avoid constipation. 4. Acute encephalopathy because of severe hypoglycemia on presentation likely because of his use of oral hypoglycemic agent at rehab, and poor p.o. intake. He required intravenous dextrose during the earlier part of this admission. I stopped dextrose today. I encouraged him to eat p.o. I will continue to monitor blood sugars every 4 hours. If needed, we might have to restart dextrose drip. 5. Other problems: Chronic kidney disease stage 3 appears to be stable. DISPOSITION: The patient remains inside the hospital for need of IV antibiotics as well as left lower extremity wound exploration by surgical team and possible debridement of his stump. Plan of care was discussed with the patient's son who is a surrogate decision maker, who recently moved in with the patient. I explained to him about his clinical condition, and he sounds very much involved in his care. He would like to hear from Dr. Choi about surgical plan. Eventually, he would need to go back to rehab for completion of remaining IV antibiotics course later in the future. cc: Akil Monaco MD
--- NOTE | 2019-03-02 15:02 | PROGRESS NOTE ---
DATE: 03/02/2019 SUBJECTIVE: Mr. Hickey's white blood cell count is now normal. He has dehiscence of his left below the knee amputation stump and we plan to revise this to a left qyoxt-oer-pjkp amputation stump. On Tuesday, we have to stop his anticoagulation. I discussed that with him at the bedside this evening. We need to encourage p.o. intake. cc: Amelia Choi MD
[2019-03-02] MEDS: REMERON PO SCH (22:21)
[2019-03-02] MEDS: FISH OIL CONCENTRATE PO SCH (22:21)
[2019-03-02] MEDS: PRAVACHOL PO SCH (22:21)
[2019-03-02] MEDS: XALATAN 0.005% OPH SOLN RIGHT EYE SCH (22:22)
[2019-03-03] MEDS: TAZIDIME 1 GM in NS 50 ML IV SCH ×3 (02:25→17:28)
[2019-03-03] MEDS: NORCO-10 PO PRN ×2 (02:25→12:29)
[2019-03-03] MEDS: PATIENT'S OWN MED PO SCH ×3 (02:27→21:07)
[2019-03-03 05:53] LABS: BASO# 0.02 X1000 (0.0-0.2); BASO% 0.2 % (0.0-0.8); EOS# 0.25 X1000 (0.0-0.7); EOS% 2.4 % (0.0-10.0); HEMATOCRIT 25.4 % (42.0-52.0); IMM GRAN# 0.04 X1000 (0.0-0.04); IMM GRAN% 0.4 % (0.0-0.5); LYMPH# 3.01 X1000 (1.2-3.4); LYMPH% 29.3 % (20.5-51.1); MCH 29.9 PG (27-31); MCHC 31.5 g/dL (33-37); MCV 94.8 FL (81-99); MONO# 0.97 X1000 (0.11-0.59); MONO% 9.4 % (1.7-9.3); MPV 9.1 FL (7.4-10.4); NEUT# 5.99 X1000 (1.4-6.5); NEUT% 58.3 % (42.2-75.2); PLT 367 X1000 (130-400); RBC 2.68 XMIL (4.7-6.1); RDW 14.6 % (11.5-14.5); WBC 10.28 X1000 (4.8-10.8)
[2019-03-03 06:07] LABS: CALCIUM 7.6 mg/dL (8.8-10.2); CREATININE 1.8 mg/dL (0.7-1.2); MAGNESIUM 1.5 mg/dL (1.5-2.7); PHOSPHORUS 1.9 mg/dL (2.7-4.5)
[2019-03-03] MEDS: PRILOSEC PO SCH (06:24)
[2019-03-03] MEDS: COLACE PO SCH (08:51)
[2019-03-03] MEDS: K-PHOS PO SCH ×3 (08:51→17:28)
[2019-03-03] MEDS: COREG PO SCH ×2 (08:51→21:10)
[2019-03-03] MEDS: CORDARONE PO SCH (08:51)
[2019-03-03] MEDS: MAGNESIUM SULFATE 2 GM/S.W.I. 2 GM/50 ML IVPB IV SCH ×2 (08:51→11:11)
[2019-03-03] MEDS: MIRALAX PO SCH (08:52)
[2019-03-03] MEDS: SANTYL OINT TOP SCH ×2 (08:52→21:08)
--- NOTE | 2019-03-03 10:06 | PROGRESS NOTE ---
DATE: 03/03/2019 INTERVAL HISTORY: The patient states that he has been eating okay; however, it is not charted appropriately. The patient did not have any more hypoglycemia episodes. He is a little confused and I do not think he is oriented to situation. VITAL SIGNS: Currently suggest temperature of 99.4 degrees, pulse 69, respiratory rate 17, blood pressure 130/48, saturating 98% on room air. PHYSICAL EXAMINATION: He does not appear in any acute distress.HEENT: Oral cavity is moist. Mild conjunctival pallor. No cyanosis, clubbing, or icterus. Lungs: Air entry bilaterally equal. No wheeze, rhonchi, crackles. Heart: Systolic crescendo-decrescendo murmur affecting the second intercostal space on the right side, accentuated during expiration and mid systolic murmur affecting mitral region. Abdomen: Soft, nontender. Extremities: He has a right upper extremity PICC line. Right lower extremity dorsalis pedis and posterior tibial pulses are difficult to palpate. He has about 5 x 5 cm black eschar necrotic ulcer on the right heel. He has good capillary refill on the right. Left lower extremity has below-knee amputation. The suture line appears necrotic and infected with some thick eschar. He has urine catheter. He is alert and oriented to place and person, but not to the situation. No new microbiological data. LABS: Suggestive of no leukocytosis, normocytic anemia, normal platelet count, what appears to be chronic kidney disease stage 3 with slight elevation of BUN and creatinine. Blood sugars have been in acceptable range. He does have hypophosphatemia and hypomagnesemia, which is being repleted. No new imaging data. ASSESSMENT AND PLAN: 1. Sepsis due to Proteus bacteremia, Pseudomonas UTI, MRSA left leg below-knee amputation wound site infection. First day of negative blood culture is February 26. Continue intravenous daptomycin, intravenous ceftazidime as per ID recommendation. Surgery team is planning likely above-knee amputation on March 05. 2. Paroxysmal atrial fibrillation with rapid ventricular rate currently well controlled on carvedilol, amiodarone. Holding apixaban considering surgery on Tuesday. 3. History of severe peripheral artery disease, status post left-sided below-knee amputation and now right-sided heel pressure ulcer. Continue pain management with as needed oxycodone, docusate with MiraLAX to avoid constipation. 4. Acute encephalopathy because of severe hypoglycemia on presentation because of use of oral hypoglycemic agent at rehab and poor p.o. intake requiring intravenous dextrose during earlier part which I stopped on March 02. Continue to monitor frequent blood sugars. If the sugars remains in acceptable range on p.o. intake, we would not give any more intravenous fluids. 5. Other issues: Chronic kidney disease stage 3 appears to be at baseline, continue pravastatin for hyperlipidemia with omega-3 fatty acids, mirtazapine for insomnia. DISPOSITION: The patient remains inside [facility] as I monitor his blood sugars. If his blood sugars remain acceptable, p.o. intake with adequate p.o. intake, my plan is to transfer him to routine surgical floor on tomorrow. I had called the patient's son yesterday and had informed him about patient's clinical condition and answered all of his questions. cc: Akil Monaco MD
[2019-03-03] MEDS: CUBICIN 500 MG in NS 100 ML IV SCH (12:30)
[2019-03-03] MEDS: FISH OIL CONCENTRATE PO SCH (21:06)
[2019-03-03] MEDS: REMERON PO SCH (21:07)
[2019-03-03] MEDS: PRAVACHOL PO SCH (21:07)
[2019-03-03] MEDS: XALATAN 0.005% OPH SOLN RIGHT EYE SCH (21:08)
[2019-03-04] MEDS: TAZIDIME 1 GM in NS 50 ML IV SCH ×3 (01:22→17:42)
[2019-03-04] MEDS: PRILOSEC PO SCH (06:04)
[2019-03-04] MEDS: COREG PO SCH ×2 (08:31→20:57)
[2019-03-04] MEDS: K-PHOS PO SCH ×3 (08:31→17:42)
[2019-03-04] MEDS: MIRALAX PO SCH (08:31)
[2019-03-04] MEDS: COLACE PO SCH (08:32)
[2019-03-04] MEDS: SANTYL OINT TOP SCH ×2 (08:32→20:58)
[2019-03-04] MEDS: PATIENT'S OWN MED PO SCH ×2 (08:32→21:51)
[2019-03-04] MEDS: CORDARONE PO SCH (08:32)
--- NOTE | 2019-03-04 09:51 | PROGRESS NOTE ---
DATE: 03/04/2019 INTERVAL HISTORY: No acute events overnight. The patient states that he has been eating better than before. He is denying any chest pain, nausea, vomiting, or abdominal pain. We discussed about possible surgical plan tomorrow. I answered all of his questions. I also called patient's son and informed him about the patient's clinical condition. OBJECTIVE: Vitals: Detect temperature of 99 degrees, pulse 68, respiratory rate 15, blood pressure 140/87, saturating 96% on room air. General: He does not appear in any acute distress. HEENT: Oral cavity is moist. Mild conjunctival pallor. No cyanosis, clubbing, or icterus. Lungs: Air entry bilaterally equal. No wheeze, rhonchi, or crackles. Systolic crescendo- decrescendo murmur affecting second intercostal space on the right side, accentuated during expiration and mid systolic murmur affecting mitral region. Abdomen: Soft, nontender. Extremities: He has right upper extremity PICC line. Right lower extremity dorsalis pedis and posterior tibial pulses are difficult to palpate, however, has he has good capillary refill. He has 5 x 5 cm black necrotic eschar ulcer on the right heel which is closed without any oozing. Left lower extremity has below-knee amputation which is bandaged. On my previous examination, the suture line appeared necrotic with some thick eschar formation and a pus discharge coming out. He has a urine catheter. Neurologic: He is alert. He is oriented to himself and place, and to some extent to the situation. LABORATORY: No new lab data. His blood sugars have been 159. ASSESSMENT AND PLAN: 1. Sepsis due to Proteus bacteremia, Pseudomonas UTI, MRSA left leg below-knee amputation wound site infection, 1st day of negative blood cultures February 26. Continue intravenous daptomycin, intravenous ceftazidime as per Infectious Disease recommendation. He is likely to undergo left above-knee amputation on March 05. His Eliquis is on hold. 2. Paroxysmal atrial fibrillation with rapid ventricular rate. Continue his carvedilol and amiodarone and continue to hold apixaban for possible surgery tomorrow. 3. Acute encephalopathy because of severe hypoglycemia on presentation because of use of oral glycemic agent at rehab with poor p.o. intake, requiring intravenous dextrose drip, which has been stopped since Radha 5. Continue to monitor frequent blood sugars and continue to encourage p.o. intake. 4. History of severe peripheral artery disease, status post left-sided below-knee amputation and now right-sided heel pressure ulcer. Continue pain management with as-needed oxycodone, docusate and MiraLAX to avoid constipation. 5. Others. CKD stage 3 appears to be at baseline; continue pravastatin for hyperlipidemia with omega-3 fatty acids; mirtazapine for insomnia. DISPOSITION: I will consider transferring patient out to surgical floor since his blood sugars have been in acceptable range. Plan of care discussed with patient's son on phone. All of his questions have been answered. The patient's son requested to be notified whenever the surgical plan and timing becomes clear. cc: Akil Monaco MD
[2019-03-04] MEDS: CUBICIN 500 MG in NS 100 ML IV SCH (11:59)
[2019-03-04 14:52] LABS: INR 1.11; PROTIME 15.2 Seconds (11.0-16.0)
[2019-03-04] MEDS: FISH OIL CONCENTRATE PO SCH (20:57)
[2019-03-04] MEDS: REMERON PO SCH (20:57)
[2019-03-04] MEDS: PRAVACHOL PO SCH (20:57)
[2019-03-04] MEDS: NORCO-10 PO PRN (20:57)
[2019-03-04] MEDS: XALATAN 0.005% OPH SOLN RIGHT EYE SCH (20:58)
[2019-03-05] MEDS: TAZIDIME 1 GM in NS 50 ML IV SCH ×2 (01:48→08:50)
[2019-03-05 05:14] LABS: BASO# 0.02 X1000 (0.0-0.2); BASO% 0.2 % (0.0-0.8); EOS# 0.37 X1000 (0.0-0.7); EOS% 4.1 % (0.0-10.0); HEMATOCRIT 25.9 % (42.0-52.0); HEMOGLOBIN 8.1 g/dL (14.0-18.0); IMM GRAN# 0.04 X1000 (0.0-0.04); IMM GRAN% 0.4 % (0.0-0.5); LYMPH# 3.62 X1000 (1.2-3.4); LYMPH% 40.6 % (20.5-51.1); MCH 29.9 PG (27-31); MCHC 31.3 g/dL (33-37); MCV 95.6 FL (81-99); MONO# 1.01 X1000 (0.11-0.59); MONO% 11.3 % (1.7-9.3); MPV 8.9 FL (7.4-10.4); NEUT# 3.86 X1000 (1.4-6.5); NEUT% 43.4 % (42.2-75.2); PLT 436 X1000 (130-400); RBC 2.71 XMIL (4.7-6.1); RDW 15.2 % (11.5-14.5); WBC 8.92 X1000 (4.8-10.8)
[2019-03-05 05:38] LABS: CALCIUM 7.9 mg/dL (8.8-10.2); MAGNESIUM 2.1 mg/dL (1.5-2.7); PHOSPHORUS 3.1 mg/dL (2.7-4.5); POTASSIUM 4.2 mmol/L (3.5-5.1)
[2019-03-05] MEDS: PRILOSEC PO SCH (06:13)
[2019-03-05] MEDS: COREG PO SCH ×2 (08:04→21:51)
[2019-03-05] MEDS: PATIENT'S OWN MED PO SCH (09:38)
[2019-03-05] MEDS: MIRALAX PO SCH (09:38)
[2019-03-05] MEDS: COLACE PO SCH (09:38)
[2019-03-05] MEDS: SANTYL OINT TOP SCH (09:41)
[2019-03-05] MEDS: CORDARONE PO SCH (09:41)
--- NOTE | 2019-03-05 10:13 | INFECTIOUS DISEASE PROGRESS NO ---
DATE: 03/05/2019 SUBJECTIVE: The patient has the following infections: 1. Proteus bacteremia, which may have arisen from the patient's right heel. 2. Pseudomonas urinary tract infection. 3. Methicillin-resistant staph aureus infection of the patient's left xsofb-gjo-ucig amputation site. MEDICATIONS: This is the 7th day of treatment with a combination of daptomycin and ceftazidime. OBJECTIVE: Vital Signs: Temperature is 98.8 degrees, pulse 67, respirations 15, blood pressure 175/52. General: This is an ill-appearing, elderly male. He is in no acute distress. He is lethargic. Head, eyes, ears, nose and throat: He can hear my spoken words and see near objects. He does not have any white patches on his tongue. Neck: He does not have any pain when he moves his head. The patient has a left jugular vein catheter in place. Lungs: Clear to auscultation. Cardiovascular: Heart rate is regular with a systolic murmur. Abdomen: Soft and nontender. Extremities: Neurologic: The patient is lethargic, but he can move his extremities. There is no tremor. Extremities: The patient's left gohnk-vqq-awpp amputation site is erythematous and purulent, and the wound is . The patient's right heel is erythematous, plus it has black discoloration as well. The patient also has a PICC in his right arm. The site is not erythematous or draining. LABORATORY AND X-RAY: There is no x-ray for new x-ray for today. CBC shows a white count of 8920, hemoglobin 8.1, and platelet count 436,000. Creatinine is 2. GFR is 32. CK is 51. ASSESSMENT AND PLAN: 1. Patient has a Proteus bacteremia, Pseudomonas urinary tract infection and a methicillin- resistant Staph aureus infection of the patient's left cgjmb-agg-irrc amputation site. My plan is to continue with the antibiotics. Dr. Choi is going to be converting the patient's AKA i.e. an okmoc-llk-kppf amputation from a orkhh-djq-jbqm amputation site. Also, I had asked him to look at the patient's right heel and possibly see if any type of surgery is indicated on that as well. 2. Comorbidities: The patient is elderly. He has diabetes mellitus, chronic kidney disease and peripheral vascular disease. cc: Zak Russo MD
--- NOTE | 2019-03-05 11:58 | PROGRESS NOTE ---
DATE: 03/05/2019 INTERVAL HISTORY: No acute events overnight. Vitals have been unremarkable. SUBJECTIVE: Patient denies any chest pain, shortness of breath, nausea/vomiting, abdominal pain. He appears frustrated since he does not know the surgical plan. I explained to him that we are waiting surgeon's recommendation before we could give him next the schedule of the surgery. OBJECTIVE: Temperature 98.9 degrees, pulse 63, respiratory rate 16, blood pressure 150/48, saturating 93% on room air. On physical examination, he does not appear in any acute distress. Oral cavity is moist. No pallor, cyanosis, clubbing, or icterus. Air entry bilaterally equal. No wheeze, rhonchi, crackles. S1, S2 normal. Systolic crescendo-decrescendo murmur affecting second intercostal space on the right side, accentuated during expiration, and systolic murmur affecting mitral region. Abdomen is soft, nontender. He has a right upper extremity PICC line. Right lower extremity dorsalis pedis and posterior tibial pulses are difficult to palpate with good capillary refill. He has about 5 x 5 cm dry ischemic ulcer without any oozing or erythema. Left lower extremity has below-knee amputation which is bandaged. On my previous examination, it had the suture line which appeared necrotic with pussy discharge coming out.Neurologic: He is alert oriented to himself and place and to situation to some extent. DIAGNOSTIC STUDIES: Labs suggestive of normocytic anemia, thrombocytosis. Normal coagulation yesterday. Chronic kidney disease stage 3. No new microbiological data. ASSESSMENT AND PLAN: 1. Sepsis due to Proteus bacteremia, Pseudomonas urinary tract infection, methicillin-resistant Staphylococcus aureus left leg below-knee amputation wound site infection. First day of negative blood culture was February 26. Continue intravenous daptomycin, intravenous ceftazidime as per ID. He is to undergo left above-knee amputation by Surgery hopefully in the next 24 to 48 hours. 2. Paroxysmal atrial fibrillation with rapid ventricular rate. Continue home carvedilol, amiodarone and hold apixaban for possible surgery. 3. Acute encephalopathy because of severe hypoglycemia on presentation because of oral hypoglycemic agent at rehabilitation with poor p.o. intake; requiring intravenous dextrose drip until March 02. Currently, he appears to be close to his baseline. Continue to monitor frequent blood sugars and continue to encourage p.o. intake. 4. History of severe peripheral artery disease, status post left-sided below- knee amputation, and now right-sided heel pressure ulcer. Continue pain management with as-needed oxycodone. Docusate and MiraLAX to avoid constipation. 5. Others: Chronic kidney disease stage 3 appears to be baseline. Continue pravastatin for hyperlipidemia with omega-3 fatty acid and mirtazapine for insomnia. DISPOSITION: I will transfer patient to medical floor. Plan of care yesterday was discussed with the patient's son. All of his questions have been answered. CODE status is DNR level 1. cc: Akil Monaco MD MTDD
[2019-03-05] MEDS: CUBICIN 500 MG in NS 100 ML IV SCH (12:23)
[2019-03-05] MEDS ORDERED: XYLOCAINE-MPF 2% ONE ×2 (13:19→13:22)
[2019-03-05] MEDS ORDERED: DIPRIVAN 1% ONE (13:19)
[2019-03-05] MEDS ORDERED: AMIDATE ONE (13:22)
[2019-03-05] MEDS ORDERED: FENTANYL ONE (14:15)
[2019-03-05] MEDS ORDERED: ZOFRAN ONE ×2 (14:21→15:29)
[2019-03-05] MEDS ORDERED: ROBINUL ONE (14:24)
[2019-03-05] MEDS ORDERED: SODIUM CHLORIDE 0.9% 10 ML ONE (14:37)
[2019-03-05] MEDS ORDERED: EPHEDRINE ONE (14:37)
[2019-03-05] MEDS ORDERED: MORPHINE IV PRN (15:53)
[2019-03-05] MEDS: NORCO-10 PO PRN ×2 (16:13→21:51)
[2019-03-05] MEDS: DILAUDID IV PRN (16:14)
--- NOTE | 2019-03-05 16:39 | OPERATIVE NOTE ---
PROCEDURE DATE: PREOPERATIVE DIAGNOSIS: Left kislq-ine-fldz amputation dehiscence and infection. POSTOPERATIVE DIAGNOSIS: Left nulap-izm-kcko amputation dehiscence and infection. PRINCIPAL PROCEDURE: Left lgsso-rdm-ajuc amputation. SURGEON: Amelia Choi MD. ANESTHESIA: General. ESTIMATED BLOOD LOSS: 75 mL. DRAINS: None. INDICATIONS: Ryan Hickey is an 83-year-old white male who I performed a left below-the- knee amputation on last month. He has known peripheral vascular disease and has undergone left owglu-jbh-mwfi femoral popliteal bypass graft. He went to rehab. He fell on the stump and it dehisced and now is infected and not healing well. We felt we needed to revise it using above-the- knee amputation stump. DESCRIPTION OF PROCEDURE: The patient was brought to the operating room, placed supine, received general anesthesia, was ventilated. He already had a Ramirez catheter tube in place. His left remaining leg and thigh were prepped and draped in a sterile field. I marked a fishmouth incision on the distal left thigh. I made the incision with a 10 blade scalpel through the skin into the subcutaneous tissue. Then I used the cautery to transect the muscle layers. As we came to blood vessels, we clamped them with Julieta clamps, and ligated them with 2-0 silk ties. I came across the distal femur with an orthopedic saw all and then I used the cautery to transect the posterior muscles. We identified the sciatic nerve and made sure that we transected it high in the amputation stump. We took time to thoroughly irrigate our left fufql-jcy-bakd amputation wound. We closed the deep muscle around the cut end of the femur after I smoothed it with a rasp. Then I brought the superficial fascia anterior to posterior together with interrupted 0 Vicryl stitches and then I closed the skin with a skin clip javascript engineer and dressings were applied. We therefore went from a kvcit-veu-byxw amputation to an pqrxv-ccr-hwox amputation in hopes that there is better blood supply and better healing at the lbwri-hos-bgkp level. Plans are for him to go the recovery room and then return to the floor. cc: Amelia Choi MD
[2019-03-05] MEDS ORDERED: LABETALOL IV PRN (18:05)
[2019-03-05] MEDS: REMERON PO SCH (21:52)
[2019-03-05] MEDS: FISH OIL CONCENTRATE PO SCH (21:52)
[2019-03-05] MEDS: PRAVACHOL PO SCH (21:53)
[2019-03-06] MEDS: DILAUDID IV PRN (00:12)
[2019-03-06] MEDS: SANTYL OINT TOP SCH ×2 (00:21→11:18)
[2019-03-06] MEDS: NORCO-10 PO PRN ×2 (03:16→09:02)
[2019-03-06] MEDS: TAZIDIME 1 GM in NS 50 ML IV SCH ×3 (03:17→17:01)
[2019-03-06 06:58] LABS: BASO# 0.03 X1000 (0.0-0.2); BASO% 0.2 % (0.0-0.8); EOS# 0.13 X1000 (0.0-0.7); HEMOGLOBIN 8.7 g/dL (14.0-18.0); IMM GRAN# 0.04 X1000 (0.0-0.04); IMM GRAN% 0.3 % (0.0-0.5); LYMPH% 19.7 % (20.5-51.1); MCH 29.6 PG (27-31); MCHC 31.1 g/dL (33-37); MCV 95.2 FL (81-99); MONO# 1.18 X1000 (0.11-0.59); MONO% 9.3 % (1.7-9.3); NEUT# 8.83 X1000 (1.4-6.5); NEUT% 69.5 % (42.2-75.2); PLT 478 X1000 (130-400); RBC 2.94 XMIL (4.7-6.1); RDW 15.3 % (11.5-14.5); WBC 12.71 X1000 (4.8-10.8)
[2019-03-06 07:01] LABS: CALCIUM 8.1 mg/dL (8.8-10.2); CREATININE 1.8 mg/dL (0.7-1.2); POTASSIUM 4.5 mmol/L (3.5-5.1)
[2019-03-06] MEDS: PRILOSEC PO SCH (07:01)
[2019-03-06] MEDS: XALATAN 0.005% OPH SOLN RIGHT EYE SCH ×2 (07:04→20:02)
[2019-03-06] MEDS: PATIENT'S OWN MED PO SCH ×3 (08:22→20:02)
[2019-03-06] MEDS: COLACE PO SCH (08:53)
[2019-03-06] MEDS: PERIDEX MT SCH ×3 (08:53→20:16)
[2019-03-06] MEDS: COREG PO SCH ×3 (08:53→20:18)
[2019-03-06] MEDS: CORDARONE PO SCH (08:53)
[2019-03-06] MEDS: MIRALAX PO SCH (08:54)
[2019-03-06] MEDS: CUBICIN 500 MG in NS 100 ML IV SCH (12:10)
--- NOTE | 2019-03-06 13:14 | PROGRESS NOTE ---
DATE: 03/06/2019 SUBJECTIVE: Mr. Hickey is now postop day 1 from a left ydmmp-rtf-dori amputation. His dressing is intact and dry left amputation stump. He is awake, cooperative. He is not eating that much. OBJECTIVE: His heart rate is 88, blood pressure 156/53, O2 saturation 95%. He is afebrile. He has no work of breathing. His white blood cell count went from 9 to 12. Hematocrit is 28%. Electrolytes, BUN is 22, creatinine 1.8. PLAN: We will start encouraging p.o. intake. His family states that he drinks vanilla Ensure well. Physical therapy needs to be a part of his recovery. We will look to get him to a retirement later this week. cc: Amelia Choi MD
--- NOTE | 2019-03-06 18:07 | INFECTIOUS DISEASE PROGRESS NO ---
DATE: 03/06/2019 PRESENT ILLNESS: The patient is being treated for a Proteus bacteremia which may have arisen from the patient's right heel. The patient also has a Pseudomonas urinary tract infection and the patient also has status post ytwbo-yvk-yflc amputation of the left leg due to infection in the left yfnmz-sed-ppzp amputation site. Methicillin-resistant Staph aureus was isolated from the from the incision. MEDICATIONS: This is the 8th day of treatment with the combination of daptomycin and ceftazidime. PHYSICAL EXAMINATION: Vital Signs: Temperature is 98.5 degrees, pulse 88, respirations 17, blood pressure 156/53. General: This is a ill-appearing elderly male. He is in no acute distress. He is somewhat lethargic. Head/eyes/ears/nose/throat: He does not have any drainage from the nose or ears. He does not have any white patches on his tongue. Neck: He does not have any pain when he moves his head. Lungs: Clear to auscultation. Cardiovascular: Heart rate is regular with a systolic murmur. Abdomen: Soft and nontender. Extremities: The patient yesterday underwent an wivra-weh-gyvr amputation of the left leg. There is a dressing on the leg. The dressing is intact. The patient's right heel still has some erythema and black discoloration. The patient has a PICC in his right arm. The site is not swollen or erythematous. LAB AND X-RAY: CBC shows a white count of 12,710, hemoglobin 8.7, platelet count 478,000. Creatinine is 1.8. GFR is 36. CK is 51. ASSESSMENT AND PLAN: I plan to continue the ceftazidime for the patient's Proteus bacteremia and Pseudomonas urinary tract infection. I am also continuing for now the patient's daptomycin until I see that the patient's bvqda-tub-dwhm amputation incision is healing well without evidence of infection. COMORBIDITIES: The patient is elderly and he has diabetes mellitus, chronic kidney disease and peripheral vascular disease. cc: Zak Russo MD
--- NOTE | 2019-03-06 18:36 | PROGRESS NOTE ---
DATE: 03/06/2019 INTERVAL HISTORY: Mr. Hickey underwent left above-knee amputation, which he tolerated well. SUBJECTIVE: He does not appear in any undue pain. He denies any new complaints. He is not able to remember the hospital course properly; however, he is alert but not entirely oriented with the situation. OBJECTIVE: Vitals: Temperature 97.9 degrees, pulse 76, respiratory rate 15, blood pressure 135/48, saturating 97% on room air. In general, he does not appear in any acute distress. Oral cavity is moist. Mild conjunctival pallor. No cyanosis, clubbing, or icterus. Air entry bilaterally equal. No wheeze, rhonchi, crackles. S1, S2 normal. Systolic crescendo-decrescendo murmur affecting second intercostal space in the right side. Systolic crescendo accentuated during expiration and systolic murmur affecting mitral region. Abdomen is soft, nontender. He has right upper extremity PICC line. Right lower extremity dorsalis pedis and posterior tibial pulses are difficult to palpate, but good capillary refill. He has about 5 x 5 cm dry ischemic ulcer without any oozing or erythema. Left lower extremity has above-knee amputation which is bandaged. He is alert to himself. He can recognize the place, that this is a hospital, not entirely with the situation. He is not agitated. He is calm. LABORATORIES: Suggestive of leukocytosis, normocytic anemia, normal platelet count. Normal electrolytes, except what appears to be chronic kidney disease stage 3. He has not been eating a lot. I encouraged him that he should eat. ASSESSMENT AND PLAN: 1. Sepsis due to Proteus bacteremia, Pseudomonas urinary tract infection, methicillin-resistant Staphylococcus aureus left leg below-knee amputation wound site infection status post left above-knee amputation on March 05. First set of negative blood culture was February 26. Continue intravenous daptomycin and intravenous ceftazidime as per ID recommendation. We will appreciate further antibiotics management plan. 2. Paroxysmal atrial fibrillation with rapid ventricular rate, currently rate well controlled on carvedilol, amiodarone. I will continue to hold apixaban for now. If he does not have any more drop in hemoglobin, my plan is to resume Eliquis tomorrow night. 3. Acute encephalopathy because of severe hypoglycemia on presentation because of oral hypoglycemic agent use at rehabilitation with poor p.o. intake, requiring intravenous dextrose drip until March 02, now resolved. He does have baseline cognitive impairment, and currently he appears to be close to his baseline with intermittent confusion, likely related to hospital- acquired delirium. Continue to encourage p.o. intake and frequent blood sugar checks. 4. History of severe peripheral arterial disease status post left-sided above-knee amputation, stable. He does have right-sided heel ischemic pressure ulcer which is not oozing or not infected, and for now, medical management including keeping it off pressure. Continue docusate and MiraLAX to avoid constipation. Continue intravenous hydromorphone as needed for pain of the left above-knee amputation. 5. Others: Chronic kidney disease, stage 3 ,appears to be at baseline. Pravastatin for hyperlipidemia with omega-3 fatty acids and mirtazapine for insomnia. DISPOSITION: The patient remains inside the hospital as we manage his postoperative course. The plan will be to eventually send him to a [facility] facility. Plan of care discussed with the patient. All of his questions have been answered. cc: Akil Monaco MD
[2019-03-06] MEDS: REMERON PO SCH ×2 (20:00→20:17)
[2019-03-06] MEDS: FISH OIL CONCENTRATE PO SCH ×2 (20:00→20:17)
[2019-03-06] MEDS: PRAVACHOL PO SCH ×2 (20:00→20:19)
[2019-03-07] MEDS: TYLENOL PO PRN (00:28)
[2019-03-07] MEDS: TAZIDIME 1 GM in NS 50 ML IV SCH ×3 (00:32→16:40)
[2019-03-07 06:37] LABS: BASO# 0.02 X1000 (0.0-0.2); BASO% 0.2 % (0.0-0.8); EOS# 0.16 X1000 (0.0-0.7); EOS% 1.5 % (0.0-10.0); HEMOGLOBIN 7.6 g/dL (14.0-18.0); IMM GRAN# 0.03 X1000 (0.0-0.04); IMM GRAN% 0.3 % (0.0-0.5); LYMPH# 2.97 X1000 (1.2-3.4); LYMPH% 27.4 % (20.5-51.1); MCH 29.5 PG (27-31); MCHC 30.4 g/dL (33-37); MCV 96.9 FL (81-99); MONO# 1.25 X1000 (0.11-0.59); MONO% 11.5 % (1.7-9.3); MPV 9.2 FL (7.4-10.4); NEUT# 6.42 X1000 (1.4-6.5); NEUT% 59.1 % (42.2-75.2); PLT 468 X1000 (130-400); RBC 2.58 XMIL (4.7-6.1); RDW 15.7 % (11.5-14.5); WBC 10.85 X1000 (4.8-10.8)
[2019-03-07 06:52] LABS: CREATININE 2.1 mg/dL (0.7-1.2); PHOSPHORUS 2.5 mg/dL (2.7-4.5); POTASSIUM 4.4 mmol/L (3.5-5.1)
[2019-03-07] MEDS: HUMULIN R SUBQ SCH ×4 (07:59→22:14)
[2019-03-07] MEDS: MIRALAX PO SCH (09:29)
[2019-03-07] MEDS: PERIDEX MT SCH ×2 (09:29→22:06)
[2019-03-07] MEDS: COREG PO SCH ×2 (09:29→22:07)
[2019-03-07] MEDS: CORDARONE PO SCH (09:29)
[2019-03-07] MEDS: COLACE PO SCH (09:30)
[2019-03-07] MEDS: PATIENT'S OWN MED PO SCH (09:38)
[2019-03-07] MEDS: SANTYL OINT TOP SCH ×3 (09:40→22:07)
[2019-03-07] MEDS: CUBICIN 500 MG in NS 100 ML IV SCH (12:12)
[2019-03-07] MEDS: DILAUDID IV PRN ×3 (13:00→22:06)
[2019-03-07] MEDS: D5 LR 1,000 ML IV SCH (18:01)
--- NOTE | 2019-03-07 18:28 | PROGRESS NOTE ---
DATE: 03/07/2019 INTERVAL HISTORY: I was informed by the nursing team that he was inappropriate with his behavior with the nursing team, and he did not want to eat and he started spitting up against the nursing team providers. SUBJECTIVE: When I entered he was video-calling his friend's grandchildren and he appeared very pleasant. He appears more alert than he has been over the last couple of days. He was asking me when was the amputation performed and he did not know about it. I again reoriented him about the situation and answered all of his questions; however, when I asked where does he live, he said he does not know. OBJECTIVE: Currently vital signs detect temperature of 98.1 degrees, pulse 81, respiratory rate 18, blood pressure 150/45, saturating 98% on room air. On physical examination, mild conjunctival pallor. No cyanosis, clubbing or icterus. Air entry bilaterally equal. No wheeze, rhonchi or crackles. S1, S2 normal. Systolic crescendo-decrescendo murmur affecting 2nd intercostal space on the right side, accentuated during expiration, systolic crescendo-decrescendo murmur affecting mitral region as well. Abdomen is soft, nontender. He has right upper extremity PICC line. Right lower extremity dorsalis pedis and posterior tibial pulses are difficult to palpate, but good capillary refill. He has 5 x 5 cm dry ischemic ulcer without any oozing or erythema on the right heel. Left lower extremity has above-knee amputation. The site has sutures on it, which does not appear to be infected. He has minimal pain at the stump site. LABORATORY DATA: Labs suggestive of mild leukocytosis, normocytic anemia, normal thrombocytosis, what appears to be chronic kidney disease stage 3. The patient has had poor p.o. intake, for which I have started him on dextrose, lactated Ringer as well. ASSESSMENT AND PLAN: 1. Sepsis due to Proteus bacteremia, pseudomonas urinary tract infection, methicillin-resistant Staphylococcus aureus left leg below-knee amputation wound site infection, status post left above-knee amputation on 03/05. First set of negative blood cultures was 02/26, of which the source was unclear. Continue intravenous daptomycin, intravenous ceftazidime as per Infectious Disease recommendation. I will appreciate further antibiotic management plan. He does have right-sided peripherally inserted central catheter line. 2. Paroxysmal atrial fibrillation with rapid ventricular rate, currently rate well controlled on carvedilol and amiodarone. Continue to hold apixaban. I will appreciate Surgery recommendations about restarting apixaban tomorrow. 3. Acute encephalopathy because of severe hypoglycemia, because of use of oral hypoglycemic agent with poor p.o. intake at the rehabilitation at the time of initial part of hospital admission, requiring intravenous dextrose drip, now resolved. He is off intravenous dextrose drip since 03/02; however, considering his poor p.o. intake, I would resume his intravenous fluids and encourage him to take by mouth. He does have intermittent confusion and disorientation, likely in the setting of hospital-acquired delirium. 4. History of severe peripheral artery disease, status post left-sided above- knee amputation now, stable. His right heel ischemic pressure ulcer is intact and does not need any surgical management at the moment. Continue intravenous pain medications and docusate and MiraLAX to avoid constipation. 5. Others: Acute kidney injury on chronic kidney disease stage 3. Start the patient on intravenous fluids, continue pravastatin for hyperlipidemia and [place]-3 fatty acids, and mirtazapine for insomnia. 6. Disposition: The patient remains inside the hospital for postoperative course management. [facility] has been consulted for possible rehab placement. I will await Infectious Disease recommendation about antibiotic plan and once it is okay from Surgery, we will consider discharging him to [facility]. I had informed the patient's son about his clinical course the day before yesterday, and his questions were answered. I could not update him today since it was too late in the day. cc: Akil Monaco MD MTDD
--- NOTE | 2019-03-07 19:16 | INFECTIOUS DISEASE PROGRESS NO ---
DATE: 03/07/2019 PRESENT ILLNESS: Mr. Hickey is being treated for a Proteus bacteremia, a Pseudomonas urinary tract infection, and a methicillin-resistant Staphylococcus aureus infection from the previous left jhbtb-imq-anqh amputation. Patient is status post left liuoi-bru-hyir amputation due to left nskme-esn-qpam amputation dehiscence and infection with MRSA. MEDICATIONS: He is receiving ceftazidime 1 g IV every 8 hours and daptomycin 500 mg IV daily. PHYSICAL EXAMINATION: Vital Signs: Temperature is 98.1 degrees, pulse rate 89, respiratory rate 16, blood pressure 153/45, O2 saturation 95% on room air. General: This is an elderly, chronically ill-appearing gentleman. He is sitting up in the bed, currently in no acute distress. HEENT: Atraumatic, normocephalic. Oral mucous membranes are pink and moist. Conjunctivae are pale. Cardiovascular: Heart rate and rhythm are regular. Normal sinus rhythm on the monitor. There is a systolic murmur noted. Respiratory: Lung sounds are clear to auscultation in the upper lobes, diminished in the bases. Abdomen: Soft, round, nontender. Bowel sounds are active. Neurologic: He is awake, alert and appropriate; however, he is forgetful and does state that he did not recall that he had had this surgery and was surprised when he looked down to see his new incision. He is able to move around in the bed with generalized weakness. Integumentary: The incision line to his left aetop-rtk-pekt amputation has violet, which are intact. No erythema or edema is noted. There is also some erythema and eschar noted to the right heel. He also has a PICC line to the right upper arm. That site is without edema, erythema, or drainage. LABORATORY AND X-RAY: Today's white count is 10.85, hemoglobin 7.6, platelet count 468,000. Creatinine is 2.1. GFR is 30. His urine has grown a Pseudomonas aeruginosa. The left leg has grown a methicillin-resistant Staph aureus, and his blood culture has grown a Proteus mirabilis. No imaging reports today. ASSESSMENT AND PLAN: Mr. Hickey is being treated for a bacteremia, urinary tract infection, and methicillin-resistant Staphylococcus aureus infection of his left kthjo-mjy-ijhx amputation, which has since been transitioned to an cwhef-ehw-qxim amputation. He is receiving daptomycin and ceftazidime, which we will continue at this time. These plans have been discussed with and recommended by Dr. Russo. COMORBIDITIES: For Mr. Hickey include that he is elderly with diabetes mellitus, chronic kidney disease and peripheral vascular disease. Dictated by TALIB Harris for Zak Russo MD cc: Zak Russo MD [facility]
[2019-03-07] MEDS: FISH OIL CONCENTRATE PO SCH (22:06)
[2019-03-07] MEDS: PRAVACHOL PO SCH (22:06)
[2019-03-07] MEDS: REMERON PO SCH (22:06)
[2019-03-07] MEDS: XALATAN 0.005% OPH SOLN RIGHT EYE SCH (22:08)
[2019-03-08] MEDS: TAZIDIME 1 GM in NS 50 ML IV SCH ×3 (02:00→17:43)
[2019-03-08] MEDS: HUMULIN R SUBQ SCH ×3 (07:22→23:09)
[2019-03-08] MEDS: PRILOSEC PO SCH (07:23)
[2019-03-08] MEDS: MIRALAX PO SCH (08:49)
[2019-03-08] MEDS: CORDARONE PO SCH (08:50)
[2019-03-08] MEDS: PERIDEX MT SCH ×2 (08:50→23:08)
[2019-03-08] MEDS: COREG PO SCH ×2 (08:50→23:08)
[2019-03-08] MEDS: COLACE PO SCH (08:50)
[2019-03-08] MEDS: DILAUDID IV PRN ×2 (08:50→17:43)
--- NOTE | 2019-03-08 08:58 | PROGRESS NOTE ---
DATE: 03/08/2019 Mr. Hickey's left ukwdb-awp-quhx amputation stump is intact, and appears to be healing thus far without infection. Pressure ulcer involving his right heel appears to be clean without any undrained purulence. He does have a small eschar on the back of his right heel. We are trying to avoid any weight on that heel. From a surgical standpoint, it is okay to begin with physical therapy and consider rehab placement. cc: Amelia Choi MD
[2019-03-08] MEDS: D5 LR 1,000 ML IV SCH (12:26)
[2019-03-08] MEDS: SANTYL OINT TOP SCH (12:28)
[2019-03-08] MEDS: CUBICIN 500 MG in NS 100 ML IV SCH (12:38)
--- NOTE | 2019-03-08 17:45 | PROGRESS NOTE ---
DATE: 03/08/2019 SUBJECTIVE: Mr. Hickey refers to be fairly stable. Still has some mild discomfort in the left stump but for the most part, he feels well. OBJECTIVE: Vital signs: Blood pressure is 165/53, pulse of 73, respirations 16, temperature 98.8 degrees. General: Mr. Hickey is an 83-year-old male. He was in bed, no distress. HEENT: Mucosa is pink and moist. Anicteric. Acyanotic. Neck: Supple. Chest: Good air entry bilaterally. There were no crepitations. No rhonchi. Cardiovascular: Regular rate and rhythm. Questionable murmur. GI: Abdomen is soft, nontender. Bowel sounds present. HEREDITARY CANCER PROGRAM COORDINATOR: Patient is awake, alert, and oriented. Extremities: There is a left AKA. The stump is well healed with surgical clips. LABORATORY DATA: Glucose is 210. ASSESSMENT: 1. Sepsis with Proteus bacteremia, Pseudomonas urinary tract infection and methicillin-resistant Staphylococcus aureus wound infection of the left below-knee. The patient is currently left above-knee amputation. Subsequent blood cultures have been 5 days negative. The patient is currently on ceftazidime and daptomycin and follows up with ID. 2. Paroxysmal atrial fibrillation. Currently rate controlled on carvedilol and amiodarone. 3. Acute encephalopathy, resolved. 4. History of peripheral vascular disease, status post left above-knee amputation. 5. Chronic kidney disease stage 3A to B, stable. 6. Disposition. Still pending rehab placement. cc: Vinny Ramos MD
[2019-03-08] MEDS: PRAVACHOL PO SCH (23:08)
[2019-03-08] MEDS: FISH OIL CONCENTRATE PO SCH (23:08)
[2019-03-08] MEDS: REMERON PO SCH (23:08)
[2019-03-09] MEDS: TAZIDIME 1 GM in NS 50 ML IV SCH ×4 (02:01→16:49)
[2019-03-09] MEDS: SANTYL OINT TOP SCH (05:59)
[2019-03-09] MEDS: PRILOSEC PO SCH ×2 (07:04→07:47)
[2019-03-09] MEDS: HUMULIN R SUBQ SCH ×5 (07:05→22:56)
[2019-03-09] MEDS: XALATAN 0.005% OPH SOLN RIGHT EYE SCH ×2 (07:08→22:56)
[2019-03-09 08:31] LABS: BASO# 0.02 X1000 (0.0-0.2); BASO% 0.2 % (0.0-0.8); EOS# 0.28 X1000 (0.0-0.7); EOS% 3.3 % (0.0-10.0); HEMOGLOBIN 8.2 g/dL (14.0-18.0); IMM GRAN# 0.02 X1000 (0.0-0.04); IMM GRAN% 0.2 % (0.0-0.5); LYMPH# 3.03 X1000 (1.2-3.4); LYMPH% 35.4 % (20.5-51.1); MCH 30.4 PG (27-31); MCHC 31.5 g/dL (33-37); MCV 96.3 FL (81-99); MONO# 0.86 X1000 (0.11-0.59); MONO% 10.1 % (1.7-9.3); MPV 9.1 FL (7.4-10.4); NEUT# 4.34 X1000 (1.4-6.5); NEUT% 50.8 % (42.2-75.2); PLT 558 X1000 (130-400); RDW 15.8 % (11.5-14.5); WBC 8.55 X1000 (4.8-10.8)
[2019-03-09] MEDS: COLACE PO SCH (08:36)
[2019-03-09] MEDS: COREG PO SCH ×2 (08:36→22:56)
[2019-03-09 08:37] LABS: CREATININE 1.5 mg/dL (0.7-1.2); POTASSIUM 4.1 mmol/L (3.5-5.1)
[2019-03-09] MEDS: MIRALAX PO SCH (08:37)
[2019-03-09] MEDS: CORDARONE PO SCH (08:37)
--- NOTE | 2019-03-09 08:57 | PROGRESS NOTE ---
DATE: 03/09/2019 Mr. Ryan Hickey's left ddtah-pwk-lliq amputation seems to be healing well. It is intact with skin clips and those skin clips need to stay probably for another 2 to 3 weeks. His right heel eschar is dry without evidence of infection. It actually seems to be getting smaller. He has been good about keeping his weight off of it. His white blood cell count is now normal. His hematocrit is 26%. cc: Amelia Choi MD
--- NOTE | 2019-03-09 12:31 | INFECTIOUS DISEASE PROGRESS NO ---
DATE: 03/09/2019 PRESENT ILLNESS: Mr. Hickey has a Proteus bacteremia. There is also a Pseudomonas urinary tract infection; however, this is asymptomatic. He also had previously grown methicillin- resistant Staph aureus to his left kpyco-kpx-wlib amputation, which has been transitioned to an hhzzx-cfw-njeh amputation on this admission by Dr. Choi. MEDICATIONS: He has been receiving ceftazidime 1 g IV every 8 hours, and daptomycin 500 mg IV daily. Based on his sterile blood cultures, today is day 11 of his treatment for the bacteremia. PHYSICAL EXAMINATION: Vital Signs: Temperature is 98.7 degrees, pulse rate 68, respiratory rate 20, blood pressure 164/53, O2 saturation is 97% on room air. General: This is an elderly, chronically-ill appearing man gentleman. He is confused and mumbling unintelligibly this morning. HEENT: Atraumatic, normocephalic. Oral mucous membranes are pink and moist. Conjunctivae are pale. Cardiovascular: Heart rate and rhythm are regular. Normal sinus rhythm on the monitor. Systolic murmur is noted. Respiratory: Lung sounds are generally clear to auscultation, diminished in the bases. Abdomen: Soft, round, nontender. Bowel sounds are active. Integumentary: The incision line to his left gubgp-iyh-bldb amputation has violet which are dry and intact and open to air. There is no erythema or edema noted. He does have erythema and eschar to the right heel, and a PICC line to his right upper arm. That site is without edema or erythema. LABORATORY AND X-RAY: Today his white count is 8.55, hemoglobin 8.2, platelet count 558,000, creatinine is 1.5. GFR is 45. His previous blood cultures have grown a Proteus mirabilis, and his urine grew Pseudomonas aeruginosa. Also his left leg previously grew methicillin-resistant Staphylococcus aureus, but the infected area has since been amputated. No imaging reports today. ASSESSMENT AND PLAN: Mr. Hickey is being treated for a Proteus bacteremia. Unfortunately, he does have metal in his spine which could have been infected hematogenously, so he will have to have a 6-week course of ceftazidime. Today is day 11. Also he is receiving daptomycin for his left ttrnw-huf-igqu amputation, that appears to be healing well with no signs of infection, so we will go ahead and discontinue daptomycin. These plans have been discussed with and recommended by Dr. Russo. COMORBIDITIES: For Mr. Hickey include that he is elderly and confused with diabetes mellitus, chronic kidney disease, and peripheral vascular disease. Dictated by TALIB Harris for Zak Russo MD cc: Zak Russo MD MTDD
[2019-03-09] MEDS: PERIDEX MT SCH ×2 (16:50→22:56)
--- NOTE | 2019-03-09 21:22 | PROGRESS NOTE ---
DATE: 03/09/2019 SUBJECTIVE: The patient is resting in bed; however, he is delirious. He has been hallucinating according to the son. OBJECTIVE: Vital Signs: Temperature 98.1 degrees, blood pressure 149/45, heart rate 67, respirations 20, O2 saturation 99% on room air. General: This is an elderly male lying in bed in no acute distress. Heart: S1, S2 normal. Regular rate and rhythm. Lungs: Equal air entry bilaterally. No crackles. No rales. Abdomen: Positive bowel sounds. Soft, nontender, nondistended. Extremities: There is a left AKA stump. There are violet in place. Neurologic: The patient is awake but oriented to self only. LABS: White blood cell count 8.5, hemoglobin 8.2, hematocrit 26, platelets 558,000. Sodium 135, potassium 4.1, chloride 102, CO2 25, BUN 20, creatinine 1.5. ASSESSMENT AND PLAN: 1. Bacteremia secondary to Proteus. Continue with antibiotic therapy. 2. Urinary tract infection secondary to Pseudomonas. This is likely asymptomatic. 3. Status post left hufvi-win-gtfu amputation. Continue with management as per the general surgeon. 4. Delirium. We will continue to treat the underlying infection. 5. Chronic kidney disease, stable. 6. Anemia. We will monitor closely and transfuse p.r.n. 7. Atrial fibrillation. The patient is rate controlled. Continue on Coreg and amiodarone. 8. Gastroesophageal reflux disease. Continue on Prilosec. 9. Diabetes mellitus type 2. Continue on sliding scale insulin. 10. Severe protein calorie malnutrition. The patient is not drinking the meal supplements or eating. We will start the patient on Megace and monitor his response. cc: Darline Pizano MD [facility]
[2019-03-09] MEDS: MEGACE LIQUID PO SCH (22:56)
[2019-03-09] MEDS: REMERON PO SCH (22:56)
[2019-03-09] MEDS: PRAVACHOL PO SCH (22:56)
[2019-03-09] MEDS: FISH OIL CONCENTRATE PO SCH (22:56)
[2019-03-10] MEDS: SANTYL OINT TOP SCH ×3 (00:20→22:41)
[2019-03-10] MEDS: TAZIDIME 1 GM in NS 50 ML IV SCH ×3 (01:18→17:00)
[2019-03-10] MEDS: HUMULIN R SUBQ SCH ×4 (06:29→22:39)
[2019-03-10 06:58] LABS: BASO# 0.03 X1000 (0.0-0.2); BASO% 0.3 % (0.0-0.8); EOS# 0.25 X1000 (0.0-0.7); EOS% 2.8 % (0.0-10.0); HEMOGLOBIN 7.7 g/dL (14.0-18.0); IMM GRAN# 0.03 X1000 (0.0-0.04); IMM GRAN% 0.3 % (0.0-0.5); LYMPH# 3.37 X1000 (1.2-3.4); LYMPH% 37.4 % (20.5-51.1); MCH 29.7 PG (27-31); MCHC 30.8 g/dL (33-37); MCV 96.5 FL (81-99); MONO# 0.99 X1000 (0.11-0.59); NEUT# 4.33 X1000 (1.4-6.5); NEUT% 48.2 % (42.2-75.2); PLT 593 X1000 (130-400); RBC 2.59 XMIL (4.7-6.1); RDW 15.6 % (11.5-14.5)
[2019-03-10 07:26] LABS: ALBUMIN 2.4 g/dL (3.5-5.0); CALCIUM 7.5 mg/dL (8.8-10.2); CREATININE 1.6 mg/dL (0.7-1.2); PHOSPHORUS 2.3 mg/dL (2.7-4.5)
--- NOTE | 2019-03-10 09:25 | GENERAL SURGERY PROGRESS NOTE ---
DATE: 03/10/2019 SUBJECTIVE: Mr. Hickey is a bit confused. He is afebrile, heart rate 72, blood pressure 174/45. His above-knee amputation site is healing satisfactorily. He will orient himself when questions are asked to him. His white count is down to normal. We will continue with current medications. No new interventions are planned. cc: Forrest Cha MD
[2019-03-10] MEDS: MEGACE LIQUID PO SCH ×2 (10:57→22:40)
[2019-03-10] MEDS: PERIDEX MT SCH ×2 (10:58→22:40)
[2019-03-10] MEDS: COLACE PO SCH (10:58)
[2019-03-10] MEDS: COREG PO SCH ×2 (10:58→22:41)
[2019-03-10] MEDS: CORDARONE PO SCH (10:58)
[2019-03-10] MEDS: MIRALAX PO SCH (11:44)
[2019-03-10] MEDS: PRILOSEC PO SCH ×2 (12:56→12:57)
[2019-03-10] MEDS: NORCO-10 PO PRN (16:59)
--- NOTE | 2019-03-10 20:34 | PROGRESS NOTE ---
DATE: 03/10/2019 SUBJECTIVE: The patient is resting comfortably in bed. He is confused. He keeps trying to get out of bed. OBJECTIVE: Vital Signs: Temperature 98.3 degrees, blood pressure 146/40, heart rate 66, respirations 24, O2 saturations 98% on room air. General: This is a chronically ill-appearing elderly male, lying in bed in no acute distress. Heart: S1, S2 normal. Regular rate and rhythm. Lungs: Equal air entry bilaterally. No wheezing. No rales. No rhonchi. Abdomen: Positive bowel sounds. Soft, nontender, nondistended. Extremities: The left AKA stump is healing well. The violet are intact. Neurologic: The patient is only oriented to self. LABORATORY DATA: White blood cell count 9, hemoglobin 7.7, hematocrit 25, platelets 593,000. Sodium 139, potassium 4, chloride 104, CO2 is 27, BUN 20, creatinine 1.6, glucose 173, phosphorus 2.3, magnesium 1.9, albumin 2.4. ASSESSMENT AND PLAN: 1. Bacteremia secondary to proteus. Continue on antibiotic therapy as directed by Dr. Russo. 2. Urinary tract infection secondary to pseudomonas. Aware. 3. Status post left above-knee amputation. Continue with wound care. General Surgery is following. 4. Delirium. Unchanged. Continue to treat the underlying infection. 5. Chronic kidney disease stage 3. We will continue to monitor closely. The patient is not eating well. 6. Anemia. Hemoglobin and hematocrit are drifting downward. We will check iron studies. 7. Atrial fibrillation. Continue on Coreg and amiodarone. 8. Gastroesophageal reflux disease. Continue on Prilosec. 9. Diabetes mellitus type 2. Continue on sliding scale insulin. 10. Severe protein-calorie malnutrition. The patient is on Megace; however, his appetite is still very poor. We will have to discuss this with the patient's son. cc: Darline Pizano MD MTDD
[2019-03-10] MEDS: REMERON PO SCH (22:40)
[2019-03-10] MEDS: FISH OIL CONCENTRATE PO SCH (22:40)
[2019-03-10] MEDS: PRAVACHOL PO SCH (22:41)
[2019-03-10] MEDS: XALATAN 0.005% OPH SOLN RIGHT EYE SCH (22:41)
[2019-03-11] MEDS: NORCO-10 PO PRN (01:28)
[2019-03-11] MEDS: TAZIDIME 1 GM in NS 50 ML IV SCH ×2 (01:30→09:32)
[2019-03-11] MEDS: HUMULIN R SUBQ SCH ×4 (07:06→22:05)
[2019-03-11] MEDS: PRILOSEC PO SCH (07:07)
[2019-03-11 07:08] LABS: BASO# 0.03 X1000 (0.0-0.2); BASO% 0.3 % (0.0-0.8); EOS# 0.31 X1000 (0.0-0.7); EOS% 3.6 % (0.0-10.0); HEMOGLOBIN 8.1 g/dL (14.0-18.0); IMM GRAN# 0.03 X1000 (0.0-0.04); IMM GRAN% 0.3 % (0.0-0.5); LYMPH# 3.63 X1000 (1.2-3.4); LYMPH% 41.8 % (20.5-51.1); MCH 29.9 PG (27-31); MCHC 31.2 g/dL (33-37); MCV 95.9 FL (81-99); MONO# 0.96 X1000 (0.11-0.59); MONO% 11.1 % (1.7-9.3); MPV 8.9 FL (7.4-10.4); NEUT# 3.72 X1000 (1.4-6.5); NEUT% 42.9 % (42.2-75.2); PLT 604 X1000 (130-400); RBC 2.71 XMIL (4.7-6.1); RDW 15.9 % (11.5-14.5); WBC 8.68 X1000 (4.8-10.8)
[2019-03-11 08:25] LABS: ALBUMIN 2.4 g/dL (3.5-5.0); CALCIUM 8.4 mg/dL (8.8-10.2); CREATININE 1.7 mg/dL (0.7-1.2); PHOSPHORUS 2.9 mg/dL (2.7-4.5)
[2019-03-11] MEDS: MIRALAX PO SCH (09:33)
[2019-03-11] MEDS: MEGACE LIQUID PO SCH ×2 (09:34→22:04)
[2019-03-11] MEDS: PERIDEX MT SCH ×2 (09:34→22:04)
[2019-03-11] MEDS: CORDARONE PO SCH (09:34)
[2019-03-11] MEDS: COLACE PO SCH (09:34)
[2019-03-11] MEDS: COREG PO SCH ×2 (09:34→22:04)
--- NOTE | 2019-03-11 09:35 | GENERAL SURGERY PROGRESS NOTE ---
DATE: 03/11/2019 SUBJECTIVE: Mr. Hickey is sleepy this morning, but he is arousable. OBJECTIVE: His wound looks good. PLAN: No new interventions are recommended at this time. cc: Forrest Cha MD
[2019-03-11] MEDS: NS 1,000 ML IV SCH ×2 (09:40→22:06)
[2019-03-11] MEDS: DILAUDID IV PRN ×2 (09:40→16:11)
[2019-03-11] MEDS: APRESOLINE PO SCH ×3 (09:40→22:05)
[2019-03-11] MEDS: SANTYL OINT TOP SCH ×2 (09:47→22:07)
[2019-03-11 18:31] LABS: URINE SOURCE CATH
[2019-03-11 18:40] LABS: BILIRUBIN URINE NEGATIVE (NEGATIVE); BLOOD URINE SMALL (NEGATIVE); COLOR YELLOW; GLUCOSE URINE TRACE mg/dL (NEGATIVE); KETONE URINE NEGATIVE (NEGATIVE); LEUKOCYTES URINE NEGATIVE (NEGATIVE); NITRITE URINE NEGATIVE (NEGATIVE); PH URINE 7.5; PROTEIN URINE 300 mg/dL (NEGATIVE); SP GRAVITY URINE 1.014; TURBIDITY URINE CLEAR (CLEAR); UROBILINOGEN URINE NORMAL (NORMAL)
[2019-03-11 18:41] LABS: UR EPITHELIAL CELLS <10 /HPF (<10); URINE BACTERIA NEGATIVE /HPF; URINE RBC <10 /HPF (<10); URINE WBC <10 /HPF (<10)
[2019-03-11 18:56] LABS: UR CREAT RANDOM 85.8 mg/dL (14-26)
--- NOTE | 2019-03-11 20:11 | PROGRESS NOTE ---
DATE: 03/11/2019 SUBJECTIVE: The patient is resting comfortably in bed. He has not been eating. OBJECTIVE: Vital Signs: Temperature 97.5, blood pressure 154/48, heart rate 85, respirations 20. O2 sats 93% on 2 L nasal cannula. Intake 25, output 1.2 L. General: This is a chronically ill- appearing elderly male lying in bed in no acute distress. Heart: S1, S2 normal. Lungs: Equal air entry bilaterally. No crackles. No rales. Abdomen: Positive bowel sounds. Soft, nontender, nondistended. Extremities: The patient has a left AKA stump that is clean, dry and intact. Neurologic: The patient is oriented to self only. He is able to move his extremities. LABS: White blood cell count 8.6, hemoglobin 8.1, hematocrit 26 platelets 604,000 sodium 139, potassium 4, chloride 104, CO2 24, BUN 18, creatinine 1.7, glucose 135. ASSESSMENT AND PLAN: 1. Bacteremia secondary to Proteus. Continue with antibiotic therapy. 2. Urinary tract infection secondary to Pseudomonas. Aware. 3. Status post left gusvt-irl-qkfb amputation. Continue with wound care. General Surgery is following. 4. Delirium. Continue to treat the underlying infection. 5. Acute kidney injury on chronic kidney disease. The patient's creatinine is slowly rising. We will start the patient on IV fluids and check urine studies. 6. Severe protein calorie malnutrition. The patient is refusing to eat. He is on Megace and meal supplements. 7. Atrial fibrillation. Continue with Coreg and amiodarone. 8. Anemia. 9. Diabetes mellitus type 2. Continue on sliding scale insulin. 10. GERD. Continue on Prilosec. 11. Disposition. The patient will be going to rehab once medically stable. cc: Darline Pizano MD MTDD
[2019-03-11] MEDS: REMERON PO SCH (22:05)
[2019-03-11] MEDS: PRAVACHOL PO SCH (22:05)
[2019-03-11] MEDS: FISH OIL CONCENTRATE PO SCH (22:05)
[2019-03-11] MEDS: XALATAN 0.005% OPH SOLN RIGHT EYE SCH (22:06)
[2019-03-12] MEDS: TAZIDIME 1 GM in NS 50 ML IV SCH ×4 (00:49→16:48)
[2019-03-12] MEDS: NS 1,000 ML IV SCH ×3 (00:49→13:59)
[2019-03-12] MEDS: APRESOLINE PO SCH ×3 (05:00→21:47)
[2019-03-12] MEDS: PRILOSEC PO SCH ×2 (05:10→06:55)
[2019-03-12] MEDS: NORCO-10 PO PRN ×2 (05:10→09:10)
[2019-03-12 06:27] LABS: HEMATOCRIT 25.8 % (42.0-52.0); HEMOGLOBIN 7.9 g/dL (14.0-18.0); MCH 29.7 PG (27-31); MCHC 30.6 g/dL (33-37); MPV 8.7 FL (7.4-10.4); RBC 2.66 XMIL (4.7-6.1); RDW 16.1 % (11.5-14.5); WBC 9.15 X1000 (4.8-10.8)
[2019-03-12] MEDS: HUMULIN R SUBQ SCH ×4 (06:40→21:49)
[2019-03-12 07:01] LABS: ALBUMIN 2.2 g/dL (3.5-5.0); CALCIUM 7.8 mg/dL (8.8-10.2); CREATININE 1.6 mg/dL (0.7-1.2); POTASSIUM 3.8 mmol/L (3.5-5.1)
[2019-03-12] MEDS: CORDARONE PO SCH (09:09)
[2019-03-12] MEDS: MEGACE LIQUID PO SCH ×2 (09:09→21:46)
[2019-03-12] MEDS: COREG PO SCH ×2 (09:09→21:47)
[2019-03-12] MEDS: PERIDEX MT SCH ×2 (09:09→21:46)
[2019-03-12] MEDS: COLACE PO SCH (09:10)
[2019-03-12] MEDS: MIRALAX PO SCH (09:15)
--- NOTE | 2019-03-12 09:22 | PROGRESS NOTE ---
DATE: 03/12/2019 SUBJECTIVE: Mr. Hickey's ztyoh-yun-ysut amputation wound seems to be healing well without evidence of infection or breakdown. He is in a heel protector right lower extremity because of an eschar involving the posterior aspect of his right heel. He is drinking his Glucerna shakes well. The rest of his meals, he is not taking much. Overall, I am pleased how his wounds are healing. cc: Amelia Choi MD
[2019-03-12] MEDS: SANTYL OINT TOP SCH ×2 (10:30→21:49)
--- NOTE | 2019-03-12 16:11 | INFECTIOUS DISEASE PROGRESS NO ---
DATE: 03/12/2019 PRESENT ILLNESS: The patient has a Proteus bacteremia. This is day 14 of treatment for it, which normally would be the end of the antibiotic. However, the patient has a metal on his spine and because of this he will need a prolonged treatment with ceftazidime in case the metal became infected hematogenously. Unfortunately, the patient's organism is only intermediately susceptible to Levaquin and because of that, we cannot use that antibiotic for further treatment to prevent infection on the metal on the patient's spine. MEDICATIONS: As mentioned above, the patient is receiving IV ceftazidime. This is the 14th day of treatment and the plan is to treat him for a total of 6 weeks in case the metal on his spine became infected. PHYSICAL EXAMINATION: Vital Signs: Temperature is 97.9 degrees, pulse 71, respirations 24, blood pressure 147/46. General: This is a somewhat ill-appearing, elderly male. He is in no acute distress, however. Head, eyes, ears, nose, throat: He can hear my spoken words and see near objects. He does not have any white patches on his tongue. Neck: There is no pain when he turns his head. Lungs: Clear to auscultation. Cardiovascular: Heart rate is regular. Abdomen: Soft and nontender. Extremities: The patient has a PICC in the right arm. The site is not red or swollen. The patient has a left tbqhv-xfk-okph amputation incision. The incision is intact. It is not red or draining. The patient also has a dry, black eschar on his right heel with a little surrounding erythema. LAB AND X-RAY: CBC today shows a white count of 9,150, hemoglobin 7.9, platelet count 546,000. Creatinine is 1.6. GFR is 42. There is no new radiographic study today. ASSESSMENT AND PLAN: The patient has a Proteus bacteremia. I need to continue the patient's treatment for a total of 6 weeks because of the fact that there is metal in the patient's spine. The only organism that would work by mouth would be levofloxacin. However, the susceptibility in this situation is only intermediate and therefore it is not appropriate to use that antibiotic. As regarding the patient's right heel, at this time no surgery is anticipated by Dr. Choi for the heel and the patient is on long-term antibiotics. COMORBIDITIES: He has diabetes mellitus. He is elderly. He has chronic kidney disease and he also has peripheral vascular disease. cc: Zak Russo MD MTDD
--- NOTE | 2019-03-12 16:17 | PROGRESS NOTE ---
DATE: 03/12/2019 SUBJECTIVE: Mr. Hickey is an 83-year-old male who has Proteus bacteremia and Pseudomonas urinary tract infection and is also status post left above the knee amputation. He is currently being followed by Dr. Russo with Infectious Disease and Dr. Choi with Surgery. No issues noted overnight by the nursing staff. The patient himself is a poor historian and cannot give much in the way of history. He is resting in bed comfortably without distress noted. OBJECTIVE: VITAL SIGNS: Blood pressure 147/46, heart rate 71, respiratory rate 24, O2 saturation 99% on room air, temperature is 97.9. GENERAL: This is an elderly 83-year-old male lying in the hospital bed in no acute distress. NEUROLOGIC: The patient is oriented to self only. He does follow commands with no focal deficits. HEENT: Head is atraumatic and normocephalic. His right pupil is quite dilated and irregular, but this is chronic. Minimal light response noted. The left pupil is round and reactive to light. NECK: Supple. Trachea is midline. No JVD. CHEST: Clear to auscultation. CARDIOVASCULAR: Regular rate and rhythm. S1, S2 is noted. No murmurs. ABDOMEN: Soft, nondistended, nontender. Bowel sounds are hypoactive. EXTREMITIES: Left AKA noted, staple lines are clean, dry, and intact without dehiscence. There is good approximation of the wound. There is no erythema or purulence to the wound bed. Femoral pulses are intact. DIAGNOSTIC DATA: WBC 9.15, hemoglobin 7.9, hematocrit 25.8, platelet count is 546. Sodium 138, potassium 3.8, chloride 107, CO2 22, anion gap 9, BUN 18, creatinine 1.6, glucose 146, calcium 7.8, albumin 2.2. ASSESSMENT AND PLAN: 1. Proteus bacteremia resistant to Levaquin and Bactrim: He is on day #14 of intravenous antibiotics, followed by Dr. Russo. 2. Left above the knee amputation: Wound looks good. Surgery is following. Wound Care is following as well. 3. Pseudomonas urinary tract infection: Continue the above antibiotics, Dr. Russo is following. 4. Acute kidney injury: Creatinine is improved from yesterday but is actually well below his baseline, so we will continue to monitor that. 5. Worsening anemia: Likely chronic disease related. Will make sure iron studies are up to date and treat accordingly. 6. Paroxysmal atrial fibrillation: Continue Coreg and amiodarone. 7. Diabetes mellitus, stable: Continue medications. 8. Gastroesophageal reflux disease: Continue Prilosec. Overall stable. DISPOSITION: The patient will be going to rehab once cleared by Infectious Disease and Surgery. Dictated by TALIB Schmitz for Duane Monk MD cc: TALIB Schmitz MD [facility]
--- NOTE | 2019-03-12 17:58 | PROGRESS NOTE ---
DATE: 03/12/2019 OBJECTIVE: Blood pressure 144/42, heart rate 68, respiratory rate 20. The patient is very weak overall. ASSESSMENT AND PLAN: He has a Proteus mirabilis bacteremia. He is on day 14 of IV ceftazidime per Dr. Russo. He also has a Pseudomonas urinary tract infection. He is on the same antibiotic. He has a left above-knee amputation. We are looking at rehabilitation opportunities, but I think insurance has denied retirement facility, and we will continue to follow. This is a face-to- face encounter note with Pineda Mathews. cc: Duane Monk MD
[2019-03-12] MEDS: REMERON PO SCH (21:47)
[2019-03-12] MEDS: PRAVACHOL PO SCH (21:47)
[2019-03-12] MEDS: FISH OIL CONCENTRATE PO SCH (21:47)
[2019-03-12] MEDS: XALATAN 0.005% OPH SOLN RIGHT EYE SCH (21:48)
[2019-03-13] MEDS: NS 1,000 ML IV SCH (02:25)
[2019-03-13] MEDS: TAZIDIME 1 GM in NS 50 ML IV SCH ×4 (02:25→16:43)
[2019-03-13] MEDS: PRILOSEC PO SCH (06:09)
[2019-03-13] MEDS: APRESOLINE PO SCH ×3 (06:09→21:44)
[2019-03-13 07:04] LABS: BASO# 0.02 X1000 (0.0-0.2); BASO% 0.2 % (0.0-0.8); EOS# 0.33 X1000 (0.0-0.7); EOS% 3.5 % (0.0-10.0); HEMATOCRIT 25.5 % (42.0-52.0); IMM GRAN# 0.03 X1000 (0.0-0.04); IMM GRAN% 0.3 % (0.0-0.5); LYMPH# 3.74 X1000 (1.2-3.4); LYMPH% 39.5 % (20.5-51.1); MCH 30.5 PG (27-31); MCHC 31.4 g/dL (33-37); MCV 97.3 FL (81-99); MONO# 0.92 X1000 (0.11-0.59); MONO% 9.7 % (1.7-9.3); MPV 8.9 FL (7.4-10.4); NEUT# 4.44 X1000 (1.4-6.5); NEUT% 46.8 % (42.2-75.2); PLT 536 X1000 (130-400); RBC 2.62 XMIL (4.7-6.1); RDW 16.8 % (11.5-14.5); WBC 9.48 X1000 (4.8-10.8)
--- NOTE | 2019-03-13 08:25 | PROGRESS NOTE ---
DATE: 03/12/2019 SUBJECTIVE: Mr. Hickey's left lkbuo-wsf-dsgr amputation site seems to be healing well without infection. He still has skin clips in place and they will need to remain for several more weeks. He has a pressure eschar involving his right heel and he is in a heel protector. We need to try to keep his weight off that area. He needs physical therapy. He also is requiring long-term IV antibiotics per Dr. Russo. cc: Amelia Choi MD
[2019-03-13 08:39] LABS: CALCIUM 7.8 mg/dL (8.8-10.2); CREATININE 1.4 mg/dL (0.7-1.2); POTASSIUM 4.2 mmol/L (3.5-5.1)
[2019-03-13] MEDS: SANTYL OINT TOP SCH ×2 (08:56→21:45)
[2019-03-13] MEDS: MEGACE LIQUID PO SCH ×2 (08:58→21:44)
[2019-03-13] MEDS: NORCO-10 PO PRN ×2 (08:59→21:58)
[2019-03-13] MEDS: COREG PO SCH ×2 (08:59→21:44)
[2019-03-13] MEDS: COLACE PO SCH (08:59)
[2019-03-13] MEDS: PERIDEX MT SCH ×2 (08:59→21:44)
[2019-03-13] MEDS: MIRALAX PO SCH (08:59)
[2019-03-13] MEDS: CORDARONE PO SCH (08:59)
[2019-03-13] MEDS: HUMULIN R SUBQ SCH ×3 (10:46→22:42)
--- NOTE | 2019-03-13 13:15 | INFECTIOUS DISEASE PROGRESS NO ---
DATE: 03/13/2019 PRESENT ILLNESS: The patient has a has a Proteus bacteremia which could have secondarily infected the metal on the patient's spine. MEDICATIONS: This is the 15th day of treatment with ceftazidime to clear the Proteus bacteremia and to hopefully kill any organisms that are on the patient's metal plates he has on his spine. PHYSICAL EXAMINATION: Vital Signs: Temperature is 97.6 degrees, pulse 72, respirations 19, blood pressure 140/38. General: This is an ill-appearing elderly male. He is in no acute distress. Head, eyes, ears, nose and throat: There is no drainage coming from his nose or ears. Neck: There is no pain when he moves his neck. Lungs: Clear to auscultation. Cardiovascular: Heart rate is regular. Abdomen: Soft and nontender. Extremities: The patient has a PICC in the right arm. The site is not erythematous or purulent. The patient has a right heel that has a dry black eschar on it with a small amount of surrounding erythema. The patient's left oadog-xrm-gslr amputation site incision is not erythematous or draining and it remains intact. LAB AND X-RAY: CBC shows a white count of 9480, hemoglobin 8, platelet count 536,000. Creatinine is 1.4. GFR is 49. There is no new radiographic study today. ASSESSMENT AND PLAN: The patient had a proteus bacteremia which could of hematogenously infected the metal on the patient's spine. I plan on continuing ceftazidine for 4 more weeks to complete a 6 week treatment. COMORBIDITIES: Diabetes mellitus. The patient is elderly. The patient has chronic kidney disease as well as peripheral vascular disease. cc: Zak Russo MD [facility]
--- NOTE | 2019-03-13 17:53 | PROGRESS NOTE ---
DATE: 03/13/2019 SUBJECTIVE: The patient is resting comfortably in bed. No acute events noted overnight. OBJECTIVE: Vital Signs: Temperature 98.6 degrees, blood pressure 150/46, heart rate 66, respirations 16, O2 saturation is 100% on room air. General: This is a chronically ill- appearing, elderly male lying in bed, in no acute distress. Heart: S1, S2 normal. Regular rate and rhythm. Lungs: Equal air entry bilaterally. No crackles. No rales. Abdomen: Positive bowel sounds. Soft, nontender, nondistended. Extremities: The patient has a left AKA stump that is clean, dry, and intact. [place] are intact. Neurologic: The patient is awake but has periods of confusion. LABS: White blood cell count 9.4, hemoglobin 8, hematocrit 25, platelets 536,000. Sodium 140, potassium 4.2, chloride 110, CO2 21, BUN 17, creatinine 1.4, glucose 138, calcium 7.8. ASSESSMENT AND PLAN: 1. Bacteremia secondary to Proteus. Continue with antibiotic therapy. 2. Urinary tract infection secondary to Pseudomonas. The patient is on appropriate antibiotic therapy. 3. Status post left teeta-khg-vnhh amputation. Continue with wound care. 4. Delirium. We will monitor closely for improvement. 5. Acute kidney injury on chronic kidney disease. Improved. Will discontinue the IV fluids. 6. Severe protein calorie malnutrition. Continue with meal supplementation as well as Megace. 7. Atrial fibrillation. Rate controlled. Continue on Coreg and amiodarone. 8. Diabetes mellitus type 2. Continue on sliding scale insulin. 9. Anemia. Stable. 10. Gastroesophageal reflux disease. Continue on Prilosec. 11. Disposition. The patient will be going to [facility] for rehab once insurance approval has been obtained. cc: Darline Pizano MD
[2019-03-13] MEDS: FISH OIL CONCENTRATE PO SCH (21:44)
[2019-03-13] MEDS: REMERON PO SCH (21:44)
[2019-03-13] MEDS: PRAVACHOL PO SCH (21:44)
[2019-03-13] MEDS: XALATAN 0.005% OPH SOLN RIGHT EYE SCH (21:45)
[2019-03-14] MEDS: TAZIDIME 1 GM in NS 50 ML IV SCH ×4 (01:56→17:28)
[2019-03-14] MEDS: PRILOSEC PO SCH ×2 (05:40→06:02)
[2019-03-14] MEDS: APRESOLINE PO SCH ×3 (05:41→22:32)
[2019-03-14] MEDS: HUMULIN R SUBQ SCH ×3 (06:04→16:31)
[2019-03-14 06:36] LABS: HEMATOCRIT 22.5 % (42.0-52.0); HEMOGLOBIN 6.9 g/dL (14.0-18.0); MCH 30.8 PG (27-31); MCHC 30.7 g/dL (33-37); MCV 100.4 FL (81-99); MPV 9.1 FL (7.4-10.4); RBC 2.24 XMIL (4.7-6.1); RDW 16.8 % (11.5-14.5); WBC 8.57 X1000 (4.8-10.8)
[2019-03-14 07:14] LABS: CALCIUM 7.9 mg/dL (8.8-10.2); CREATININE 1.6 mg/dL (0.7-1.2); POTASSIUM 4.5 mmol/L (3.5-5.1)
--- NOTE | 2019-03-14 07:33 | PROGRESS NOTE ---
DATE: 03/14/2019 SUBJECTIVE: Mr. Hickey's left upnbv-hqw-iics amputation site seems to be healing well without evidence complication. IMPRESSION: His right heel was pressure ulcer and eschar is being treated with heel protectors. He is receiving IV antibiotics per Dr. Russo and physical therapy. cc: Amelia Choi MD
[2019-03-14] MEDS: PERIDEX MT SCH ×2 (08:28→22:31)
[2019-03-14] MEDS: MEGACE LIQUID PO SCH ×2 (08:28→22:31)
[2019-03-14] MEDS: MIRALAX PO SCH (08:28)
[2019-03-14] MEDS: COLACE PO SCH (08:29)
[2019-03-14] MEDS: COREG PO SCH ×2 (08:29→22:31)
[2019-03-14] MEDS: CORDARONE PO SCH (08:29)
[2019-03-14] MEDS: SANTYL OINT TOP SCH ×2 (14:19→22:32)
--- NOTE | 2019-03-14 14:39 | INFECTIOUS DISEASE PROGRESS NO ---
DATE: 03/14/2019 PRESENT ILLNESS: The patient has a Proteus bacteremia which hematogenously could have infected the metal that the patient has on his spine. MEDICATIONS: The patient has been receiving ceftazidime now for 16 days. PHYSICAL EXAMINATION: Vital Signs: Temperature is 98.1 degrees, pulse 77, respirations 18, blood pressure 149/39. General: This is an ill-appearing, elderly male. He is sleeping. He is in no acute distress. Head, Eyes, Ears, Nose, and Throat: No drainage was noted coming from the nose or ears. Neck: When I passively moved the patient's head, it did not seem to hurt him in his neck. Lungs: Clear to auscultation. Cardiovascular: Heart rate is regular. Abdomen: Soft and nontender. Extremities: The patient's left above the amputation site is not erythematous or draining. The patient's right heel has a black eschar which is surrounded by erythema. LAB AND X-RAY: There is no new radiographic study. CBC shows a white count of 8570, hemoglobin 6.9, and platelet count 564,000. Creatinine is 1.6. GFR is 42. ASSESSMENT AND PLAN: My plan is to continue the patient for a total of 6 weeks with ceftazidime because, as mentioned above, the Proteus bacteremia could have hematogenously infected the patient's spine metal. COMORBIDITIES: Diabetes mellitus, the patient is elderly, he has chronic kidney disease, as well as peripheral vascular disease. cc: Zak Russo MD
--- NOTE | 2019-03-14 15:40 | PROGRESS NOTE ---
DATE: 03/14/2019 SUBJECTIVE: The patient is resting comfortably in bed. No acute events noted overnight. OBJECTIVE: Vital Signs: Temperature 98.5, blood pressure 126/41, heart rate 73, respirations 18. O2 sats 99% on room air. General: This is a chronically ill-appearing male lying in bed in no acute distress. Heart: S1, S2 normal. Lungs: Equal air entry bilaterally. Abdomen: Positive bowel sounds. Soft, nontender, nondistended. Extremities: The patient's left AKA site is healing well. Neurologic: The patient is awake with periods of confusion. LABS: Hemoglobin 6.9, hematocrit 22, platelets 564,000. Sodium 140, potassium 4.5, BUN 14, creatinine 1.6, glucose 107. ASSESSMENT AND PLAN: 1. Bacteremia secondary to Proteus. Continue on antibiotic therapy. 2. Urinary tract infection secondary to Pseudomonas. Continue with antibiotic therapy. 3. Anemia. Will transfuse 1 unit of packed red blood cells. 4. Status post left AKA. Continue with wound care. 5. Acute kidney injury on chronic kidney disease. Stable. 6. Severe protein calorie malnutrition. Continue with Megace and meal supplementation. 7. Atrial fibrillation. Rate controlled. Continue on Coreg and amiodarone. 8. Diabetes mellitus type 2. Continue on sliding scale insulin. 9. GERD. Continue on Prilosec. 10. Disposition. The patient will be going to [facility] once insurance approval has been obtained. cc: Darline Pizano MD [facility]TDD
[2019-03-14] MEDS: REMERON PO SCH (22:31)
[2019-03-14] MEDS: PRAVACHOL PO SCH (22:31)
[2019-03-14] MEDS: XALATAN 0.005% OPH SOLN RIGHT EYE SCH (22:32)
[2019-03-14] MEDS: FISH OIL CONCENTRATE PO SCH (22:32)
[2019-03-15] MEDS: TAZIDIME 1 GM in NS 50 ML IV SCH ×3 (01:05→17:13)
[2019-03-15] MEDS: HUMULIN R SUBQ SCH ×5 (02:55→17:48)
[2019-03-15] MEDS: NORCO-10 PO PRN ×2 (05:07→14:03)
[2019-03-15] MEDS: APRESOLINE PO SCH ×3 (05:08→22:01)
[2019-03-15] MEDS: PRILOSEC PO SCH ×2 (05:08→06:00)
[2019-03-15] MEDS: COLACE PO SCH (09:17)
[2019-03-15] MEDS: CORDARONE PO SCH (09:17)
[2019-03-15] MEDS: COREG PO SCH ×2 (09:17→22:01)
[2019-03-15] MEDS: MEGACE LIQUID PO SCH ×2 (09:17→22:02)
[2019-03-15] MEDS: PERIDEX MT SCH ×2 (09:17→22:02)
[2019-03-15] MEDS: MIRALAX PO SCH (09:18)
[2019-03-15 11:22] LABS: HEMATOCRIT 30.6 % (42.0-52.0); HEMOGLOBIN 9.8 g/dL (14.0-18.0); MCV 93.6 FL (81-99); RBC 3.27 XMIL (4.7-6.1); RDW 17.4 % (11.5-14.5); WBC 8.15 X1000 (4.8-10.8)
[2019-03-15 11:40] LABS: CALCIUM 7.9 mg/dL (8.8-10.2); CREATININE 1.6 mg/dL (0.7-1.2)
--- NOTE | 2019-03-15 12:51 | PROGRESS NOTE ---
DATE: 03/15/2019 SUBJECTIVE: Mr. Hickey's left wbqgm-xlb-nezg amputation site seems to be healing well. He has an eschar involving his right heel, but it appears to be otherwise clean without any evidence of purulence, and that is being treated with no weightbearing and heel protectors. He is receiving physical therapy, and he is receiving IV antibiotics through a PICC line, right upper extremity. cc: Amelia Choi MD
--- NOTE | 2019-03-15 14:26 | PROGRESS NOTE ---
DATE: 03/15/2019 SUBJECTIVE: The patient is resting comfortably in bed. He does have periods of confusion. He did not want to eat his breakfast this morning. OBJECTIVE: Vital Signs: Temperature 98.9 degrees, blood pressure 154/58, heart rate 73, respirations 16, O2 saturation 96% on room air. General: This is a chronically ill-appearing, elderly male, lying in bed, in no acute distress. Heart: S1, S2 normal. Regular rate and rhythm. Lungs: Clear to auscultation bilaterally. Abdomen: Positive bowel sounds. Soft, nontender, nondistended. Extremities: The patient has a left rkiga-snq-uuvd amputation. Neurologic: The patient is oriented to person. He is able to move his extremities. LABORATORY DATA: White blood cell count 8.1, hemoglobin 9.8, hematocrit 30, platelets 471,000. Sodium 143, potassium 4, chloride 112, CO2 21, BUN 16, creatinine 1.6, glucose 152. ASSESSMENT AND PLAN: 1. Bacteremia secondary to Proteus. Continue with antibiotic therapy. 2. Urinary tract infection secondary to Pseudomonas. Continue on antibiotics. 3. Anemia. Improved. The patient received 1 unit of packed red blood cells on March 14. 4. Status post left AKA. Continue with wound care. 5. Chronic kidney disease. Stable. 6. Atrial fibrillation. The patient is rate controlled. Continue on Coreg and amiodarone. 7. Diabetes mellitus type 2. Continue on sliding scale insulin. 8. Delirium. This is likely secondary to the patient's underlying infections. 9. Severe protein calorie malnutrition. Continue with Megace and meal supplementation. 10. Disposition. The patient will be discharged to [facility] once insurance approval has been obtained. Continue with physical therapy. cc: Darline Pizano MD
[2019-03-15] MEDS: SANTYL OINT TOP SCH ×2 (18:17→22:02)
[2019-03-15] MEDS: PRAVACHOL PO SCH (22:01)
[2019-03-15] MEDS: REMERON PO SCH (22:01)
[2019-03-15] MEDS: FISH OIL CONCENTRATE PO SCH (22:01)
[2019-03-15] MEDS: XALATAN 0.005% OPH SOLN RIGHT EYE SCH (22:02)
[2019-03-16] MEDS: APRESOLINE PO SCH ×3 (06:17→21:19)
[2019-03-16] MEDS: HUMULIN R SUBQ SCH ×5 (06:17→21:20)
[2019-03-16] MEDS: TAZIDIME 1 GM in NS 50 ML IV SCH ×2 (06:24→13:16)
[2019-03-16 07:04] LABS: HEMATOCRIT 30.9 % (42.0-52.0); HEMOGLOBIN 9.9 g/dL (14.0-18.0); MCH 30.8 PG (27-31); MCV 96.3 FL (81-99); MPV 8.9 FL (7.4-10.4); RBC 3.21 XMIL (4.7-6.1); RDW 17.4 % (11.5-14.5); WBC 7.51 X1000 (4.8-10.8)
[2019-03-16] MEDS: DILAUDID IV PRN (07:39)
[2019-03-16 07:44] LABS: CREATININE 1.6 mg/dL (0.7-1.2)
[2019-03-16] MEDS: MIRALAX PO SCH (09:37)
[2019-03-16] MEDS: MEGACE LIQUID PO SCH ×2 (09:38→21:20)
[2019-03-16] MEDS: COLACE PO SCH (09:38)
[2019-03-16] MEDS: PERIDEX MT SCH ×2 (09:38→21:20)
[2019-03-16] MEDS: COREG PO SCH ×2 (09:38→21:19)
[2019-03-16] MEDS: CORDARONE PO SCH (09:38)
[2019-03-16] MEDS: PRILOSEC PO SCH (09:39)
[2019-03-16] MEDS: SANTYL OINT TOP SCH ×2 (09:40→21:19)
[2019-03-16] MEDS: NORCO-10 PO PRN (12:19)
--- NOTE | 2019-03-16 17:24 | INFECTIOUS DISEASE PROGRESS NO ---
DATE: 03/16/2019 PRESENT ILLNESS: The patient had a Proteus bacteremia which has been treated with intravenous antibiotics for a 2 week period. Now, I am continuing treatment of the Proteus organism in case the metal on the patient's spine may have become infected hematogenously. MEDICATIONS: I have discontinued ceftazidime, and I have put the patient on Keflex. My suggestion would be the dose of the Keflex to be 500 mg p.o. every 8 hours for a total of 3 weeks. PHYSICAL EXAMINATION: Vital Signs: Temperature is 97.3, pulse 70, respirations 16, blood pressure 132/44. General: This is an ill-appearing, elderly male. He is sleeping. He is in no acute distress. HEENT: No drainage was seen coming from the nose or ears. Neck: No pain with passive movement. Lungs: Clear to auscultation. Cardiovascular: Heart rate is regular. Abdomen: Soft and not tender. Extremities: The patient's left silob-rco-nvgx amputation incision is intact. It is not erythematous or draining. The patient's right heel still has erythema with a black eschar in the middle. LABORATORY AND X-RAY: There are no new x-ray findings. The creatinine is 1.6. GFR is 42. CBC shows a white count of 7510, hemoglobin 9.9, and platelet count 455,000. ASSESSMENT AND PLAN: I suggest continuing the patient's Keflex for 3 more weeks at the dose of 500 mg p.o. every 8 hours. This is being done in case the patient infected the metal he has on his spine while the patient was bacteremic. I am signing off on the patient's case but I am available to see him on a p.r.n. basis. COMORBIDITIES: Include diabetes mellitus. The patient is elderly. He has chronic kidney disease and peripheral vascular disease. cc: Zak Russo MD
--- NOTE | 2019-03-16 19:40 | PROGRESS NOTE ---
DATE: 03/16/2019 SUBJECTIVE: The patient is resting comfortably in bed. No acute events noted overnight. OBJECTIVE: Vital Signs: Temperature 97.9 degrees, blood pressure 141/52, heart rate 68, respirations 16, O2 saturation 99% on room air. General: This is a chronically ill-appearing elderly male lying in bed in no acute distress. Heart: S1, S2 normal. Lungs: Clear to auscultation bilaterally. Abdomen: Positive bowel sounds. Soft, nontender, nondistended. Extremities: The patient has a left ddnhm-sva-atmq amputation site. Neurologic: The patient is alert and oriented x3. LABORATORY DATA: Sodium 137, potassium 4, BUN 17, creatinine 1.6. White blood cell count 7.5, hemoglobin 9.9, hematocrit 30, platelets 455,000. Glucose 149. ASSESSMENT AND PLAN: 1. Bacteremia secondary to Proteus. The patient has been changed over to Keflex by Dr. Russo. We will continue with this antibiotic as ordered. 2. Urinary tract infection secondary to Pseudomonas. Continue with oral antibiotic therapy. 3. Status post left above-knee amputation. Continue with wound care. 4. Anemia. Improved. 5. Atrial fibrillation. The patient is rate controlled. Continue on Coreg and amiodarone. 6. Diabetes mellitus type 2. Continue on sliding scale insulin. 7. Delirium. Slightly improved today. 8. Severe protein calorie malnutrition. Continue with Megace and meal supplementation. 9. Chronic kidney disease stage 3. Stable. 10. Disposition. The patient will be discharged to inpatient rehab once the patient's insurance gives approval. cc: Darline Pizano MD
[2019-03-16] MEDS: XALATAN 0.005% OPH SOLN RIGHT EYE SCH (21:19)
[2019-03-16] MEDS: KEFLEX PO SCH (21:19)
[2019-03-16] MEDS: FISH OIL CONCENTRATE PO SCH (21:19)
[2019-03-16] MEDS: PRAVACHOL PO SCH (21:19)
[2019-03-16] MEDS: REMERON PO SCH (21:19)
[2019-03-17] MEDS: KEFLEX PO SCH ×3 (06:23→23:17)
[2019-03-17] MEDS: HUMULIN R SUBQ SCH ×4 (06:24→22:52)
[2019-03-17] MEDS: APRESOLINE PO SCH ×4 (06:24→23:31)
[2019-03-17] MEDS: PRILOSEC PO SCH (06:24)
[2019-03-17 06:56] LABS: HEMATOCRIT 31.3 % (42.0-52.0); MCHC 31.9 g/dL (33-37); MCV 96.9 FL (81-99); MPV 9.2 FL (7.4-10.4); RBC 3.23 XMIL (4.7-6.1); RDW 17.5 % (11.5-14.5); WBC 8.19 X1000 (4.8-10.8)
[2019-03-17 07:04] LABS: CREATININE 1.8 mg/dL (0.7-1.2); POTASSIUM 4.3 mmol/L (3.5-5.1)
[2019-03-17] MEDS: NS 1,000 ML IV SCH ×3 (11:12→23:40)
[2019-03-17] MEDS: SANTYL OINT TOP SCH ×3 (11:12→23:28)
[2019-03-17] MEDS: CORDARONE PO SCH (11:13)
[2019-03-17] MEDS: COLACE PO SCH (11:13)
[2019-03-17] MEDS: COREG PO SCH ×2 (11:13→23:17)
[2019-03-17] MEDS: MIRALAX PO SCH (11:13)
[2019-03-17] MEDS: MEGACE LIQUID PO SCH ×2 (11:13→23:16)
[2019-03-17] MEDS: PERIDEX MT SCH ×2 (11:14→23:16)
[2019-03-17] MEDS: NORCO-10 PO PRN ×2 (14:08→23:37)
--- NOTE | 2019-03-17 18:04 | PROGRESS NOTE ---
DATE: 03/17/2019 SUBJECTIVE: The patient is resting comfortably in bed. No acute events noted overnight. OBJECTIVE: Vital Signs: Temperature 98.5 degrees, blood pressure 137/39, heart rate 70, respirations 18, O2 saturation is 98% on room air. General: This is an elderly male lying in bed in no acute distress. Heart: S1, S2, normal. Lungs: Clear to auscultation bilaterally. Abdomen: Positive bowel sounds. Soft, nontender, nondistended. Extremities: No edema, no cyanosis. Neurologic: The patient is alert and oriented x3. LABORATORY DATA: Sodium 137, potassium 4.3, chloride 107, CO2 is 22, BUN 24, creatinine 1.8, glucose 163. ASSESSMENT AND PLAN: 1. Bacteremia secondary to Proteus. Continue on Keflex. 2. Status post left fwsox-rvj-idmv amputation. Continue with wound care. 3. Anemia. Improved. 4. Urinary tract infection secondary to pseudomonas. Resolved. 5. Diabetes mellitus type 2. Continue on sliding scale insulin. 6. Severe protein-calorie malnutrition. Continue with meal supplementation. 7. Chronic kidney disease stage 3. Stable. 8. Disposition. The patient will be discharged to inpatient rehab once the patient's insurance gives approval. cc: Darline Pizano MD
[2019-03-17] MEDS: XALATAN 0.005% OPH SOLN RIGHT EYE SCH (23:15)
[2019-03-17] MEDS: FISH OIL CONCENTRATE PO SCH (23:16)
[2019-03-17] MEDS: REMERON PO SCH (23:17)
[2019-03-17] MEDS: PRAVACHOL PO SCH (23:17)
[2019-03-18] MEDS: NS 1,000 ML IV SCH ×2 (04:29→21:54)
[2019-03-18] MEDS: TYLENOL PO PRN (05:21)
[2019-03-18] MEDS: KEFLEX PO SCH ×3 (05:22→21:57)
[2019-03-18] MEDS: APRESOLINE PO SCH ×3 (05:22→21:55)
[2019-03-18] MEDS: PRILOSEC PO SCH (05:22)
[2019-03-18] MEDS: COREG PO SCH ×3 (06:13→21:55)
[2019-03-18] MEDS: HUMULIN R SUBQ SCH ×5 (06:52→22:06)
[2019-03-18 07:00] LABS: HEMATOCRIT 29.5 % (42.0-52.0); HEMOGLOBIN 9.3 g/dL (14.0-18.0); MCH 31.2 PG (27-31); MCHC 31.5 g/dL (33-37); MPV 9.4 FL (7.4-10.4); RBC 2.98 XMIL (4.7-6.1); RDW 17.5 % (11.5-14.5); WBC 9.37 X1000 (4.8-10.8)
[2019-03-18 07:21] LABS: CALCIUM 7.6 mg/dL (8.8-10.2); CREATININE 1.8 mg/dL (0.7-1.2); POTASSIUM 4.6 mmol/L (3.5-5.1)
[2019-03-18] MEDS: MIRALAX PO SCH (08:12)
[2019-03-18] MEDS: PERIDEX MT SCH ×3 (08:13→22:08)
[2019-03-18] MEDS: CORDARONE PO SCH (08:13)
[2019-03-18] MEDS: COLACE PO SCH (08:13)
[2019-03-18] MEDS: MEGACE LIQUID PO SCH ×3 (08:13→22:08)
--- NOTE | 2019-03-18 12:35 | PROGRESS NOTE ---
DATE: 03/18/2019 SUBJECTIVE: The patient is resting comfortably. No acute events noted overnight. OBJECTIVE: Vital signs: Temperature 97 degrees, blood pressure 151/49, heart rate 71, respirations 20, O2 saturation 98% on room air. General: This is a chronically ill appearing elderly male lying in bed in no acute distress. Heart: S1, S2 normal. Regular rate and rhythm. Lungs: Equal air entry bilaterally. No crackles. No rales. Abdomen: Positive bowel sounds. Soft, nontender, nondistended. Extremities: The left AKA site is clean, dry and intact. Neurologic: The patient is alert and oriented. LABORATORIES: White blood cell count 9.3, hemoglobin 9.3, hematocrit 29, platelets 360,000. Sodium 140, potassium 4.6, chloride 110, CO2 20, BUN 30, creatinine 1.8, glucose 220, and calcium 7.6. ASSESSMENT AND PLAN: 1. Bacteremia secondary to Proteus. Continue on Keflex. 2. Status post left mbcyv-apq-yxdu amputation. Continue with wound care. 3. Anemia. Stable. 4. Chronic kidney disease stage 3. Stable. 5. Diabetes mellitus type 2. Continue on sliding scale insulin. 6. Urinary tract infection secondary to Pseudomonas. Resolved. 7. Atrial fibrillation. The patient is rate controlled. Continue on the current cardiac medications. 8. Disposition. The patient will be discharged to inpatient rehab once the patient's insurance gives approval. cc: Darline Pizano MD
[2019-03-18] MEDS: SANTYL OINT TOP SCH ×2 (15:11→21:56)
[2019-03-18 16:08] LABS: URINE SOURCE CATH
[2019-03-18] MEDS: NORCO-10 PO PRN ×2 (16:12→21:58)
[2019-03-18 16:14] LABS: BILIRUBIN URINE NEGATIVE (NEGATIVE); BLOOD URINE TRACE (NEGATIVE); COLOR YELLOW; GLUCOSE URINE TRACE mg/dL (NEGATIVE); KETONE URINE NEGATIVE (NEGATIVE); LEUKOCYTES URINE NEGATIVE (NEGATIVE); NITRITE URINE NEGATIVE (NEGATIVE); PH URINE 6.5; PROTEIN URINE 200 mg/dL (NEGATIVE); SP GRAVITY URINE 1.015; TURBIDITY URINE CLEAR (CLEAR); UROBILINOGEN URINE NORMAL (NORMAL)
[2019-03-18 16:15] LABS: UR EPITHELIAL CELLS <10 /HPF (<10); URINE BACTERIA NEGATIVE /HPF; URINE RBC 20-40 /HPF (<10); URINE WBC <10 /HPF (<10)
[2019-03-18] MEDS ORDERED: FLOMAX PO SCH (21:00)
[2019-03-18] MEDS: XALATAN 0.005% OPH SOLN RIGHT EYE SCH (21:56)
[2019-03-18] MEDS: PRAVACHOL PO SCH (21:57)
[2019-03-18] MEDS: FISH OIL CONCENTRATE PO SCH (21:57)
[2019-03-18] MEDS: REMERON PO SCH (21:57)
[2019-03-19] MEDS: HUMULIN R SUBQ SCH (06:05)
[2019-03-19] MEDS: KEFLEX PO SCH (06:11)
[2019-03-19] MEDS: APRESOLINE PO SCH (06:12)
[2019-03-19] MEDS: PRILOSEC PO SCH ×2 (06:12→06:18)
[2019-03-19 07:35] LABS: HEMATOCRIT 30.7 % (42.0-52.0); HEMOGLOBIN 9.6 g/dL (14.0-18.0); MCHC 31.3 g/dL (33-37); MCV 95.9 FL (81-99); MPV 9.3 FL (7.4-10.4); RBC 3.2 XMIL (4.7-6.1); RDW 17.3 % (11.5-14.5); WBC 9.54 X1000 (4.8-10.8)
[2019-03-19 07:42] LABS: CALCIUM 7.8 mg/dL (8.8-10.2); CREATININE 1.7 mg/dL (0.7-1.2); POTASSIUM 4.8 mmol/L (3.5-5.1)
[2019-03-19] MEDS: CORDARONE PO SCH (10:10)
[2019-03-19] MEDS: COREG PO SCH (10:10)
[2019-03-19] MEDS: PERIDEX MT SCH (10:10)
[2019-03-19] MEDS: SANTYL OINT TOP SCH (10:10)
[2019-03-19] MEDS: COLACE PO SCH (10:10)
[2019-03-19] MEDS: MIRALAX PO SCH (10:10)
[2019-03-19] MEDS: MEGACE LIQUID PO SCH (10:10)
--- NOTE | 2019-03-19 11:20 | DISCHARGE SUMMARY ---
ADMISSION DATE: 02/22/2019 DISCHARGE DATE: FINAL DISCHARGE DIAGNOSES: 1. Bacteremia secondary to Proteus. 2. 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 3. Paroxysmal atrial fibrillation. 4. Anemia of chronic disease. 5. Chronic kidney disease stage III. 6. Diabetes mellitus type 2. 7. Urinary tract infection secondary to Pseudomonas. 8. Hypertension. 9. Gastroesophageal reflux disease. 10. Severe protein calorie malnutrition. 11. Delirium. CONSULTATIONS REQUESTED DURING THIS HOSPITAL STAY: 1. General Surgery consultation with Dr. Choi. 2. Infectious Disease consultation with Dr. Zak Russo. IMAGIN. Portable chest x-ray performed on 02/22/2019 that revealed pneumonia in the left lower lobe. 2. Head CT performed on 02/22/2019 that revealed chronic appearing white matter changes. HOSPITAL COURSE: Mr. Hickey is an 83-year-old male with a history of paroxysmal atrial fibrillation, hypertension and diabetes who presented with sepsis. On admission, blood and urine cultures were obtained, and the patient was started on broad-spectrum antibiotic therapy. The initial chest x-ray did reveal left lower lobe pneumonia. Infectious Disease as well as General Surgery were consulted. There was concern about infection of the [id number] amputation site. Ultimately, the blood cultures grew out Proteus and the wound culture from the amputation site grew out methicillin-resistant Staphylococcus aureus. On 03/05/2019, the patient was taken to the OR and underwent a left [id number] amputation. The patient's antibiotics were adjusted following the results of the cultures. The patient had a prolonged hospitalization due to the multiple infections. Repeat blood cultures were obtained on 02/26/2019 that were noted to be negative with no growth after 5 days. The patient continued to improve clinically and his IV antibiotics were discontinued and he was started on Keflex 500 mg oral every 8 hours. The patient will need to continue on this antibiotic for at least 3 weeks due to the fact that he possibly has metal in his spine. Physical therapy has been working with the patient and he is an appropriate candidate for inpatient rehab. A referral was sent to [facility] in [place]. The patient was accepted for transfer to inpatient rehab on 03/19/2019. FINAL DISCHARGE MEDICATIONS: 1. Cephalexin 500 mg oral every 8 hours x3 weeks. 2. Megace 200 mg oral twice a day. 3. Flomax 0.4 mg oral at bedtime. 4. Hydralazine 25 mg oral every 8 hours. 5. Pravachol 40 mg oral daily. 6. Amaryl 4 mg oral daily. 7. Coreg 25 mg oral twice a day. 8. Colace 100 mg oral daily. 9. Prilosec 40 mg p.o. daily. 10. DuoNeb 1 nebulization every 6 hours p.r.n. for shortness of breath. 11. Amiodarone 200 mg oral daily. 12. MiraLAX 17 g oral daily. 13. Boswell 10/325 one tab oral every 6 hours p.r.n. for pain. 14. Eliquis 2.5 mg oral twice a day. 15. Remeron 15 mg oral at bedtime. DISCHARGE DIET: 1800 ADA diet, low-sodium diet. ACTIVITY: As tolerated. FOLLOWUP INSTRUCTIONS: The patient will need to follow up with Dr. Choi as scheduled by his clinic. cc: Darline Pizano MD MTDD
[2019-03-19 11:44] VITALS: BP 186/57
== END 2019-03-19 13:24 | DRG 474 ==
LOC: SUPCPDRO → ED 09:16 → EDIPHOLD 15:06 → SUATTDRO 15:06 → ICU 22:16 → 3S 02-26 23:25 → 4N 03-05 17:11
PROVIDERS: ATTEND Internal Medicine
CPT/HCPCS: 36430; 36569; 51701; 70450; 71010; 71045; 80048; 80053; 80069; 81001; 82550; 82553; 82570; 82607; 82746; 82948; 83605; 83735; 83935; 84100; 84134; 84156; 84300; 84439; 84443; 84484; 85025; 85027; 85610; 85730; 86850; 86900; 86901; 86920; 87040; 87070; 87077; 87088; 87186; 87205; 88307; 93005; 94760; 94761; 96365; 96366; 96367; 96368; 96375; 97110; 97162; 97166; 97168; 97530; 97535; 99285; A9270; J0131; J0696; J0713; J0878; J1170; J1650; J1956; J2020; J2185; J2270; J2405; J2543; J3010; J3370; J3475; J7030; J7042; J7050; J7121; P9016; P9612; S0179; XXXXX